=== PATIENT | male | born 2000 | race Caucasian/White ===

== ENCOUNTER → 2018-09-12 | Outpatient (CLI) | payer OTHER ==
[~2018-09-12] MED LIST: MULTTAB50 PO
[2018-09-12 10:34] LABS: BASO % 0.4 % (0.0-1.0); EOS # 0.2 10^3/uL (0.0-0.50); HEMATOCRIT 44.6 % (42.0-52.0); HEMOGLOBIN 14.9 g/dl (13.5-17.5); LYMPH # 1.7 10^3/uL (1.5-6.5); LYMPH % 24.6 % (24.0-44.0); MEAN CORPUSCULAR HEMOGLOBIN 28.4 pg (27.0-33.0); MEAN CORPUSCULAR HGB CONC 33.4 g/dl (32.0-36.5); MEAN CORPUSCULAR VOLUME 85.1 fl (80.0-96.0); MONO # 0.7 10^3/uL (0.0-0.8); MONO % 10.2 % (0.0-5.0); NEUTROPHILS # 4.3 10^3/uL (1.8-7.7); NEUTROPHILS % 61.4 % (36.0-66.0); PLATELET COUNT, AUTOMATED 244 10^3/uL (150-450); RED BLOOD COUNT 5.24 10^6/uL (4.30-6.10); WHITE BLOOD COUNT 6.9 10^3/uL (4.0-10.0)
[2018-09-12 11:08] LABS: ALBUMIN 3.8 GM/DL (3.2-5.2); ALT/SGPT 22 U/L (12-78); BILIRUBIN,DIRECT 0.2 MG/DL (0.0-0.2); BILIRUBIN,TOTAL 0.9 MG/DL (0.2-1.0); BLOOD UREA NITROGEN 14 MG/DL (7-18); C REACTIVE PROTEIN QUANTITATIV < 0.30 MG/DL (0.00-0.30); CALCIUM LEVEL 8.7 MG/DL (8.5-10.1); CARBON DIOXIDE LEVEL 29 MEQ/L (21-32); CHLORIDE LEVEL 107 MEQ/L (98-107); CREATININE FOR GFR 1.12 MG/DL (0.70-1.30); FERRITIN 49 NG/ML (26-388); GLUCOSE, FASTING 91 MG/DL (70-100); IRON (FE) 71 UG/DL (65-175); PERCENT SATURATION 22.3 % (19.7-50.0); POTASSIUM SERUM 4.2 MEQ/L (3.5-5.1); SODIUM LEVEL 141 MEQ/L (136-145); TOTAL IRON BINDING CAPACITY 318 UG/DL (250-450); TOTAL PROTEIN 7.3 GM/DL (6.4-8.2)
[2018-09-12 11:23] LABS: ERYTHROCYTE SEDIMENTATION RATE 6 mm/hr (0-15)
[2018-09-14 09:26] LABS: FOLATE > 24.0 NG/ML; VITAMIN B12 LEVEL 738 PG/ML
== END ==
LOC: M LAB 10:09
PROVIDERS: ATTEND Internal Medicine Gastroenterology
DX: K51.90 Ulcerative colitis, unspecified, without complications (principal); K52.3 Indeterminate colitis

== ENCOUNTER → 2018-10-07 | Outpatient (REF) | payer OTHER | LOC: M LAB REF 15:40 | PROVIDERS: ATTEND Internal Medicine Gastroenterology | DX: K90.0 Celiac disease (principal); K51.90 Ulcerative colitis, unspecified, without complications ==

== ENCOUNTER 2019-06-21 12:14 | Day surgery (SDC) | payer OTHER ==
[~2019-06-21] VITALS: Ht 172.7 cm; Wt 88.0 kg
[~2019-06-21 12:14] MED LIST changes: +LIDOCAINE 2% INJ 100 MG/5 ML SDV (FOR ANES.) As Ordered ONE; +MESA400C2 PO; +NS 1,000 ML IV ONE; +[UNRECOGNIZED DRUG - CODE] PO; +[UNRECOGNIZED DRUG - OTHER] PO; +propofoL 200 MG/20 ML VIAL As Ordered ONE
[2019-06-21] MEDS ORDERED: fentaNYL 100 MCG/2 ML INJECTION (J3010) As Ordered ONE (12:45)
[2019-06-21] MEDS ORDERED: propofoL 200 MG/20 ML VIAL As Ordered ONE (13:24)
--- NOTE | 2019-06-21 13:41 | ROOR ---
Patient Name: Daniel Myers Procedure Date: 06/21/2019 1:01 PM Date of : 2000 Age: 18 Room: [facility] Gender: Male Note Status: Finalized Procedure: Upper GI endoscopy Indications: Follow-up of celiac disease Providers: Eliel Quiroz MD Referring MD: WILDA MAYES MD Requesting Provider: Medicines: Monitored Anesthesia Care Complications: No immediate complications. Procedure: Pre-Anesthesia Assessment: - Prior to the procedure, a History and Physical was performed, and patient medications and allergies were reviewed. The patient is competent. The risks and benefits of the procedure and the sedation options and risks were discussed with the patient. All questions were answered and informed consent was obtained. Patient identification and proposed procedure were verified by the physician, the nurse and the anesthesiologist in the procedure room. Mental Status Examination: alert and oriented. Airway Examination: normal oropharyngeal airway and neck mobility. Respiratory Examination: clear to auscultation. CV Examination: normal. Prophylactic Antibiotics: The patient does not require prophylactic antibiotics. Prior Anticoagulants: The patient has taken no previous anticoagulant or antiplatelet agents. ASA Grade Assessment: II - A patient with mild systemic disease. After reviewing the risks and benefits, the patient was deemed in satisfactory condition to undergo the procedure. The anesthesia plan was to use monitored anesthesia care (MAC). Immediately prior to administration of medications, the patient was re-assessed for adequacy to receive sedatives. The heart rate, respiratory rate, oxygen saturations, blood pressure, adequacy of pulmonary ventilation, and response to care were monitored throughout the procedure. The physical status of the patient was re-assessed after the procedure. The Endoscope was introduced through the mouth, and advanced to the second part of duodenum. The upper GI endoscopy was accomplished without difficulty. The patient tolerated the procedure well. Findings: The examined esophagus was normal. The Z-line was irregular and was found 40 cm from the incisors. Patchy mildly erythematous mucosa without bleeding was found in the gastric antrum. Scattered moderate inflammation characterized by erythema and granularity was found in the duodenal bulb and in the first portion of the duodenum. Biopsies for histology were taken with a cold forceps for evaluation of celiac disease. Impression: - Normal esophagus. - Z-line irregular, 40 cm from the incisors. - Erythematous mucosa in the antrum. - Duodenitis. Biopsied. Recommendation: - Patient has a contact number available for emergencies. The signs and symptoms of potential delayed complications were discussed with the patient. Return to normal activities tomorrow. Written discharge instructions were provided to the patient. - Resume previous diet. - Gluten free diet. - Continue present medications. - Await pathology results. - Return to GI clinic in [facility] (address [address], [address], [place] [address]) in 4 -- 6 weeks. Please call GI clinic @ [phone] for apppointment date and time. - Return to primary care physician. Eliel Quiroz MD Eliel Quiroz MD 06/21/2019 1:41:11 PM Electronically signed by Eleil Quiroz MD Number of Addenda: 0 Note Initiated On: 06/21/2019 1:01 PM Estimated Blood Loss: Estimated blood loss was minimal.
--- NOTE | 2019-06-21 13:48 | ROOR ---
Patient Name: Daniel Myers Procedure Date: 06/21/2019 1:02 PM Date of : 2000 Age: 18 Room: [facility] Gender: Male Note Status: Finalized Procedure: Colonoscopy Indications: Follow-up of ulcerative colitis Providers: Eliel Quiroz MD Referring MD: WILDA MAYES MD Requesting Provider: Medicines: Monitored Anesthesia Care Complications: No immediate complications. Procedure: Pre-Anesthesia Assessment: - Prior to the procedure, a History and Physical was performed, and patient medications and allergies were reviewed. The patient is competent. The risks and benefits of the procedure and the sedation options and risks were discussed with the patient. All questions were answered and informed consent was obtained. Patient identification and proposed procedure were verified by the physician, the nurse and the anesthesiologist in the procedure room. Mental Status Examination: alert and oriented. Airway Examination: normal oropharyngeal airway and neck mobility. Respiratory Examination: clear to auscultation. CV Examination: normal. Prophylactic Antibiotics: The patient does not require prophylactic antibiotics. Prior Anticoagulants: The patient has taken no previous anticoagulant or antiplatelet agents. ASA Grade Assessment: II - A patient with mild systemic disease. After reviewing the risks and benefits, the patient was deemed in satisfactory condition to undergo the procedure. The anesthesia plan was to use monitored anesthesia care (MAC). Immediately prior to administration of medications, the patient was re-assessed for adequacy to receive sedatives. The heart rate, respiratory rate, oxygen saturations, blood pressure, adequacy of pulmonary ventilation, and response to care were monitored throughout the procedure. The physical status of the patient was re-assessed after the procedure. The Colonoscope was introduced through the anus and advanced to the terminal ileum, with identification of the appendiceal orifice and IC valve. The colonoscopy was performed without difficulty. The patient tolerated the procedure well. The quality of the bowel preparation was good. The terminal ileum, ileocecal valve, appendiceal orifice, and rectum were photographed. Scope insertion time was 1 minute. Scope withdrawal time was 6 minutes. The total duration of the procedure was 8 minutes. Findings: The perianal and digital rectal examinations were normal. The terminal ileum appeared normal. Inflammation characterized by congestion (edema), erythema, loss of vascularity, mucus, confluent ulcerations and shallow ulcerations was found in a continuous and circumferential pattern from the rectum to the cecum. No sites were spared. This was graded as Haile Score 3 (severe, with spontaneous bleeding, ulcerations), and when compared to previous examinations, the findings are unchanged. Biopsies were taken with a cold forceps for histology. Fluid aspiration for microbiology was performed. Verification of patient identification for the specimen was done by the physician and nurse using the patient's name, date and medical record number. Estimated blood loss was minimal. Non-bleeding external and internal hemorrhoids were found during anoscopy. The hemorrhoids were medium-sized. Retroflexion in the rectum was not performed due to severe colitis. Impression: - The examined portion of the ileum was normal. - Pancolitis ulcerative colitis. Inflammation was found from the rectum to the cecum. This was graded as Haile Score 3 (severe disease), unchanged compared to previous examinations. Biopsied. Fluid aspiration performed. - Non-bleeding external and internal hemorrhoids. Recommendation: - Patient has a contact number available for emergencies. The signs and symptoms of potential delayed complications were discussed with the patient. Return to normal activities tomorrow. Written discharge instructions were provided to the patient. - Gluten free diet. - Continue present medications. - Await pathology results. - Use Entyvio (vedolizumab) intravenous infusion: 300 mg IV once per week at week 0, week 2, and week 6. - Return to GI clinic in [facility] (address [address], [address], [place], [facility]) in 4 -- 6 weeks. Please call GI clinic @ [phone] for apppointment date and time. - Return to primary care physician. Eliel Quiroz MD Eliel Quiroz MD 06/21/2019 1:47:39 PM Electronically signed by Eliel Quiroz MD Number of Addenda: 0 Note Initiated On: 06/21/2019 1:02 PM Estimated Blood Loss: Estimated blood loss was minimal.
[2019-06-21 14:00] VITALS: BP 139/83
== END 2019-06-21 14:26 | disposition home or self-care (01) ==
LOC: M OPP 12:14
PROVIDERS: ATTEND Internal Medicine Gastroenterology
DX: K64.8 Other hemorrhoids (principal); K51.00 Ulcerative (chronic) pancolitis without complications; K22.8 Other specified diseases of esophagus; K31.89 Other diseases of stomach and duodenum; K29.80 Duodenitis without bleeding; K90.0 Celiac disease
CPT/HCPCS: 43239; 45380; 87507; 88305; J3010

== ENCOUNTER 2019-07-26 13:21 | Outpatient (CLI) | payer OTHER ==
[~2019-07-26] VITALS: Ht 172.7 cm; Wt 87.9 kg
[~2019-07-26 13:21] MED LIST changes: -LIDOCAINE 2% INJ 100 MG/5 ML SDV (FOR ANES.) As Ordered ONE; -NS 1,000 ML IV ONE; -propofoL 200 MG/20 ML VIAL As Ordered ONE
[2019-07-26 13:45] VITALS: BP 124/59
[2019-07-26] MEDS ORDERED: ENTY1INJ IV (14:00)
[2019-07-26 14:25] VITALS: BP 119/67
[2019-07-26] MEDS ORDERED: VEDOLIZUMAB 300 MG in NS 250 ML IV ONE (14:30)
[2019-07-26 14:55] VITALS: BP 122/69
== END 2019-07-26 14:55 | disposition home or self-care (01) ==
LOC: M INFU 13:21
PROVIDERS: ATTEND Internal Medicine Gastroenterology
DX: K51.90 Ulcerative colitis, unspecified, without complications (principal)
CPT/HCPCS: 96365; J3380

== ENCOUNTER 2019-08-09 13:30 | Outpatient (CLI) | payer OTHER ==
[~2019-08-09] VITALS: Ht 172.7 cm; Wt 87.9 kg
[~2019-08-09 13:30] MED LIST changes: +ENTY1INJ IV
[2019-08-09 13:45] VITALS: BP 140/68
[2019-08-09] MEDS ORDERED: VEDOLIZUMAB 300 MG in NS 250 ML IV ONE (14:00)
[2019-08-09 14:40] VITALS: BP 130/66
== END 2019-08-09 14:40 | disposition home or self-care (01) ==
LOC: M INFU 13:30
PROVIDERS: ATTEND Internal Medicine Gastroenterology
DX: K51.90 Ulcerative colitis, unspecified, without complications (principal)
CPT/HCPCS: 96365; J3380

== ENCOUNTER → 2019-11-13 | Outpatient (CLI) | payer OTHER ==
[2019-11-13 13:21] LABS: BASO # 0.1 10^3/uL (0.0-0.2); BASO % 0.4 % (0.0-1.0); EOS % 0.2 % (0.0-3.0); HEMATOCRIT 43.9 % (42.0-52.0); HEMOGLOBIN 14.8 g/dl (13.5-17.5); LYMPH % 18.8 % (24.0-44.0); MEAN CORPUSCULAR HEMOGLOBIN 28.6 pg (27.0-33.0); MEAN CORPUSCULAR HGB CONC 33.7 g/dl (32.0-36.5); MEAN CORPUSCULAR VOLUME 84.9 fl (80.0-96.0); MONO # 1.6 10^3/uL (0.0-0.8); MONO % 9.8 % (0.0-5.0); NEUTROPHILS % 68.6 % (36.0-66.0); PLATELET COUNT, AUTOMATED 301 10^3/uL (150-450); RED BLOOD COUNT 5.17 10^6/uL (4.30-6.10)
[2019-11-13 13:50] LABS: ALBUMIN 3.6 GM/DL (3.2-5.2); ALT/SGPT 19 U/L (12-78); BILIRUBIN,DIRECT 0.1 MG/DL (0.0-0.2); BILIRUBIN,TOTAL 0.4 MG/DL (0.2-1.0); BLOOD UREA NITROGEN 19 MG/DL (7-18); C REACTIVE PROTEIN QUANTITATIV < 0.30 MG/DL (0.00-0.30); CREATININE FOR GFR 0.98 MG/DL (0.70-1.30); TOTAL PROTEIN 6.9 GM/DL (6.4-8.2)
[2019-11-13 14:17] LABS: ERYTHROCYTE SEDIMENTATION RATE 4 mm/hr (0-15)
== END ==
LOC: M LAB 12:14
PROVIDERS: ATTEND Internal Medicine Gastroenterology
DX: K51.00 Ulcerative (chronic) pancolitis without complications (principal)

== ENCOUNTER 2019-11-15 13:02 | Outpatient (CLI) | payer OTHER ==
[~2019-11-15] VITALS: Ht 172.7 cm; Wt 87.9 kg
[2019-11-15 13:57] VITALS: BP 141/95
[2019-11-15] MEDS ORDERED: VEDOLIZUMAB 300 MG in NS 250 ML IV ONE (14:00)
[2019-11-15 15:13] VITALS: BP 122/77
== END 2019-11-15 15:10 | disposition home or self-care (01) ==
LOC: M INFU 13:02
PROVIDERS: ATTEND Internal Medicine Gastroenterology
DX: K51.90 Ulcerative colitis, unspecified, without complications (principal)
CPT/HCPCS: 96365; J3380

== ENCOUNTER 2019-12-27 13:32 | Outpatient (CLI) | payer OTHER ==
[~2019-12-27] VITALS: Ht 175.3 cm; Wt 95.5 kg
[2019-12-27 13:45] VITALS: BP 146/62
[2019-12-27] MEDS ORDERED: VEDOLIZUMAB 300 MG in NS 250 ML IV ONE (14:00)
[2019-12-27 15:05] VITALS: BP 118/76
== END 2019-12-27 15:05 | disposition home or self-care (01) ==
LOC: M INFU 13:32
PROVIDERS: ATTEND Internal Medicine Gastroenterology
DX: K51.90 Ulcerative colitis, unspecified, without complications (principal)
CPT/HCPCS: 96365; J3380

== ENCOUNTER 2020-02-21 13:49 | Outpatient (CLI) | payer OTHER ==
[~2020-02-21] VITALS: Ht 175.3 cm; Wt 95.5 kg
[2020-02-21 13:55] VITALS: BP 149/67
[2020-02-21] MEDS ORDERED: VEDOLIZUMAB 300 MG in NS 250 ML IV ONE (14:00)
[2020-02-21 15:15] VITALS: BP 123/82
== END 2020-02-21 15:15 | disposition home or self-care (01) ==
LOC: M INFU 13:49
PROVIDERS: ATTEND Internal Medicine Gastroenterology
DX: K51.90 Ulcerative colitis, unspecified, without complications (principal)
CPT/HCPCS: 96365; J3380

== ENCOUNTER 2020-06-12 14:12 | Outpatient (CLI) | payer OTHER ==
[~2020-06-12] VITALS: Ht 175.3 cm; Wt 95.5 kg
[2020-06-12] MEDS ORDERED: VEDOLIZUMAB 300 MG in NS 250 ML IV ONE (14:30)
[2020-06-12 15:00] VITALS: BP 127/62
[2020-06-12 16:20] VITALS: BP 135/74
[2020-06-13] MEDS ORDERED: MULT-90 PO (14:45)
[2020-06-13] MEDS ORDERED: FIBE625T PO (14:45)
== END 2020-06-12 16:30 | disposition home or self-care (01) ==
LOC: M INFU 14:12
PROVIDERS: ATTEND Internal Medicine Gastroenterology
DX: K51.90 Ulcerative colitis, unspecified, without complications (principal)
CPT/HCPCS: 96365; J3380

== ENCOUNTER → 2020-06-14 | Outpatient (CLI) | payer OTHER ==
[~2020-06-14] MED LIST changes: +FIBE625T PO; +MULT-90 PO
== END ==
LOC: M LABSMTC 12:27
PROVIDERS: ATTEND Anesthesiology
DX: Z01.812 Encounter for preprocedural laboratory examination (principal); Z20.822 Contact with and (suspected) exposure to COVID-19

== ENCOUNTER 2020-06-19 09:15 | Day surgery (SDC) | payer OTHER ==
[~2020-06-19] VITALS: Ht 177.8 cm; Wt 90.6 kg
[~2020-06-19 09:15] MED LIST changes: +NS 1,000 ML IV ONE; +propofoL 500 MG/50 ML VIAL As Ordered ONE
--- OUTSIDE RECORDS SUMMARY | 2020-06-19 09:19 | CCD | Continuity of Care Document ---
Author Author Daniel LAINEZ M.D. Organization Unknown Address [address] [place] [id number] Phone [phone] Care Team Providers Care Front End Assistant Name Role Phone Yordan Lainez M.D. AUTM [phone] [facility] Gastroenterology AUTM [phone] Problems Description No Information Available Social History Type Date Description Comments Sex Unknown ETOH Use Denies alcohol use Tobacco Use Start: Unknown Patient has never smoked Recreational Drug Use Denies Drug Use Guns in Home No Smoke Alarms Yes Smoke Alarms Carbon Monoxide Detector: Yes Allergies, Adverse Reactions, Alerts Active Allergies Reaction Severity Comments Date NKDA 04/18/2017 NKFA 04/18/2017 NKEA 04/18/2017 Medications Active Medications SIG Qnty Indications Ordering Provide r Date Mesalamine 400mg Capsules DR Take Two Capsules By Mouth Twice A Day Unknown 00 Immunizations Description No Information Available Vital Signs Date Vital Result Comment 01/27/2019 3:05pm BP Systolic 127 mmHg BP Diastolic 78 mmHg Heart Rate 66 /min Body Temperature 98.4 F Respiratory Rate 16 /min O2 % BldC Oximetry 98 % Weight 189.00 lb Weight 85.730 kg Height 69 inches 5'9" BMI (Body Mass Index) 27.9 kg/m2 BSA (Body Surface Area) 2.02 m2 12/16/2018 2:58pm BP Systolic 118 mmHg BP Diastolic 66 mmHg Heart Rate 78 /min Body Temperature 97.6 F Respiratory Rate 20 /min O2 % BldC Oximetry 97 % Weight 189.00 lb Weight 85.730 kg Weight Percentile 87th Height 69 inches 5'9" Height Percentile 41 % BMI (Body Mass Index) 27.9 kg/m2 Body Mass Index Percentile 89 % BSA (Body Surface Area) 2.02 m2 Results Test Acquired Date Facility Test Result H/L Range Note Laboratory test finding [facility]SEE [facility]) 1 GI 4 05/01/2020 [facility] Campylobacter Not Detected Not Detected C difficile toxin A/B Not Detected Not Detected Plesiomonas shigelloides Not Detected Not Detected Salmonella Not Detected Not Detected Vibrio Not Detected Not Detected Vibrio cholerae Not Detected Not Detected Yersinia enterocolitica Not Detected Not Detected Enteroaggregative E coli Not Detected Not Detected Enteropathogenic E coli Not Detected Not Detected Enterotoxigenic E coli Not Detected Not Detected Pajsm-zlfcr-rqdshegyo Ecoli Not Detected Not Detected E coli O157 Not applicable Not Detected Shigella/EnteroinvasiveE coli Not Detected Not Detect ed Cryptosporidium Not Detected Not Detected Cyclospora cayetanensis Not Detected Not Detected Entamoeba histolytica Not Detected Not Detected Giardia lamblia Not Detected Not Detected Adenovirus F 40/41 Not Detected Not Detected Astrovirus Not Detected Not Detected Norovirus GI/Gii Not Detected Not Detected Rotavirus A Not Detected Not Detected Sapovirus Not Detected Not Detected Ova & Para Exam 05/01/2020 [facility] Ova \\T\\ Para Exam (SEE NOTE) 2 Source: STOOL 3 Basic Metabolic Panel 05/01/2020 [facility] Basic Metabolic Pane (SEE NOTE) 4, 5 Sodium 139 mEq/L 134 - 153 Potassium 3.9 mEq/L 3.6 - 5.0 Chloride 102 mEq/L 98 - 107 Co2 27 mEq/L 22 - 30 Glucose 108 mg/dL 65 - 110 BUN 18 mg/dL 7 - 21 Creatinine 1.1 mg/dL 0.7 - 1.5 BUN/Creat 16 8 - 27 Calcium 9.2 mg/dL 8.4 - 10.2 Anion Gap 10.0 mmol/L 8.0 - 16.0 Age 19 yrs Afr Amer GFR >60 mL/min Non-Aa GFR >60 mL/min 6 Hepatic Panel 05/01/2020 [facility] Total Protein 6.5 g/dL 6.3 - 8.2 Albumin 4.5 g/dL 3.9 - 5.0 Globulin 2.0 GM/DL Low 2.4 - 3.2 Total Bili <0.7 mg/dL 0.2 - 1.3 Direct Bili <0.2 mg/dL 0.1 - 0.4 Indirect Bili 0.3 mg/dL 0.2 - 1.1 Sgot/Ast 15 U/L 5 - 40 SGPT/Alt 15 U/L 7 - 56 Alkaline Phos 53 U/L 38 - 126 Laboratory test finding 05/01/2020 [facility] CRP (High Sensitivity) 0.40 mg/L Low 1.00 - 3.00 7 CBC W/Automated Diff 05/01/2020 [facility] CBC W/Automated Diff (SEE NOTE) 8 WBC 15.1 10^3/uL High 4.2 - 11.0 RBC 5.45 10^6/uL 4.50 - 6.30 Hemoglobin 15.5 g/dL 14.0 - 16.0 Hematocrit 45.5 % 41.0 - 51.0 MCV 83.5 fL 80.0 - 94.0 MCH 28.4 pg 27.0 - 34.0 MCHC 34.1 g/dL 31.0 - 36.0 RDW 12.6 % 11.5 - 14.8 Platelets 323 10^3/uL 150 - 450 MPV 9.3 fL 7.4 - 10.4 Neut 68.7 % 37.0 - 80.0 Lymph 19.0 % Low 25.0 - 40.0 [place] 9.1 % High 3.0 - 8.0 Eos 1.7 % 0.0 - 7.0 Baso 0.4 % 0.0 - 2.0 %Ig 1.1 % High 0.0 - 0.0 %NRBC 0.0 % 0.0 - 0.0 #Neut 10.40 10^3/uL High 2.00 - 6.90 #Lymph 2.87 10^3/uL 0.60 - 3.40 #[place] 1.37 10^3/uL High 0.00 - 0.90 #Eos 0.26 10^3/uL 0.00 - 0.70 #Baso 0.06 10^3/uL 0.00 - 0.20 #Ig 0.17 10^3/uL High 0.00 - 0.10 #NRBC 0.00 10^3/uL 0.00 - 0.00 Manual Diff SEE BELOW Segs 76 % 37 - 80 %Lymph 15 % Low 25 - 40 %[place] 8 % 3 - 8 %Eos 1 % 0 - 7 RBC Morph SEE BELOW [place] 1+ Abnormal Normal: None Seen 9 PLT Est NORMAL Normal: Normal 10 Sedimentation Rate 05/01/2020 [facility] Sed Rate 1 mm/hr 0 - 15 Sed Rate Reenter 1 Laboratory test finding 04/25/2020 [facility] Lipase Serum 24 U/L 13 - 60 Comprehensive Metabolic Panel 04/25/2020 [facility] ospital Comprehensive Metabo (SEE NOTE) 11 Sodium 141 mEq/L 134 - 153 Potassium 3.9 mEq/L 3.6 - 5.0 Chloride 103 mEq/L 98 - 107 Co2 29 mEq/L 22 - 30 Glucose 93 mg/dL 65 - 110 BUN 16 mg/dL 7 - 21 Creatinine 1.1 mg/dL 0.7 - 1.5 BUN/Creat 15 8 - 27 Total Protein 7.4 g/dL 6.3 - 8.2 Albumin 4.6 g/dL 3.9 - 5.0 Globulin 2.8 GM/DL 2.4 - 3.2 A/G Ratio 1.6 0.8 - 2.0 Calcium 9.6 mg/dL 8.4 - 10.2 Total Bili 1.0 mg/dL 0.2 - 1.3 Alkaline Phos 61 U/L 38 - 126 Sgot/Ast 11 U/L 5 - 40 SGPT/Alt 10 U/L 7 - 56 Anion Gap 9.0 mmol/L 8.0 - 16.0 Age 19 yrs Non-Aa GFR >60 mL/min Afr Amer GFR >60 mL/min 12 Laboratory test finding 04/25/2020 [facility] Lactic Acid (Lactate) 1.2 mmol/L 0.2 - 2.2 Urinalysis 04/25/2020 [facility] Urinalysis (SEE NOTE) 13 Source Clean Catch Color yellow Normal: Yellow Clarity clear Normal: Clear Spec [place] 1.015 1.001 - 1.030 pH 6 5 - 9 Glucose NORM Normal: Negative Bilirubin NEG Normal: Negative Ketone NEG Normal: Negative Protein 15 Normal: Negative Nitrite NEG Normal: Negative Blood 25 Abnormal Normal: Negative Leuk Est 25 Normal: Negative Urobilinogen NOR less than 1.0 mg/dL Microscopic See Below WBC 1 - 3 Normal: None Seen RBC 0 - 1 Normal: None Seen Epithelial FEW Normal: None Seen Bacteria Trace Normal: None Seen Mucous Trace Normal: None Seen CBC W/Automated Diff 04/25/2020 [facility] CBC W/Automated Diff (SEE NOTE) 14 WBC 8.0 10^3/uL 4.2 - 11.0 RBC 5.33 10^6/uL 4.50 - 6.30 Hemoglobin 15.4 g/dL 14.0 - 16.0 Hematocrit 45.3 % 41.0 - 51.0 MCV 85.0 fL 80.0 - 94.0 MCH 28.9 pg 27.0 - 34.0 MCHC 34.0 g/dL 31.0 - 36.0 RDW 12.6 % 11.5 - 14.8 Platelets 293 10^3/uL 150 - 450 MPV 9.5 fL 7.4 - 10.4 Neut 61.8 % 37.0 - 80.0 Lymph 22.1 % Low 25.0 - 40.0 [place] 9.0 % High 3.0 - 8.0 Eos 6.2 % 0.0 - 7.0 Baso 0.4 % 0.0 - 2.0 %Ig 0.5 % High 0.0 - 0.0 %NRBC 0.0 % 0.0 - 0.0 #Neut 4.97 10^3/uL 2.00 - 6.90 #Lymph 1.78 10^3/uL 0.60 - 3.40 #[place] 0.72 10^3/uL 0.00 - 0.90 #Eos 0.50 10^3/uL 0.00 - 0.70 #Baso 0.03 10^3/uL 0.00 - 0.20 #Ig 0.04 10^3/uL 0.00 - 0.10 #NRBC 0.00 10^3/uL 0.00 - 0.00 Manual Diff NOT INDICATED RBC Morph NOT INDICATED Urinalysis 02/27/2020 [facility] Urinalysis (SEE NOTE) 15, 16 Source Random Void Color Yellow Normal: Yellow Clarity Clear Normal: Clear Spec [place] 1.015 1.001 - 1.030 pH 5 5 - 9 Glucose Negative Normal: Negative Bilirubin Negative Normal: Negative Ketone Negative Normal: Negative Protein Negative Normal: Negative Nitrite Negative Normal: Negative Blood 10 Abnormal Normal: Negative Leuk Est Negative Normal: Negative Urobilinogen NOR less than 1.0 mg/dL Microscopic See Below WBC 1 - 3 Normal: None Seen RBC 1 - 3 Normal: None Seen Epithelial FEW Normal: None Seen Bacteria Trace Normal: None Seen CBC W/Automated Diff 02/27/2020 [facility] CBC W/Automated Diff (SEE NOTE) 17 WBC 8.8 10^3/uL 4.2 - 11.0 RBC 5.28 10^6/uL 4.50 - 6.30 Hemoglobin 15.1 g/dL 14.0 - 16.0 Hematocrit 44.4 % 41.0 - 51.0 MCV 84.1 fL 80.0 - 94.0 MCH 28.6 pg 27.0 - 34.0 MCHC 34.0 g/dL 31.0 - 36.0 RDW 12.3 % 11.5 - 14.8 Platelets 286 10^3/uL 150 - 450 MPV 9.2 fL 7.4 - 10.4 Neut 56.8 % 37.0 - 80.0 Lymph 26.6 % 25.0 - 40.0 [place] 10.7 % High 3.0 - 8.0 Eos 5.0 % 0.0 - 7.0 Baso 0.6 % 0.0 - 2.0 %Ig 0.3 % High 0.0 - 0.0 %NRBC 0.0 % 0.0 - 0.0 #Neut 4.97 10^3/uL 2.00 - 6.90 #Lymph 2.33 10^3/uL 0.60 - 3.40 #[place] 0.94 10^3/uL High 0.00 - 0.90 #Eos 0.44 10^3/uL 0.00 - 0.70 #Baso 0.05 10^3/uL 0.00 - 0.20 #Ig 0.03 10^3/uL 0.00 - 0.10 #NRBC 0.00 10^3/uL 0.00 - 0.00 Manual Diff NOT INDICATED RBC Morph NOT INDICATED Comprehensive Metabolic Panel 02/27/2020 [facility] ospital Comprehensive Metabo (SEE NOTE) 18 Sodium 139 mEq/L 134 - 153 Potassium 3.9 mEq/L 3.6 - 5.0 Chloride 103 mEq/L 98 - 107 Co2 28 mEq/L 22 - 30 Glucose 103 mg/dL 65 - 110 BUN 16 mg/dL 7 - 21 Creatinine 1.1 mg/dL 0.7 - 1.5 BUN/Creat 15 8 - 27 Total Protein 7.6 g/dL 6.3 - 8.2 Albumin 4.5 g/dL 3.9 - 5.0 Globulin 3.1 GM/DL 2.4 - 3.2 A/G Ratio 1.5 0.8 - 2.0 Calcium 9.3 mg/dL 8.4 - 10.2 Total Bili 0.8 mg/dL 0.2 - 1.3 Alkaline Phos 64 U/L 38 - 126 Sgot/Ast 17 U/L 5 - 40 SGPT/Alt 16 U/L 7 - 56 Anion Gap 8.0 mmol/L 8.0 - 16.0 Age 19 yrs Non-Aa GFR >60 mL/min Afr Amer GFR >60 mL/min 19 Laboratory test finding 02/27/2020 [facility] l Lipase Serum 40 U/L 13 - 60 Laboratory test finding 01/06/2020 [facility] Gliadin Iga AB 4 units 0-19 20 Gliadin Igg AB 27 units High 0-19 21 T-Tranglutaminase Iga <2 U/mL 0-3 22 Sedimentation Rate 01/06/2020 [facility] Sed Rate 3 mm/hr 0 - 15 Sed Rate Reenter 3 Laboratory test finding 01/06/2020 [facility] CRP (High Sensitivity) 1.40 mg/L 1.00 - 3.00 23 CBC W/Automated Diff 01/06/2020 [facility] CBC W/Automated Diff (SEE NOTE) 24 WBC 7.2 10^3/uL 4.2 - 11.0 RBC 5.17 10^6/uL 4.50 - 6.30 Hemoglobin 14.7 g/dL 14.0 - 16.0 Hematocrit 44.1 % 41.0 - 51.0 MCV 85.3 fL 80.0 - 94.0 MCH 28.4 pg 27.0 - 34.0 MCHC 33.3 g/dL 31.0 - 36.0 RDW 12.8 % 11.5 - 14.8 Platelets 281 10^3/uL 150 - 450 MPV 9.2 fL 7.4 - 10.4 Neut 57.6 % 37.0 - 80.0 Lymph 28.4 % 25.0 - 40.0 [place] 9.7 % High 3.0 - 8.0 Eos 3.1 % 0.0 - 7.0 Baso 0.4 % 0.0 - 2.0 %Ig 0.8 % High 0.0 - 0.0 %NRBC 0.0 % 0.0 - 0.0 #Neut 4.12 10^3/uL 2.00 - 6.90 #Lymph 2.03 10^3/uL 0.60 - 3.40 #[place] 0.69 10^3/uL 0.00 - 0.90 #Eos 0.22 10^3/uL 0.00 - 0.70 #Baso 0.03 10^3/uL 0.00 - 0.20 #Ig 0.06 10^3/uL 0.00 - 0.10 #NRBC 0.00 10^3/uL 0.00 - 0.00 Manual Diff NOT INDICATED RBC Morph NOT INDICATED Liver Profile 11/13/2019 [facility] Ast/Sgot 10 U/L Normal 7-37 Alt/SGPT 19 U/L Normal 12-78 Alkaline Phosphatase 52 U/L Normal 45-117 Bilirubin,Total 0.4 mg/dL Normal 0.2-1.0 Bilirubin,Direct 0.1 mg/dL Normal 0.0-0.2 Total Protein 6.9 GM/DL Normal 6.4-8.2 Albumin 3.6 GM/DL Normal 3.2-5.2 Albumin/Globulin Ratio 1.1 Normal Laboratory test finding 11/13/2019 [facility] Blood Urea Nitrogen 19 mg/dL High 7-18 Creatinine With GFR 0.98 mg/dL Normal 0.70-1.30 C Reactive Protein Quantitativ < 0.30 mg/dL Normal 0.00-0.30 CBC With Differential 11/13/2019 [facility] White Blood Count 16.0 10 High 4.0-10.0 Red Blood Count 5.17 10 Normal 4.30-6.10 Hemoglobin 14.8 g/dL Normal 13.5-17.5 Hematocrit 43.9 % Normal 42.0-52.0 Mean Corpuscular Volume 84.9 fl Normal 80.0-96.0 Mean Corpuscular Hemoglobin 28.6 pg Normal 27.0-33.0 Mean Corpuscular HGB Conc 33.7 g/dL Normal 32.0-36.5 Red Cell Distribution Width 12.8 % Normal 11.5-14.5 Platelet Count, Automated 301 10 Normal 150-450 Neutrophils % 68.6 % High 36.0-66.0 Lymph % 18.8 % Low 24.0-44.0 [place] % 9.8 % High 0.0-5.0 Eos % 0.2 % Normal 0.0-3.0 Baso % 0.4 % Normal 0.0-1.0 Immature Granulocyte % 2.2 % Normal 0-3.0 Nucleated Red Blood Cell % 0.0 % Normal 0-0 Neutrophils # 11.0 10 High 1.5-8.5 Lymph # 3.0 10 Normal 1.5-5.0 [place] # 1.6 10 High 0.0-0.8 Eos # 0.0 10 Normal 0.0-0.5 Baso # 0.1 10 Normal 0.0-0.2 Laboratory test finding 11/13/2019 [facility] Erythrocyte Sedimentation Rate 4 mm/hr Normal 0-15 Anser VDZ Prometheus([id number]) 11/13/2019 [facility] VDZ Concentration 10.6 ug/mL Normal Antibodies to Vedolizumab <1.6 U/ml Normal 25 Laboratory test finding 11/13/2019 [facility] C Difficile Toxin Screen Negative Negative WBC Stool (SEE NOTE) 26 Ova & Para Exam 11/13/2019 [facility] Ova \\T\\ Para Exam (SEE NOTE) 27 Source: STOOL 28 GI 1 11/13/2019 [facility] Culture Stool (SEE NOTE) 29 Comprehensive Metabolic Panel 11/08/2019 [facility] ospital Comprehensive Metabo (SEE NOTE) 30 Sodium 137 mEq/L 134 - 153 Potassium 3.6 mEq/L 3.6 - 5.0 Chloride 102 mEq/L 98 - 107 Co2 26 mEq/L 22 - 30 Glucose 100 mg/dL 65 - 110 BUN 12 mg/dL 7 - 21 Creatinine 1.0 mg/dL 0.7 - 1.5 BUN/Creat 12 8 - 27 Total Protein 6.8 g/dL 6.3 - 8.2 Albumin 4.2 g/dL 3.9 - 5.0 Globulin 2.6 GM/DL 2.4 - 3.2 A/G Ratio 1.6 0.8 - 2.0 Calcium 9.6 mg/dL 8.4 - 10.2 Total Bili <0.7 mg/dL 0.2 - 1.3 Alkaline Phos 57 U/L 38 - 126 Sgot/Ast 16 U/L 5 - 40 SGPT/Alt 14 U/L 7 - 56 Anion Gap 9.0 mmol/L 8.0 - 16.0 Age 18 yrs Non-Aa GFR >60 mL/min Afr Amer GFR >60 mL/min 31 Laboratory test finding 11/08/2019 [facility] l Lipase Serum 25 U/L 13 - 60 CBC W/Automated Diff 11/08/2019 [facility] CBC W/Automated Diff (SEE NOTE) 32 WBC 13.1 10^3/uL High 4.2 - 11.0 RBC 5.04 10^6/uL 4.50 - 6.30 Hemoglobin 14.4 g/dL 14.0 - 16.0 Hematocrit 42.1 % 41.0 - 51.0 MCV 83.5 fL 80.0 - 94.0 MCH 28.6 pg 27.0 - 34.0 MCHC 34.2 g/dL 31.0 - 36.0 RDW 12.6 % 11.5 - 14.8 Platelets 275 10^3/uL 150 - 450 MPV 9.4 fL 7.4 - 10.4 Neut 73.4 % 37.0 - 80.0 Lymph 16.3 % Low 25.0 - 40.0 [place] 8.2 % High 3.0 - 8.0 Eos 1.5 % 0.0 - 7.0 Baso 0.2 % 0.0 - 2.0 %Ig 0.4 % High 0.0 - 0.0 %NRBC 0.0 % 0.0 - 0.0 #Neut 9.62 10^3/uL High 2.00 - 6.90 #Lymph 2.14 10^3/uL 0.60 - 3.40 #[place] 1.08 10^3/uL High 0.00 - 0.90 #Eos 0.20 10^3/uL 0.00 - 0.70 #Baso 0.03 10^3/uL 0.00 - 0.20 #Ig 0.05 10^3/uL 0.00 - 0.10 #NRBC 0.00 10^3/uL 0.00 - 0.00 Manual Diff SEE BELOW Segs 62 % 37 - 80 %Lymph 28 % 25 - 40 %[place] 7 % 3 - 8 %Eos 2 % 0 - 7 %Baso 1 % 0 - 2 RBC Morph MORPH IS NORMAL Urinalysis 11/08/2019 [facility] Urinalysis (SEE NOTE) 33 Source Clean Catch Color yellow Normal: Yellow Clarity clear Normal: Clear Spec [place] 1.025 1.001 - 1.030 pH 5 5 - 9 Glucose NORM Normal: Negative Bilirubin NEG Normal: Negative Ketone NEG Normal: Negative Protein NEG Normal: Negative Nitrite NEG Normal: Negative Blood 25 Abnormal Normal: Negative Leuk Est NEG Normal: Negative Urobilinogen NOR less than 1.0 mg/dL Microscopic See Below RBC 1 - 3 Normal: None Seen Epithelial FEW Normal: None Seen 1 _WBC STOOL_ ^$[id number] ^^[id number] $$[id number] ^^[id number] $$[id number] $$[id number] $$[id number] $$[id number] $$[id number] REPORTED DATE/TIME: 05/03/2020 17:05 Culture: WBC STOOL Status: Final White Blood Cells (WBC), Stool: P1 Rare white blood cells. Reference Range: None Seen P1 Test performed by: [employer] #: [id number] [address] [facility] [id number] [place] [id number] Shrimp Picker : Esau Conrejo MD NPI #: Mapping Supervisor : 05/04/20.XMT.SENT REF 05/04/20.MD Vergarato [facility] via fax 2 _OVA & P D SM CON ID_ 3 ^$[id number] ^^[id number] $$[id number] ^^[id number] REPORTED DATE/TIME: 05/08/2020 05:05 Culture: OVA & PARA EXAM Status: Final Ova + Parasite Exam: P1 No ova, cysts, or parasites seen. . One negative specimen does not rule out the possibility of a parasitic infection. These results were obtained using wet preparation(s) and trichrome stained smear. This test does not include testing for Cryptosporidium parvum, Cyclospora, or Microsporidia. P1 Test performed by: [employer] #: [id number] [address] [facility] [id number] [facility] [phone] Shrimp Picker : Esau Cornejo MD NPI #: Mapping Supervisor : 05/08/2009.XMT.SENT REF 05/08/20.MD Vergarato [facility] via fax 4 Is patient fasting? N 5 BASIC METABOLIC PANEL 6 Male GFR Interprentation 20-49 yrs >60 mL/min Normal 50-59 yrs >56 mL/min Normal 60-69 yrs >49 mL/min Normal 70-79yrs >42 mL/min Normal 80 and above >35 mL/min Normal Female GFR Interpretation 20-39 yrs >60 mL/min Normal 40-49 yrs >58 mL/min Normal 50-59 yrs >51 mL/min Normal 60-69 yrs >45 mL/min Normal 70-79 yrs >39 mL/min Normal 80 and above >32 mL/min Normal 7 CDC/S HS-CRP CUT-OFF: RELATIVE RISK: <1.0 mg/L Low 1.0 - 3.0 mg/L A verage >3.0 mg/L High Optimally, the average of HS-CRP results repeated two weeks apart should be used for risk assessment. 8 COMPLETE BLOOD COUNT 9 { SICKLE CELL (NORMAL: NONE SEEN ) 10 COMMENT: 11 COMPREHENSIVE METABOLIC PANE L 12 Male GFR Interprentation 20-49 yrs >60 mL/min Normal 50-59 yrs >56 mL/min Normal 60-69 yrs >49 mL/min Normal 70-79yrs >42 mL/min Normal 80 and above >35 mL/min Normal Female GFR Interpretation 20-39 yrs >60 mL/min Normal 40-49 yrs >58 mL/min Normal 50-59 yrs >51 mL/min Normal 60-69 yrs >45 mL/min Normal 70-79 yrs >39 mL/min Normal 80 and above >32 mL/min Normal 13 URINALYSIS 14 COMPLETE BLOOD COUNT 15 SOURCE: Clean Catch 16 URINALYSIS 17 COMPLETE BLOOD COUNT 18 COMPREHENSIVE METABOLIC PANE L 19 Male GFR Interprentation 20-49 yrs >60 mL/min Normal 50-59 yrs >56 mL/min Normal 60-69 yrs >49 mL/min Normal 70-79yrs >42 mL/min Normal 80 and above >35 mL/min Normal Female GFR Interpretation 20-39 yrs >60 mL/min Normal 40-49 yrs >58 mL/min Normal 50-59 yrs >51 mL/min Normal 60-69 yrs >45 mL/min Normal 70-79 yrs >39 mL/min Normal 80 and above >32 mL/min Normal 20 Negative 0 - 19 Weak Positive 20 - 30 Moderate to Strong Positive >30 21 Negative 0 - 19 Weak Positive 20 - 30 Moderate to Strong Positive >30 22 Negative 0 - 3 Weak Positive 4 - 10 Positive >10 Tissue Transglutaminase (tTG) has been identified as the endomysial antigen. Studies have demonstr- ated that endomysial IgA antibodies have over 99% specificity for gluten sensitive enteropathy. 23 CDC/AHS HS-CRP CUT-OFF: RELATIVE RISK: <1.0 mg/L Low 1.0 - 3.0 mg/L A verage >3.0 mg/L High Optimally, the average of HS-CRP results repeated two weeks apart should be used for risk assessment. 24 COMPLETE BLOOD COUNT 25 Testing performed at [facility] . Report copy to follow on a separate form. 11/20/19 REF LAB#:[id number] 26 _WBC STOOL_ ^$[id number] ^^[id number] $$[id number] ^^[id number] $$[id number] $$[id number] $$[id number] $$[id number] $$[id number] REPORTED DATE/TIME: 11/18/2019 17:06 Culture: WBC STOOL Status: Final White Blood Cells (WBC), Stool: P1 No white blood cells seen. Reference Range: None Seen No PVA Vial Received P1 Test performed by: [facility] CLIA #: [id number] [address] [facility] [address] [id number] [facility] [address] Shrimp Picker : Esau Cornejo MD NPI #: Mapping Supervisor : 11/18/19.1714.XMT.SENT REF 11/18/19.1714.CM .to [facility] via fax 27 _OVA & P D SM CON ID_ 28 ^$[id number] ^^[id number] $$[id number] ^^[id number] REPORTED DATE/TIME: 11/18/2019 17:06 Culture: OVA & PARA EXAM Status: Final Ova + Parasite Exam: P1 No ova, cysts, or parasites seen. . One negative specimen does not rule out the possibility of a parasitic infection. These results were obtained using wet preparation(s) and trichrome stained smear. This test does not include testing for Cryptosporidium parvum, Cyclospora, or Microsporidia. P1 Test performed by: [facility] #: [id number] [address] [place] [id number] [facility] [address] Shrimp Picker : Esau Cornejo MD NPI #: Mapping Supervisor : 11/18/19.1714.XMT.SENT REF 29 _CULTURE STOOL_ ^$[id number] ^^[id number] $$[id number] $$[id number] $$[id number] ^^760874 $$[id number] $$[id number] $$[id number] $$[id number] $$[id number] ^^[id number] $$[id number] $$[id number] $$[id number] $$[id number] $$[id number] REPORTED DATE/TIME: 11/19/2019 09:07 Culture: CULTURE STOOL Status: Final Salmonella/Shigella Screen: P1 No Salmonella or Shigella recovered. Campylobacter Culture: P1 No Campylobacter species isolated. E coli Shiga Toxin EIA: P1 Negative Reference Range: Negative -- Continued on next page -- Patient: KIMBERLY [place] Order: [id number] Page 2 Culture: CULTURE STOOL Status: Final Isolate 1 Yeast Flag: A . . . . . . .6 isolated Heavy growth NO COLIFORMS ISOLATED Previous result entered on 11/17/2019 13:34 ET Microbiological testing to rule out the presence of possible pathogens is in progress. Salmonella/Shigella Screen: P1 Yeast Flag: A P1 Test performed by: [facility] #: [id number] [address] [id number] [facility] [address] Shrimp Picker : Esau Cornejo MD NPI #: Mapping Supervisor : 11/17/19.1127.XMT.SENT REF 11/17/19.1410.XMT.SENT REF 11/18/19.1119.XMT.SENT REF 11/19/19.1150.XMT.SENT REF 11/19/19.1150.CM .to [facility] via fax 30 COMPREHENSIVE METABOLIC PANE L 31 Male GFR Interprentation 20-49 yrs >60 mL/min Normal 50-59 yrs >56 mL/min Normal 60-69 yrs >49 mL/min Normal 70-79yrs >42 mL/min Normal 80 and above >35 mL/min Normal Female GFR Interpretation 20-39 yrs >60 mL/min Normal 40-49 yrs >58 mL/min Normal 50-59 yrs >51 mL/min Normal 60-69 yrs >45 mL/min Normal 70-79 yrs >39 mL/min Normal 80 and above >32 mL/min Normal 32 COMPLETE BLOOD COUNT 33 URINALYSIS Procedures Description No Information Available Medical Devices Description No Information Available Encounters Description No Information Available Assessments Description No Information Available Plan of Treatment 01/27/2019 - Landon Dickens M.D.* Z87.440 Personal history of urinary (tract) infections* Comments:* Patient presents to the clinic today for evaluation and management of UTI and cystitis. Patient has declined physical examination today in the office. We did not get any information about his condition.Anatomy and functions of male genitourinary system were reviewed with the patient. General and specific UTI preventive measures discussed with patient including increase in hydration and acidification of urine, proper bowel regimen and perineal hygiene. Pathophysiology of nocturia was discussed with the patient. We did not get any information about his condition to go further. All of their questions were answered.No scheduled f ollow-up appointment at this time, will be glad to see patient back as needed or if he will consent to a physical examination with or without a prostate examination. * Follow up:* PRN * N50.811 Right testicular pain* Comments:* As above. * R35.1 Nocturia* Comments:* As above. Functional Status Functional Condition Comment Date Status .None Active Mental Status Description No Information Available Referrals Description No Information Available
--- OUTSIDE RECORDS SUMMARY | 2020-06-19 09:19 | CCD | Continuity of Care Document ---
Author Author Daniel LAINEZ M.D. Organization Unknown Address [address] [place], [place] [address] Phone [phone] Care Team Providers Care News Librarian Name Role Phone Yordan Lainez M.D. AUTM [phone] [facility] Gastroenterology AUTM [phone] Problems Description No Information Available Social History [...] Date Facility Test Result H/L Range Note Basic Metabolic Panel 05/01/2020 [facility] Basic Metabolic Pane (SEE NOTE) 1, 2 Sodium 139 mEq/L 134 - 153 Potassium [...] GFR >60 mL/min Non-Aa GFR >60 mL/min 3 Hepatic Panel 05/01/2020 [facility] Total Protein 6.5 g/dL 6.3 - 8.2 [...] 38 - 126 Laboratory test finding 05/01/2020 [facility] l CRP (High Sensitivity) 0.40 mg/L Low 1.00 - 3.00 4 CBC W/Automated Diff 05/01/2020 [facility] CBC W/Automated Diff (SEE NOTE) 5 WBC 15.1 10^3/uL High 4.2 - 11.0 [...] Lymph 19.0 % Low 25.0 - 40.0 Grady 9.1 % High 3.0 - 8.0 Eos 1.7 % 0.0 - 7.0 Baso 0.4 % 0.0 - 2.0 %Ig 1.1 % High 0.0 - 0.0 %NRBC 0.0 % 0.0 - 0.0 #Neut 10.40 10^3/uL High 2.00 - 6.90 #Lymph 2.87 10^3/uL 0.60 - 3.40 #Grady 1.37 10^3/uL High 0.00 - 0.90 #Eos 0.26 10^3/uL 0.00 - 0.70 #Baso 0.06 10^3/uL 0.00 - 0.20 #Ig 0.17 10^3/uL High 0.00 - 0.10 #NRBC 0.00 10^3/uL 0.00 - 0.00 Manual Diff SEE BELOW Segs 76 % 37 - 80 %Lymph 15 % Low 25 - 40 %Grady 8 % 3 - 8 %Eos 1 % 0 - 7 RBC Morph SEE BELOW Aniso 1+ Abnormal Normal: None Seen 6 PLT Est NORMAL Normal: Normal 7 Sedimentation Rate 05/01/2020 [facility] Sed Rate 1 mm/hr 0 - 15 Sed Rate Reenter 1 CBC W/Automated Diff 04/25/2020 [facility] CBC W/Automated Diff (SEE NOTE) 8 WBC 8.0 10^3/uL 4.2 - 11.0 RBC [...] Lymph 22.1 % Low 25.0 - 40.0 Grady 9.0 % High 3.0 - 8.0 Eos 6.2 % 0.0 - 7.0 Baso 0.4 % 0.0 - 2.0 %Ig 0.5 % High 0.0 - 0.0 %NRBC 0.0 % 0.0 - 0.0 #Neut 4.97 10^3/uL 2.00 - 6.90 #Lymph 1.78 10^3/uL 0.60 - 3.40 #Grady 0.72 10^3/uL 0.00 - 0.90 #Eos 0.50 10^3/uL 0.00 - 0.70 #Baso 0.03 10^3/uL 0.00 - 0.20 #Ig 0.04 10^3/uL 0.00 - 0.10 #NRBC 0.00 10^3/uL 0.00 - 0.00 Manual Diff NOT INDICATED RBC Morph NOT INDICATED Urinalysis 04/25/2020 [facility] Urinalysis (SEE NOTE) 9 Source Clean Catch Color yellow Normal: Yellow Clarity clear Normal: Clear Spec [place] 1.015 1.001 - 1.030 pH 6 5 [...] None Seen Mucous Trace Normal: None Seen Laboratory test finding 04/25/2020 [facility] Lactic Acid (Lactate) 1.2 mmol/L 0.2 - 2.2 Comprehensive Metabolic Panel 04/25/2020 [facility] Comprehensive Metabo (SEE NOTE) 10 Sodium 141 mEq/L 134 - 153 Potassium [...] >60 mL/min Afr Amer GFR >60 mL/min 11 Laboratory test finding 04/25/2020 [facility] l Lipase Serum 24 U/L 13 - 60 Urinalysis 02/27/2020 [facility] Urinalysis (SEE NOTE) 12, 13 Source Random Void Color Yellow Normal: Yellow Clarity Clear Normal: Clear Spec [place] 1.015 1.001 - 1.030 pH 5 5 [...] Normal: None Seen CBC W/Automated Diff 02/27/2020 [facility] CBC W/Automated Diff (SEE NOTE) 14 WBC 8.8 10^3/uL 4.2 - 11.0 RBC [...] 80.0 Lymph 26.6 % 25.0 - 40.0 Grady 10.7 % High 3.0 - 8.0 Eos 5.0 % 0.0 - 7.0 Baso 0.6 % 0.0 - 2.0 %Ig 0.3 % High 0.0 - 0.0 %NRBC 0.0 % 0.0 - 0.0 #Neut 4.97 10^3/uL 2.00 - 6.90 #Lymph 2.33 10^3/uL 0.60 - 3.40 #Grady 0.94 10^3/uL High 0.00 - 0.90 #Eos 0.44 10^3/uL 0.00 - 0.70 #Baso 0.05 10^3/uL 0.00 - 0.20 #Ig 0.03 10^3/uL 0.00 - 0.10 #NRBC 0.00 10^3/uL 0.00 - 0.00 Manual Diff NOT INDICATED RBC Morph NOT INDICATED Comprehensive Metabolic Panel 02/27/2020 [facility] Comprehensive Metabo (SEE NOTE) 15 Sodium 139 mEq/L 134 - 153 Potassium [...] >60 mL/min Afr Amer GFR >60 mL/min 16 Laboratory test finding 02/27/2020 [facility] l Lipase Serum 40 U/L 13 - 60 Laboratory test finding 01/06/2020 [facility] Gliadin Iga AB 4 units 0-19 17 Gliadin Igg AB 27 units High 0-19 18 T-Tranglutaminase Iga <2 U/mL 0-3 19 Sedimentation Rate 01/06/2020 [facility] Sed Rate 3 mm/hr 0 - 15 Sed Rate Reenter 3 Laboratory test finding 01/06/2020 [facility] CRP (High Sensitivity) 1.40 mg/L 1.00 - 3.00 20 CBC W/Automated Diff 01/06/2020 [facility] CBC W/Automated Diff (SEE NOTE) 21 WBC 7.2 10^3/uL 4.2 - 11.0 RBC [...] 80.0 Lymph 28.4 % 25.0 - 40.0 Grady 9.7 % High 3.0 - 8.0 Eos 3.1 % 0.0 - 7.0 Baso 0.4 % 0.0 - 2.0 %Ig 0.8 % High 0.0 - 0.0 %NRBC 0.0 % 0.0 - 0.0 #Neut 4.12 10^3/uL 2.00 - 6.90 #Lymph 2.03 10^3/uL 0.60 - 3.40 #Grady 0.69 10^3/uL 0.00 - 0.90 #Eos 0.22 10^3/uL 0.00 - 0.70 #Baso 0.03 10^3/uL 0.00 - 0.20 #Ig 0.06 10^3/uL 0.00 - 0.10 #NRBC 0.00 10^3/uL 0.00 - 0.00 Manual Diff NOT INDICATED RBC Morph NOT INDICATED Liver Profile 11/13/2019 [facility] Ast/Sgot 10 U/L Normal 7-37 Alt/SGPT 19 U/L Normal 12-78 Alkaline Phosphatase 52 U/L Normal 45-117 Bilirubin,Total 0.4 mg/dL Normal 0.2-1.0 Bilirubin,Direct 0.1 mg/dL Normal 0.0-0.2 Total Protein 6.9 GM/DL Normal 6.4-8.2 Albumin 3.6 GM/DL Normal 3.2-5.2 Albumin/Globulin Ratio 1.1 Normal Laboratory test finding 11/13/2019 [facility] Blood Urea Nitrogen 19 mg/dL High 7-18 Creatinine With GFR 0.98 mg/dL Normal 0.70-1.30 C Reactive Protein Quantitativ < 0.30 mg/dL Normal 0.00-0.30 CBC With Differential 11/13/2019 [facility] White Blood Count 16.0 10 High 4.0-10.0 [...] 36.0-66.0 Lymph % 18.8 % Low 24.0-44.0 Grady % 9.8 % High 0.0-5.0 Eos % 0.2 % Normal 0.0-3.0 Baso % 0.4 % Normal 0.0-1.0 Immature Granulocyte % 2.2 % Normal 0-3.0 Nucleated Red Blood Cell % 0.0 % Normal 0-0 Neutrophils # 11.0 10 High 1.5-8.5 Lymph # 3.0 10 Normal 1.5-5.0 Grady # 1.6 10 High 0.0-0.8 Eos # 0.0 10 Normal 0.0-0.5 Baso # 0.1 10 Normal 0.0-0.2 Laboratory test finding 11/13/2019 [facility] Erythrocyte Sedimentation Rate 4 mm/hr Normal 0-15 Anser VDZ Prometheus(12313) 11/13/2019 [facility] VDZ Concentration 10.6 ug/mL Normal Antibodies to Vedolizumab <1.6 U/ml Normal 22 [facility] test [facility] Difficile Toxin Screen Negative Negative WBC Stool (SEE NOTE) 23 Ova & Para Exam 11/13/2019 [facility] Ova \\T\\ Para Exam (SEE NOTE) 24 Source: STOOL 25 GI 1 11/13/2019 [facility] Culture Stool (SEE NOTE) 26 Comprehensive Metabolic Panel 11/08/2019 [facility] Comprehensive Metabo (SEE NOTE) 27 Sodium 137 mEq/L 134 - 153 Potassium [...] >60 mL/min Afr Amer GFR >60 mL/min 28 Laboratory test finding 11/08/2019 [facility] l Lipase Serum 25 U/L 13 - 60 CBC W/Automated Diff 11/08/2019 [facility] CBC W/Automated Diff (SEE NOTE) 29 WBC 13.1 10^3/uL High 4.2 - 11.0 [...] Lymph 16.3 % Low 25.0 - 40.0 Grady 8.2 % High 3.0 - 8.0 Eos 1.5 % 0.0 - 7.0 Baso 0.2 % 0.0 - 2.0 %Ig 0.4 % High 0.0 - 0.0 %NRBC 0.0 % 0.0 - 0.0 #Neut 9.62 10^3/uL High 2.00 - 6.90 #Lymph 2.14 10^3/uL 0.60 - 3.40 #Grady 1.08 10^3/uL High 0.00 - 0.90 #Eos 0.20 10^3/uL 0.00 - 0.70 #Baso 0.03 10^3/uL 0.00 - 0.20 #Ig 0.05 10^3/uL 0.00 - 0.10 #NRBC 0.00 10^3/uL 0.00 - 0.00 Manual Diff SEE BELOW Segs 62 % 37 - 80 %Lymph 28 % 25 - 40 %Grady 7 % 3 - 8 %Eos 2 % 0 - 7 %Baso 1 % 0 - 2 RBC Morph MORPH IS NORMAL Urinalysis 11/08/2019 [facility] Urinalysis (SEE NOTE) 30 Source Clean Catch Color yellow Normal: Yellow Clarity clear Normal: Clear Spec [place] 1.025 1.001 - 1.030 pH 5 5 - 9 Glucose NORM Normal: Negative Bilirubin NEG Normal: Negative Ketone NEG Normal: Negative Protein NEG Normal: Negative Nitrite NEG Normal: Negative Blood 25 Abnormal Normal: Negative Leuk Est NEG Normal: Negative Urobilinogen NOR less than 1.0 mg/dL Microscopic See Below RBC 1 - 3 Normal: None Seen Epithelial FEW Normal: None Seen 1 Is patient fasting? N 2 BASIC METABOLIC PANEL 3 Male GFR Interprentation 20-49 yrs >60 mL/min Normal 50-59 yrs >56 mL/min Normal 60-69 yrs >49 mL/min Normal 70-79yrs >42 mL/min Normal 80 and above >35 mL/min Normal Female GFR Interpretation 20-39 yrs >60 mL/min Normal 40-49 yrs >58 mL/min Normal 50-59 yrs >51 mL/min Normal 60-69 yrs >45 mL/min Normal 70-79 yrs >39 mL/min Normal 80 and above >32 mL/min Normal 4 CDC/S HS-CRP CUT-OFF: RELATIVE RISK: <1.0 mg/L Low 1.0 - 3.0 mg/L A verage >3.0 mg/L High Optimally, the average of HS-CRP results repeated two weeks apart should be used for risk assessment. 5 COMPLETE BLOOD COUNT 6 { SICKLE CELL (NORMAL: NONE SEEN ) 7 COMMENT: 8 COMPLETE BLOOD COUNT 9 URINALYSIS 10 COMPREHENSIVE METABOLIC PANE L 11 Male GFR Interprentation 20-49 yrs >60 mL/min Normal 50-59 yrs >56 mL/min Normal 60-69 yrs >49 mL/min Normal 70-79yrs >42 mL/min Normal 80 and above >35 mL/min Normal Female GFR Interpretation 20-39 yrs >60 mL/min Normal 40-49 yrs >58 mL/min Normal 50-59 yrs >51 mL/min Normal 60-69 yrs >45 mL/min Normal 70-79 yrs >39 mL/min Normal 80 and above >32 mL/min Normal 12 SOURCE: Clean Catch 13 URINALYSIS 14 COMPLETE BLOOD COUNT 15 COMPREHENSIVE METABOLIC PANE L 16 Male GFR Interprentation 20-49 yrs >60 mL/min Normal 50-59 yrs >56 mL/min Normal 60-69 yrs >49 mL/min Normal 70-79yrs >42 mL/min Normal 80 and above >35 mL/min Normal Female GFR Interpretation 20-39 yrs >60 mL/min Normal 40-49 yrs >58 mL/min Normal 50-59 yrs >51 mL/min Normal 60-69 yrs >45 mL/min Normal 70-79 yrs >39 mL/min Normal 80 and above >32 mL/min Normal 17 Negative 0 - 19 Weak Positive 20 - 30 Moderate to Strong Positive >30 18 Negative 0 - 19 Weak Positive 20 - 30 Moderate to Strong Positive >30 19 Negative 0 - 3 Weak Positive 4 - 10 Positive >10 Tissue Transglutaminase (tTG) has been identified as the endomysial antigen. Studies have demonstr- ated that endomysial IgA antibodies have over 99% specificity for gluten sensitive enteropathy. 20 CDC/S HS-CRP CUT-OFF: RELATIVE RISK: <1.0 mg/L Low 1.0 - 3.0 mg/L A verage >3.0 mg/L High Optimally, the average of HS-CRP results repeated two weeks apart should be used for risk assessment. 21 COMPLETE BLOOD COUNT 22 Testing performed at [facility] . Report copy to follow on a separate form. 11/20/19 REF LAB#:[id number] 23 _WBC STOOL_ ^$[id number] ^^[id number] $$[id number] ^^[id number] $$[id number] $$[id number] $$[id number] $$[id number] $$[id number] REPORTED DATE/TIME: 11/18/2019 17:06 Culture: WBC STOOL Status: Final White Blood Cells (WBC), Stool: P1 No white blood cells seen. Reference Range: None Seen No PVA Vial Received P1 [id number] [address] [place] [id number] [facility] [address] Delimber Operator : sEau Cornejo MD NPI #: Marble Carver : 11/18/19.1714.XMT.SENT REF 11/18/19.1714.CM .to [facility] via fax 24 _OVA & P D SM CON ID_ 25 ^$[id number] ^^[id number] $$[id number] ^^[id number] REPORTED DATE/TIME: 11/18/2019 17:06 Culture: OVA & PARA EXAM Status: Final Ova + Parasite Exam: P1 No ova, cysts, or parasites seen. . One negative specimen does not rule out the possibility of a parasitic infection. These results were obtained using wet preparation(s) and trichrome stained smear. This test does not include testing for Cryptosporidium parvum, Cyclospora, or Microsporidia. P1 Test performed by: [facility] #: [id number] [address] [id number] [facility] [address] Delimber Operator : Esau Cornejo MD NPI #: Marble Carver : 11/18/19.1714.XMT.SENT REF 26 _CULTURE STOOL_ ^$[id number] ^^[id number] $$[id number] $$[id number] $$[id number] ^^[id number] $$[id number] $$[id number] $$[id number] $$[id number] $$[id number] ^^[id number] $$[id number] $$[id number] $$[id number] $$[id number] $$[id number] REPORTED DATE/TIME: 11/19/2019 09:07 Culture: CULTURE STOOL Status: Final Salmonella/Shigella Screen: P1 No Salmonella or Shigella recovered. Campylobacter Culture: P1 No Campylobacter species isolated. E coli Shiga Toxin EIA: P1 Negative Reference Range: Negative -- Continued on next page -- Patient: KIMBERLY [place] Order: [id number] Page 2 Culture: CULTURE STOOL Status: Final Isolate 1 Yeast Flag: A . . . . . . .6 isolated Heavy growth NO COLIFORMS ISOLATED Previous result entered on 11/17/2019 13:34 ET Microbiological testing to rule out the presence of possible pathogens is in progress. Salmonella/Shigella Screen: P1 Yeast Flag: A P1 Test performed by: [facility]IA #: [id number] [address] [id number] [facility] [address] Delimber Operator : Esau Cornejo MD NPI #: Marble Carver : 11/17/19.1127.XMT.SENT REF 11/17/19.1410.XMT.SENT REF 11/18/19.1119.XMT.SENT REF 11/19/19.1150.XMT.SENT REF 11/19/19.1150.CM .to [facility] via fax 27 COMPREHENSIVE METABOLIC PANE L 28 Male GFR Interprentation 20-49 yrs >60 mL/min Normal 50-59 yrs >56 mL/min Normal 60-69 yrs >49 mL/min Normal 70-79yrs >42 mL/min Normal 80 and above >35 mL/min Normal Female GFR Interpretation 20-39 yrs >60 mL/min Normal 40-49 yrs >58 mL/min Normal 50-59 yrs >51 mL/min Normal 60-69 yrs >45 mL/min Normal 70-79 yrs >39 mL/min Normal 80 and above >32 mL/min Normal 29 COMPLETE BLOOD COUNT 30 URINALYSIS Procedures Description No Information Available Medical [...]
--- OUTSIDE RECORDS SUMMARY | 2020-06-19 09:19 | CCD | Continuity of Care Document ---
Author Author Daniel LAINEZ M.D. Organization Unknown Address [address] [place], [place] [address] Phone [phone] Care Team Providers Care Comb Setter Name Role Phone Yordan Lainez M.D. AUTM [phone] [facility] Gastroenterology AUTM [phone] Problems Description No Information Available Social History [...] H/L Range Note Laboratory test finding 05/01/2020 [facility] WBC Stool (SEE NOTE) 1 Basic Metabolic Panel 05/01/2020 [facility] Basic Metabolic Pane (SEE NOTE) 2, 3 Sodium 139 mEq/L 134 - 153 Potassium [...] GFR >60 mL/min Non-Aa GFR >60 mL/min 4 Hepatic Panel 05/01/2020 [facility] Total Protein 6.5 g/dL 6.3 - 8.2 [...] 38 - 126 Laboratory test finding 05/01/2020 [facility] CRP (High Sensitivity) 0.40 mg/L Low 1.00 - 3.00 5 CBC W/Automated Diff 05/01/2020 [facility] CBC W/Automated Diff (SEE NOTE) 6 WBC 15.1 10^3/uL High 4.2 - 11.0 [...] Lymph 19.0 % Low 25.0 - 40.0 Cameron 9.1 % High 3.0 - 8.0 Eos 1.7 % 0.0 - 7.0 Baso 0.4 % 0.0 - 2.0 %Ig 1.1 % High 0.0 - 0.0 %NRBC 0.0 % 0.0 - 0.0 #Neut 10.40 10^3/uL High 2.00 - 6.90 #Lymph 2.87 10^3/uL 0.60 - 3.40 #Cameron 1.37 10^3/uL High 0.00 - 0.90 #Eos 0.26 10^3/uL 0.00 - 0.70 #Baso 0.06 10^3/uL 0.00 - 0.20 #Ig 0.17 10^3/uL High 0.00 - 0.10 #NRBC 0.00 10^3/uL 0.00 - 0.00 Manual Diff SEE BELOW Segs 76 % 37 - 80 %Lymph 15 % Low 25 - 40 %Cameron 8 % 3 - 8 %Eos 1 % 0 - 7 RBC Morph SEE BELOW Aniso 1+ Abnormal Normal: None Seen 7 PLT Est NORMAL Normal: Normal 8 Sedimentation Rate 05/01/2020 [facility] Sed Rate 1 mm/hr 0 - 15 Sed Rate Reenter 1 Laboratory test finding 04/25/2020 [facility] Lipase Serum 24 U/L 13 - 60 Comprehensive Metabolic Panel 04/25/2020 [facility] ospital Comprehensive Metabo (SEE NOTE) 9 Sodium 141 mEq/L 134 - 153 Potassium [...] >60 mL/min Afr Amer GFR >60 mL/min 10 Laboratory test finding 04/25/2020 [facility] Lactic Acid (Lactate) 1.2 mmol/L 0.2 - 2.2 Urinalysis 04/25/2020 [facility] Urinalysis (SEE NOTE) 11 Source Clean Catch Color yellow Normal: Yellow Clarity clear Normal: Clear Spec [place] 1.015 1.001 - 1.030 pH 6 5 [...] Normal: None Seen CBC W/Automated Diff 04/25/2020 [facility] CBC W/Automated Diff (SEE NOTE) 12 WBC 8.0 10^3/uL 4.2 - 11.0 RBC [...] Lymph 22.1 % Low 25.0 - 40.0 Cameron 9.0 % High 3.0 - 8.0 Eos 6.2 % 0.0 - 7.0 Baso 0.4 % 0.0 - 2.0 %Ig 0.5 % High 0.0 - 0.0 %NRBC 0.0 % 0.0 - 0.0 #Neut 4.97 10^3/uL 2.00 - 6.90 #Lymph 1.78 10^3/uL 0.60 - 3.40 #Cameron 0.72 10^3/uL 0.00 - 0.90 #Eos 0.50 10^3/uL 0.00 - 0.70 #Baso 0.03 10^3/uL 0.00 - 0.20 #Ig 0.04 10^3/uL 0.00 - 0.10 #NRBC 0.00 10^3/uL 0.00 - 0.00 Manual Diff NOT INDICATED RBC Morph NOT INDICATED Urinalysis 02/27/2020 [facility] Urinalysis (SEE NOTE) 13, 14 Source Random Void Color Yellow Normal: Yellow Clarity Clear Normal: Clear Spec [place] 1.015 1.001 - 1.030 pH 5 5 [...] Normal: None Seen CBC W/Automated Diff 02/27/2020 [facility] CBC W/Automated Diff (SEE NOTE) 15 WBC 8.8 10^3/uL 4.2 - 11.0 RBC [...] 80.0 Lymph 26.6 % 25.0 - 40.0 Cameron 10.7 % High 3.0 - 8.0 Eos 5.0 % 0.0 - 7.0 Baso 0.6 % 0.0 - 2.0 %Ig 0.3 % High 0.0 - 0.0 %NRBC 0.0 % 0.0 - 0.0 #Neut 4.97 10^3/uL 2.00 - 6.90 #Lymph 2.33 10^3/uL 0.60 - 3.40 #Cameron 0.94 10^3/uL High 0.00 - 0.90 #Eos 0.44 10^3/uL 0.00 - 0.70 #Baso 0.05 10^3/uL 0.00 - 0.20 #Ig 0.03 10^3/uL 0.00 - 0.10 #NRBC 0.00 10^3/uL 0.00 - 0.00 Manual Diff NOT INDICATED RBC Morph NOT INDICATED Comprehensive Metabolic Panel 02/27/2020 [facility] ospital Comprehensive Metabo (SEE NOTE) 16 Sodium 139 mEq/L 134 - 153 Potassium [...] >60 mL/min Afr Amer GFR >60 mL/min 17 Laboratory test finding 02/27/2020 [facility] Lipase Serum 40 U/L 13 - 60 Laboratory test finding 01/06/2020 [facility] Gliadin Iga AB 4 units 0-19 18 Gliadin Igg AB 27 units High 0-19 19 T-Tranglutaminase Iga <2 U/mL 0-3 20 Sedimentation Rate 01/06/2020 [facility] Sed Rate 3 mm/hr 0 - 15 Sed Rate Reenter 3 Laboratory test finding 01/06/2020 [facility] CRP (High Sensitivity) 1.40 mg/L 1.00 - 3.00 21 CBC W/Automated Diff 01/06/2020 [facility] CBC W/Automated Diff (SEE NOTE) 22 WBC 7.2 10^3/uL 4.2 - 11.0 RBC [...] 80.0 Lymph 28.4 % 25.0 - 40.0 Cameron 9.7 % High 3.0 - 8.0 Eos 3.1 % 0.0 - 7.0 Baso 0.4 % 0.0 - 2.0 %Ig 0.8 % High 0.0 - 0.0 %NRBC 0.0 % 0.0 - 0.0 #Neut 4.12 10^3/uL 2.00 - 6.90 #Lymph 2.03 10^3/uL 0.60 - 3.40 #Cameron 0.69 10^3/uL 0.00 - 0.90 #Eos 0.22 10^3/uL 0.00 - 0.70 #Baso 0.03 10^3/uL 0.00 - 0.20 #Ig 0.06 10^3/uL 0.00 - 0.10 #NRBC 0.00 10^3/uL 0.00 - 0.00 Manual Diff NOT INDICATED RBC Morph NOT INDICATED Liver Profile 11/13/2019 [facility] Ast/Sgot 10 U/L Normal 7-37 Alt/SGPT 19 U/L Normal 12-78 Alkaline Phosphatase 52 U/L Normal 45-117 Bilirubin,Total 0.4 mg/dL Normal 0.2-1.0 Bilirubin,Direct 0.1 mg/dL Normal 0.0-0.2 Total Protein 6.9 GM/DL Normal 6.4-8.2 Albumin 3.6 GM/DL Normal 3.2-5.2 Albumin/Globulin Ratio 1.1 Normal Laboratory test finding 11/13/2019 [facility] Blood Urea Nitrogen 19 mg/dL High 7-18 Creatinine With GFR 0.98 mg/dL Normal 0.70-1.30 C Reactive Protein Quantitativ < 0.30 mg/dL Normal 0.00-0.30 CBC With Differential 11/13/2019 [facility] White Blood Count 16.0 10 High 4.0-10.0 [...] 36.0-66.0 Lymph % 18.8 % Low 24.0-44.0 Cameron % 9.8 % High 0.0-5.0 Eos % 0.2 % Normal 0.0-3.0 Baso % 0.4 % Normal 0.0-1.0 Immature Granulocyte % 2.2 % Normal 0-3.0 Nucleated Red Blood Cell % 0.0 % Normal 0-0 Neutrophils # 11.0 10 High 1.5-8.5 Lymph # 3.0 10 Normal 1.5-5.0 Cameron # 1.6 10 High 0.0-0.8 Eos # 0.0 10 Normal 0.0-0.5 Baso # 0.1 10 Normal 0.0-0.2 Laboratory test finding 11/13/2019 [facility] Erythrocyte Sedimentation Rate 4 mm/hr Normal 0-15 Anser VDZ Prometheus([id number]) 11/13/2019 [facility] VDZ Concentration 10.6 ug/mL Normal Antibodies to Vedolizumab <1.6 U/ml Normal 23 Laboratory test finding 11/13/2019 [facility] C Difficile Toxin Screen Negative Negative WBC Stool (SEE NOTE) 24 Ova & Para Exam 11/13/2019 [facility] Ova \\T\\ Para Exam (SEE NOTE) 25 Source: STOOL 26 GI 1 11/13/2019 [facility] Culture Stool (SEE NOTE) 27 Comprehensive Metabolic Panel 11/08/2019 [facility] Comprehensive Metabo (SEE NOTE) 28 Sodium 137 mEq/L 134 - 153 Potassium [...] >60 mL/min Afr Amer GFR >60 mL/min 29 Laboratory test finding 11/08/2019 [facility] Lipase Serum 25 U/L 13 - 60 CBC W/Automated Diff 11/08/2019 [facility] CBC W/Automated Diff (SEE NOTE) 30 WBC 13.1 10^3/uL High 4.2 - 11.0 [...] Lymph 16.3 % Low 25.0 - 40.0 Cameron 8.2 % High 3.0 - 8.0 Eos 1.5 % 0.0 - 7.0 Baso 0.2 % 0.0 - 2.0 %Ig 0.4 % High 0.0 - 0.0 %NRBC 0.0 % 0.0 - 0.0 #Neut 9.62 10^3/uL High 2.00 - 6.90 #Lymph 2.14 10^3/uL 0.60 - 3.40 #Cameron 1.08 10^3/uL High 0.00 - 0.90 #Eos 0.20 10^3/uL 0.00 - 0.70 #Baso 0.03 10^3/uL 0.00 - 0.20 #Ig 0.05 10^3/uL 0.00 - 0.10 #NRBC 0.00 10^3/uL 0.00 - 0.00 Manual Diff SEE BELOW Segs 62 % 37 - 80 %Lymph 28 % 25 - 40 %Cameron 7 % 3 - 8 %Eos 2 % 0 - 7 %Baso 1 % 0 - 2 RBC Morph MORPH IS NORMAL Urinalysis 11/08/2019 [facility] Urinalysis (SEE NOTE) 31 Source Clean Catch Color yellow Normal: Yellow Clarity clear Normal: Clear Spec [place] 1.025 1.001 - 1.030 pH 5 5 - 9 Glucose NORM Normal: Negative Bilirubin NEG Normal: Negative Ketone NEG Normal: Negative Protein NEG Normal: Negative Nitrite NEG Normal: Negative Blood 25 Abnormal Normal: Negative Leuk Est NEG Normal: Negative Urobilinogen NOR less than 1.0 mg/dL Microscopic See Below RBC 1 - 3 Normal: None Seen Epithelial FEW Normal: None Seen 1 _WBC STOOL_ ^$[id number] ^^[id number] $$[id number] ^^[id number] $$[id number] $$[id number] $$[id number] $$[id number] $$[id number] REPORTED DATE/TIME: 05/03/2020 17:05 Culture: WBC STOOL Status: Final White Blood Cells (WBC), Stool: P1 Rare white blood cells. Reference Range: None Seen P1 Test performed by: [facility] #: [id number] [address] [place] [id number] [facility] [address] Cut And Cover Line Worker : Esau Cornejo MD NPI #: Tilt Wall Supervisor : 05/04/20.XMT.SENT REF 05/04/20. .to [facility] via fax 2 Is patient fasting? N 3 BASIC METABOLIC PANEL 4 Male GFR Interprentation 20-49 yrs >60 mL/min Normal 50-59 yrs >56 mL/min Normal 60-69 yrs >49 mL/min Normal 70-79yrs >42 mL/min Normal 80 and above >35 mL/min Normal Female GFR Interpretation 20-39 yrs >60 mL/min Normal 40-49 yrs >58 mL/min Normal 50-59 yrs >51 mL/min Normal 60-69 yrs >45 mL/min Normal 70-79 yrs >39 mL/min Normal 80 and above >32 mL/min Normal 5 CDC/S HS-CRP CUT-OFF: RELATIVE RISK: <1.0 mg/L Low 1.0 - 3.0 mg/L A verage >3.0 mg/L High Optimally, the average of HS-CRP results repeated two weeks apart should be used for risk assessment. 6 COMPLETE BLOOD COUNT 7 { SICKLE CELL (NORMAL: NONE SEEN ) 8 COMMENT: 9 COMPREHENSIVE METABOLIC PANE L 10 Male GFR Interprentation 20-49 yrs >60 mL/min Normal 50-59 yrs >56 mL/min Normal 60-69 yrs >49 mL/min Normal 70-79yrs >42 mL/min Normal 80 and above >35 mL/min Normal Female GFR Interpretation 20-39 yrs >60 mL/min Normal 40-49 yrs >58 mL/min Normal 50-59 yrs >51 mL/min Normal 60-69 yrs >45 mL/min Normal 70-79 yrs >39 mL/min Normal 80 and above >32 mL/min Normal 11 URINALYSIS 12 COMPLETE BLOOD COUNT 13 SOURCE: Clean Catch 14 URINALYSIS 15 COMPLETE BLOOD COUNT 16 COMPREHENSIVE METABOLIC PANE L 17 Male GFR Interprentation 20-49 yrs >60 mL/min Normal 50-59 yrs >56 mL/min Normal 60-69 yrs >49 mL/min Normal 70-79yrs >42 mL/min Normal 80 and above >35 mL/min Normal Female GFR Interpretation 20-39 yrs >60 mL/min Normal 40-49 yrs >58 mL/min Normal 50-59 yrs >51 mL/min Normal 60-69 yrs >45 mL/min Normal 70-79 yrs >39 mL/min Normal 80 and above >32 mL/min Normal 18 Negative 0 - 19 Weak Positive 20 - 30 Moderate to Strong Positive >30 19 Negative 0 - 19 Weak Positive 20 - 30 Moderate to Strong Positive >30 20 Negative 0 - 3 Weak Positive 4 - 10 Positive >10 Tissue Transglutaminase (tTG) has been identified as the endomysial antigen. Studies have demonstr- ated that endomysial IgA antibodies have over 99% specificity for gluten sensitive enteropathy. 21 CDC/S HS-CRP CUT-OFF: RELATIVE RISK: <1.0 mg/L Low 1.0 - 3.0 mg/L A verage >3.0 mg/L High Optimally, the average of HS-CRP results repeated two weeks apart should be used for risk assessment. 22 COMPLETE BLOOD COUNT 23 Testing performed at [facility] . Report copy to follow on a separate form. 11/20/19 REF LAB#:[id number] _WBC STOOL_ ^$[id number] ^^[id number] $$[id number] ^^[id number] $$[id number] $$[id number] $$[id number] $$[id number] $$[id number] REPORTED DATE/TIME: 11/18/2019 17:06 Culture: WBC STOOL Status: Final White Blood Cells (WBC), Stool: P1 No white blood cells seen. Reference Range: None Seen No PVA Vial Received P1 [facility] #: [id number] [phone] [facility] [address] Cut And Cover Line Worker : Esau Cornejo MD NPI #: Tilt Wall Supervisor : 11/18/19.1714.XMT.SENT REF 11/18/19.1714.CM .to [facility] via fax 25 _OVA & P D SM CON ID_ 26 ^$[id number] ^^[id number] $$[id number] ^^[id number] REPORTED DATE/TIME: 11/18/2019 17:06 Culture: OVA & PARA EXAM Status: Final Ova + Parasite Exam: P1 No ova, cysts, or parasites seen. . One negative specimen does not rule out the possibility of a parasitic infection. These results were obtained using wet preparation(s) and trichrome stained smear. This test does not include testing for Cryptosporidium parvum, Cyclospora, or Microsporidia. P1 Test performed by: [facility] CLIA #: [id number] [address] [facility] [phone] [facility] [address] Cut And Cover Line Worker : Esau Cornejo MD NPI #: Tilt Wall Supervisor : 11/18/19.1714.XMT.SENT REF 27 _CULTURE STOOL_ ^$[id number] ^^[id number] $$[id number] $$[id number] $$[id number] ^^364415 $$235206 $$325580 $$659867 $$[id number] $$[id number] ^^372428 $$[id number] $$977202 $$[id number] $$[id number] $$[id number] REPORTED DATE/TIME: 11/19/2019 09:07 Culture: CULTURE STOOL Status: Final Salmonella/Shigella Screen: P1 No Salmonella or Shigella recovered. Campylobacter Culture: P1 No Campylobacter species isolated. E coli Shiga Toxin EIA: P1 Negative Reference Range: Negative -- Continued on next page -- Patient: KIMBERLY [place] Order: [id number] Page 2 Culture: CULTURE STOOL Status: Final Isolate 1 Yeast Flag: A . . . . . . .6 isolated Heavy growth NO COLIFORMS ISOLATED Previous result entered on 11/17/2019 13:34 ET Microbiological testing to rule out the presence of possible pathogens is in progress. Salmonella/Shigella Screen: P1 Yeast Flag: A P1 Test performed by: [facility] #: [id number] [address] [place] [address] Avenue [phone] [facility] [address] Cut And Cover Line Worker : Esau Cornejo MD NPI #: Tilt Wall Supervisor : 11/17/19.1127.XMT.SENT REF 11/17/19.1410.XMT.SENT REF 11/18/19.1119.XMT.SENT REF 11/19/19.1150.XMT.SENT REF 11/19/19.1150.CM .to [facility] via fax 28 COMPREHENSIVE METABOLIC PANE L 29 Male GFR Interprentation 20-49 yrs >60 mL/min Normal 50-59 yrs >56 mL/min Normal 60-69 yrs >49 mL/min Normal 70-79yrs >42 mL/min Normal 80 and above >35 mL/min Normal Female GFR Interpretation 20-39 yrs >60 mL/min Normal 40-49 yrs >58 mL/min Normal 50-59 yrs >51 mL/min Normal 60-69 yrs >45 mL/min Normal 70-79 yrs >39 mL/min Normal 80 and above >32 mL/min Normal 30 COMPLETE BLOOD COUNT 31 URINALYSIS Procedures Description No Information Available Medical [...]
--- OUTSIDE RECORDS SUMMARY | 2020-06-19 09:20 | CCD | Continuity of Care Document ---
Author Author Daniel LAINEZ M.D. Organization Unknown Address [address] [place], [place] [address] Phone [phone] Care Team Providers Care Program/Music Director Name Role Phone Yordan Lainez M.D. AUTM [phone] [facility] Gastroenterology AUTM [phone] Problems Description No Information Available Social History [...] Date Facility Test Result H/L Range Note CBC W/Automated Diff 04/25/2020 [facility] CBC W/Automated Diff (SEE NOTE) 1 WBC 8.0 10^3/uL 4.2 - 11.0 RBC [...] Lymph 22.1 % Low 25.0 - 40.0 Wayne 9.0 % High 3.0 - 8.0 Eos 6.2 % 0.0 - 7.0 Baso 0.4 % 0.0 - 2.0 %Ig 0.5 % High 0.0 - 0.0 %NRBC 0.0 % 0.0 - 0.0 #Neut 4.97 10^3/uL 2.00 - 6.90 #Lymph 1.78 10^3/uL 0.60 - 3.40 #Wayne 0.72 10^3/uL 0.00 - 0.90 #Eos 0.50 10^3/uL 0.00 - 0.70 #Baso 0.03 10^3/uL 0.00 - 0.20 #Ig 0.04 10^3/uL 0.00 - 0.10 #NRBC 0.00 10^3/uL 0.00 - 0.00 Manual Diff NOT INDICATED RBC Morph NOT INDICATED Urinalysis 04/25/2020 [facility] Urinalysis (SEE NOTE) 2 Source Clean Catch Color yellow Normal: Yellow Clarity clear Normal: Clear Spec Hondo 1.015 1.001 - 1.030 pH 6 5 [...] Normal: None Seen Laboratory test finding 04/25/2020 [facility] Lactic Acid (Lactate) 1.2 mmol/L 0.2 - 2.2 Comprehensive Metabolic Panel 04/25/2020 [facility] Comprehensive Metabo (SEE NOTE) 3 Sodium 141 mEq/L 134 - 153 Potassium [...] >60 mL/min Afr Amer GFR >60 mL/min 4 Laboratory test finding 04/25/2020 [facility] Lipase Serum 24 U/L 13 - 60 Laboratory test finding [facility] Lip[facility] Serum 40 U/L 13 - 60 Comprehensive Metabolic Panel 02/27/2020 [facility] Comprehensive Metabo (SEE NOTE) 5 Sodium 139 mEq/L 134 - 153 [...] >60 mL/min Afr Amer GFR >60 mL/min 6 CBC W/Automated Diff 02/27/2020 [facility] CBC W/Automated Diff (SEE NOTE) 7 WBC 8.8 10^3/uL 4.2 - 11.0 RBC [...] 80.0 Lymph 26.6 % 25.0 - 40.0 Wayne 10.7 % High 3.0 - 8.0 Eos 5.0 % 0.0 - 7.0 Baso 0.6 % 0.0 - 2.0 %Ig 0.3 % High 0.0 - 0.0 %NRBC 0.0 % 0.0 - 0.0 #Neut 4.97 10^3/uL 2.00 - 6.90 #Lymph 2.33 10^3/uL 0.60 - 3.40 #Wayne 0.94 10^3/uL High 0.00 - 0.90 #Eos 0.44 10^3/uL 0.00 - 0.70 #Baso 0.05 10^3/uL 0.00 - 0.20 #Ig 0.03 10^3/uL 0.00 - 0.10 #NRBC 0.00 10^3/uL 0.00 - 0.00 Manual Diff NOT INDICATED RBC Morph NOT INDICATED Urinalysis 02/27/2020 [facility] Urinalysis (SEE NOTE) 8, 9 Source Random Void Color Yellow Normal: Yellow Clarity Clear Normal: Clear Spec Hondo 1.015 1.001 - 1.030 pH 5 5 [...] Trace Normal: None Seen CBC W/Automated Diff 01/06/2020 [facility] CBC W/Automated Diff (SEE NOTE) 10 WBC 7.2 10^3/uL 4.2 - 11.0 RBC [...] 80.0 Lymph 28.4 % 25.0 - 40.0 Wayne 9.7 % High 3.0 - 8.0 Eos 3.1 % 0.0 - 7.0 Baso 0.4 % 0.0 - 2.0 %Ig 0.8 % High 0.0 - 0.0 %NRBC 0.0 % 0.0 - 0.0 #Neut 4.12 10^3/uL 2.00 - 6.90 #Lymph 2.03 10^3/uL 0.60 - 3.40 #Wayne 0.69 10^3/uL 0.00 - 0.90 #Eos 0.22 10^3/uL 0.00 - 0.70 #Baso 0.03 10^3/uL 0.00 - 0.20 #Ig 0.06 10^3/uL 0.00 - 0.10 #NRBC 0.00 10^3/uL 0.00 - 0.00 Manual Diff NOT INDICATED RBC Morph NOT INDICATED Laboratory test finding 01/06/2020 [facility] CRP (High Sensitivity) 1.40 mg/L 1.00 - 3.00 11 Sedimentation Rate 01/06/2020 [facility] Sed Rate 3 mm/hr 0 - 15 Sed Rate Reenter 3 Laboratory test finding 01/06/2020 [facility] Gliadin Iga AB 4 units 0-19 12 Gliadin Igg AB 27 units High 0-19 13 T-Tranglutaminase Iga <2 U/mL 0-3 14 GI 1 11/13/2019 [facility] Culture Stool (SEE NOTE) 15 Ova & Para Exam 11/13/2019 [facility] Ova \\T\\ Para Exam (SEE NOTE) 16 Source: STOOL 17 Laboratory test finding 11/13/2019 [facility] C Difficile Toxin Screen Negative Negative WBC Stool (SEE NOTE) 18 Anser VDZ Prometheus([id number]) 11/13/2019 [facility] VDZ Concentration 10.6 ug/mL Normal Antibodies to Vedolizumab <1.6 U/ml Normal 19 Laboratory test finding 11/13/2019 [facility] Erythrocyte Sedimentation Rate 4 mm/hr Normal 0-15 CBC With Differential 11/13/2019 [facility] White Blood Count 16.0 10 High [...] 36.0-66.0 Lymph % 18.8 % Low 24.0-44.0 Wayne % 9.8 % High 0.0-5.0 Eos % 0.2 % Normal 0.0-3.0 Baso % 0.4 % Normal 0.0-1.0 Immature Granulocyte % 2.2 % Normal 0-3.0 Nucleated Red Blood Cell % 0.0 % Normal 0-0 Neutrophils # 11.0 10 High 1.5-8.5 Lymph # 3.0 10 Normal 1.5-5.0 Wayne # 1.6 10 High 0.0-0.8 Eos # 0.0 10 Normal 0.0-0.5 Baso # 0.1 10 Normal 0.0-0.2 Laboratory test finding 11/13/2019 [facility] Blood Urea Nitrogen 19 mg/dL High 7-18 Creatinine With GFR 0.98 mg/dL Normal 0.70-1.30 C Reactive Protein Quantitativ < 0.30 mg/dL Normal 0.00-0.30 Liver Profile 11/13/2019 [facility] Ast/Sgot 10 U/L Normal 7-37 Alt/SGPT 19 U/L Normal 12-78 Alkaline Phosphatase 52 U/L Normal 45-117 Bilirubin,Total 0.4 mg/dL Normal 0.2-1.0 Bilirubin,Direct 0.1 mg/dL Normal 0.0-0.2 Total Protein 6.9 GM/DL Normal 6.4-8.2 Albumin 3.6 GM/DL Normal 3.2-5.2 Albumin/Globulin Ratio 1.1 Normal Comprehensive Metabolic Panel 11/08/2019 [facility] Comprehensive Metabo (SEE NOTE) 20 Sodium 137 mEq/L 134 - 153 Potassium [...] >60 mL/min Afr Amer GFR >60 mL/min 21 Laboratory test finding 11/08/2019 [facility] l Lipase Serum 25 U/L 13 - 60 CBC W/Automated Diff 11/08/2019 [facility] CBC W/Automated Diff (SEE NOTE) 22 WBC 13.1 10^3/uL High 4.2 - 11.0 [...] Lymph 16.3 % Low 25.0 - 40.0 Wayne 8.2 % High 3.0 - 8.0 Eos 1.5 % 0.0 - 7.0 Baso 0.2 % 0.0 - 2.0 %Ig 0.4 % High 0.0 - 0.0 %NRBC 0.0 % 0.0 - 0.0 #Neut 9.62 10^3/uL High 2.00 - 6.90 #Lymph 2.14 10^3/uL 0.60 - 3.40 #Wayne 1.08 10^3/uL High 0.00 - 0.90 #Eos 0.20 10^3/uL 0.00 - 0.70 #Baso 0.03 10^3/uL 0.00 - 0.20 #Ig 0.05 10^3/uL 0.00 - 0.10 #NRBC 0.00 10^3/uL 0.00 - 0.00 Manual Diff SEE BELOW Segs 62 % 37 - 80 %Lymph 28 % 25 - 40 %Wayne 7 % 3 - 8 %Eos 2 % 0 - 7 %Baso 1 % 0 - 2 RBC Morph MORPH IS NORMAL Urinalysis 11/08/2019 [facility] Urinalysis (SEE NOTE) 23 Source Clean Catch Color yellow Normal: Yellow Clarity clear Normal: Clear Spec Hondo 1.025 1.001 - 1.030 pH 5 5 - 9 Glucose NORM Normal: Negative Bilirubin NEG Normal: Negative Ketone NEG Normal: Negative Protein NEG Normal: Negative Nitrite NEG Normal: Negative Blood 25 Abnormal Normal: Negative Leuk Est NEG Normal: Negative Urobilinogen NOR less than 1.0 mg/dL Microscopic See Below RBC 1 - 3 Normal: None Seen Epithelial FEW Normal: None Seen 1 COMPLETE BLOOD COUNT 2 URINALYSIS 3 COMPREHENSIVE METABOLIC PANE L 4 Male GFR Interprentation 20-49 yrs >60 [...] 80 and above >32 mL/min Normal 5 COMPREHENSIVE METABOLIC PANE L 6 Male GFR Interprentation 20-49 yrs >60 [...] 80 and above >32 mL/min Normal 7 COMPLETE BLOOD COUNT 8 SOURCE: Clean Catch 9 URINALYSIS 10 COMPLETE BLOOD COUNT 11 CDC/AHS HS-CRP CUT-OFF: RELATIVE RISK: <1.0 mg/L Low 1.0 - 3.0 mg/L A verage >3.0 mg/L High Optimally, the average of HS-CRP results repeated two weeks apart should be used for risk assessment. 12 Negative 0 - 19 Weak Positive 20 - 30 Moderate to Strong Positive >30 13 Negative 0 - 19 Weak Positive 20 - 30 Moderate to Strong Positive >30 14 Negative 0 - 3 Weak Positive 4 - 10 Positive >10 Tissue Transglutaminase (tTG) has been identified as the endomysial antigen. Studies have demonstr- ated that endomysial IgA antibodies have over 99% specificity for gluten sensitive enteropathy. 15 _CULTURE STOOL_ ^$[id number] ^^[id number] $$[id number] $$[id number] $$[id number] ^^[id number] $$[id number] $$[id number] $$[id number] $$[id number] $$[id number] ^^[id number] $$[id number] $$[id number] $$[id number] $$[id number] $$[id number] REPORTED DATE/TIME: 11/19/2019 09:07 Culture: CULTURE STOOL Status: Final Salmonella/Shigella Screen: P1 No Salmonella or Shigella recovered. Campylobacter Culture: P1 No Campylobacter species isolated. E coli Shiga Toxin EIA: P1 Negative Reference Range: Negative -- Continued on next page -- Patient: KIMBERLY Houston Order: [id number] Page 2 Culture: CULTURE STOOL Status: Final Isolate 1 Yeast Flag: A . . . . . . .6 isolated Heavy growth NO COLIFORMS ISOLATED Previous result entered on 11/17/2019 13:34 ET Microbiological testing to rule out the presence of possible pathogens is in progress. Salmonella/Shigella Screen: P1 Yeast Flag: A P1 Test performed by: [facility] #: [id number] [address] [place], [place] [id number] [facility] [address] Staff Reporter : Esau Cornejo MD NPI #: Unit Supervisor : 11/17/19.1127.XMT.SENT REF 11/17/19.1410.XMT.SENT REF 11/18/19.1119.XMT.SENT REF 11/19/19.1150.XMT.SENT REF 11/19/19.1150.CM .to [facility] via fax 16 _OVA & P D SM CON ID_ 17 ^$[id number] ^^[id number] $$[id number] ^^[id number] REPORTED DATE/TIME: 11/18/2019 17:06 Culture: OVA & PARA EXAM Status: Final Ova + Parasite Exam: P1 No ova, cysts, or parasites seen. . One negative specimen does not rule out the possibility of a parasitic infection. These results were obtained using wet preparation(s) and trichrome stained smear. This test does not include testing for Cryptosporidium parvum, Cyclospora, or Microsporidia. P1 Test performed by: [facility] CLIA #: [id number] [address] [facility] [id number] [place] [address] Staff Reporter : Esau Cornejo MD NPI #: Unit Supervisor : 11/18/19.1714.XMT.SENT REF 18 _WBC STOOL_ ^$[id number] ^^[id number] $$[id number] ^^[id number] $$[id number] $$[id number] $$[id number] $$[id number] $$[id number] REPORTED DATE/TIME: 11/18/2019 17:06 Culture: WBC STOOL Status: Final White Blood Cells (WBC), Stool: P1 No white blood cells seen. Reference Range: None Seen No PVA Vial Received P1 Test performed by: [facility] #: [id number] [address] [facility] [id number] [place] [address] Staff Reporter : Esau Cornejo MD NPI #: Unit Supervisor : 11/18/19.1714.XMT.SENT REF 11/18/19.1714.CM .to [facility] via fax 19 Testing performed at [facility] . Report copy to follow on a separate form. 11/20/19 REF LAB#:[id number] 20 COMPREHENSIVE METABOLIC PANE L 21 Male GFR Interprentation 20-49 yrs >60 mL/min Normal 50-59 yrs >56 mL/min Normal 60-69 yrs >49 mL/min Normal 70-79yrs >42 mL/min Normal 80 and above >35 mL/min Normal Female GFR Interpretation 20-39 yrs >60 mL/min Normal 40-49 yrs >58 mL/min Normal 50-59 yrs >51 mL/min Normal 60-69 yrs >45 mL/min Normal 70-79 yrs >39 mL/min Normal 80 and above >32 mL/min Normal 22 COMPLETE BLOOD COUNT 23 URINALYSIS Procedures Description No Information Available Medical [...]
--- OUTSIDE RECORDS SUMMARY | 2020-06-19 09:21 | CCD ---
Author Author [facility] Organization [facility] Address Unknown Phone Unavailable Care Team Providers Care Imaging Assistant Name Role Phone Kojo KAUFFMAN MD Unavailable Unavailable Kojo KAUFFMAN MD Unavailable Unavailable Kojo KAUFFMAN MD Unavailable Unavailable Kojo KAUFFMAN MD Unavailable Unavailable Kojo KAUFFMAN MD Unavailable Unavailable Kojo KAUFFMAN MD Unavailable Unavailable Kojo KAUFFMAN MD Unavailable Unavailable Kojo KAUFFMAN MD Unavailable Unavailable Kojo KAUFFMAN MD Unavailable Unavailable Kojo KAUFFMAN MD Unavailable Unavailable Kojo KAFUFMAN MD Unavailable Unavailable Kojo KAUFFMAN MD Unavailable Unavailable Kojo KAUFFMAN MD Unavailable Unavailable Kojo KAUFFMAN MD Unavailable Unavailable Kojo KAUFFMAN MD Unavailable Unavailable Kojo KAUFFMAN MD Unavailable Unavailable Kojo KAUFFMAN MD Unavailable Unavailable Kojo KAUFFMAN MD Unavailable Unavailable Kojo KAUFFMAN MD Unavailable Unavailable Kojo KAUFFMAN MD Unavailable Unavailable Kojo KAUFFMAN MD Unavailable Unavailable Kojo KAUFFMAN MD Unavailable Unavailable Kojo KAUFFMAN MD Unavailable Unavailable Kojo KAUFFMAN MD Unavailable Unavailable Kojo KAUFFMAN MD Unavailable Unavailable Kojo KAUFFMAN MD Unavailable Unavailable Kojo KAUFFMAN MD Unavailable Unavailable Kojo KAUFFMAN MD Unavailable Unavailable Kojo KAUFFMAN MD Unavailable Unavailable Kojo KAUFFMAN MD Unavailable Unavailable Kojo KAUFFMAN MD Unavailable Unavailable Kojo KAUFFMAN MD Unavailable Unavailable Kojo KAUFFMAN MD Unavailable Unavailable TURRIN, CAROLE Unavailable Unavailable TURRIN, CAROLE Unavailable Unavailable TURRIN, CAROLE Unavailable Unavailable TURRIN, CAROLE Unavailable Unavailable Nirmal CARMONA Unavailable Unavailable MAYES, WILDA MD Unavailable Unavailable MAYES, WILDA MD Unavailable Unavailable MAYES, WILDA MD Unavailable Unavailable MAYES, WILDA MD Unavailable Unavailable MAYES, WILDA MD Unavailable Unavailable MAYES, WILDA MD Unavailable Unavailable MAYES, WILDA MD Unavailable Unavailable MAYES, WILDA MD Unavailable Unavailable MAYES, WILDA MD Unavailable Unavailable MAYES, WILDA MD Unavailable Unavailable MAYES, WILDA MD Unavailable Unavailable MAYES, WILDA MD Unavailable Unavailable MAYES, WILDA MD Unavailable Unavailable MAYES, WILDA MD Unavailable Unavailable MAYES, WILDA MD Unavailable Unavailable MAYES, WILDA MD Unavailable Unavailable MAYES, WILDA MD Unavailable Unavailable MAYES, WILDA MD Unavailable Unavailable MAYES, WILDA MD Unavailable Unavailable MAYES, WILDA MD Unavailable Unavailable MAYES, WILDA MD Unavailable Unavailable MAYES, WILDA MD Unavailable Unavailable MAYES, WILDA MD Unavailable Unavailable MAYES, WILDA MD Unavailable Unavailable MAYES, WILDA MD Unavailable Unavailable MAYES, WILDA MD Unavailable Unavailable MAYES, WILDA MD Unavailable Unavailable MAYES, WILDA MD Unavailable Unavailable MAYES, WILDA MD Unavailable Unavailable MAYES, WILDA MD Unavailable Unavailable MAYES, WILDA MD Unavailable Unavailable MAYES, WILDA MD Unavailable Unavailable MAYES, WILDA MD Unavailable Unavailable MAYES, WILDA MD Unavailable Unavailable MAYES, WILDA MD Unavailable Unavailable MAYES, WILDA MD Unavailable Unavailable MAYES, WILDA MD Unavailable Unavailable MAYES, WILDA MD Unavailable Unavailable MAYES, WILDA MD Unavailable Unavailable MAYES, WILDA MD Unavailable Unavailable MAYES, WILDA MD Unavailable Unavailable MAYES, WILDA MD Unavailable Unavailable MAYES, WILDA MD Unavailable Unavailable MAYES, WILDA MD Unavailable Unavailable MAYES, WILDA MD Unavailable Unavailable MAYES, WILDA MD Unavailable Unavailable MAYES, WILDA MD Unavailable Unavailable MAYES, WILDA MD Unavailable Unavailable MAYES, WILDA MD Unavailable Unavailable MAYES, WILDA MD Unavailable Unavailable MAYES, WILDA MD Unavailable Unavailable MAYES, WILDA MD Unavailable Unavailable MAYES, WILDA MD Unavailable Unavailable MAYES, WILDA MD Unavailable Unavailable MAYES, WILDA MD Unavailable Unavailable MAYES, WILDA MD Unavailable Unavailable MAYES, WILDA MD Unavailable Unavailable MAYES, WILDA MD Unavailable Unavailable MAYES, WILDA MD Unavailable Unavailable MAYES, WILDA MD Unavailable Unavailable MAYES, WILDA MD Unavailable Unavailable MAYES, WILDA MD Unavailable Unavailable AMYES, WILDA MD Unavailable Unavailable MAYES, WILDA MD Unavailable Unavailable MAYES, WILDA MD Unavailable Unavailable MAYES, WILDA MD Unavailable Unavailable MAYES, WILDA MD Unavailable Unavailable MAYES, WILDA MD Unavailable Unavailable MAYES, WILDA MD Unavailable Unavailable VENERUS, J GENARO MD Unavailable Unavailable VENERUS, J GENARO MD Unavailable Unavailable VENERUS, J GENARO MD Unavailable Unavailable VENERUS, J GENARO MD Unavailable Unavailable VENERUS, J GENARO MD Unavailable Unavailable VENERUS, J GENARO MD Unavailable Unavailable VENERUS, J GENARO MD Unavailable Unavailable VENERUS, J GENARO MD Unavailable Unavailable VENERUS, J GENARO MD Unavailable Unavailable Re-disclosure Warning The records that you are about to access may contain information from federally-assisted alcohol or drug abuse programs. If such information is present, then the following federally mandated warning applies: This information has been disclosed to you from records protected by federal confidentiality rules (42 CFR part 2). The federal rules prohibit you from making any further disclosure of this information unless further disclosure is expressly permitted by the written consent of the person to whom it pertains or as otherwise permitted by 42 CFR part 2. A general authorization for the release of medical or other information is NOT sufficient for this purpose. The Federal rules restrict any use of the information to criminally investigate or prosecute any alcohol or drug abuse patient.The records that you are about to access may contain highly sensitive health information, the redisclosure of which is protected by Article 27-F of the [facility] Public Health law. If you continue you may have access to information: Regarding HIV / AIDS; Provided by facilities licensed or operated by the [facility] Office of Mental Health; or Provided by the [facility] Office for People With Developmental Disabilities. If such information is present, then the following [facility] mandated warning applies: This information has been disclosed to you from confidential records which are protected by state law. State law prohibits you from making any further disclosure of this information without the specific written consent of the person to whom it pertains, or as otherwise permitted by law. Any unauthorized further disclosure in violation of state law may result in a fine or custodial sentence or both. A general authorization for the release of medical or other information is NOT sufficient authorization for further disc losure. Allergies and Adverse Reactions Type Description Substance Reaction Status Data Source(s ) No Known Food Allergies No Known Food Allergies [facility] ENVIRONMENTAL Environmental Environmental [facility] Family Member Name Family Member Gender Family Member Status Date o f Status Description Data Source(s) Unknown Unknown Problem MEDENT ([facility], ) Unknown Male Problem MEDENT ([facility]) Encounters Encounter Providers Location Date Indications Data Source(s ) Emergency Attender: HUMZA CARMONAConsultant: WILDA MAYES MD 05/27/2020 11:09:00 AM EST - 05/27/2020 02:17:00 PM [facility] Patient discharged. Outpatient Attender: ELIEL KAUFFMAN MDConsultant: DEMETRA MAYES MD 05/01/2020 02:51:00 PM EST - 05/01/2020 03:51:00 PM [facility] Emergency Attender: CAROLE Reagansultant: WILDA Centeno MD 04/25/2020 03:10:00 PM EST - 04/25/2020 07:08:00 PM [facility] Patient discharged. Emergency Attender: GENARO CHINO MDConsultant: WILDA IVORY MD 02/27/2020 06:46:00 AM EDT - 02/27/2020 09:30:00 AM EDT [facility] Patient discharged. Outpatient Attender: ELIEL KAUFFMAN MDConsultant: DEMETRA MAYES MD 01/06/2020 05:04:00 PM EDT - 01/06/2020 06:04:00 PM EDT [facility] Outpatient Attender: ELIEL Colon MDReferrer: ELIEL KAUFFMAN MDConsultant: WILDA MAYES MD 11/13/2019 07:18:00 AM E DT - 11/13/2019 07:28:00 AM EDT [facility] Patient discharged. Emergency Attender: CAROLE SALAZARConsultant: WILDA Centeno MD 11/08/2019 07:51:00 PM EDT - 11/08/2019 10:45:00 PM EDT [facility] Patient discharged. Emergency Attender: CAROLE Iqballtant: WILDA Centeno MD 10/27/2019 08:45:00 PM EDT - 10/27/2019 09:16:00 PM EDT [facility] Patient discharged. Medications Medication Brand Name Start Date Product Form Dose Route Admi nistrative Instructions Pharmacy Instructions Status Indications Reaction Description Data Source(s) 5-325 mg 05/27/2020 12:00:00 AM EST tablet 9 TAKE ONE TABLET BY MOUTH THREE TIMES A DAY MAXIMUM DAILY DOSE = 3 TAKE ONE TABLET BY MOUTH THREE TIMES A D AY MAXIMUM DAILY DOSE = 3 SOLD: 05/27/2020 [facility] 300 mg 05/27/2020 12:00:00 AM EST capsule 40 TAKE ONE CAPSULE BY MOUTH FOUR TIMES A DAY TAKE ONE CAPSULE BY MOUTH FOUR TIMES A DAY SOLD: 05/27/2020 [facility] 4 mg 04/25/2020 12:00:00 AM EST tablets,dose pack 21 TAKE DIRECTED ON PACKAGE TAKE DIRECTED ON PACKAGE SOLD: 04/25/2020 [facility] 500 mg 04/25/2020 12:00:00 AM EST tablet 20 TAKE ONE TABLET BY MOUTH TWICE A DAY TAKE ONE TABLET BY MOUTH TWICE A DAY SOLD: 04/25/2020 [facility] Metronidazole 500 MG Oral Tablet METRONIDAZOLE 04/25/2020 12:0 0:00 AM EST tablet 30 TAKE ONE TABLET BY MOUTH THREE T IMES A DAY FOR 10 DAYS TAKE ONE TABLET BY MOUTH THREE TIMES A DAY FOR 10 DAYS SOLD: 04/25/2020 [facility] Budesonide 3 MG Delayed Release Oral Capsule BUDESONIDE 04/13/2020 12:00:00 AM EST capsule,delayed,extend.release 30 T NOLAN THREE CAPSULES BY MOUTH EVERY DAY FOR SEVEN DAYS, THEN TAPER OFF TAKE THREE CAPSULES BY MOUTH EVERY DAY F OR SEVEN DAYS, THEN TAPER OFF SOLD: 04/13/2020 [facility] 500 mg 02/27/2020 12:00:00 AM EDT tablet 14 TAKE ONE TABLET BY MOUTH TWICE A DAY FOR 7 DAYS FOR ULCERATIVE COLITIS TAKE ONE TABLET BY MOUTH TWICE A DAY FOR 7 DAYS FOR ULCERATIVE COLITIS SOLD: 02/27/2020 [facility] Metronidazole 500 MG Oral Tablet METRONIDAZOLE 02/27/2020 12:0 0:00 AM EDT tablet 21 TAKE ONE TABLET BY M OUTH EVERY 8 HOURS FOR 7 DAYS FOR MID ULCERATIVE COLITIS FLARE TAKE ONE TABLET BY MOUTH EVERY 8 HOURS F OR 7 DAYS FOR MID ULCERATIVE COLITIS FLARE SOLD: 02/27/2020 [facility] 10 mg 02/27/2020 12:00:00 AM EDT tablet 42 TAKE 6 TABLETS BY MOUTH DAILY FOR 2 DAYS,THEN 5 TABLETS FOR 2 DAYS, THEN 4 TABLETS FOR 2 DAYS, THEN 3 TABLETS FOR 2 DAYS, THEN 2 TABLETS FOR 2 DAYS, THEN 1 TABLET FOR 2 DAYS TAKE 6 TABLETS BY MOUTH DAILY FOR 2 DAYS,THEN 5 TABLETS FOR 2 DAYS, THEN 4 TABLETS FOR 2 DAYS, THEN 3 TABLETS FOR 2 DAYS, THEN 2 TABLETS FOR 2 DAYS, THEN 1 TABLET FOR 2 DAYS SOLD: 02/27/2020 [facility] 4 gram/60 mL 01/18/2020 12:00:00 AM EDT enema 840 USE 1 ENEMA DAILY AT BEDTIME NEEDED USE 1 ENEMA DAILY AT BEDTIME NEEDED SOLD: 02/03/2020 [facility] 4 gram/60 mL 01/18/2020 12:00:00 AM EDT enema 840 USE 1 ENEMA DAILY AT BEDTIME NEEDED USE 1 ENEMA DAILY AT BEDTIME NEEDED SOLD: 01/19/2020 [facility] 10 mg 01/06/2020 12:00:00 AM EDT tablet 53 TAKE FOUR TABLETS BY MOUTH EVERY DAY FOR 5 DAYS THEN 3 DAILY FOR 5 DAYS, 2 DAILY FOR 5 DAYS THEN 1 DAILY FOR 5 DAYS AND ONE-HALF TABLET DAILY FOR 6 DAYS TAKE FOUR TABLETS BY MOUTH EVERY DAY FOR 5 DAYS THEN 3 DAILY FOR 5 DAYS, 2 DAILY FOR 5 DAYS THEN 1 DAILY FOR 5 DAYS AND ONE-HALF TABLET DAILY FOR 6 DAYS SOLD: 01/09/2020 [facility] Prednisone 10 MG Oral Tablet Prednisone 01/06/2020 12:00:00 AM EDT active [facility] 400 mg 12/13/2019 12:00:00 AM EDT capsule (with del rel t ablets) 252 TAKE 2 CAPSULES BY MOUTH TOGETHER THREE TIMES A DAY FOR 6 WEEKS TAKE 2 CAPSULES BY MOUTH TOGETHER THREE TIMES A DAY FOR 6 WEEKS SOLD: 12/13/2019 [facility] 500 mg 11/09/2019 12:00:00 AM EDT tablet 20 TAKE ONE TABLET BY MOUTH TWICE A DAY DIRECTED FOR 10 DAYS TAKE ONE TABLET BY MOUTH TWICE A DAY DIRECTED FOR 10 DAYS SOLD: 11/09/2019 [facility] 500 mg 11/09/2019 12:00:00 AM EDT tablet 14 TAKE ONE TABLET BY MOUTH TWICE A DAY DIRECTED FOR 7 DAYS TAKE ONE TABLET BY MOUTH TWICE A DAY DIRECTED FOR 7 DAYS SOLD: 11/09/2019 [facility] 20 mg 11/09/2019 12:00:00 AM EDT tablet 15 TAKE THREE TABLETS BY MOUTH ONCE DAILY FOR 5 DAYS TAKE THREE TABLETS BY MOUTH ONCE DAILY FOR 5 DAYS SOLD : 11/09/2019 [facility] 875 mg 10/28/2019 12:00:00 AM EDT tablet 20 TAKE ONE TABLET BY MOUTH TWICE A DAY TAKE ONE TABLET BY MOUTH TWICE A DAY SOLD: 10/28/2019 [facility] vedolizumab 300 MG Injection [Entyvio] Entyvio 07/09/2019 12:00:00 A M EST active MEDENT ([facility], ) 3 mg 07/01/2019 12:00:00 AM EST capsule,delayed,extend. release 84 TAKE THREE CAPSULES BY MOUTH EVERY DAY BEFORE DINNER FOR 4 WEEKS THEN 2 DAILY FOR 4 WEEKS THEN ONE DAILY FOR 4 WEEKS TAKE THREE CAPSULES BY MOUTH EVERY DAY B EFORE DINNER FOR 4 WEEKS THEN 2 DAILY FOR 4 WEEKS THEN ONE DAILY FOR 4 WEEKS SOLD: 08/05/2019 [facility] 3 mg 07/01/2019 12:00:00 AM EST capsule,delayed,extend. release 84 TAKE THREE CAPSULES BY MOUTH EVERY DAY BEFORE DINNER FOR 4 WEEKS THEN 2 DAILY FOR 4 WEEKS THEN ONE DAILY FOR 4 WEEKS TAKE THREE CAPSULES BY MOUTH EVERY DAY B EFORE DINNER FOR 4 WEEKS THEN 2 DAILY FOR 4 WEEKS THEN ONE DAILY FOR 4 WEEKS SOLD: 07/02/2019 [facility] 5 mg 05/22/2019 12:00:00 AM EST tablet,delayed release (DR/EC) 4 TAKE 4 TABLETS BY MOUTH PER BOWEL PREPARATION INSTRUCTIONS TAKE 4 TABLETS BY MOUTH PER BOWEL PREPARATION INSTRUCTIONS SOLD: 05/23/2019 [facility] 400 mg 05/17/2019 12:00:00 AM EST capsule (with del rel t ablets) 252 TAKE TWO CAPSULES BY MOUTH TWICE A DAY TAKE TWO CAPSULES BY MOUTH TWICE A DAY SOLD: 05/30/2019 [facility] 420 gram 05/15/2019 12:00:00 AM EST recon soln 4000 START DRINKING THE LIQUID AT 4 PM. ON DAY BEFORE PROCEDURE AND COMPLETE BY 4 HOURS BEFORE PROCEDURE TIME START DRINKING THE LIQUID AT 4 PM. ON DA Y BEFORE PROCEDURE AND COMPLETE BY 4 HOURS BEFORE PROCEDURE TIME SOLD: 05/23/2019 [facility] Insurance Providers Payer name Policy type / Coverage type Policy ID Covered constitution party ID Covered constitution party's relationship to coleman Policy Coleman Plan Information [facility] COMMUNITY PLAN [facility] [id number] SP [id number] [facility] COMMUNITY PLAN [facility] [id number] SP [id number] [facility] COMMUNITY PLAN XIX [id number] 18 [id number] [facility] COMMUNITY PLAN [facility] [id number] SP [id number] [facility] COMMUNTY PLAN [id number] [employer] -O/P [id number] 19 [id number] MEDICAID -O/P [id number] 18 [id number] [facility] Health Maintenance Organization (HMO) [id number] Self [id number] [facility] Health Maintenance Organization (HMO) [id number] Self [id number] [facility] Health Maintenance Organization (HMO) [id number] Self [id number] [facility] Health Maintenance Organization (HMO) [id number] Self [id number] O BLUE [id number] SP [id number] [facility] Communty Plan Medicaid [id number] Self [id number] [facility] [id number] Self [id number] [employer] -PHYSICIAN [id number] [employer] -O/P [id number] 19 [id number] [employer]INIC [id number] 19 [id number] 00 [employer]-O/P [id number] 19 [id number] Problems, Conditions, and Diagnoses Code Display Name Description Problem Type Effective Dates Data Source(s) Z00689 Cellulitis of face Cellulitis of face Diagnosis 11:09:00 AM [facility] K0889 Other specified disorders of teeth and s upporting structures Other specified disorders of teeth and supporting structures Diagnosis 05/27/2020 11:09:00 AM [facility] K5100 Ulcerative (chronic) pancolitis without complications Ulcerative (chronic) pancolitis without complications Diagnosis 05/01/2020 02:51:00 PM [facility] K900 Celiac disease Celiac disease Diagnosis 05/01/2020 02:51: 00 PM [facility] K5010 Crohn's disease of large intestine witho ut complications Crohn's disease of large intestine without complications Diagnosis 04/25/2020 03:10:00 PM [facility] R1033 Periumbilical pain Periumbilical pain Diagnosis 03:10:00 PM [facility] K5190 Ulcerative colitis, unspecified, without complications Ulcerative colitis, unspecified, without complications Diagnosis 02/27/2020 06:46:00 AM E DT [facility] R1032 Left lower quadrant pain Left lower quadrant pain Diag nosis 02/27/2020 06:46:00 AM EDT [facility] K529 Noninfective gastroenteritis and colitis , unspecified Noninfective gastroenteritis and colitis, unspecified Diagnosis 11/08/2019 07:51:00 PM EDT [facility] Q76674 Acute suppurative otitis med ia without spontaneous rupture of ear drum, right ear Acute suppurative otitis media without s pontaneous rupture of ear drum, right ear Diagnosis 10/27/2019 08:45:00 PM EDT [facility] H9201 Otalgia, right ear Otalgia, right ear Diagnosis 08:45:00 PM EDT [facility] Results ID Date Data Source [id number] 06/14/2020 12:00:00 PM [facility] Name Value Range Interpretation Code Description Data Denisse rce(s) Supporting Document(s) SARS coronavirus 2 RNA Not Detected [facility] This lab was ordered by [facility] and reported by [facility]. ID Date Data Source [id number] 05/29/2020 12:46:00 PM [facility] [address] [place] [address] PHONE: [phone] FAX: [phone] Name .................. : KIMBERLY Houston Acct Number.................. : [id number] ROOM. ................. : TR-08 MR Number ................... : [id number] Stay type ............. : E/R Discharge Date......... ... : 05/27/20 Admit Date ......... : 05/27/20 Admit Phys .................... : MATHEW Kinney Date of ....... : 2000 Family Phys ................... : [employer] Phone .................. : [phone] Age ................................ : 19 Film# .................. .:[id number] Sex ................................. : M Unsigned transcriptions are preliminary reports and do not represent a medical or legal document CT ST NECK W/CONTRAST [id number] COMPLETE:05/27/20 11:34 2793 Reason(s): PENDANDREI Kinney MP: swelling of L face. ? cellulitis vs abscess. CT OF THE SOFT TISSUES OF THE NECK WITH CONTRAST: INDICATION: Cellulitis, swelling of the left face. FINDINGS: The orbits are unremarkable. The paranasal sinuses are clear. Limited aeration of the mastoid air cells. No evidence of any fluid within the mastoid air cells. Nasopharynx is patent. Mild effacement of the oropharynx due to mildly enlarged tonsils. No evidence of a tonsillar abscess. No prevertebral soft tissue swelling. Bilateral parotid glands are symmetric and unremarkable. Bilateral submandibular glands are symmetric and unremarkable. Small nonreactive bilateral submandibular lymph nodes. Small nonreactive bilateral carotid chain lymph nodes. No abscess. Mild subcutaneous inflammation involving the lower left cheek. IMPRESSION: Mild cellulitis lower left cheek. No abscess. No reactive adenopathy. Prominent tonsils. Mild oropharynx effacement. No tonsillar abscess. No drainable collection. While performing the above CT exam ination, radiation dose reduction was accomplished utilizing automated exposure control, adjusting of the mA and kV based on the patient's body size and/or the use of imperative reconstructive techniques. CT dose: 458.2 mGycm Contrast agent in mL: 75 Isovue 370 Page 1 of 2 [facility] [address] [place] [address] PHONE: [phone] FAX: [phone] Name .................. : KIMBERLY Houston Acct Number.................. : [id number] ROOM. ................. : TR-08 MR Number ................... : [id number] Stay type ............. : E/R Discharge Date......... ... : 05/27/20 Admit Date ......... : 05/27/20 Admit Phys .................... : MATHEW Kinney Date of ....... : 2000 Family Phys ................... : [employer] Phone .................. : [phone] Age ................................ : 19 Film# .................. .:[id number] Sex ................................. : Kelli Unsigned transcriptions are preliminary reports and do not represent a medical or legal document CT ST NECK W/CONTRAST [id number] COMPLETE:05/27/20 11:34 5071 Reason(s): PENDNG CMP: swelling of L face. ? cellulitis vs abscess. Method of administration: Intravenous Electronically Reviewed and Signed By Hood Collier MD , 05/29/20 12:46, PRIYANKA Transcribe Ini tials: ISAAK , Transcribe Date: 05/27/20 15:07, Dictation Date: Copy for: ANTONETTE MAHMOOD via fax Copy for: EMERGENCY DEPT via modem Copy for: 710 MED REC DISCHARGED Page 2 of 2 Name Value Range Interpretation Code Description Data Denisse rce(s) Supporting Document(s) ID Date Data Source [id number] 05/27/2020 11:09:00 AM EST [facility] 1 OrderSheet [facility] Emergency Department [address] [place] [address] Phone #: [phone]- [phone] 05/27/2020 11:01 Patient: BALJINDER HARRIS Sex: M : 2000 Age: 19yWEIGHT:95.2 kg (S) HEIGHT:69 inches (S) BMI:31.0ALLERGIES: DilaudidCHIEF COMPLAINT: dental painDIAGNOSIS: Toothache, Cellulitis of faceLAB ORDERSOrder Description Priority Entered Acknowledged InitialedCBC w Diff STAT 11:32 05/27/2020 11:36 Juliane Hilton ED, P.A.-C; [id number] STAT 11:32 05/27/2020 11:36 Juliane Hilton ED-Nirmal; [id number] STUDY ORDERSOrder Description Priority Entered Acknowledged InitialedCT Neck Soft STAT 11:34 05/27/2020 11:36 [place] W/ Cont Devonte Knott Tech, Juliane ER(Oxygen?(N o)) P.A.-C; Tech1(IV?(No)) Reason for Study: PENDNG CMP: swelling of L face. ? cellulitis vs abscess.MEDICATION/IV/DRIP/FLUID ORDERSOrder Description Priority Entered Acknowledged InitialedIV NS : Bolus 1000 11:32 05/27/2020 11:49 TerrymL, then 100 mL/hr Devonte Reyes RN P.A.-C;Ofirmev IV 1000 mg 11:32 05/27/2020 11:50 Ruben(NOW x1, Infuse Devonte Reyes RNover 15 minutes) P.A.-C;Benadryl IVP 25 mg 11:32 05/27/2020 11:50 Ruben Reyes RN P.A.-C;Zofran IVP 4 mg 11:33 05/27/2020 11:51 Ruben Reyes RN P.A.-C; Reason for ordering with alerts: Other (Pt has had in the past with no issues or reported adverse SEs) -- 11:33 05/27/2020 Devonte Knott P.A.-C 2 OrderSheet [facility] Emergency Department [address] [place] [address] Phone #: [phone] 05/27/2020 11:01 Patient: BALJINDER HARRIS Sex: M : 2000 Age: 19yRocephin 13:18 05/27/2020 13:34 Ruben(1gm/50mL) IVPB Devonte Reyes [id number] mg with P.A.-C;Dextrose 50 mlspike bag (D5W)Toradol IVP 15 mg 13:18 05/27/2020 13:35 Ruben Reyes RN P.A.-C;GENERAL ORDERSOrder Description Priority Entered Acknowledged InitialedNPO 11:32 05/27/2020 11:36 [place] ED Juliane Artis P.A.-C; [id number] Lock 11:32 05/27/2020 11:36 [place] ED Juliane Artis P.A.-C; Tech1[Electronically signed by Sherice Lopez R.N. (14:17 05/27/2020)][Electronically signed by Devonte Knott P.A.-C (20:22 05/27/2020)][Electronically locked by Sherice Lopez R.N. (14:17 05/27/2020)] Name Value Range Interpretation Code Description Data Denisse rce(s) Supporting Document(s) ID Date Data Source [id number] 05/27/2020 11:09:00 AM EST [facility] 1 Medication Reconciliation Report [facility] Department [address] [place] [address] Phone #: [phone]- [phone] 05/27/2020 11:01 Patient: BALJINDER HARRIS Sex: M : 2000 Age: 19yWeight: 95.2 kgHeight/Length: 69 in.BMI: 31.0ALLERGIES: DilaudidThe patient's Home Medications are listed below:CONTINUE TAKING THE FOLLOWING MEDICATIONS: Optivo Injection, every 8 weeksThe source(s) of the original Home Medication information:Not obtained.The following Medications were given to the patient in the Emergency Department:IV NS IV Fluids bolus 1000 mL over 1 hour(s), then 100 mL/hr, administered: 12:10 05/27/2020ofirmev IVPB bolus 0, then 1000 mg, administered: 11:45 05/27/2020enadryl [IVP] IVP 25 mg, administered: 11:43 05/27/2020Zofran [IVP] IVP 4 mg, administered: 11:42 05/27/2020OCEPHIN (1GM/50ML) [IVPB] IVPB bolus 0, then 1 gm 100 mL/hr, administered: 13:30 05/27/2020Toradol [IVP] IVP 15 mg, administered: 13:30 05/27/2020The following Medications were prescribed to the patient:hydrocodone 5 mg-acetaminophen 325 mg tablet Take 1 tablet three times a day for 3 days --Dispense 9 tablet. Refills: 0. Substitution permitted.[facility] #[address] [place], [place] [id number]. .clindamycin HCl 300 mg capsule Take 1 capsule four times a day for 10 days -- Dispense 40 capsule.Refills: 0. Substitution permitted.[facility] [address] [id number]. Phone: [phone] Medication Reconciliation Report [facility] Emergency Department [address] [place] [address] Phone #: ext- [phone] 05/27/2020 11:01 [id number] Sex: [facility] : 2000 Age: [id number] . -- Devonte Knott P.A.-C Name Value Range Interpretation Code Description Data Denisse rce(s) Supporting Document(s) ID Date Data Source [id number] 05/27/2020 11:09:00 AM EST [facility] 1 Medication Administration Record [facility] Emergency Department [address] [place] [address] Phone #: ext- [phone] 05/27/2020 11:01 Patient: BALJINDER HARRIS [facility]#: [id number] Sex: M : 2000 Age: 19yWeight: 95.2 kgHeight/Length: 69 inBMI: 31ALLERGIES: Dilaudid Date/Time Medication Administered Medication OrderedStart IV NS IV NS : Bolus 1000 mL, then 34497:10 05/27/2020 Dose: IV Fluids mL/Stefano Reyes RN Rate: 100 mL/hr over 5 hour(s)---- Bolus: 1000 mL over 1 hour(s)Stop Dispensed: 1000 mL bag13:56 05/27/2020 Site: #1 right KIRILL [place] ofirmev * Ofirmev IV 1000 mg (NOW x1,11:45 05/27/2020 Dose: 1000 mg * IVPB Infuse over 15 minutes)Ruben Reyes RN----Stop12:10 05/27/2020Ruben Reyes RNGiven BENADRYL [IVP] (DIPHENHYDRAMINE Benadryl IVP 25 mg11:43 05/27/2020 HCL)Ruben Reyes RN Dose: 25 mg IVP Site: #1 right ACGiven ZOFRAN [IVP] (ONDANSETRON HCL) Zofran IVP 4 mg11:42 05/27/2020 Dose: 4 mg IVLiat Reyes RN Site: #1 right ACStart ROCEPHIN (1GM/50ML) [IVPB] Rocephin (1gm/50mL) IVPB 870267:30 05/27/2020 (CEFTRIAXONE SODIUM) mg with Dextrose 50 ml spike Shaq Reyes RN Dose: 1 gm IVPB (D5W)---- Rate: 100 mL/hr over 30 minute(s)Stop Dispensed: 50 mL bag13:57 05/27/2020 Site: #1 right Augusto Reyes RNGiven TORADOL [IVP] (KETOROLAC Toradol IVP 15 mg13:30 05/27/2020 TROMETHAMINE)Ruben Reyes RN Dose: 15 mg IVP Site: #1 right AC Name Value Range Interpretation Code Description Data Denisse rce(s) Supporting Document(s) ID Date Data Source [id number] 05/27/2020 11:09:00 AM EST [facility] 1 General Instructions [facility] Emergency Department [address] [place] [address] Phone #: ext- [phone] 05/27/2020 11:01 Patient: BALJINDER HARRIS Sex: M : 2000 Age: 19y Mild dental pain. Facial cellulitisINSTRUCTIONS Take Tylenol (Acetaminophen) or Motrin (Ibuprofen) as needed for fever control. Take medication according to label instructions. Do not work for two days. Drink plenty of fluids. No dietary restrictions. Do not smoke. (Recommend to utilize OTC Motrin and Tylenol to control inflammation and pain management. Recommend to follow the instructions on the bottle and not to exceed. LOCAL DENTISTS [facility]; Dentist in [place], [place]; Address: [address] [place] [address]; 5:30PM ? Opens 7:30AM Wed; ; Appointments: [facility] eLno Shah, [facility]; Dentist in [place], [place]; Address: [address] [place] [address]; [facility]; Dentist in [place], [place]; Address: [address] [place] [address]; [facility], ; Dental clinic in [place], [place]; Address: [id number] [place] [address]; Appointments: [facility]; [facility]; Dentist in [place], [place]; Address: [address] [place] [address] [id number], [place] [id number]; ). Warnings: Further evaluation is necessary. SEDATIVE MEDICATION: You were given sedative medication during your visit. Do not drive or operate dangerous machinery. CONTROLLED SUBSTANCE WARNINGS. GENERAL WARNINGS: Return or contact your physician immediately if your condition worsens or changes unexpectedly, if not improving as expected, or if other problems arise. Your Current Medications: Your current home medications have been reviewed. CONTINUE TAKING THE FOLLOWING MEDICATIONS: Optivo Injection* : every 8 weeks. 2 General Instructions [facility] Emergency Department [address] [place] [address] Phone #: ext- [phone] 05/27/2020 11:01 Patient: BALJINDER HARRIS Sex: M : 2000 Age: 19yPrescription monitor program consulted by me. Prescription does not exceed state maximum supply ofmedicationsPrescription Medications:hydrocodone 5 mg- acetaminophen 325 mg tablet Take 1 tablet three times a day for 3 days --Dispense 9 tablet. Refills: 0. Substitution permitted.[facility] [address] [id number]. .clindamycin HCl 300 mg capsule Take 1 capsule four times a day for 10 days -- Dispense 40 capsule.Refills: 0. Substitution permitted.[facility] [address] [place], [place] [id number]. .Follow-up:Return to the emergency department as needed. Follow up with your healthcare provider in about twodays if not better. Call for an appointment. Follow up with a dentist Friday. Call for the next availableappointment.Understanding of the discharge instructions verbalized by patient. ADDITIONAL INFORMATIONDental Pain 3 General Instructions [facility] Emergency Department [address] [place] [address] Phone #: ext- [phone] 05/27/2020 11:01 Patient: BALJINDER HARRIS Sex: M : 2000 Age: 19yA crack or cavity in a tooth can cause tooth pain. This is because the crack or cavity exposes thesensitive inner area of the tooth. An infection in the gum or the tooth's root can cause pain andswelling. The pain is often made worse when you have a hot or cold drink. It can also be worse whenyou bite on hard foods. Pain may spread from the tooth to your ear, or to the part of the jaw on thesame side.Home careFollow these tips when caring for yourself at home: Don't have hot and cold foods and drinks. Your tooth may be sensitive to changes in temperature. Use toothpaste made for sensitive teeth. [place] gently up and down instead of sideways. Brushing sideways can wear away root surfaces if they are exposed. If your tooth is chipped or cracked, see a dentist right away. For short-term pain relief, put clove oil right on the tooth. You can buy clove oil at pharmacies. Some pharmacies carry an yvkt-gwd-vnyegqy toothache kit. This has a paste you can put on the exposed tooth to make it less sensitive. 4 General Instructions [facility] Emergency Department [address] [place] [address] Phone #: ext- [phone] 05/27/2020 11:01 Patient: BALJINDER HARRIS Sex: M : 2000 Age: 19y Use a cold pack. Put a cold pack on your jaw over the sore area to help reduce pain. Ask your healthcare provider about using boqu-iko-xtjujqv medicine for pain. You may use this unless your provider prescribed another medicine. If you have long-term (chronic) liver or kidney disease, talk with your provider before using acetaminophen or ibuprofen. Also talk with your provider if you've had a stomach ulcer or GI (gastrointestinal) bleeding. Be aware of infection. If you have signs of an infection, you will be given an antibiotic. Take it as directed.Follow-up careFollow up with your dentist, or as advised. Your pain may go away with the treatment given today. Butonly a dentist can fully check and treat the cause of your pain. This will keep the pain from comingback.Call 911Call 911 if any of these occur: Abnormal drowsiness Headache or stiff neck Weakness or fainting Trouble swallowing or breathingWhen to get medical adviceCall your healthcare provider right away if any of these occur: Your face gets swollen or red Pain gets worse or spreads to your neck Fever of 100.4F (38.0C) or higher, or as directed by your provider Pus drains from the tooth [phone] [employer]. [address] [place] [address], [place] [address]. All rights reserved. This information is not intended as asubstitute for professional medical care. Always follow your healthcare professional's instructions.Facial CellulitisCellulitis is an infection of the deep layers of skin. A break in the skin, such as a cut or scratch, can letbacteria under the skin. It may also occur from an infected oil gland (pimple) or hair follicle. If the 5 General Instructions [facility] Emergency Department [address] [place] [address] Phone #: ext- [phone] 05/27/2020 11:01 Patient: BALJINDER HARRIS Sex: M : 2000 Age: 19ybacteria get to deep layers of the skin, it can be serious. If not treated, cellulitis can get into thebloodstream and lymph nodes. The infection can then spread throughout the body. This causesserious illness. Cellulitis on the face is especially dangerous if it affects the skin around the eyes.Cellulitis causes the affected skin to become red, swollen, warm, and sore. The reddened areas havea visible border. You may have a fever, chills, and pain.Cellulitis is treated with antibiotics taken for 7 to 10 days. Symptoms should get better 1 to 2 daysafter treatment is started. Make sure to take all the antibiotics for the full number of days until they aregone. Keep taking the medicine even if your symptoms go away.Home careFollow these tips: Take all of the antibiotic medicine exactly as directed until it's gone. Don't miss any doses, especially during the first 7 days. Don't stop taking it when your symptoms get better. Use a cool compress (face cloth soaked in cool water) on your face to help reduce swelling and pain. You may use acetaminophen or ibuprofen to reduce pain. Don't use these if you have chronic liver or kidney disease, or ever had a stomach ulcer or gastrointestinal bleeding. Talk with your healthcare provider first.Follow-up careFollow up with your healthcare provider, or as advised. If your infection doesn't go away on the firstantibiotic, your healthcare provider will prescribe a different one.When to seek medical adviceCall your healthcare provider right away if any of these occur: Fever higher of 100.4 F (38.0 C) or higher after 2 days on antibiotics Red areas that spread Swelling or pain that gets worse Fluid leaking from the skin (pus) An eyelid that swells shut or leaks fluid (pus) Headache or neck pain that gets worse Unusual drowsiness or confusion 6 General Instructions [facility] Emergency Department [address] [place] [address] Phone #: ext- [phone] 05/27/2020 11:01 Patient: BALJINDER HARRIS Sex: M : 2000 Age: 19y Seizure Change in eyesight [employer]. [address] [place] [address]. All rights reserved. This information is not intended as asubstitute for professional medical care. Always follow your healthcare professional's instructions. You have been given the following additional information: Dental Pain Cellulitis, Facial Do not work for two days.(Electronically signed by Devonte Knott P.A.-C 05/27/2020 20:22) Name Value Range Interpretation Code Description Data Denisse rce(s) Supporting Document(s) ID Date Data Source [id number] 05/27/2020 11:09:00 AM EST [facility] 1 Clinical Report - Nurses [facility] Emergency Department [address] [place] [address] Phone #: tww- [phone] 05/27/2020 11:01 Patient: BALJINDER HARRIS Sex: M : 2000 Age: 19yTRIAGEArrived by private vehicle. Historian: patient. Accompanied by family.Acuity: LEVEL 3.Chief Complaint: TOOTHACHE and SWELLING OF JAW / FACE.Alert. No acute distress.Onset. (3 days ago). ( PT says his Left upper front teeth became painful and swollen 3 days ago. It hasgotten progressively more painful and today he woke up with swelling to his face. He says the pain radiatesinto his nose and left ear.). He has no dental appointment scheduled.Treatment CORPORATE LEGAL SECRETARY:Took ibuprofen.SEPSIS SCREEN: SIRS SCREEN NEGATIVE. SEPSIS SCREEN NEGATIVE. No suspected or confirmedsigns of infection present.SHANTELLE COMA SCORE: 15- eyes open- spontaneous (4); best verbal response- oriented (5); bestmotor response- obeys commands (6). --11:09 05/27/20 Sherice Lopez R.N.11:03 05/27/20. BP: 144/87. MAP: 106. HR: 69. RR: 18. O2 saturation: 98%. Temp: 98 F. Pain level now:11/11. --11:09 05/27/20 Shubham Lopez R.N.Weight: 95.2 kg stated. Height/Length: 69 inches Per Patient. BMI: 31. --11:08 05/27/20 Sherice Lopez R.N.MedicationsOptivo Injection, every 8 weeks. --11:09 05/27/20 Sherice Lopez R.N.AllergiesDilaudid.(rash) --11:09 05/27/20 Sherice Lopez R.N.PROBLEMS:Celiac Disease.Crohn's Disease. --12:18 05/27/20 José Miguel Morejon-CThe following entry was modified by Devonte Knott P.A.-C, 12:18 05/27/20Celiac Disease. --11:07 05/27/20 Sherice Lopez R.N.The following entry was modified by Devonte Knott P.A.-C, 12:18 05/27/20Crohn's Disease. --11:07 05/27/20 Sherice Lopez R.N.. 2 Clinical Report - Nurses [facility] Emergency Department [address] [place] [address] Phone #: ext- [phone] 05/27/2020 11:01 Patient: BALJINDER HARRIS Sex: M : 2000 Age: 19y ADDITIONAL SURGERIES: Tubes in ears. --11:07 05/27/20 Sherice Lopez R .N. History PAST MEDICAL HX: Immunizations: up-to-date. SOCIAL HX: Never smoker. No alcohol use or drug use. He was offered HIV testing but declined and hepatitis C testing but declined. He has not traveled outside the [place] Infectious disease exposure: No infectious disease exposure. The patient was not exposed to C-diff, MRSA, VRE, CRE or Coronavirus. SELF HARM ASSESSMENT: Self harm assessment was performed. The patient answered "no" to the question(s) "Have you recently felt down, depressed, or hopeless?", "Do you have thoughts of harming or killing yourself?", "Do you have a plan for harming or killing yourself?", "Have you recently had thoughts about harming or killing others?", "Do you have any dangerous items in your possession?", "Have you noticed less interest or pleasure in doing things?", "Are you here because you tried to hurt yourself?" and "Have you ever tried to hurt yourself before today?". ABUSE ASSESSMENT: No report of abuse. NUTRITIONAL RISK ASSESSMENT: The nutritional risk assessment revealed no deficiencies. FUNCTIONAL ASSESSMENT: Functional assessment: no impairments noted. LEARNING NEEDS ASSESSMENT: The learning needs assessment revealed no barriers. SKIN INTEGRITY ASSESSMENT: Skin integrity risk assessment completed. No skin integrity risk identified. --11:09 05/27/20 Sherice Lopez R.N. FALL RISK ASSESSMENT: Fall risk assessment completed. No risk factors identified. --11:10 05/27/20 Sherice Lopez R.N. Interventions To treatment room. --11:09 05/27/20 Sherice Lopez R.N.PHYSICAL [id number]:15 05/27/20. Ambulatory to room.GENERAL / NEURO / PSYCH: Alert. Oriented X 4.HEENT: Pharynx within normal limits. Voice within normal limits. Mouth within normal limits uponinspection. No dental injury noted.RESPIRATORY: Respirations not labored.SKIN: Skin is warm and dry. --11:15 05/27/20 Ruben Reyes RN.NURSING PROGRESS NOTES 3 Clinical Report - Nurses [facility] Emergency Department [address] [place] [address] Phone #: ext- [phone] 05/27/2020 11:01 [id number] Sex: M : 2000 Age: 19yPatient gowned. Reassurance given. Call light placed in reach. Bed placed in lowest position. Brakesof bed on. Patient ready for evaluation- ED physician notified. --11:10 05/27/20 Sherice Lopez R.N.11:30 05/27/2020 Site #1 started via IV in the right antecubital space with an 20g angiocath; one attempt.Blood drawn: rainbow set. Saline lock flushed with 10 mL saline. --11:49 05/27/20 Ruben Reyes RN11:42 05/27/2020 Zofran (Ondansetron HCl) IVP 4 mg given over 30 second(s) via site #1. Allergiesverified and confirmed 5 rights. IV patency established. IV site checked: no pain, redness, or swelling. IVflushed thoroughly pre- and post-medication administration. IVP given by RN. Information reviewed withpatient. --11:51 05/27/20 Ruben Reyes RN11:43 05/27/2020 Benadryl (diphenhydrAMINE HCl) IVP 25 mg given over 30 second(s) via site #1.Allergies verified and confirmed 5 rights. IV patency established. IV site checked: no pain, redness, orswelling. IV flushed thoroughly pre- and post-medication administration. IVP given by RN. Informationreviewed with patient. --11:50 05/27/20 Ruben Reyes RN11:45 05/27/2020 Started bag #1 1000 mL IV Fluids IV NS; bolus of 1000 mL over 1 hour(s) then at 100mL/hr over 5 hour(s) via site #1 via IV pump. Allergies verified and confirmed 5 rights. IV patencyestablished. IV site checked: no pain, redness, or swelling. IV flushed thoroughly pre- and post- medicationadministration. Information reviewed with patient. --11:49 05/27/20 Ruben Reyes RN Correction. --12:451 Ruben Reyes RN11:45 05/27/2020 ofirmev * IVPB 1000 mg --11:50 05/27/20 Ruben Reyes RNChecked patient name and birthdate. Blood samples drawn from the right antecubital space peripheral IVsite by nurse per protocol ; labeled in presence of the patient and sent to lab: ingrid set. Initial blooddiscarded. Line flushed with 10 mL normal saline post blood draw (1130). --11:51 05/27/20 Ruben Reyes RN11:58 05/27/20. BP: 136/88. MAP: 104. HR: 70. RR: 16. O2 saturation: 100%. --11:59 05/27/20 Juliane Walker ER Dvee4Hrjdlns walked to CT with mask and data collection technician. (1152). Patient walked back from CT with mask andradiology tech. (1205). --12:41 05/27/20 Ruben Reyes RN Correction --12:43 05/27/20 Ruben ReyesRNPatient walked to CT with mask and data collection technician. (1230). Patient walked back from CT with mask andradiology tech. (1242). --12:44 05/27/20 Ruben Reyes RN12:10 05/27/2020 Started bag #1 1000 IV Fluids IV NS; bolus of 1000 mL over 1 hour(s) then at 100 mL/hrover 5 hour(s) via site #1 via IV pump. Allergies verified and confirmed 5 rights. IV patency established. IVsite checked: no pain, redness, or swelling. IV flushed thoroughly pre- and post- medication administration.Information reviewed with patient. --12:45 05/27/20 Ruben Reyes RN 4 Clinical Report - Nurses [facility] Department [address] [place] [address] Phone #: ext- [phone] 05/27/2020 11:01 [id number] Sex: M : 2000 Age: 19y 12:10 [facility]/27/[facility] Dis[facility]: bag #1 infused. Total amount infused: 100 mL. IV patency established. IV site checked: no pain, redness, or swelling. IV flushed thoroughly. --12:44 05/27/20 Ruben Reyes RN 12:30 05/27/2020 Ofirmev IVPB Response: pain is improving. Symptoms have improved the patient feels better. Physician golf course assistant notified. --12:45 05/27/20 Ruben Reyes RN 12:30 05/27/2020 Zofran IVP Response: no adverse reaction. --12:45 05/27/20 Ruben Reyes RN 12:44 05/27/2020 Benadryl IVP Response: pain is improving. Symptoms have improved the patient feels better. --12:44 05/27/20 Ruben Reyes RN 13:00 05/27/20. BP: 132/77. MAP: 95. HR: 59. RR: 16. O2 saturation: 99%. Temp: 98.7 F. --13:00 05/27/20 [facility] Tech1 13:30 05/27/2020 Started 1 gm of ROCEPHIN (1GM/50ML) (cefTRIAXone Sodium) IVPB in bag #1 50 mL; at 100 mL/hr over 30 minute(s) via site #1. via IV pump. Allergies verified and confirmed 5 rights. IV patency established. IV site checked: no pain, redness, or swelling. IV flushed thoroughly pre- and post- medication administration. Information reviewed with patient. --13:34 05/27/20 Ruben Reyes RN 13:30 05/27/2020 Toradol (Ketorolac Tromethamine) IVP 15 mg given over 30 second(s) via site #1. Allergies verified and confirmed 5 rights. IV patency established. IV site checked: no pain, redness, or swelling. IV flushed thoroughly pre- and post-medication administration. IVP given by RN. Information reviewed with patient. --13:35 05/27/20 Ruben Reyes RN 13:51 05/27/20. BP: 129/86. MAP: 100. HR: 72. RR: 16. O2 saturation: 98%. Temp: 98.1 F. --13:51 05/27/20 Axel set up workerJuliane Puckett ER Tech1 13:56 05/27/2020 IV Fluids IV NS via IV site #1 Discontinued: bag #1 STOPPED upon discharge. Total amount infused: 600 mL. IV patency established. IV site checked: no pain, redness, or swelling. IV flushed thoroughly. --14:06 05/27/20 Ruben Reyes RN 13:57 05/27/2020 ROCEPHIN (1GM/50ML) IVPB via IV site #1 Discontinued: bag #1 infused. Total amount infused: 50 mL. IV patency established. IV site checked: no pain, redness, or swelling. IV flushed thoroughly. --14:07 05/27/20 Ruben Reyes RN 13:57 05/27/2020 Toradol IVP Response: pain is improving. Symptoms have improved the patient feels better. --14:07 05/27/20 Ruben Reyes RN.DISPOSITION / DISCHARGE 14:16 05/27/2020 Site #1 removed upon discharge. Catheter intact. Manual pressure and bandage applied. --14:16 05/27/20 Sherice Lopez R.N. Condition at departure: improved. No learning barriers present. Discharge instructions provided and 5 Clinical Report - Nurses [facility] Department [address] [place] [address] Phone #: ext- [phone] 05/27/2020 11:01 --------- Patient: BALJINDER HARRIS Sex: M : 2000 Age: 19y reviewed with the patient. Reviewed medication(s). Prescription(s) sent electronically to pharmacy. Reviewed referral to a dentist. Work note given. Patient verbalized understanding. Written instructions provided in Salvadorean. The patient was discharged by the physician golf course assistant. He was discharged home and accompanied by parent. He left ambulatory and via private vehicle. Parent driving. --14:17 05/27/20 Sherice Lopez R.N. 14:13 05/27/20. BP: 140/80. MAP: 100. HR: 67. RR: 18. O2 saturation: 98%. Temp: 97.3 F. Pain level now: 07/12. --14:17 05/27/20 Sherice Lopez R.N.Locked/Released at 05/27/2020 14:17 by Sherice Lopez R.N. Name Value Range Interpretation Code Description Data Denisse rce(s) Supporting Document(s) ID Date Data Source [id number] 05/27/2020 11:09:00 AM [facility] 1 Clinical Report - Physicians/Mid Levels [facility] Department [address] [place] [address] Phone #: ext- [phone] 05/27/2020 11:01 Patient: BALJINDER HARRIS Sex: M : 2000 Age: 19y Time Seen: 11:26 05/27/2020; initial patient contact, initial documentation. Arrived- By private vehicle. Historian- patient. Disposition decision: 13:59 05/27/2020.HISTORY OF PRESENT ILLNESS Chief Complaint: DENTAL PAIN. This started about 2 - 3 days ago and is still present. Pain described as moderate. No sore throat, mouth sores, nasal discharge or congestion or ear pain. He has had toothache, swelling of the jaw and face and facial pain. (PT says his Left upper front teeth became painful and swollen 3 days ago. It has gotten progressively more painful and today he woke up with swelling to his face. He says the pain radiates into his nose and left ear). Similar symptoms previously. Patient has had similar symptoms occasionally. Recent medical care: Not recently seen/assessed.REVIEW OF SYSTEMSNo fever, eye discomfort, cough, difficulty breathing or chest pain. No nausea, diarrhea, abdominal pain,difficulty with urination or headache. No fainting episodes, joint pain, skin rash, enlarged lymph nodes orvomiting. All other systems reviewed and are negative.PAST HISTORYSee nurses notes. Problems: Colitis. Chest Pain. Abscess. Abdominal Pain. Appendicitis. Celiac Disease. Crohn's Disease. UC. Otitis Media. Ulcerative colitis (disorder). Ulcerative Colitis. Other Disease. UTI - Urinary Tract Infection. Dental Caries. GI Disease. 2 Clinical Report - Physicians/Mid Levels [facility] Emergency Department [address] [place] [address] Phone #: ext- [phone] 05/27/2020 11:01 Patient: BALJINDER HARRIS Sex: M : 2000 Age: 19y Dental Pain. Dental Pain [Resolved]. Strep Throat [Resolved]. URI [Resolved]. Sick Contact [Resolved]. Dental Caries [Resolved]. Additional Surgeries: T Tubes. Tubes in ears. Tubes in ears. Tympanostomy Tubes. Medications: Optivo Injection, every 8 weeks. Allergies: Dilaudid.(rash).SOCIAL HISTORYNever smoker. No alcohol use or drug use.ADDITIONAL NOTESThe nursing notes have been reviewgerald aragonPHYSICAL EXAMVital Signs: 05/27/2020 11:03 BP: 144/87. MAP: 106. HR: 69. RR: 18. O2 saturation: 98%. Temp: 98 F.Pain level now: 7/10. Have been reviewed. Oxygen saturation normal.Appearance: Alert. No acute distress.Head: Left cheek: mild tenderness and moderate swelling. No erythema, laceration, abrasion, ecchymosisor puncture wound. No foreign body or deformity. Left mandible: mild tenderness and moderate swelling.No erythema, laceration, abrasion, ecchymosis or puncture wound.Eyes: Eyelids appear normal to inspection. Conjunctivae and sclerae appear normal to inspection.Corneas appear normal to inspection. Pupils equal, round and reactive to light. Accommodation normal.EOMs intact. Periorbital areas appear normal to inspection. Anterior chambers clear.ENT: Mild dental tenderness. Airway intact. Nose normal. Nares normal. Pharynx normal. Moistmucous membranes. Uvula midline. Voice normal. No dental decay.Ear (left): There is erythema of the external canal, dullness of the tympanic membrane and abnormalinsufflation. No tenderness of the auricle, pain with movement of the auricle, lymphadenopathy, swellingof the external canal or material in the external canal. Left ear normal. Normal mastoid. No hearingdeficit.Ear (right): There is dullness of the tympanic membrane and abnormal insufflation. No tenderness of theauricle, pain with movement of the auricle, lymphadenopathy, erythema of the external canal or swelling ofthe external canal. No material in the external canal. Right ear normal. Normal mastoid. No hearingdeficit. 3 Clinical Report - Physicians/Mid Levels [facility] Emergency Department [address] [place] [address] Phone #: ext- [phone] 05/27/2020 11:01 [id number] Sex[facility] : 2000 Age: 19y Neck: Neck supple and nontender. Full ROM. CVS: Normal heart rate and rhythm. No JVD present. Pulses normal. Capillary refill normal. Strong peripheral pulses. Heart sounds normal. Pulses: right radial 2+; left radial 2+. Respiratory: Chest normal on inspection. No respiratory distress. Unlabored respirations. Lungs clear. Good chest movement. Breath sounds normal and equal. Neuro: Awake. Alert. Mood/affect normal. Speech normal. No motor deficit. No sensory deficit. Psych: Cognition normal. Thought process and content normal. Insight and judgement normal.LABS, X-RAYS, AND EKGCT Neck - Soft Tissue: (Amira paniagua Brian - 05/27/2020 1:02:08 PMMild subcutaneous cellulitis lower left cheek. No abscess. No reactive adenopathy. Prominent tonsils withmild oropharynx effacement. No tonsillar abscess. No drainable collection.). The study was interpreted bythe radiologist.Laboratory Tests: CBC w Diff: (MARTY: 05/27/2020 11:31) ( MsgRcvd 05/27/2020 12:08) Final results Test Result Flag Units (Reference) CBC W/AUTOMATED DIFF COMPLETE BLOOD COUNT WBC 7.0 10/uL (4.2 - 11.0) RBC 5.18 10/uL (4.50 - 6.30) HEMOGLOBIN 15.0 g/dL (14.0 - 16.0) HEMATOCRIT 44.6 % (41.0 - 51.0) MCV 86.1 fL (80.0 - 94.0) MCH 29.0 pg (27.0 - 34.0) MCHC 33.6 g/dL (31.0 - 36.0) RDW 12.9 % (11.5 - 14.8) PLATELETS 264 10/uL (150 - 450) MPV 9.1 fL (7.4 - 10.4) NEUT 56.6 % (37.0 - 80.0) LYMPH 25.9 % (25.0 - 40.0) MONO 11.1 H % (3.0 - 8.0) EOS 5.2 % (0.0 - 7.0) BASO 0.6 % (0.0 - 2.0) %IG 0.6 H % (0.0 - 0.0) %NRBC 0.0 % (0.0 - 0.0) #NEUT 3.95 10/uL (2.00 - 6.90) #LYMPH 1.80 10/uL (0.60 - 3.40) #MONO 0.77 10/uL (0.00 - 0.90) #EOS 0.36 10/uL (0.00 - 0.70) #BASO 0.04 10/uL (0.00 - 0.20) #IG 0.04 10/uL (0.00 - 0.10) #NRBC 0.00 10/uL (0.00 - 0.00) MANUAL DIFF NOT INDICATED RBC MORPH NOT INDICATED.PROGRESS AND PROCEDURESCourse of Care: VSS, NAD, AOx3, interacting well and appropriately, no use of accessory muscle, able tospeak full sentences, stable, non-toxic looking. 4 Clinical Report - Physicians/Mid Levels [facility] Emergency Department [address] [place] [address] Phone #: ext- [phone] 05/27/2020 11:01 Patient: BALJINDER HARRIS Sex: M : 2000 Age: 19y Enter room and pt lying peacefully in bed in NAD. Patient stable. Denies any new issues, concerns, or complaints. PE demos NV intact b/l UE. Noted L sided facial swelling and ntoed slight erythema and edema of the L canal. Will order labs and imaging for furhte reval. Based on hx and NPO status, will order Ofirmev. Pending results. Reviewed results. Enter room and patient lying peacefully in bed in NAD. Patient stable. Denies any new issues, concerns, or complaints. Discussed results with pt. Discussed tx plan with pt. Discussed and counseled on stable condition. Discussed importance of a f/u with PCP. Discussed return to ER criteria. Answered their questions. Indicates and verbalizes that they understand, agree, and will comply with above. Denies any new questions or concerns. Patient has capacity to understand. Discharge decision based on the following: patient's condition is stable; patient's exam is stable; social support is adequate; transportation is available; follow-up is available. Discussed of OTC Motrin and Tylenol to control inflammation and pain management. Informed to follow directions on bottle that are appropriate for age and/or weight. Disposition: Discharged home in good and improved condition. Condition: good and stable.CLINICAL IMPRESSION Mild dental pain. Facial cellulitisINSTRUCTIONS Take Tylenol (Acetaminophen) or Motrin (Ibuprofen) as needed for fever control. Take medication according to label instructions. Do not work for two days. Drink plenty of fluids. No dietary restrictions. Do not smoke. (Recommend to utilize OTC Motrin and Tylenol to control inflammation and pain management. Recommend to follow the instructions on the bottle and not to exceed. LOCAL DENTISTS [facility]; Dentist in [place], [place]; Address: [address] [address] Clinical Report - Physicians/Mid Levels [facility] Emergency Department [address] [place] [address] Phone #: ext- [phone] 05/27/2020 11:01 Patient: BALJINDER HARRIS Sex: M : 2000 Age: [id number]; 5:30PM ? Opens 7:30AM Fri; ; Appointments: [email or web address] Shah DDS; Dentist in [place], [place]; Address: [address] [place] [address]; [facility]; Dentist in [place], [place]; Address: [address] [place] [address]; [facility]; Dental clinic in [place], [place]; Address: [address] [place] [address]; Appointments: [email or web address]; [facility]; Dentist in [place], [place]; Address: [address] [place] [address] [id number], [place] [address]; ).Warnings: Further evaluation is necessary.SEDATIVE MEDICATION: You were given sedative medication during your visit. Do not drive or operatedangerous machinery.CONTROLLED SUBSTANCE WARNINGS.GENERAL WARNINGS: Return or contact your physician immediately if your condition worsens orchanges unexpectedly, if not improving as expected, or if other problems arise.Your Current Medications: Your current home medications have been reviewed.CONTINUE TAKING THE FOLLOWING MEDICATIONS:Optivo Injection* : every 8 weeks.Prescription monitor program consulted by me. Prescription does not exceed state maximum supply ofmedicationsPrescription Medications:hydrocodone 5 mg-acetaminophen 325 mg tablet Take 1 tablet three times a day for 3 days --Dispense 9 tablet. Refills: 0. Substitution permitted.[facility] [address] [place] [address] [phone]. FaxNumber: .clindamycin HCl 300 mg capsule Take 1 capsule four times a day for 10 days -- Dispense 40 capsule.Refills: 0. Substitution permitted.[facility] [address] [place] [address] [phone]. .Follow-up:Return to the emergency department as needed. Follow up with your healthcare provider in about twodays if not better. Call for an appointment. Follow up with a dentist Friday. Call for the next availableappointment. 6 Clinical Report - Physicians/Mid Levels [facility] Emergency Department [address] [place] [address] Phone #: ext- [phone] 05/27/2020 11:01 Patient: BALJINDER HARRIS Sex: M : 2000 Age: 19y Understanding of the discharge instructions verbalized by patient.(Electronically signed by Devonte Knott P.A.-C 05/27/2020 20:22) Name Value Range Interpretation Code Description Data Denisse rce(s) Supporting Document(s) ID Date Data Source [id number] 05/27/2020 12:21:00 PM EST [facility] Name Value Range Interpretation Code Description Data Denisse rce(s) Supporting Document(s) COMPREHENSIVE METABOLIC PANEL [facility] COMPREHENSIVE METABOLIC PANEL Sodium [Moles/volume] in Serum or Plasma 138 mEq/L 134 - 153 [facility] Potassium [Moles/volume] in Serum or Plasma 4.0 mEq/L 3.6 - 5.0 [facility] Chloride [Moles/volume] in Serum or Plasma 103 mEq/L 98 - 107 [facility] Carbon dioxide, total [Moles/volume] in Serum or Plasma 27 MEQ/L 22 - 30 [facility] Glucose [Mass/volume] in Serum or Plasma 98 MG/DL 70 - 99 [facility] BUN 13 MG/DL 7 - 21 [facility] Creatinine [Mass/volume] in Serum or Plasma 1.0 MG/DL 0.7 - 1.5 [facility] BUN/CREAT 13 8 - 27 [facility] Protein [Mass/volume] in Serum or Plasma 6.7 G/DL 6.3 - 8.2 [facility] Albumin [Mass/volume] in Serum or Plasma 4.6 G/DL 3.9 - 5.0 [facility] Globulin [Mass/volume] in Serum by calculation 2.1 GM/DL 2.4 - 3.2 L [facility] A/G RATIO 2.2 0.8 - 2.0 H [facility] Calcium [Mass/volume] in Serum or Plasma 8.8 MG/DL 8.4 - 10.2 [facility] Bilirubin.total [Mass/volume] in Serum or Plasma 0.7 MG/DL 0.2 - 1.3 [facility] Alkaline phosphatase [Enzymatic activity/volume] in Serum or Plasma 53 U/L 38 - 126 [facility] Aspartate aminotransferase [Enzymatic activity/volume] in Serum or Plasma 13 U/L 5 - 40 [facility] Alanine aminotransferase [Enzymatic activity/volume] in Seru m or Plasma 17 U/L 7 - 56 [facility] Anion gap 3 in Serum or Plasma 8.0 mmol/L 8.0 - 16.0 [facility] AGE 19 yrs [facility] NON-AA GFR >60 mL/min [facility] ital AFR AMER GFR >60 mL/min [facility] spital Male GFR In terprentation 20-49 yrs >60 mL/min Normal 50-59 yrs >56 mL/min Normal 60-69 yrs >49 mL/min Normal 70-79yrs >42 mL/min Normal 80 and above >35 mL/min Normal Female GFR Interpretation 20-39 yrs >60 mL/min Normal 40-49 yrs >58 mL/min Normal 50-59 yrs >51 mL/min Normal 60-69 yrs >45 mL/min Normal 70-79 yrs >39 mL/min Normal 80 and above >32 mL/min Normal ID Date Data Source [id number] 05/27/2020 12:08:00 PM EST [facility] Name Value Range Interpretation Code Description Data Denisse rce(s) Supporting Document(s) CBC W/AUTOMATED DIFF [facility] COMPLETE BLOOD COUNT Leukocytes [#/volume] in Blood by Automated count 7.0 10^3/uL 4.2 - 1 1.0 [facility] Erythrocytes [#/volume] in Blood by Automated count 5.18 10^6/uL 4. 50 - 6.30 [facility] Hemoglobin [Mass/volume] in Blood 15.0 g/dL 14.0 - 16.0 [facility] Hematocrit [Volume Fraction] of Blood by Automated count 44.6 % 4 1.0 - 51.0 [facility] Erythrocyte mean corpuscular volume [Entitic volume] by Auto mated count 86.1 fL 80.0 - 94.0 [facility] Erythrocyte mean corpuscular hemoglobin [Entitic mass] by Automated count 29.0 pg 27.0 - 34.0 [facility] Erythrocyte mean corpuscular hemoglobin concentration [Mass/volume] by Automated count 33.6 g/dL 31.0 - 36.0 [facility] Erythrocyte distribution width [Ratio] by Automated count 12.9 % 11.5 - 14.8 [facility] Platelets [#/volume] in Blood by Automated count 264 10^3/uL 150 - 45 0 [facility] Platelet mean volume [Entitic volume] in Blood by Automated count 9.1 fL 7.4 - 10.4 [facility] Neutrophils/100 leukocytes in Blood by Automated count 56.6 % 37. 0 - 80.0 [facility] Lymphocytes/100 leukocytes in Blood by Manual count 25.9 % 25.0 - 40.0 [facility] Monocytes/100 leukocytes in Blood by Automated count 11.1 % 3.0 - 8.0 H [facility] Eosinophils/100 leukocytes in Blood by Automated count 5.2 % 0.0 - 7.0 [facility] Basophils/100 leukocytes in Blood by Automated count 0.6 % 0.0 - 2.0 [facility] %IG 0.6 % 0.0 - 0.0 H [facility] Hospit al %NRBC 0.0 % 0.0 - 0.0 [facility] al Neutrophils [#/volume] in Blood by Automated count 3.95 10^3/uL 2.00 - 6.90 [facility] Lymphocytes [#/volume] in Blood by Automated count 1.80 10^3/uL 0.60 - 3.40 [facility] Monocytes [#/volume] in Blood by Automated count 0.77 10^3/uL 0.00 - 0.90 [facility] Eosinophils [#/volume] in Blood by Automated count 0.36 10^3/uL 0.00 - 0.70 [facility] Basophils [#/volume] in Blood by Automated count 0.04 10^3/uL 0.00 - 0.20 [facility] #IG 0.04 10^3/uL 0.00 - 0.10 [facility] ospital #NRBC 0.00 10^3/uL 0.00 - 0.00 [facility] ospital MANUAL DIFF NOT INDICATED [facility] RBC MORPH NOT INDICATED [facility] spital ID Date Data Source [id number] 05/01/2020 03:02:00 PM EST [facility] ([facility]) Name Value Range Interpretation Code Description Data Denisse rce(s) Supporting Document(s) Ova \\T\\ Para Exam Laboratory test result [facility] ([facility]) <content>_OVA & P D SM CON ID_</arnulfo nt>
<content></content> Source: Laboratory test result [facility] ([facility]) <content>^$[id number]</content>
<content>^^[id number]</content>
<content>$$45300 3</content>
<content>^^[id number]</content>
<content></content>
<content >REPORTED DATE/TIME: 05/08/2020 05:05</content>
<content>Culture: OVA & PARA EXAM Status: Final</content>
<content></content>
<content>Ova + Parasite Exam: P1</content>
<content>No ova, cysts, or parasites seen.</content>
<content>. One negative specimen does not rule</content>
<content>out the possibility of a parasitic infection.</content>
<content>These results were obtained using wet preparation(s) and trichrome</content>
<content>stained smear. This test does not include testing for Cryptosporidium</content>
<content>parvum, Cyclospora, or Microsporidia.</content>
<content></content>
<content></content>
<co ntent>P1 Test performed by: [facility] DEAL #: [id number]</content>
<content>[address]</content>
<content>[id number]</content>
<content>[place] [address]</content>
<content>Commercial Plumber : Esau Cornejo MD NPI #:</content>
<content>Legal Operations Manager :</content>
<content>05/08/20.XMT.SENT REF</content>
<content>05/08/20. .to [facility] via fax</content>
<content></content>
<content></content> ID Date Data Source [id number] 05/01/2020 03:02:00 PM EST [facility] ([facility]) Name Value Range Interpretation Code Description Data Denisse rce(s) Supporting Document(s) Campylobacter Laboratory test result [facility] ([facility]) Laboratory test finding (navigational concept) Laboratory test result [facility] ([facility]) Salmonella Laboratory test result [facility] ([facility]) Laboratory test finding (navigational concept) Laboratory test result [facility] ([facility]) Vibrio Laboratory test result [facility] ([facility]) Laboratory test finding (navigational concept) Laboratory test result [facility] ([facility]) Laboratory test finding (navigational concept) Laboratory test result [facility] ([facility]) Laboratory test finding (navigational concept) Laboratory test result [facility] ([facility]) Laboratory test finding (navigational concept) Laboratory test result [facility] ([facility]) Laboratory test finding (navigational concept) Laboratory test result [facility] ([facility]) Laboratory test finding (navigational concept) Laboratory test result [facility] ([facility]) Laboratory test finding (navigational concept) Laboratory test result [facility] ([facility]) Laboratory test finding (navigational concept) Laboratory test result [facility] ([facility]) Laboratory test finding (navigational concept) Laboratory test result [facility] ([facility]) Entamoeba histolytica Laboratory test result [facility] ([facility]) Cryptosporidium Laboratory test result [facility] ([facility]) Astrovirus Laboratory test result [facility] ([facility]) Giardia lamblia Laboratory test result [facility] ([facility]) Laboratory test finding (navigational concept) Laboratory test result [facility] ([facility]) Sapovirus Laboratory test result [facility] ([facility]) Rotavirus A Laboratory test result M [facility] ([facility]) Laboratory test finding (navigational concept) Laboratory test result [facility] ([facility]) ID Date Data Source [id number] 05/01/2020 03:02:00 PM EST [facility] ([facility]) Name Value Range Interpretation Code Description Data Denisse rce(s) Supporting Document(s) Leukocytes [Presence] in Stool by Light microscopy Laboratory test shelli [facility]ISON ([facility]) _WBC STOOL_ ^$[id number] ^^[id number] $$[id number] ^^[id number] $$[id number] $$[id number] $$[id number] $$[id number] $$[id number] REPORTED DATE/TIME: 05/03/2020 17:05 Culture: WBC STOOL Status: Final White Blood Cells (WBC), Stool: P1 Rare white blood cells. Reference Range: None Seen P1 Test performed by: [facility] CLIA #: [id number] [address] [id number] [facility] [id number] Commercial Plumber : Esau Cornejo MD NPI #: Legal Operations Manager : 05/04/20.XMT.SENT REF 05/04/20. .to [facility] via fax ID Date Data Source [id number] 05/08/2020 07:09:[address] [facility] Value Range Interpretation Code Description Data Denisse rce(s) Supporting Document(s) OVA & PARA EXAM [facility] _OVA & P D SM CON ID_ SOURCE: STOOL [facility] $$[id number] DATE/TIME: 05/08/2020 0 5:05Culture: OVA & PARA EXAM Status: FinalOva + Parasite Exam: P1No ova, cysts, or parasites seen. . One negative specimen does not ruleout the possibility of a parasitic infection.These results were obtained using wet preparation(s) and tr ichromestained smear. This test does not include testing for Cryptosporidiumparvum, Cyclospora, or Microsporidia.P1 Test performed by: [facility] [employer] CLIA #: [id number] [address] [facility] [id number] [facility] [address]Nhwolzt Director : Esau Cornejo MD NPI #:Legal Operations Manager : 05/08/2009.XMT.SENT REF 05/08/2009. .to [facility] via fax ID Date Data Source [id number] 05/05/2020 02:07:00 PM EST [facility] Name Value Range Interpretation Code Description Data Denisse rce(s) Supporting Document(s) Campylobacter coli+jejuni+upsaliensis DN A [Presence] in Stool by Target amplification with non-probe based detection Not Detected Not Detected [facility] Clostridium difficile toxin A+B (tcdA+tc dB) genes [Presence] in Stool by Target amplification with non-probe based detection Not Detected Not Detected [facility] Plesiomonas shigelloides DNA [Presence] in Stool by Target amplification with non-probe based detection Not Detected Not Detected [facility] Salmonella enterica+bongori DNA [Presenc e] in Stool by Target amplification with non-probe based detection Not Detected Not Detected [facility] Vibrio cholerae+parahaemolyticus+vulnifi cus DNA [Presence] in Stool by Target amplification with non-probe based detection Not Detected Not Detected [facility] Vibrio cholerae DNA [Presence] in Stool by Target amplification with non-probe based detection Not Detected Not Detected [facility] spital Yersinia enterocolitica DNA [Presence] i n Stool by Target amplification with non-probe based detection Not Detected Not Detected [facility] Escherichia coli enteroaggregative Altagracia p lasmid aggR+aatA genes [Presence] in Stool by Target amplification with non-probe based detection Not Detected Not Detected [facility] Escherichia coli enteropathogenic eae ge ne [Presence] in Stool by Target amplification with non-probe based detection Not Detected Not Detected [facility] Escherichia coli enterotoxigenic ltA+st1 a+st1b genes [Presence] in Stool by Target amplification with non-probe based detection Not Detected Not Detected [facility] Escherichia coli shiga-like toxin 1+2 (s tx1+stx2) genes [Presence] in Stool by Target amplification with non-probe based detection Not Detected Not Detected [facility] Escherichia coli O157 DNA [Presence] in Stool by Target amplification with non- probe based detection Not applicable Not Detected [facility] Shigella species+EIEC invasion plasmid a ntigen H (ipaH) gene [Presence] in Stool by Target amplification with non-probe based detection Not Detected Not Detected [facility] Cryptosporidium sp DNA [Presence] in Sto ol by Target amplification with non- probe based detection Not Detected Not Detected [facility] Cyclospora cayetanensis DNA [Presence] i n Stool by Target amplification with non-probe based detection Not Detected Not Detected [facility] Entamoeba histolytica DNA [Presence] in Stool by Target amplification with non- probe based detection Not Detected Not Detected [facility] Giardia lamblia DNA [Presence] in Stool by Target amplification with non-probe based detection Not Detected Not Detected [facility] spital Adenovirus F(40+41) DNA [Presence] in St ool by Target amplification with non- probe based detection Not Detected Not Detected [facility] Astrovirus subtypes 1-8 RNA [Presence] i n Stool by Target amplification with non-probe based detection Not Detected Not Detected [facility] Norovirus genogroup I+II RNA [Presence] in Stool by Target amplification with non-probe based detection Not Detected Not Detected [facility] Rotavirus A RNA [Presence] in Stool by T arget amplification with non-probe based detection Not Detected [facility] Sapovirus genogroups I+II+IV+V RNA [Pres ence] in Stool by Target amplification with non-probe based detection Not Detected Not Detected [facility] ID Date Data Source [id number] 05/04/2020 06:16:00 AM EST [facility] Name Value Range Interpretation Code Description Data Denisse rce(s) Supporting Document(s) WBC STOOL [facility] al _WBC STOOL_$$[id number]$$[id number]$$[id number] $$[id number]$$[id number]$$[id number] DATE/TIME: 05/03/2020 17:05Culture: WBC STOOL Status: FinalWhite Blood Cells (WBC), Stool: P1Rare white blood cells.Reference Range: None SeenP1 Test performed by: [facility] CLIA #: [id number] [address] [place] [id number] [facility] [id number] Director : Esau Cornejo MD NPI #:Legal Operations Manager : 05/04/20.XMT.SENT REF 05/04/20 .to [facility] via fax ID Date Data Source [id number] 05/01/2020 02:54:00 PM EST [facility] ([facility]) Name Value Range Interpretation Code Description Data Denisse rce(s) Supporting Document(s) Sed Rate Reenter 1 [facility] ([facility]) Is patient fasting? N Sed Rate 1 mm/hr 0-15 [facility] ([facility]) Is patient fasting? N ID Date Data Source [id number] 05/01/2020 02:54:00 PM EST [facility] ([facility]) Name Value Range Interpretation Code Description Data Denisse e(s) Supporting Document(s) WBC 15.1 10^3/uL 4.2-11.0 Above high normal MEDEN T ([facility]) Is patient fasting? N CBC W/Automated Diff Laboratory test result [facility] ([facility]) Is patient fasting? N Hemoglobin 15.5 g/dL 14.0-16.0 [facility] ([facility]) Is patient fasting? N RBC 5.45 10^6/uL 4.50-6.30 [facility] ([facility]) Is patient fasting? N MCV 83.5 fL 80.0-94.0 [facility] ([facility]) Is patient fasting? N Hematocrit 45.5 % 41.0-51.0 [facility] ([facility]) Is patient fasting? N MCH 28.4 pg 27.0-34.0 [facility] ([facility]) Is patient fasting? N MCHC 34.1 g/dL 31.0-36.0 [facility] ([facility]) Is patient fasting? N RDW 12.6 % 11.5-14.8 [facility] ([facility]) Is patient fasting? N Platelets 323 10^3/uL 150-450 [facility] ([facility]) Is patient fasting? N Neut 68.7 % 37.0-80.0 [facility] ([facility]) Is patient fasting? N MPV 9.3 fL 7.4-10.4 [facility] ([facility]) Is patient fasting? N Stephenson 9.1 % 3.0-8.0 Above high normal [facility] ([facility]) Is patient fasting? N Lymph 19.0 % 25.0-40.0 Below low normal MED[facility] ( [facility]) Is patient fasting? N Eos 1.7 % 0.0-7.0 [facility] ([facility]) Is patient fasting? N %Ig 1.1 % 0.0-0.0 Above high normal [facility] ([facility]) Is patient fasting? N Baso 0.4 % 0.0-2.0 [facility] ([facility]) Is patient fasting? N %NRBC 0.0 % 0.0-0.0 [facility] ([facility]) Is patient fasting? N #Neut 10.40 10^3/uL 2.00-6.90 Above high normal MEDE NT ([facility]) Is patient fasting? N #Lymph 2.87 10^3/uL 0.60-3.40 [facility] ([facility]) Is patient fasting? N #Baso 0.06 10^3/uL 0.00-0.20 [facility] ([facility]) Is patient fasting? N #Eos 0.26 10^3/uL 0.00-0.70 [facility] ([facility]) Is patient fasting? N #Stephenson 1.37 10^3/uL 0.00-0.90 Above high normal MEDEN T ([facility]) Is patient fasting? N #NRBC 0.00 10^3/uL 0.00-0.00 [facility] ([facility]) Is patient fasting? N Manual Diff Laboratory test result M EDENT ([facility]) Is patient fasting? N #Ig 0.17 10^3/uL 0.00-0.10 Above high normal MEDEN T ([facility]) Is patient fasting? N Segs 76 % 37-80 [facility] ([facility]) Is patient fasting? N %Lymph 15 % 25-40 Below low normal [facility] ([facility]) Is patient fasting? N %Stephenson 8 % 3-8 [facility] ([facility]) Is patient fasting? N %Eos 1 % 0-7 [facility] ([facility]) Is patient fasting? N RBC Morph Laboratory test result [facility] ([facility]) Is patient fasting? N Aniso Laboratory test result Abnormal (applies to non -numeric results) [facility] ([facility]) Is patient fasting? N PLT Est Laboratory test result [facility] ([facility]) Is patient fasting? N ID Date Data Source [id number] 05/01/2020 02:54:00 PM EST [facility] ([facility]) Name Value Range Interpretation Code Description Data Denisse rce(s) Supporting Document(s) C reactive protein [Mass/volume] in Serum or Plasma by High sensitivity method 0.40 mg/L 1.00-3.00 Below low normal [facility] ([facility]) Is patient fasting? N ID Date Data Source [id number] 05/01/2020 02:54:00 PM EST [facility] ([facility]) Name Value Range Interpretation Code Description Data Denisse rce(s) Supporting Document(s) Total Protein 6.5 g/dL 6.3-8.2 [facility] ([facility]) Is patient fasting? N Total Bili Laboratory test result 0.2-1.3 ME DENT ([facility]) Is patient fasting? N Globulin 2.0 GM/DL 2.4-3.2 Below low normal [facility] ( [facility]) Is patient fasting? N Albumin 4.5 g/dL 3.9-5.0 [facility] ([facility]) Is patient fasting? N Direct Bili Laboratory test result 0.1-0.4 M EDENT ([facility]) Is patient fasting? N Indirect Bili 0.3 mg/dL 0.2-1.1 [facility] ([facility]) Is patient fasting? N Alkaline Phos 53 U/L 38-126 [facility] ([facility]) Is patient fasting? N Sgot/Ast 15 U/L 5-40 [facility] ([facility]) Is patient fasting? N SGPT/Alt 15 U/L 7-56 [facility] ([facility]) Is patient fasting? N ID Date Data Source [id number] 05/01/2020 02:54:00 PM EST [facility] ([facility]) Name Value Range Interpretation Code Description Data Denisse rce(s) Supporting Document(s) Basic Metabolic Pane Laboratory test result [facility] ([facility]) Is patient fasting? N Sodium 139 meq/L 134-153 [facility] ([facility]) Is patient fasting? N Chloride 102 meq/L 98-107 [facility] ([facility]) Is patient fasting? N Potassium 3.9 meq/L 3.6-5.0 [facility] ([facility]) Is patient fasting? N Glucose 108 mg/dL 65-110 [facility] ([facility]) Is patient fasting? N Co2 27 meq/L 22-30 [facility] ([facility]) Is patient fasting? N BUN 18 mg/dL 7-21 [facility] ([facility]) Is patient fasting? N Creatinine 1.1 mg/dL 0.7-1.5 [facility] ([facility]) Is patient fasting? N BUN/Creat 16 8-27 [facility] ([facility]) Is patient fasting? N Anion Gap 10.0 mmol/L 8.0-16.0 [facility] ([facility]) Is patient fasting? N Calcium 9.2 mg/dL 8.4-10.2 [facility] ([facility]) Is patient fasting? N Age 19 yrs MED[facility] ([facility]) Is patient fasting? N Non-Aa GFR Laboratory test result [facility] ([facility]) Is patient fasting? N Afr Amer GFR Laboratory test result [facility] ([facility]) Is patient fasting? N ID Date Data Source [id number] 05/01/2020 03:45:00 PM EST [facility] Name Value Range Interpretation Code Description Data Denisse rce(s) Supporting Document(s) Erythrocyte sedimentation rate by Westergren method 1 mm/hr 0 - 15 [facility] SED RATE REENTER 1 [facility] ID Date Data Source [id number] 05/01/2020 03:26:00 PM EST [facility] Name Value Range Interpretation Code Description Data Denisse rce(s) Supporting Document(s) CBC W/AUTOMATED DIFF [facility] COMPLETE BLOOD COUNT Leukocytes [#/volume] in Blood by Automated count 15.1 10^3/uL 4.2 - 11.0 H [facility] Erythrocytes [#/volume] in Blood by Automated count 5.45 10^6/uL 4. 50 - 6.30 [facility] Hemoglobin [Mass/volume] in Blood 15.5 g/dL 14.0 - 16.0 [facility] Hematocrit [Volume Fraction] of Blood by Automated count 45.5 % 4 1.0 - 51.0 [facility] Erythrocyte mean corpuscular volume [Entitic volume] by Auto mated count 83.5 fL 80.0 - 94.0 [facility] Erythrocyte mean corpuscular hemoglobin [Entitic mass] by Automated count 28.4 pg 27.0 - 34.0 [facility] Erythrocyte mean corpuscular hemoglobin concentration [Mass/volume] by Automated count 34.1 g/dL 31.0 - 36.0 [facility] Erythrocyte distribution width [Ratio] by Automated count 12.6 % 11.5 - 14.8 [facility] Platelets [#/volume] in Blood by Automated count 323 10^3/uL 150 - 45 0 [facility] Platelet mean volume [Entitic volume] in Blood by Automated count 9.3 fL 7.4 - 10.4 [facility] Neutrophils/100 leukocytes in Blood by Automated count 68.7 % 37. 0 - 80.0 [facility] Lymphocytes/100 leukocytes in Blood by Manual count 19.0 % 25.0 - 40.0 L [facility] Monocytes/100 leukocytes in Blood by Automated count 9.1 % 3.0 - 8.0 H [facility] Eosinophils/100 leukocytes in Blood by Automated count 1.7 % 0.0 - 7.0 [facility] Basophils/100 leukocytes in Blood by Automated count 0.4 % 0.0 - 2.0 [facility] %IG 1.1 % 0.0 - 0.0 [facility].0 % 0.0 - 0.0 [facility] al Neutrophils [#/volume] in Blood by Automated count 10.40 10^3/uL 2. 00 - 6.90 H [facility] Lymphocytes [#/volume] in Blood by Automated count 2.87 10^3/uL 0.60 - 3.40 [facility] Monocytes [#/volume] in Blood by Automated count 1.37 10^3/uL 0.00 - 0.90 H [facility] Eosinophils [#/volume] in Blood by Automated count 0.26 10^3/uL 0.00 - 0.70 [facility] Basophils [#/volume] in Blood by Automated count 0.06 10^3/uL 0.00 - 0.20 [facility] #IG 0.17 10^3/uL 0.00 - 0.10 H [facility] #NRBC 0.00 10^3/uL 0.00 - 0.00 [facility] MANUAL DIFF SEE BELOW [facility] Segmented neutrophils/100 leukocytes in Blood by Manual count 76 % 37 - 80 [facility] %LYMPH 15 % 25 - 40 L [facility] %MONO 8 % 3 - 8 [facility] %EOS 1 % 0 - 7 [facility] RBC MORPH SEE BELOW [facility] Anisocytosis [Presence] in Blood by Light microscopy 1+ PALOMO L: NONE SEEN A [facility] { SICKLE CELL (NORMAL: NONE SEEN ) Platelet adequacy [Presence] in Blood by Light microscopy NORMAL NORMAL: NORMAL [facility] COMMENT: ID Date Data Source [id number] 05/01/2020 03:41:00 PM [facility] Name Value Range Interpretation Code Description Data Denisse rce(s) Supporting Document(s) C reactive protein [Mass/volume] in Serum or Plasma by High sensitivity method 0.40 MG/L 1.00 - 3.00 L [facility] CDC/S HS-CRP CUT-OFF: RELATIVE RISK: <1.0 mg/L Low 1.0 - 3.0 mg/L Average >3.0 mg/L High Optimally, the average of HS-CRP results repeated two weeks apart should be used for risk assessment. ID Date Data Source [id number] 05/01/2020 03:41:00 PM [facility] Name Value Range Interpretation Code Description Data Denisse rce(s) Supporting Document(s) Protein [Mass/volume] in Serum or Plasma 6.5 G/DL 6.3 - 8.2 [facility] Albumin [Mass/volume] in Serum or Plasma 4.5 G/DL 3.9 - 5.0 [facility] Globulin [Mass/volume] in Serum by calculation 2.0 GM/DL 2.4 - 3.2 L [facility] Bilirubin.total [Mass/volume] in Serum or Plasma <0.7 MG/DL 0.2 - 1.3 [facility] Bilirubin.direct [Mass/volume] in Serum or Plasma <0.2 MG/DL 0.1 - 0. 4 [facility] Bilirubin.indirect [Mass/volume] in Serum or Plasma 0.3 MG/DL 0.2 - 1.1 [facility] Aspartate aminotransferase [Enzymatic activity/volume] in Serum or Plasma 15 U/L 5 - 40 [facility] Alanine aminotransferase [Enzymatic activity/volume] in Seru m or Plasma 15 U/L 7 - 56 [facility] Alkaline phosphatase [Enzymatic activity/volume] in Serum or Plasma 53 U/L 38 - 126 [facility] ID Date Data Source [id number] 05/01/2020 03:35:00 PM [facility] Name Value Range Interpretation Code Description Data Denisse rce(s) Supporting Document(s) BASIC METABOLIC PANEL [facility] BASIC METABOLIC PANEL Sodium [Moles/volume] in Serum or Plasma 139 mEq/L 134 - 153 [facility] Potassium [Moles/volume] in Serum or Plasma 3.9 mEq/L 3.6 - 5.0 [facility] Chloride [Moles/volume] in Serum or Plasma 102 mEq/L 98 - 107 [facility] Carbon dioxide, total [Moles/volume] in Serum or Plasma 27 MEQ/L 22 - 30 [facility] Glucose [Mass/volume] in Serum or Plasma 108 MG/DL 65 - 110 [facility] BUN 18 MG/DL 7 - 21 [facility] al Creatinine [Mass/volume] in Serum or Plasma 1.1 MG/DL 0.7 - 1.5 [facility] BUN/CREAT 16 8 - 27 [facility] Calcium [Mass/volume] in Serum or Plasma 9.2 MG/DL 8.4 - 10.2 [facility] Anion gap 3 in Serum or Plasma 10.0 mmol/L 8.0 - 16.0 [facility] AGE 19 yrs [facility] al AFR AMER GFR >60 mL/min [facility] NON-AA GFR >60 mL/min [facility] ital Male GFR Inter prentation 20-49 yrs >60 mL/min Normal 50-59 yrs >56 mL/min Normal 60-69 yrs >49 mL/min Normal 70-79yrs >42 mL/min Normal 80 and above >35 mL/min Normal Female GFR Interpretation 20-39 yrs >60 mL/min Normal 40-49 yrs >58 mL/min Normal 50-59 yrs >51 mL/min Normal 60-69 yrs >45 mL/min Normal 70-79 yrs >39 mL/min Normal 80 and above >32 mL/min Normal ID Date Data Source [id number] 04/26/2020 09:01:00 AM EST [facility] [address] [place] [address] PHONE: [phone] FAX: [phone] Name .................. : KIMBERLY [place] Acct Number.................. : [id number] ROOM. ................. : TR-07 MR Number ................... : [id number] Stay type ............. : E/R Discharge Date......... ... : 04/25/20 Admit Date ......... : 04/25/20 Admit Phys .................... : MARTIN CONTRERAS Date of ....... : 2000 Family Phys ................... : [employer] Phone .................. : [phone] Age ................................ : 19 Film# .................. .:[id number] Sex ................................. : M Unsigned transcriptions are preliminary reports and do not represent a medical or legal document CT ABD & PELVIS W/ IV ONLY [id number] COMPLETE:04/25/20 17:52 BEM 736 Reason(s): abdominal pain, diarrhea, rectal bleeding, Hx of Crohn's and UC CT OF THE ABDOMEN AND PELVIS WITH CONTRAST: CLINICAL HISTORY: Abdominal pain with diarrhea and rectal bleeding. History of Crohn's and ulcerative colitis. COMPARISON: 02/27/20 FINDINGS: Lung bases: Clear. Liver: Normal contour. No focal hepatic lesion other than focal fatty infiltration along the intersegmental fissure of the liver. Biliary system: Normal gallbladder. No biliary dilatation. Pancreas: Normal. Spleen: Normal. Adrenal glands: Normal. Kidneys: Symmetric enhancement and normal contour. No mass, stone or hydronephrosis. Urinary bladder: Normal. Prostate: Normal. Bowel: No obstruction. Moderate edema throughout the entirety of the colon with mild adjacent venous engorgement compatible with active, acute colitis. No evidence of enteritis. No complications. Normal appendix. Page 1 of 2 [facility] [address] [place] [address] PHONE: [phone] FAX: [phone] Name .................. : KIMBERLY [place] Acct Number.................. : [id number] ROOM. ................. : TR-07 MR Number ................... : [id number] Stay type ............. : E/R Discharge Date......... ... : 04/25/20 Admit Date ......... : 04/25/20 Admit Phys .................... : MARTIN CONTRERAS Date of ....... : 2000 Family Phys ................... : [employer]cer Phone .................. : [phone] Age ................................ : 19 Film# .................. .:[id number] Sex ................................. : M Unsigned transcriptions are preliminary reports and do not represent a medical or legal document CT ABD & PELVIS W/ IV ONLY [id number] COMPLETE:04/25/20 17:52 BEM 736 Reason(s): abdominal pain, diarrhea, rectal bleeding, Hx of Crohn's and UC Peritoneum: No free air or ascites. Lymph nodes: No adenopathy. Vessels: Normal caliber abdominal aorta. Normal inferior vena cava. Bones: No acute or suspicious osseous abnormality. Normal sacroiliac joints. IMPRESSION: Moderate pancolitis without complication. Findings are compatible with ulcerative colitis. While performing the above CT examination, radiation dose reduction was accomplished utilizing automated exposure control, adjusting of the mA and kV based on the patient's body size and/or the use of imperative reconstructive techniques. CT dose: 682.3 mGycm Contrast agent in mL: 75 Isovue 370 Method of admini stration: Intravenous Electronically Reviewed and Signed By Earl Cisse MD , 04/26/20 09:01, APM Transcribe Initials: ISAAK , Transcribe Date: 04/25/20 21:44, Dictation Date: Copy for: EMERGENCY DEPT via modem Copy for: 710 MED REC DISCHARGED Page 2 of 2 Name Value Range Interpretation Code Description Data Denisse rce(s) Supporting Document(s) ID Date Data Source [id number] 04/25/2020 03:10:00 PM EST [facility] 1 OrderSheet [facility] Emergency Department [address] [place] [address] Phone #: [phone]- [phone] 04/25/2020 15:05 Patient: BALJINDER HARRIS Sex: M : 2000 Age: 19yWEIGHT:95.2 kg (S) HEIGHT:69 inches (S) BMI:31.0ALLERGIES: Evan COMPLAINT: abdominal painDIAGNOSIS: Crohn's disease, Ulcerative enterocolitisLAB ORDERSOrder Description Priority Entered Acknowledged InitialedCB w Diff STAT 15:33 04/25/2020 15:46 Martin Page Riccardo Frank R.N. M.D.;CMP STAT 15:33 04/25/2020 15:46 Martin Page Riccardo Frank R.N. M.D.;Lipase STAT 15:33 04/25/2020 15:46 Sorbero, Turrin, Carole Nicho Montoya M.D.;Urinalysis (Clean STAT 15:33 04/25/2020 15:46 Sorbero,Catch) Turrin, [place] Nicho Montoya M.D.;Lactic Acid STAT 15:33 04/25/2020 15:46 Sorbero, Turrin, Carole Nicho Montoya M.D.;DIAGNOSTIC STUDY ORDERSOrder Description Priority Entered Acknowledged InitialedCT Abd PEL W/ IV STAT 15:34 04/25/2020 15:35 Axel EDContrast Only Turrin, Carole Tech, Juliane ER(Oxygen?(No)) Ahmet; Tech1(IV?(Yes)) Reason for Study: abdominal pain, diarrhea, rectal bleeding, Hx of Crohn's and UCMEDICATION/IV/DRIP/FLUID ORDERSOrder Description Priority Entered Acknowledged InitialedNS IV 1000 mL 15:35 04/25/2020 15:57 Sorbero,Bolus: : Bolus 1000 Turrin, Carole Nicho R.N.mL (X1) M.D.;SOLU-Medrol 125 15:35 04/25/2020 15:56 Sorbero, 2 OrderSheet [facility] Emergency Department [address] [place] [address] Phone #: ext- [phone] 04/25/2020 15:05 Patient: BALJINDER HARRIS Sex: M : 2000 Age: 19ymg IV X1 Dose: 125 Turrin, Carole Nicho R.N.mg (X1) M.D.;levoFLOXacin IVPB 15:35 04/25/2020 17:27 Sorbero,750 mg/150 mL Turrin, Carole Nicho R.N. M.D.;Flagyl IVPB 500 15:35 04/25/2020 15:58 Sorbero,mg/100mL Turrin, Carole Nicho R.N. M.D.;Ofirmev IV 1000 mg 17:49 04/25/2020 Initialed: 19:06 Nicho Page R.N.(NOW x1, Infuse Carole Salazar Refused: 18:51 Ofirmev IV 1000 mg (NOWover 15 minutes) Ahmet; x1, Infuse over 15 minutes) was refused by patient.GENERAL ORDERSOrder Description Priority Entered Acknowledged InitialedNPO 15:33 04/25/2020 15:35 Axel ED Carole Salazar Tiffany ER M.D.; [id number] Lock 15:33 04/25/2020 15:46 Martin Page Riccardo Frank R.N. M.D.;[Electronically signed by Carole Salazar M.D. (19:20 04/25/2020)][Electronically signed by Nicho Page R.N. (19:37 04/25/2020)][Electronically locked by Nicho Page R.N. (19:37 04/25/2020)] Name Value Range Interpretation Code Description Data Denisse rce(s) Supporting Document(s) ID Date Data Source [id number] 04/25/2020 03:10:00 PM EST [facility] 1 Medication Reconciliation Report [facility] Emergency Department [address] [place] [address] Phone #: ext- [phone] 04/25/2020 15:05 [id number] Sex[facility] M : 2000 Age: 19yWeight: 95.2 kgHeight/Length: 69 in.BMI: 31.0ALLERGIES: DilaudidThe patient's Home Medications are listed below:CONTINUE TAKING THE FOLLOWING MEDICATIONS: Optivo Injection, every 8 weeksThe source(s) of the original Home Medication information:Not obtained.The following Medications were given to the patient in the Emergency Department:Solu-Medrol [IVP] IVP 125 mg, administered: 15:56 04/25/2020NS [IV] IV Fluids bolus 0, then 1000 mL/hr, administered: 15:57 04/25/2020Flagyl [IVPB] IVPB bolus 0, then 500 mg 100 mL/hr, administered: 15:58 04/25/2020Levofloxacin [IVPB] IVPB bolus 0, then 750 mg 100 mL/hr, administered: 17:27 04/25/2020The following Medications w ere prescribed to the patient:Cipro 500 mg tablet Take 1 tablet twice a day for 10 days -- Dispense 20 tablet. Refills: 0. Substitutionpermitted.[facility] #[address] [place] [address] ; [place], [place] [id number]. .Flagyl 500 mg tablet Take 1 tablet three times a day for 10 days -- Dispense 30 tablet. Refills: 0.Substitution permitted.[facility] [address] [place] [address] ; [place], [place] [id number]. .Medrol (Colt) 4 mg tablets in a dose pack Take 1 tablet once a day for 7 days -- PLEASE TAKEMEDROL DOSE PACK DIRECTED ON PACKAGING. Dispense 21 tablet. Refills: 1. Substitution 2 Medication Reconciliation Report [facility] Emergency Department [address] [place] [address] Phone #: ext- [phone] 04/25/2020 15:05 Patient: BALJINDER HARRIS Sex: M : 2000 Age: 19ypermitted.[facility] [address] [place] [address] ; [place] [phone]. . -- Carole Salazar M.D. Name Value Range Interpretation Code Description Data Denisse rce(s) Supporting Document(s) ID Date Data Source [id number] 04/25/2020 03:10:00 PM EST [facility] 1 Medication Administration Record [facility] Emergency Department [address] [place] [address] Phone #: [phone]- [phone] 04/25/2020 15:05 Patient: BALJINDER HARRIS Sex: M : 2000 Age: 19yWeight: 95.2 kgHeight/Length: 69 inBMI: 31ALLERGIES: Dilaudid Date/Time Medication Administered Medication OrderedStart NS [IV] NS IV 1000 mL Bolus: : Bolus [id number] 04/25/2020 Dose: IV Fluids mL (X1)Nicho Page R.N. Rate: 1000 mL/hr over 1 hour(s)---- Dispensed: 1000 mL bagStop Site: #1 right AC18:57 04/25/2020Nicho Page R.NUrsulaGiven SOLU-MEDROL [IVP] SOLU-Medrol 125 mg IV X1 Dose:15:56 04/25/2020 (METHYLPREDNISOLONE SODIUM 125 mg (X1)Nicho Page R.N. SUCC) Dose: 125 mg IVP Site: #1 right ACStart LEVOFLOXACIN [IVPB] levoFLOXacin IVPB 750 mg/15092:27 04/25/2020 Dose: 750 mg IVPB Nicho Medina R.N. Rate: 100 mL/hr over 1.5 hour(s)---- Dispensed: 150 mL bagStop Site: #1 right AC19:01 04/25/2020Nicho Page R.N.Start FLAGYL [IVPB] (METRONIDAZOLE IN Flagyl IVPB 500 mg/369nH18:58 04/25/2020 NACL)Nicho Page R.NUrsula Dose: 500 mg IVPB---- Rate: 100 mL/hr over 1 hour(s)Stop Dispensed: 100 mL bag17:26 04/25/2020 Site: #1 right Nicho Sanchez R.N. Name Value Range Interpretation Code Description Data Denisse rce(s) Supporting Document(s) ID Date Data Source [id number] 04/25/2020 03:10:00 PM EST [facility] 1 General Instructions [facility] Emergency Department [address] [place] [address] Phone #: ext- [phone] 04/25/2020 15:05 Patient: BALJINDER HARRIS Sex: M : 2000 Age: 19yCrohn's disease in the large intestine with acute abdominal pain (Acute Flare).Chronic ulcerative colitis involving all of the colon with complications including acute abdominal pain (AcuteFlare).INSTRUCTIONSAlternate Tylenol (Acetaminophen) or Motrin (Ibuprofen) for fever, temperature greater than 102 degrees.Take according to label instructions.Drink plenty of fluids. Avoid alcohol and NSAIDS. NSAIDS include aspirin, ibuprofen (Advil) and naproxen(Aleve). Avoid fatty, fried/greasy, lactose-containing (such as milk, cheese and ice cream), salty and spicyfoods. No alcohol. Do not smoke.Warnings: Further evaluation is necessary. It is very important to follow up with a healthcare provider.GENERAL WARNINGS: Return or contact your physician immediately if your condition worsens orchanges unexpectedly, if not improving as expected, or if other problems arise. SPECIFICALLY, return ifyou develop pain in the abdomen, pelvis, testicle, back or shoulder, fever, vomiting, the inability to keepfluids down, blood in vomitus, blood in diarrhea, fainting or lightheadedness.Your Current Medications: Your current home medications have been reviewed.CONTINUE TAKING THE FOLLOWING MEDICATIONS:Optivo Injection* : every 8 weeks.Prescription Medications:Cipro 500 mg tablet Take 1 tablet twice a day for 10 days -- Dispense 20 tablet. Refills: 0. Substitutionpermitted.Pharmacy - [facility] [address] [place] [address] ; [place], [place] [id number]. .Flagyl 500 mg tablet Take 1 tablet three times a day for 10 days -- Dispense 30 tablet. Refills: 0.Substitution permitted.[facility] #[address] [place] [address] ; [place], [place] [id number]. .Medrol (Colt) 4 mg tablets in a dose pack Take 1 tablet once a day for 7 days -- PLEASE TAKEMEDROL DOSE PACK DIRECTED ON PACKAGING. Dispense 21 tablet. Refills: 1. Substitutionpermitted.[facility] [address] [place] [address] ; [place], [place] [id number]. . 2 General Instructions [facility] Emergency Department [address] [place] [address] Phone #: ext- [phone] 04/25/2020 15:05 [id number] Sex: M : 2000 Age: 19yFollow-up:Return to the emergency department as needed. Follow up with a patient relations liaison in three days even ifwell. Call for an appointment. Reason for referral: evaluation and treatment. Summary of care provided topatient via paper.Understanding of the discharge instructions verbalized by patient. Expe cted course of illness, dischargeinstructions, activity level, diet, prescriptions x3, follow-up appointment and risks and benefits of treatmentreviewed with patient and understanding verbalized. Agrees to plan of care.Follow-up with: Eliel Kauffman MD, Gastroenterology, [phone], [facility],[address], [address], [place], [address] Follow up in three days even if well. Call for an appointment. Reason for referral: evaluation andtreatment. Summary of care provided to patient via paper. ADDITIONAL INFORMATIONCrohn's DiseaseCrohn's disease is inflammation of the intestinal tract that comes and goes in flare-ups. This is achronic (long-term) illness. During a flare-up, intense abdominal pain and fever may be felt. Mucus,blood, or pus may appear in the stool. Between flare-ups, inflammation lessens and there usually areno symptoms. Crohn's disease is a form of inflammatory bowel disease (IBD).Symptoms of Crohn's disease may include: 3 General Instructions [facility] Emergency Department [address] [place] [address] Phone #: ext- [phone] 04/25/2020 15:05 [id number] Sex[facility] M : 2000 Age: 19y Abdominal cramps and pain Diarrhea, sometimes bloody, occasionally a lternating with constipation Mucus in stools Rectal bleeding Rectal pain Fever Low energy Decreased appetite and weight loss Bloating or swollen abdomen Nausea or vomiting Joint aches Sores in mouth Red, painful eye problems Rashes in anal area or other anal problemsNo one knows what exactly causes Crohn's disease, and there is no cure. The goal of treatment is tocontrol and relieve symptoms and prevent complications, so you can lead a full and active life. Nosingle treatment works for everyone, but many things can be done to help.DietFoods did not cause your Crohn's disease, but they can affect it. Unfortunately, there is no one dietthat works for everyone. Keep a food log to figure out what you are sensitive to. Below are somethings to try. Eat more slowly and smaller amounts at a time, but more often. Remember, you can always eat more if you are still hungry, but you can't eat less once you've eaten too much. High fiber foods are complicated. While they may help constipation they can make the bloating, cramping, gas, and diarrhea worse. If your Crohn's disease involves the small intestine, avoiding lactose- containing dairy products can help relieve some symptoms. Try cutting out fatty foods and meats. Eat less sugar. 4 General Instructions [facility] Emergency Department [address] [place] [address] Phone #: ext- [phone] 04/25/2020 15:05 Patient: BALJINDER HARRIS Sex: M : 2000 Age: 19y Bloating or passing excess gas may be controlled. Stay away from "gassy" foods, such as beans, cabbage, broccoli, and cauliflower. Stay away from beverages and fruit juices. They can make the bloating and diarrhea worse. Caffeine, alcohol, and stimulants may worsen symptoms. These include coffee, tea, sodas, energy drinks, and chocolate.LifestyleAlthough stress does not cause Crohn's, it is often a factor in flare-ups. It can also affect how you feelabout and cope with your health problem. Look for things that seem to worsen your symptoms, such as stress and emotions. Counseling can often help relieve stress. So can self-help measures such as exercise, yoga, and meditation. Depression can be a part of this illness and antidepressants may be prescribed. This may actually help with diarrhea, constipation, and cramping, as well as depression. Smoking doesn't cause Crohn's, but can make the symptoms worse.MedicinesYour healthcare provider may prescribe medicines. If so, take them as directed. In Crohn's disease,long-term medicine is usually needed. This is because control of the disease is very important toprevent complications down the line. For acute f lare-ups, prescription medicines can be prescribed.Call your healthcare provider if you need this. Ask your healthcare provider before taking any antidiarrheal medicines. Don't take anti-inflammatory medicines like ibuprofen or naproxen. Consider nutritional supplements. This is especially true if the diarrhea is prolonged, or you aren't eating or are losing weight.If you need supplements, talk it over with your healthcare provider for the best recommendation. Stayaway from herbal supplements as they are not evaluated by the FDA. Because of this, there is noway to be certain of their saf ety and purity.Follow-up careFollow up with your healthcare provider, or as advised. If a stool sample was taken or cultures weredone, you will be told if your treatment needs to change. You may also need blood tests, procedures,or imaging studies. Call as directed for the results. 5 General Instructions [facility] Emergency Department [address] [place] [address] Phone #: ext- [phone] 04/25/2020 15:05 Patient: BALJINDER HARRIS Sex: M : 2000 Age: 19ySupportJoining a support group for people with Crohn's disease can be a source of useful information on howothers are coping with this illness. They are available in person, on the phone, or on the Web.Contact the following resources for more information. Crohn's and Colitis [employer] 924.362.9653 www.ccfa.org National Digestive Diseases Information Clearinghouse (NDDIC) www.digestive.niddk.nih.govWhen to get medical adviceCall your healthcare provider right away if any of these occur: Fever of 100.4F (38C) or higher, or as directed by your healthcare provider Abdominal pain that doesn't get better when you take the usual measures Mucus, pus, or blood in the stool (dark or bright red) Repeated vomiting Abdominal swelling and pain that doesn't go away after a few hoursCall 911Call 911 if any of these occur: Trouble breathing Confusion Extreme sleepiness or trouble waking up Fainting or loss of consciousness Rapid heart rate [id number] [employer]. [address] [place] [address] [place] [address]. All rights reserved. This information is not intended as asubstitute for professional medical care. Always follow your healthcare professional's instructions.Ulcerative ColitisYou have been diagnosed with ulcerative colitis. Ulcerative colitis is a long-term (chronic) conditionthat causes inflammation and ulcers in the rectum and colon. It is a form of inflammatory boweldisease (IBD). The disease is often diagnosed by a special procedure called a colonoscopy. Thesymptoms often develop over time. There is no medicine that can cure ulcerative colitis. The goal oftreatment is to reduce the symptoms, and cause a remission. 6 General Instructions [facility] Emergency Department [address] [place] [address] Phone #: ext- [phone] 04/25/2020 15:05 Patient: BALJINDER HARRIS Sex: M : 2000 Age: 19ySymptoms of ulcerative colitis include: Belly (abdominal) cramps and pain Diarrhea, often bloody Rectal bleeding Rectal pain Fever Decreased appetite and weight loss Low energy Inflammation outside of the colon can occur and can cause pain or swelling in places such as the eyes, skin, and jointsHome careNo one knows what exactly causes IBD. The goal is to control and relieve the symptoms and preventcomplications, so you can lead a full and active life. No medicine can cure the disease. In somecases, surgery to remove the whole colon can be healing. But surgery causes other side effects, somedicines are often preferred. Discuss your options with your healthcare provider.DietYour diet did not cause your condition, but it can affect it. Unfortunately, there is no one diet thatworks for everyone, so you have to experiment. Below are some recommendations, but what worksfor you may be different. Keep a food log to figure out what you are sensitive to. Eat more slowly. Eat smaller amounts at a time, but more often. Remember, you can always eat more, but can't eat less once you've eaten too much. High-fiber foods are complicated. While they may help constipation, they can make bloating, cramping, gas, and diarrhea worse. Eat less sugar. Try cutting out dairy products if you feel you are sensitive to lactose. Try cutting out foods that are high in fat and fatty meats. You can control bloating and passing excess gas. Be careful with "gassy" vegetables and fruits like beans, cabbage, broccoli, and cauliflower. Be careful of carbonated drinks and fruit juices. They can make bloating and diarrhea worse. 7 General Instructions [facility] Emergency Department [address] [place] [address] Phone #: ext- [phone] 04/25/2020 15:05 Patient: BALJINDER HARRIS Sex: M : 2000 Age: 19y Caffeine, alcohol, and stimulants may make symptoms worse.LifestyleStress doesn't cause IBD. But it is a factor in flare-ups, and how you feel and react to your condition. Look for things that seem to make your symptoms worse, such as stress and emotions. Counseling can help you deal with stress. So can self-help treatments such as exercise, yoga, and meditation. Depression can be a part of this illness and antidepressant medicine may be prescribed. This may actually help with diarrhea, constipation, and cramping, as well as symptoms of depression. Lack of sleep can make symptoms seem worse. Alcohol use can make symptoms worse.MedicinesYour healthcare provider may prescribe medicines. Take them as directed. In most cases, you willneed to take the medicines for the rest of your life. For acute flares, additional prescription medicinescan be prescribed. Call your provider if you need these. Ask your healthcare provider before taking any medicines for diarrhea. Don't take anti-inflammatory medicines such as ibuprofen or naproxen. Think about taking nutritional supplements. This is especially true if the diarrhea is prolonged, or you aren't eating, or you are losing weight.Follow-up careFollow up with your healthcare provider, or as advised. Tell your provider if you lose more than 5pounds over 3 to 6 months, and you aren't trying to lose weight.If a stool sample was taken, or cultures were done, you will be told if they are positive, or if yourtreatment needs to be changed. You can call as directed for results.If X-rays were done, a radiologist will look at them. You will be told if you need a change in treatmentIt is very important to tell your healthcare provider if you plan to get , or find out you are. You will need to discuss your disease, medicines, and plan as early as possible andpreferably before you conceive.Call 911 8 General [facility] Emergency Department [address] [place] [address] Phone #: ext- [phone] 04/25/2020 15:05 Patient: BALJINDER HARRIS Sex: M : 2000 Age: 19yCall 911 if any of these occur: Trouble breathing Confusion Very drowsy or trouble waking up Fainting or loss of consciousness Rapid heart rate Chest painWhen to seek medical adviceCall your healthcare provider right away if any of these occur: Bleeding from your rectum Frequent diarrhea or belly pain that's not controlled by your medicine Bloody diarrhea Fever of 100.4F (38C) or higher, or as directed by your healthcare provider Nausea that does not get better, or repeated vomiting [employer]. [address] [place] [address]. All rights reserved. This information is not intended as asubstitute for professional medical care. Always follow your healthcare professional's instructions.Fever Control (Adult)A fever is a normal reaction of your body to an illness. The temperature itself usually isn't harmful. Itactually helps your body fight infections. You don't need to treat a fever unless you feel veryuncomfortable.Home careFollow these tips to take care of yourself at home: If you feel warm, check your temperature. Dress in light clothing. This will help you lose extra body heat through your skin. The fever will go up if you wear extra layers or wrap in blankets. Fever causes your body to lose water through evaporation. Drink plenty of fluids. These include water, juice, clear sodas, rangel maribel, or lemonade. 9 General Instructions [facility] Emergency Department [address] [place] [address] Phone #: ext- [phone] 04/25/2020 15:05 Patient: BALJINDER HARRIS Sex: M : 2000 Age: 19yFever medicinesYou can take acetaminophen every 4 to 6 hours if: You feel very uncomfortable Your oral temperature is 100.4F (38C) or higherIf you can't take or keep down oral medicine, ask your pharmacist for acetaminophen suppositories.You don't need a prescription for these.If the fever doesn't get better within 1 hour after you take acetaminophen, take ibuprofen. If thisworks, keep taking the ibuprofen every 6 to 8 hours.If you have chronic liver or kidney disease, talk with your healthcare provider before taking thesemedicines. Also talk with your provider if you ever had a stomach ulcer or GI (gastrointestinal)bleeding.If either medicine alone doesn't keep the fever down, you may switch off between the 2 medicinesevery 3 to 4 hours. But do this only if your healthcare provider has told you to. For example, takeibuprofen. Wait 3 hours. Then take acetaminophen. Wait 3 hours. Take ibuprofen, and so on. Followyour provider's instructions exactly.Don't give aspirin to anyone younger than age 19 who is ill with a fever. Aspirin can cause seriousside effects such as liver damage and Emeka syndrome. Although rare, Emeka syndrome is a veryserious illness usually found in children younger than age 15. The syndrome is closely linked to theuse of aspirin or aspirin-containing medicine during viral infection.Follow-up careFollow up with your healthcare provider if you don't get better after 48 hours.When to seek medical adviceCall your healthcare provider right away if any of these occur: Fever, as directed by your healthcare provider, or: o Fever of 100.4F (38C) or above lasting for 24 to 48 hours o Fever lasting more than 3 days, even without other symptoms o Fever that happens after visiting a foreign country o Fever that happens within a month after visiting a country with malaria. Malaria is a serious illness. A fever can still be malaria even if you took medicine to prevent it. The medicine does not work in all cases 10 General Instructions [facility] Emergency Department [address] [place] [address] Phone #: ext- [phone] 04/25/2020 15:05 Patient: BALJINDER HARRIS Sex: M : 2000 Age: 19y o If you experience unexplained fever and your immune system is compromise d such as by immune suppressing drugs, stem cell or organ transplant, HIV/AIDS, or cancer Confusion or trouble thinking Headache or stiff neck Flat, small, purplish red spots on your skin Low blood pressure Fast heart rate Fast (rapid) breathing You are You just had surgery, another medical procedure, or were just discharged from the hospital Use of medicines that suppress the immune system (immunosuppressants). These include steroids like prednisone, cancer medicines, and organ transplant rejection medicines. If you are not sure about whether your medicines suppress your immune system, ask your healthcare provider.Call 911Someone should call 911 if you: Are having trouble breathing or shortness of breath Are unresponsiveImportant reminderCall your healthcare provider if you get a fever after visiting a place where infectious diseases arecommon. Many people pickle pumper a cold or other virus while traveling. This usually goes away without aproblem. But, some places have more serious diseases. Fever with certain other symptoms maymean you have a serious illness. Symptoms to watch for include diarrhea, skin rashes, insect bites,and skin boils, or infections. Your provider may ask you: What you did on your trip How long you were there Where you travelled and where you stayed (hotel, [place] house, tent) What you ate and drank If you were bitten by insects or other bugs 11 General Instructions [facility] Emergency Department [address] [place] [address] Phone #: ext- [phone] 04/25/2020 15:05 Patient: BALJINDER HARRIS Sex: M : 2000 Age: 19y If you swam in freshwater If you had sex or got a tattoo or piercing while you were thereCheck the [facility] to get more information about specific infectious diseases in the areas you havetraveled. [phone] [employer]. [address] [place] [address]. All rights reserved. This information is not intended as asubstitute for professional medical care. Always follow your healthcare professional's instructions. You have been given the following additional information: Crohn's Disease Ulcerative Colitis Fever Control (Adult)(Electronically signed by Carole Salazar M.D. 04/25/2020 19:20) Name Value Range Interpretation Code Description Data Denisse rce(s) Supporting Document(s) ID Date Data Source [id number] 04/25/2020 03:10:00 PM EST [facility] 1 Clinical Report - Nurses [facility] Emergency Department [address] [place] [address] Phone #: ext- [phone] 04/25/2020 15:05 Patient: BALJINDER HARRIS Sex: M : 2000 Age: 19yTRIAGEArrived by private vehicle. Historian: patient. Accompanied by family.Acuity: LEVEL 3.Chief Complaint: ABDOMINAL PAIN and DIARRHEA and BLOOD IN STOOLS.Alert.Onset. (1 weeks ago). ( PT states for the past week he has had a Crohn's flare-up with abdominal painand diarrhea with dark red blood in stool. He received his Optivo injection on 04/17 and it did not help.).Treatment CORPORATE LEGAL SECRETARY:None.SEPSIS SCREEN: SIRS SCREEN NEGATIVE. SEPSIS SCREEN NEGATIVE. No suspected or confirmedsigns of infection present.SHANTELLE COMA SCORE: 15- eyes open- spontaneous (4); best verbal response- oriented (5); bestmotor response- obeys commands (6). --15:14 04/25/20 Sherice Lopez R.N.15:07 04/25/20. BP: 154/82. MAP: 106. HR: 74. RR: 18. O2 saturation: 99%. Temp: 98.2 F. Pain levelnow: 5/10. --15:14 04/25/20 Sherice Lopez R.N.Weight: 95.2 kg stated. Height/Length: 69 inches Per Patient. BMI: 31. --15:11 04/25/20 Sherice Lopez R.N.MedicationsOptivo Injection, every 8 weeks. --15:11 04/25/20 Sherice Lopez R.N.AllergiesDilaudid.(rash) --15:11 04/25/20 Sherice Lopez R.N.HistoryPAST MEDICAL HX: Immunizations: up-to-date.SOCIAL HX: Never smoker. No alcohol use or drug use. No recent travel. No known contact with a sickindividual. He was offered HIV testing but declined and hepatitis C testing but declined.Infectious disease exposure: No infectious disease exposure. The patient was not exposed to C-diff,MRSA, VRE, CRE or Coronavirus.SELF HARM ASSESSMENT: Self harm assessment was performed. The patient answered "no" to thequestion(s) "Have you recently felt down, depressed, or hopeless?", "Do you have thoughts of harming or 2 Clinical Report - Nurses [facility] Emergency Department [address] [place] [address] Phone #: ext- [phone] 04/25/2020 15:05 Patient: BALJINDER HARRIS Sex: M : 2000 Age: 19y killing yourself?", "Do you have a plan for harming or killing yourself?", "Have you recently had thoughts about harming or killing others?", "Do you have any dangerous items in your possession?", "Have you noticed less interest or pleasure in doing things?" and "Are you here because you tried to hurt yourself?". ABUSE ASSESSMENT: No report of abuse. NUTRITIONAL RISK ASSESSMENT: The nutritional risk assessment revealed no deficiencies. FUNCTIONAL ASSESSMENT: Functional assessment: no impairments noted. LEARNING NEEDS ASSESSMENT: The learning needs assessment revealed no barriers. FALL RISK ASSESSMENT: Fall risk assessment completed. No risk factors identified. SKIN INTEGRITY ASSESSMENT: Skin integrity risk assessment completed. No skin integrity risk identified. --15:14 04/25/20 Sherice Lopez R.N. Interventions To treatment room. --15:14 04/25/20 Sherice Lopez R.N.PHYSICAL [id number] 04/25/20. Ambulatory to room. Patient gowned.GENERAL / NEURO / PSYCH: Alert. Oriented X 4. Appears in no acute distress.HEENT: Mucous membranes are pink.RESPIRATORY: Respirations not labored. Breath sounds within normal limits.CVS: Capillary refill less than 2 seconds.GI / : Abdomen soft and nontender. Bowel sounds within normal limits. SKIN: Skin is warm and dry. --15:20 04/25/20 Nicho Page R.N.NURSING PROGRESS NOTESPatient gowned. Head of bed elevated. Reassurance given. Call light placed in reach. Side rails up.Bed placed in lowest position. Brakes of bed on. Patient ready for evaluation- ED physician notified.--15:14 04/25/20 Sherice Lopez R.N. 15:46 04/25/2020 Site #1 started via IV in the right antecubital space with an 20g angiocath, with aseptic technique and good blood return; one attempt. Blood drawn: rainbow set. Labeled in the presence of the patient and sent to the lab. Saline lock flushed with 10 mL saline. --15:46 04/25/20 Nicho Page R.N. 15:56 04/25/2020 Solu-Medrol (methylPREDNISolone Sodium Succ) IVP 125 mg given over 2 minute(s) via site #1. Allergies verified and confirmed 5 rights. IV patency established. IV site checked: no pain, redness, or swelling. IV flushed thoroughly pre- and post-medication administration. IVP given by RN. Information reviewed with patient including reason for taking this medication, signs of allergic reaction and precautions. Verbalizes understanding. --15:56 04/25/20 Nicho Page R.N. 3 Clinical Report - Nurses [facility] Emergency Department [address] [place] [address] Phone #: ext- [phone] 04/25/2020 15:05 Patient: BALJINDER HARRIS Sex: M : 2000 Age: 19y15:57 04/25/2020 Started bag #1 1000 mL IV Fluids NS; at 1000 mL/hr over 1 hour(s) via site #1 via IVpump. Allergies verified and confirmed 5 rights. IV patency established. IV site checked: no pain, redness,or swelling. IV flushed thoroughly pre- and post-medication administration. Information reviewed withpatient including reason for taking this medication, signs of allergic reaction and precautions. Verbalizesunderstanding. --15:57 04/25/20 Nicho Page R.N.15:58 04/25/2020 Started 500 mg of Flagyl (metroNIDAZOLE in NaCl) IVPB in bag #1 100 mL; at 100mL/hr over 1 hour(s) via site #1. via IV pump. Allergies verified and confirmed 5 rights. IV patencyestablished. IV site checked: no pain, redness, or swelling. IV flushed thoroughly pre- and post-medicationadministration. Information reviewed with patient including reason for taking this medication, signs ofallergic reaction and precautions. Verbalizes understanding. --15:58 04/25/20 Nicho Page R.N.16:03 04/25/20. BP: 119/77. MAP: 91. HR: 71. RR: 16. O2 saturation: 99%. --16:03 04/25/20 [place] MANDAJuliane PuckettDIGNITY [facility] [id number] 04/25/20. Patient transported to ID by wheelchair with data collection technician. --16:54 04/25/20 Nicho Page R.N.16:54 04/25/20. Patient returned from CT by wheelchair with data collection technician. --16:54 04/25/20 Nicho Page R.N.16:58 04/25/20. Reassurance given. Reassessment acuity: LEVEL 3. The patient reports nocomplaints, he is calm and resting quietly and he has had no adverse reaction. Overall patient status isimproved- he states feels better.SKIN: Skin is warm and dry. Skin color within normal limits. Two patient identifiers checked. Call lightplaced in reach. Bed placed in lowest position. Brakes of bed on. --16:59 04/25/20 Nicho Page R.N.17:00 04/25/20. BP: 140/83. MAP: 102. HR: 73. RR: 16. O2 saturation: 100%. --17:00 04/25/20 Nicho Page R.NUrsula17:26 04/25/2020 Flagyl IVPB via IV site #1 Discontinued: bag #1 completed. Total amount infused: 100mL. IV patency established. IV site checked: no pain, redness, or swelling. IV flushed thoroughly. --17: Nicho Page R.N.17:27 04/25/2020 Started 750 mg of Levofloxacin IVPB in bag #1 150 mL; at 100 mL/hr over 1.5 hour(s)via site #1. via IV pump. Allergies verified and confirmed 5 rights. IV patency established. IV site checked:no pain, redness, or swelling. IV flushed thoroughly pre- and post-medication administration. Informationreviewed with patient including reason for taking this medication, signs of allergic reaction and precautions.Verbalizes understanding. --17:27 04/25/20 Nicho Page R.N.18:31 04/25/20. BP: 132/81. MAP: 98. HR: 77. RR: 18. O2 saturation: 97%. --18:31 04/25/20 Axel Akers, Juliane, Tech 4 Clinical Report - Nurses [facility] Emergency Department [address] [place] [address] Phone #: ext- [phone] 04/25/2020 15:05 --------- Patient: BALJINDER HARRIS Sex: M : 2000 Age: 19y 18:51 04/25/2020 Ofirmev IV 1000 mg (NOW x1, Infuse over 15 minutes) was refused by patient. --19:06 04/25/20 Nicho Page R.N. 18:57 04/25/2020 IV Fluids NS via IV site #1 Discontinued: bag #1 infused upon discharge. Total amount infused: 100 mL. IV patency established. IV site checked: no pain, redness, or swelling. IV flushed thoroughly. --19:07 04/25/20 Nicho Page R.N. 19:01 04/25/2020 Levofloxacin IVPB via IV site #1 Discontinued: bag #2 completed. Total amount infused: 150 mL. --19:06 04/25/20 Nicho Page R.N.DISPOSITION / DISCHARGE 19:02 04/25/2020 Site #1 removed upon discharge. Catheter intact. Bandage applied. --19:04/25/20 Nicho Page R.N. Departure time: 19:08 04/25/2020. Condition at departure: improved and stable. The goals identified in the patient's plan of care were met. Fall risk assessment completed. No risk factors identified. No learning barriers present. Discharge instructions provided and reviewed with the patient. Reviewed warnings. Reviewed medication(s) side effects, precautions, dosing and course information. Prescription(s) sent electronically to pharmacy. Treatments reviewed. Reviewed referral to a patient relations liaison and primary care physician. Patient verbalized understanding. Written instructions provided in Salvadorean. The patient was discharged by the physician. He was discharged home. He left ambulatory and via private vehicle. Patient driving. --19:08 04/25/20 Nicho Page R.N. 18:50 04/25/20. BP: 118/84. MAP: 95. HR: 77. RR: 16. O2 saturation: 98%. Temp: 98.2 F. Pain level now: 0/10. --19:08 04/25/20 Nicho Page R.N.Locked/Released at 04/25/2020 19:37 by Nicho Page R.N. Name Value Range Interpretation Code Description Data Denisse rce(s) Supporting Document(s) ID Date Data Source [id number] 0001 04/25/2020 03:10:00 PM [facility] 1 Clinical Report - Physicians/Mid Levels [facility] Emergency Department [address] [place] [address] Phone #: ext- [phone] 04/25/2020 15:05 Patient: BALJINDER HARRIS [facility]#: [id number] Sex: M : 2000 Age: 19y Time Seen: 15:08 04/25/2020; initial patient contact. Arrived- By private vehicle. Historian- patient. Disposition decision: 17:49 04/25/2020.HISTORY OF PRESENT ILLNESS Chief Complaint: ABDOMINAL PAIN. This started 1 weeks ago and is still present. It was gradual in onset and has been intermittent. It is described as "pain" and cramping and it is described as located in the periumbilical area, in the lower abdomen and in the left lower quadrant. At its maximum, severity described as moderate and 5 / 10. When seen in the E.D., severity described as moderate and 5 / 10. Modifying factors. Not worsened by anything. Not relieved by anything. No nausea, loss of appetite or vomiting. He has had moderate diarrhea. This has occurred several times. It has been blood-tinged. (pt sees GI MD in [place] for his IBD's). No recent travel. Similar symptoms previously. Patient has had similar symptoms many times. ( w Crohn's and UC flares; requesting steroid and AB's). Recent medical care: Not recently seen/assessed.REVIEW OF SYSTEMSNo constipation, black stools, hematemesis, difficulty with urination or pain with urination. No urinaryfrequency, fever, headache, sore throat or blurred vision. No chest pain, difficulty breathing, cough, jointpain or skin rash. No chills or back pain. The patient has had mildly bloody stools. They have beenassociated with bright red blood. but not had weight loss. All other systems reviewed and are negativ e.PAST HISTORYSee nurses notes. Problems: Ulcerative colitis (disorder). Celiac Disease. Crohn's Disease. Additional Surgeries: Tympanostomy Tubes. Medications: Optivo Injection, every 8 weeks. Allergies: Dilaudid.(rash).SOCIAL HISTORY 2 Clinical Report - Physicians/Mid Levels [facility] Emergency Department [address] [place] [address] Phone #: ext- [phone] 04/25/2020 15:05 Patient: BALJINDER HARRIS Sex: M : 2000 Age: 19y Never smoker. No alcohol use or drug use.ADDITIONAL NOTESThe nursing notes have been reviewed with agreement regarding the chief complaint, HPI, ROS, PMH andpatient medications and allergies.PHYSICAL EXAMVital Signs: 04/25/2020 15:07 BP: 154/82. MAP: 106. HR: 74. RR: 18. O2 saturation: 99%. Temp: 98.2 F.Pain level now: 09/11. Have been reviewed. Oxygen saturation normal.Appearance: Alert. Oriented X3. No acute distress.Eyes: Pupils equal, round and reactive to light. Eyes normal inspection.ENT: Nose normal. Pharynx normal.Neck: Normal inspection. Neck supple.CVS: Normal heart rate and rhythm. Heart sounds normal. Pulses normal.Respiratory: No respiratory distress. Painless inspiration. Breath sounds normal. Chest nontender.Abdomen: Soft. Mild tenderness in the left lower quadrant. No guarding or rebound tenderness. Bowelsounds normal. No organomegaly. No mass. Femoral pulses equal.Back: Normal inspection.Skin: Skin warm and dry. Normal skin color. No rash. Normal skin turgor.Extremities: Extremities exhibit normal ROM. No lower extremity edema.Neuro: Oriented X 3. No motor deficit. No sensory deficit. Reflexes normal.LABS, X-RAYS, AND EKGAbdominal CT: see report; moderate pancolitis, no complications. Study type: abdomen and pelvis.Abdominal CT performed with IV contrast. The study was interpreted by the radiologist. Interpretationtime: 17:22 04/25/2020.Laboratory Tests: Laboratory tests have been ordered, with results reviewed and considered in themedical decision making process. CBC w Diff: (MARTY: 04/25/2020 15:45) ( MsgRcvd 04/25/2020 16:12) Final results Test Result Flag Units (Reference) CBC W/AUTOMATED DIFF COMPLETE BLOOD COUNT WBC 8.0 10/uL (4.2 - 11.0) RBC 5.33 10/uL (4.50 - 6.30) HEMOGLOBIN 15.4 g/dL (14.0 - 16.0) HEMATOCRIT 45.3 % (41.0 - 51.0) MCV 85.0 fL (80.0 - 94.0) MCH 28.9 pg (27.0 - 34.0) MCHC 34.0 g/dL (31.0 - 36.0) RDW 12.6 % (11.5 - 14.8) PLATELETS 293 10/uL (150 - 450) MPV 9.5 fL (7.4 - 10.4) NEUT 61.8 % (37.0 - 80.0) LYMPH 22.1 L % (25.0 - 40.0) MONO 9.0 H % (3.0 - 8.0) EOS 6.2 % (0.0 - 7.0) BASO 0.4 % (0.0 - 2.0) %IG 0.5 H % (0.0 - 0.0) %NRBC 0.0 % (0.0 - 0.0) 3 Clinical Report - Physicians/Mid Levels [facility] Emergency Department [address] [place] [address] Phone #: ext- [phone] 04/25/2020 15:05 Patient: BALJINDER HARRIS Sex: M : 2000 Age: 19y #NEUT 4.97 10/uL (2.00 - 6.90) #LYMPH 1.78 10/uL (0.60 - 3.40) #MONO 0.72 10/uL (0.00 - 0.90) #EOS 0.50 10/uL (0.00 - 0.70) #BASO 0.03 10/uL (0.00 - 0.20) #IG 0.04 10/uL (0.00 - 0.10) #NRBC 0.00 10/uL (0.00 - 0.00) MANUAL DIFF NOT INDICATED RBC MORPH NOT INDICATEDCMP: (MARTY: 04/25/2020 15:45) ( MsgRcvd 04/25/2020 16:33) Final results Test Result Flag Units (Reference) COMPREHE NSIVE METABOLIC PANEL COMPREHENSIVE METABOLIC PANEL SODIUM 141 mEq/L (134 - 153) POTASSIUM 3.9 mEq/L (3.6 - 5.0) CHLORIDE 103 mEq/L (98 - 107) CO2 29 MEQ/L (22 - 30) GLUCOSE 93 MG/DL (65 - 110) BUN 16 MG/DL (7 - 21) CREATININE 1.1 MG/DL (0.7 - 1.5) BUN/CREAT 15 (8 - 27) TOTAL PROTEIN 7.4 G/DL (6.3 - 8.2) ALBUMIN 4.6 G/DL (3.9 - 5.0) GLOBULIN 2.8 GM/DL (2.4 - 3.2) A/G RATIO 1.6 (0.8 - 2.0) CALCIUM 9.6 MG/DL (8.4 - 10.2) TOTAL BILI 1.0 MG/DL (0.2 - 1.3) ALKALINE PHOS 61 U/L (38 - 126) SGOT/AST 11 U/L (5 - 40) SGPT/ALT 10 U/L (7 - 56) ANION GAP 9.0 mmol/L (8.0 - 16.0) AGE 19 yrs NON-AA GFR >60 mL/min AFR AMER GFR >60 mL/min Male GFR Interprentation 20-49 yrs >60 mL/min Rilyps14-91 yrs >56 mL/min Normal 60-69 yrs >49 mL/min Normal 70-79yrs>42 mL/min Normal 80 and above >35 mL/min Normal Female GFRInterpretation 20-39 yrs >60 mL/min Normal 40-49 yrs >58 mL/minNormal 50-59 yrs >51 mL/min Normal 60-69 yrs >45 mL/min Kbrynm80-86 yrs >39 mL/min Normal 80 and above >32 mL/min NormalLipase: (MARTY: 04/25/2020 15:45) ( MsgRcvd 04/25/2020 16:33) Final results Test Result Flag Units (Reference) LIPASE 24 U/L (13 - 60)Urinalysis: (MARTY: 04/25/2020 15:45) ( MsgRcvd 04/25/2020 16:13) Final results Test Result Flag Units (Reference) URINALYSIS URINALYSIS SOURCE Clean Catch COLOR yellow (NORMAL: Y[place] CLARITY clear (NORMAL: Clear SPEC GRAVITY 1.015 (1.001 - 1.030 pH 6 (5 - 9) GLUCOSE NORM (NORMAL: Negat 4 Clinical Report - Physicians/Mid Levels [facility] Emergency Departme nt [address] [place] [address] Phone #: ext- [phone] 04/25/2020 15:05 Patient: BALJINDER HARRIS Sex: M : 2000 Age: 19y BILIRUBIN NEG (NORMAL: Negat KETONE NEG (NORMAL: Negat PROTEIN 15 (NORMAL: Negat NITRITE NEG (NORMAL: Negat BLOOD 25 A (NORMAL: Negat LEUK EST 25 (NORMAL: Negat UROBILINOGEN NOR (less than 1.0 MICROSCOPIC See Below WBC 1 - 3 (NORMAL: NONE RBC 0 - 1 (NORMAL: NONE EPITHELIAL FEW (NORMAL: NONE BACTERIA Trace (NORMAL: NONE MUCOUS Trace (NORMAL: NONE Lactic Acid: (MARTY: 04/25/2020 15:45) ( MsgRcvd 04/25/2020 16:28) Final results Test Result Flag Units (Reference) LACTIC ACID 1.2 MMOL/L (0.2 - 2.2).PROGRESS AND PROCEDURESCourse of Care: 16:40 04/25/20. workup all in and reviewed and nml, incl. WBC, lactic, etc.; waiting forCTAP w IV results 17:46 04/25/20. CTAP w IV results show pancolitis; pt doing better; will treat accordingly for Crohn's/UC flare; pt advised to f/u w his GI MD in [place] in next week; pt understands and agrees. Patient counseled in person regarding the patient's stable condition, test results, diagnosis and need for follow-up. Patient agrees with plan of care. Disposition: Condition: good and stable. Discharge decision based on the following: patient's condition is stable; patient's condition is improved; patient is ambulatory; patient is active; pat ient drinking fluids; patient eating; patient's pain is controlled; patient's exam is improved; no seriously abnormal test results; minimally abnormal test results; improving condition on multiple repeat evaluations; social support is good; transportation is available; follow-up is available; clinical impression is consistent with outpatient treatment.CLINICAL IMPRESSION Crohn's disease in the large intestine with acute abdominal pain (Acute Flare). Chronic ulcerative colitis involving all of the colon with complications including acute abdominal pain (Acute Flare).INSTRUCTIONS Alternate Tylenol (Acetaminophen) or Motrin (Ibuprofen) for fever, temperature greater than 102 degrees. 5 Clinical Report - Physicians/Mid Levels [facility] Emergency Department [address] [place] [address] Phone #: ext- [phone] 04/25/2020 15:05 Patient: BALJINDER HARRIS Sex: M : 2000 Age: 19yTake according to label instructions.Drink plenty of fluids. Avoid alcohol and NSAIDS. NSAIDS include aspirin, ibuprofen (Advil) and naproxen(Aleve). Avoid fatty, fried/greasy, lactose-containing (such as milk, cheese and ice cream), salty and spicyfoods. No alcohol. Do not smoke.Warnings: Further evaluation is necessary. It is very important to follow up with a healthcare provider.GENERAL WARNINGS: Return or contact your physician immediately if your condition worsens orchanges unexpectedly, if not improving as expected, or if other problems arise. SPECIFICALLY, return ifyou develop pain in the abdomen, pelvis, testicle, back or shoulder, fever, vomiting, the inability to keepfluids down, blood in vomitus, blood in diarrhea, fainting or lightheadedness.Your Current Medications: Your current home medications have been reviewed.CONTINUE TAKING THE FOLLOWING MEDICATIONS:Optivo Injection* : every 8 weeks.Prescription Medications:Cipro 500 mg tablet Take 1 tablet twice a day for 10 days -- Dis pense 20 tablet. Refills: 0. Substitutionpermitted.Pharmacy - [id number] - [address] [place], [place] [id number]. .Flagyl 500 mg tablet Take 1 tablet three times a day for 10 days -- Dispense 30 tablet. Refills: 0.Substitution permitted.[facility] - [address] [place] [address] ; [place], [place] [id number]. .Medrol (Colt) 4 mg tablets in a dose pack Take 1 tablet once a day for 7 days -- PLEASE TAKEMEDROL DOSE PACK DIRECTED ON PACKAGING. Dispense 21 tablet. Refills: 1. Substitutionpermitted.[facility] #38 - [address] [facility] ; [place], [place] [id number]. .Follow-up:Return to the emergency department as needed. Follow up with a patient relations liaison in three days even ifwell. Call for an appointment. Reason for referral: evaluation and treatment. Summary of care provided topatient via paper.Understanding of the discharge instructions verbalized by patient. Expected course of illness, dischargeinstructions, activity level, diet, prescriptions x3, follow-up appointment and risks and benefits of treatmentreviewed with patient and understanding verbalized. Agrees to plan of care.Follow-up with: Eliel Kauffman MD, Gastroenterology, [id number], [facility],[address] [place] [address], [address], [place], [place], [address]Yhijvy up in three days even if well. Call for an appointment. Reason for referral: evaluation and 6 Clinical Report - Physicians/Mid Levels [facility] Emergency Department [address] [place] [address] Phone #: ext- [phone] 04/25/2020 15:05 Patient: BALJINDER HARRIS Sex: M : 2000 Age: 19y treatment. Summary of care provided to patient via paper.(Electronically signed by Carole Salazar M.D. 04/25/2020 19:20) Name Value Range Interpretation Code Description Data [facility] Supporting Document(s) ID Date Data Source [id number] 04/25/2020 03:45:00 PM EST [facility] ([facility]) Name Value Range Interpretation Code Description Data Denisse rce(s) Supporting Document(s) CBC W/Automated Diff Laboratory test result [facility] ([facility]) COMPLETE BLOOD COUNT WBC 8.0 10^3/uL 4.2-11.0 [facility] ([facility]) Hemoglobin 15.4 g/dL 14.0-16.0 [facility] ([facility]) RBC 5.33 10^6/uL 4.50-6.30 [facility] ([facility]) MCHC 34.0 g/dL 31.0-36.0 [facility] ([facility]) MCH 28.9 pg 27.0-34.0 [facility] ([facility]) Hematocrit 45.3 % 41.0-51.0 [facility] ([facility]) MCV 85.0 fL 80.0-94.0 [facility] ([facility]) RDW 12.6 % 11.5-14.8 [facility] ([facility]) MPV 9.5 fL 7.4-10.4 [facility] ([facility]) Platelets 293 10^3/uL 150-450 [facility] ([facility]) Stephenson 9.0 % 3.0-8.0 Above high normal [facility] ([facility]) Lymph 22.1 % 25.0-40.0 Below low normal [facility] ( [facility]) Neut 61.8 % 37.0-80.0 [facility] ([facility]) %Ig 0.5 % 0.0-0.0 Above high normal [facility] ([facility]) Baso 0.4 % 0.0-2.0 [facility] ([facility]) Eos 6.2 % 0.0-7.0 [facility] ([facility]) %NRBC 0.0 % 0.0-0.0 [facility] ([facility]) #Stephenson 0.72 10^3/uL 0.00-0.90 [facility] ([facility]) #Neut 4.97 10^3/uL 2.00-6.90 [facility] ([facility]) #Lymph 1.78 10^3/uL 0.60-3.40 [facility] ([facility]) #Ig 0.04 10^3/uL 0.00-0.10 [facility] ([facility]) #Eos 0.50 10^3/uL 0.00-0.70 [facility] ([facility]) #Baso 0.03 10^3/uL 0.00-0.20 [facility] ([facility]) #NRBC 0.00 10^3/uL 0.00-0.00 [facility] ([facility]) Manual Diff Laboratory test result [facility] ([facility]) RBC Morph Laboratory test result [facility] ([facility]) ID Date Data Source [id number] 04/25/2020 03:45:00 PM EST [facility] ([facility]) Name Value Range Interpretation Code Description Data Denisse rce(s) Supporting Document(s) Urinalysis Laboratory test result [facility] ([facility]) URINALYSIS Source Laboratory test result [facility] ([facility]) Color Laboratory test result [facility] ([facility]) Clarity Laboratory test result [facility] ([facility]) Spec [place] 1.015 1.001-1.030 [facility] ([facility]) Glucose Laboratory test result [facility] ([facility]) pH 6 5-9 [facility] ([facility]) Bilirubin Laboratory test result [facility] ([facility]) Ketone Laboratory test result [facility] ([facility]) Nitrite Laboratory test result [facility] ([facility]) Protein 15 [facility] ([facility]) Urobilinogen Laboratory test result [facility] ([facility]) Leuk Est 25 [facility] ([facility]) Blood 25 Abnormal (applies to non-numeric res ults) [facility] ([facility]) WBC Laboratory test result [facility] ([facility]) RBC Laboratory test result [facility] ([facility]) Microscopic Laboratory test result [facility] ([facility]) Bacteria Laboratory test result [facility] ([facility]) Epithelial Laboratory test result [facility] ([facility]) Mucous Laboratory test result [facility] ([facility]) ID Date Data Source [id number] 04/25/2020 03:45:00 PM EST [facility] ([facility]) Name Value Range Interpretation Code Description Data Denisse rce(s) Supporting Document(s) Lactate [Mass/volume] in Serum or Plasma 1.2 mmol/L 0.2-2.2 [facility] ([facility]) ID Date Data Source [id number] 04/25/2020 03:45:00 PM EST [facility] ([facility]) Name Value Range Interpretation Code Description Data Denisse rce(s) Supporting Document(s) Sodium 141 meq/L 134-153 [facility] ([facility]) Comprehensive Metabo Laboratory test result [facility] ([facility]) COMPREHENSIVE METABOLIC PANEL Co2 29 meq/L 22-30 [facility] ([facility]) Chloride 103 meq/L 98-107 [facility] ([facility]) Potassium 3.9 meq/L 3.6-5.0 [facility] ([facility]) Creatinine 1.1 mg/dL 0.7-1.5 [facility] ([facility]) BUN 16 mg/dL 7-21 [facility] ([facility]) BUN/Creat 15 8-27 [facility] ([facility]) Glucose 93 mg/dL 65-110 [facility] ([facility]) Globulin 2.8 GM/DL 2.4-3.2 [facility] ([facility]) Total Protein 7.4 g/dL 6.3-8.2 [facility] ([facility]) Albumin 4.6 g/dL 3.9-5.0 [facility] ([facility]) Alkaline Phos 61 U/L 38-126 [facility] ([facility]) Total Bili 1.0 mg/dL 0.2-1.3 [facility] ([facility]) A/G Ratio 1.6 0.8-2.0 [facility] ([facility]) Calcium 9.6 mg/dL 8.4-10.2 [facility] ([facility]) SGPT/Alt 10 U/L 7-56 [facility] ([facility]) Anion Gap 9.0 mmol/L 8.0-16.0 [facility] ([facility]) Sgot/Ast 11 U/L 5-40 [facility] ([facility]) Age 19 yrs [facility] ([facility]) Non-Aa GFR Laboratory test result [facility] ([facility]) Afr Amer GFR Laboratory test result [facility] ([facility]) Male GFR Interprentation 20-49 yrs >60 mL/min Normal 50-59 yrs >56 mL/min Normal 60-69 yrs >49 mL/min Normal 70-79yrs >42 mL/min Normal 80 and above >35 mL/min Normal Female GFR Interpretation 20-39 yrs >60 mL/min Normal 40-49 yrs >58 mL/min Normal 50-59 yrs >51 mL/min Normal 60-69 yrs >45 mL/min Normal 70-79 yrs >39 mL/min Normal 80 and above >32 mL/min Normal ID Date Data Source [id number] 04/25/2020 03:45:00 PM EST [facility] ([facility]) Name Value Range Interpretation Code Description Data Denisse rce(s) Supporting Document(s) Lipase [Enzymatic activity/volume] in Serum or Plasma 24 U/L 13-6 0 [facility] ([facility]) ID Date Data Source [id number] 04/25/2020 04:33:00 PM [facility] Name Value Range Interpretation Code Description Data Denisse rce(s) Supporting Document(s) Lipase [Enzymatic activity/volume] in Serum or Plasma 24 U/L 13 - 60 [facility] ID Date Data Source [id number] 04/25/2020 04:33:00 PM EST [facility] Name Value Range Interpretation Code Description Data Denisse rce(s) Supporting Document(s) COMPREHENSIVE METABOLIC PANEL [facility] COMPREHENSIVE METABOLIC PANEL Sodium [Moles/volume] in Serum or Plasma 141 mEq/L 134 - 153 [facility] Potassium [Moles/volume] in Serum or Plasma 3.9 mEq/L 3.6 - 5.0 [facility] Chloride [Moles/volume] in Serum or Plasma 103 mEq/L 98 - 107 [facility] Carbon dioxide, total [Moles/volume] in Serum or Plasma 29 MEQ/L 22 - 30 [facility] Glucose [Mass/volume] in Serum or Plasma 93 MG/DL 65 - 110 [facility] BUN 16 MG/DL 7 - 21 [facility] Creatinine [Mass/volume] in Serum or Plasma 1.1 MG/DL 0.7 - 1.5 [facility] BUN/CREAT 15 8 - 27 [facility] Protein [Mass/volume] in Serum or Plasma 7.4 G/DL 6.3 - 8.2 [facility] Albumin [Mass/volume] in Serum or Plasma 4.6 G/DL 3.9 - 5.0 [facility] Globulin [Mass/volume] in Serum by calculation 2.8 GM/DL 2.4 - 3.2 [facility] A/G RATIO 1.6 0.8 - 2.0 [facility] Calcium [Mass/volume] in Serum or Plasma 9.6 MG/DL 8.4 - 10.2 [facility] Bilirubin.total [Mass/volume] in Serum or Plasma 1.0 MG/DL 0.2 - 1.3 [facility] Alkaline phosphatase [Enzymatic activity/volume] in Serum or Plasma 61 U/L 38 - 126 [facility] Aspartate aminotransferase [Enzymatic activity/volume] in Serum or Plasma 11 U/L 5 - 40 [facility] Alanine aminotransferase [Enzymatic activity/volume] in Seru m or Plasma 10 U/L 7 - 56 [facility] Anion gap 3 in Serum or Plasma 9.0 mmol/L 8.0 - 16.0 [facility]GE 19 yrs [facility] NON-AA GFR >60 mL/min [facility] ital AFR AMER GFR >60 mL/min [facility] Male GFR In terprentation 20-49 yrs >60 mL/min Normal 50-59 yrs >56 mL/min Normal 60-69 yrs >49 mL/min Normal 70-79yrs >42 mL/min Normal 80 and above >35 mL/min Normal Female GFR Interpretation 20-39 yrs >60 mL/min Normal 40-49 yrs >58 mL/min Normal 50-59 yrs >51 mL/min Normal 60-69 yrs >45 mL/min Normal 70-79 yrs >39 mL/min Normal 80 and above >32 mL/min Normal ID Date Data Source [id number] 04/25/2020 04:28:00 PM [facility] Name Value Range Interpretation Code Description Data Denisse rce(s) Supporting Document(s) Lactate [Moles/volume] in Serum or Plasma 1.2 MMOL/L 0.2 - 2.2 [facility] ID Date Data Source [id number] 04/25/2020 04:12:00 PM [facility] Name Value Range Interpretation Code Description Data Denisse rce(s) Supporting Document(s) [facility] SOURCE Clean Catch [facility] ital COLOR yellow NORMAL: Yellow [facility] CLARITY clear NORMAL: Clear [facility] Specific gravity of Urine by Test strip 1.015 1.001 - 1.030 [facility] pH 6 5 - 9 [facility] Glucose [Mass/volume] in Urine by Test strip NORM NORMAL: Negat [facility] Bilirubin.total [Presence] in Urine by Test strip NEG NORMAL: Negative [facility] Ketones [Presence] in Urine by Test strip NEG NORMAL: Negative [facility] Protein [Mass/volume] in Urine by Test strip 15 NORMAL: Negat [facility] Nitrite [Presence] in Urine by Test strip NEG NORMAL: Negative [facility] BLOOD 25 NORMAL: Negative A [facility] Leukocyte esterase [Presence] in Urine by Test strip 25 PALOMO L: Negative [facility] Urobilinogen [Mass/volume] in Urine by Test strip NOR less rob n 1.0 mg/dL [facility] MICROSCOPIC See Below [facility] ital WBC 1 - 3 NORMAL: NONE SEEN [facility] Erythrocytes [#/volume] in Urine by Test strip 0 - 1 NORMAL: NON E SEEN [facility] EPITHELIAL FEW NORMAL: NONE SEEN [facility] Bacteria [Presence] in Urine sediment by Light microscopy Tr sandra NORMAL: NONE SEEN [facility] Mucus [Presence] in Urine sediment by Light microscopy Trace NORMAL: NONE SEEN [facility] ID Date Data Source [id number] 04/25/2020 04:11:00 PM EST [facility] Name Value Range Interpretation Code Description Data Denisse rce(s) Supporting Document(s) CBC W/AUTOMATED DIFF [facility] COMPLETE BLOOD COUNT Leukocytes [#/volume] in Blood by Automated count 8.0 10^3/uL 4.2 - 1 1.0 [facility] Erythrocytes [#/volume] in Blood by Automated count 5.33 10^6/uL 4. 50 - 6.30 [facility] Hemoglobin [Mass/volume] in Blood 15.4 g/dL 14.0 - 16.0 [facility] Hematocrit [Volume Fraction] of Blood by Automated count 45.3 % 4 1.0 - 51.0 [facility] Erythrocyte mean corpuscular volume [Entitic volume] by Auto mated count 85.0 fL 80.0 - 94.0 [facility] Erythrocyte mean corpuscular hemoglobin [Entitic mass] by Automated count 28.9 pg 27.0 - 34.0 [facility] Erythrocyte mean corpuscular hemoglobin concentration [Mass/volume] by Automated count 34.0 g/dL 31.0 - 36.0 [facility] Erythrocyte distribution width [Ratio] by Automated count 12.6 % 11.5 - 14.8 [facility] Platelets [#/volume] in Blood by Automated count 293 10^3/uL 150 - 45 0 [facility] Platelet mean volume [Entitic volume] in Blood by Automated count 9.5 fL 7.4 - 10.4 [facility] Neutrophils/100 leukocytes in Blood by Automated count 61.8 % 37. 0 - 80.0 [facility] Lymphocytes/100 leukocytes in Blood by Manual count 22.1 % 25.0 - 40.0 L [facility] Monocytes/100 leukocytes in Blood by Automated count 9.0 % 3.0 - 8.0 H [facility] Eosinophils/100 leukocytes in Blood by Automated count 6.2 % 0.0 - 7.0 [facility] Basophils/100 leukocytes in Blood by Automated count 0.4 % 0.0 - 2.0 [facility] %IG 0.5 % 0.0 - 0.0 H [facility] al %NRBC 0.0 % 0.0 - 0.0 [facility] al Neutrophils [#/volume] in Blood by Automated count 4.97 10^3/uL 2.00 - 6.90 [facility] Lymphocytes [#/volume] in Blood by Automated count 1.78 10^3/uL 0.60 - 3.40 [facility] Monocytes [#/volume] in Blood by Automated count 0.72 10^3/uL 0.00 - 0.90 [facility] Eosinophils [#/volume] in Blood by Automated count 0.50 10^3/uL 0.00 - 0.70 [facility] Basophils [#/volume] in Blood by Automated count 0.03 10^3/uL 0.00 - 0.20 [facility] #IG 0.04 10^3/uL 0.00 - 0.10 [facility] #NRBC 0.00 10^3/uL 0.00 - 0.00 [facility] MANUAL DIFF NOT INDICATED [facility] RBC MORPH NOT INDICATED [facility] spital ID Date Data Source [id number] 02/28/2020 05:31:00 PM EDT [facility] [address] [place] [address] PHONE: [phone] FAX: [phone] Name .................. : ALEKSANDRAFRANCISCO BALJINDER Celso Acct Number.................. : [id number] ROOM. ................. : TR Number ................... : [id number] Stay type ............. : E/R Discharge Date......... ... : 02/27/20 Admit Date ......... : 02/27/20 Admit Phys .................... : LULÚ FLORENCE Date of ....... : 2000 Family Phys ................... : [employer] Phone .................. : [phone] Age ................................ : 19 Film# .................. .:[id number] Sex ................................. : M Unsigned transcriptions are preliminary reports and do not represent a medical or legal document CT ABD & PELVIS W/ IV ONLY [id number] COMPLETE:02/27/20 07:57 MATHEUS [id number] Reason(s): Abdominal Pain CT OF THE ABDOMEN AND PELVIS WITH CONTRAST: INDICATION: Abdominal pain. FINDINGS: The chest base is clear. There is normal contrast- enhanced CT appearance of the liver, spleen, pancreas, adrenal glands and kidneys. No gallbladder wall thickening or biliary duct dilatation. The visualized bowel demonstrates mildly thickened colonic wall throughout the abdomen with mild sparing of the sigmoid colon. The appendix is not definitively visualized, but there are no right lower quadrant inflammatory changes. The bladder and pelvis organs appear normal. No acute osseous abnormality. No lymphadenopathy. IMPRESSION: Mild thickening of the colonic wall could represent a mild infectious or inflammatory colitis. While performing the above CT examination, radiation dose reduction was accomplished utilizing automated exposure control, adjusting of the mA and kV based on the patient's body size and/or the use of imperative reconstructive techniques. CT dose: 820.6 mGycm Page 1 of 2 [place] [address] PHONE: [phone] FAX: [phone] Name .................. : KIMBERLY [place] Acct Number.................. : [id number] ROOM. ................. : TR-02 MR Number ................... : [id number] Stay type ............. : E/R Discharge Date......... ... : 02/27/20 Admit Date ......... : 02/27/20 Admit Phys .................... : LULÚ FLORENCE Date of ....... : 2000 Family Phys ................... : [employer] Phone .................. : [phone] Age ................................ : 19 Film# .................. .:[id number] Sex ................................. : M Unsigned transcriptions are preliminary reports and do not represent a medical or legal document CT ABD & PELVIS W/ IV ONLY [id number] COMPLETE:02/27/20 07:57 MATHEUS [id number] Reason(s): Abdominal Pain Contrast agent in mL: 75 Isovue 370 Method of administration: Intravenous Electronically Reviewed and Signed By Fercho Crespo M.D. , 02/28/20 17:31, [place] Transcribe Initials: ISAAK , Transcribe Date: 02/27/20 11:12, Dictation Date: Copy for: 710 MED REC DISCHARGED Page 2 of 2 Name Value Range Interpretation Code Description Data Denisse rce(s) Supporting Document(s) ID Date Data Source [id number] 02/27/2020 06:46:00 AM EDT [facility] 1 OrderSheet [facility] Emergency Department [address] [place] [address] Phone #: ext- [phone] 02/27/2020 06:44 Patient: BALJINDER HARRIS Sex: M : 2000 Age: 19yWEIGHT:95.2 kg (S) HEIGHT:69 inches (S) BMI:31.0ALLERGIES: DilaudidCHIEF COMPLAINT: abdominal painDIAGNOSIS: ColitisLAB ORDERSOrder Description Priority Entered Acknowledged InitialedUrinalysis (Clean STAT 07:11 02/27/2020 Ack'd: 07:17 07:24 Chris Martínez) Kimberlyn Gonzalez R.N. Physician; R.N.CBC w Diff STAT 07:11 02/27/2020 07:16 Genaro Martínez R.N. Physician;CMP STAT 07:11 02/27/2020 07:16 Genaro Martínez R.N. Physician;Lipase STAT 07:11 02/27/2020 07:17 Genaro Martínez R.N. Physician;DIAGNOSTIC STUDY ORDERSOrder Description Priority Entered Acknowledged InitialedCT Abd PEL W/ IV STAT 07:11 02/27/2020 Ack'd: 07:17 08:10 Med Dillard Only Kimberlyn Gonzalez R.N.(Oxygen?(No)) Physician; R.NUrsula(IV?(Yes)) NOTES: Hx of Crohn's / Celiac dz. Reason for Study: Abdominal Pain, DiarrheaMEDICATION/IV/DRIP/FLUID ORDERSOrder Description Priority Entered Acknowledged InitialedIV NS : Bolus 1000 07:11 02/27/2020 07:22 Tanya,mL, then 125 mL/hr Genaro Sofia R.N.(can be titrated per Physician;additionalphysicianinstruction) 2 OrderSheet [facility] Emergency Department [address] [place] [address] Phone #: ext- [phone] 02/27/2020 06:44 [id number] Sex[facility] : 2000 Age: 19yToradol IVP 30 mg 07:11 02/27/2020 07:24 Tanya(NOW) Genaro Sofia R.N. Physician;SOLU- Medrol 125 08:13 02/27/2020 Ack'd: 08:19 08:25 Dillard,mg IV X1 Dose: 125 Henna Scott R.N.mg (X1) Physician; R.N.GENERAL ORDERSOrder Description Priority Entered Acknowledged InitialedSaline Lock 07:11 02/27/2020 07:17 Genaro Martínez R.N. Physician;[Electronically signed by Kimberlyn Martínez R.N. (09:30 02/27/2020)][Electronically signed by Genaro Chino Physician (12:48 02/27/2020)][Electronically locked by Kimberlyn Martínez R.N. (09:30 02/27/2020)] Name Value Range Interpretation Code Description Data Denisse rce(s) Supporting Document(s) ID Date Data Source [id number] 02/27/2020 06:46:00 AM EDT [facility] 1 Medication Reconciliation Report [facility] Emergency Department [address] [place] [address] Phone #: ext- [phone] 02/27/2020 06:44 Patient: BALJINDER HARRIS Sex: M : 2000 Age: 19yWeight: 95.2 kgHeight/Length: 69 in.BMI: 31.0ALLERGIES: DilaudidThe patient's Home Medications are listed below:THE FOLLOWING MEDICATIONS NEED TO BE RECONCILED: Opt[employer] InjectionThe source(s) of the original Home Medication information:Not obtained.The following Medications were given to the patient in the Emergency Department:IV NS IV Fluids bolus 1000 mL wide open, administered: 02/27/2020 7:22:00 AMToradol [IVP] IVP 30 mg, administered: 02/27/2020 7:24:00 AMSolu-Medrol [IVP] IVP 125 mg, administered: 02/27/2020 8:25:00 AMThe following Medications were prescribed to the patient:Cipro 500 mg tablet Take 1 tablet twice a day for 7 days -- for mild UC flare. Dispense 14 tablet. Refills:0. Substitution permitted.[facility] [place] [id number]. .Flagyl 500 mg tablet Take 1 tablet every eight hours for 7 days -- for mild UC flare. Dispense 21 tablet.Refills: 0. Substitution permitted.[facility] [address] [place] [address] [id number]. . -- Physician TomerPrednisone 10mg tapersig: take 6 tabs PO each day for 2 days, then5 tabs PO each day for 2 days, then4 tabs PO each day for 2 days, then 2 Medication Reconciliation Report [facility] Emergency Department [address] [place] [address] Phone #: ext- [phone] 06:44 Patient: BALJINDER HARRIS Sex: M : 2000 Age: 19y3 tabs PO each day for 2 days, then2 tabs PO each day for 2 days, then1 tab PO each day for 2 days.Disp# 42. -- Genaro Chino, Physician Name Value Range Interpretation Code Description Data Denisse rce(s) Supporting Document(s) ID Date Data Source [id number] 02/27/2020 06:46:00 AM EDT [facility] 1 Medication Administration Record [facility] Emergency Department [address] [place] [address] Phone #: ext- [phone] 02/27/2020 06:44 Patient: BALJINDER HARRIS Sex: M : 2000 Age: 19yWeight: 95.2 kgHeight/Length: 69 inBMI: 31ALLERGIES: Dilaudid Date/Time Medication Administered Medication OrderedStart IV NS IV NS : Bolus 1000 mL, then 60747:22 02/27/2020 Dose: IV Fluids mL/hr (can be titrated Kimberlyn Quijano R.N. Bolus: 1000 mL wide open additional physician instruction)---- Dispensed: 1000 mL bagStop Site: #1 right AC08:35 02/27/2020Kimberlyn Martínez R.N.Given TORADOL [IVP] (KETOROLAC Toradol IVP 30 mg (NOW)07: 24 02/27/2020 TROMETHAMINE)Kimberlyn Martínez R.N. Dose: 30 mg IVP Site: #1 right ACGiven SOLU-MEDROL [IVP] SOLU-Medrol 125 mg IV X1 Dose:08:25 02/27/2020 (METHYLPREDNISOLONE SODIUM 125 mg (X1)Henna Dillard R.N. SUCC) Dose: 125 mg IVP Site: #1 right Name Value Range Interpretation Code Description Data Denisse rce(s) Supporting Document(s) ID Date Data Source [id number] 02/27/2020 06:46:00 AM EDT [facility] 1 General Instructions [facility] Emergency Department [address] [place] [address] Phone #: ext- [phone] 02/27/2020 06:44 Patient: BALJINDER HARRIS Sex: M : 2000 Age: 19yUlcerative colitis involving the transverse colon and ascending colon (Mild , chronic). No ulcerative colitiswith bleeding, abscess, obstruction or fistula.INSTRUCTIONSDrink plenty of fluids. No alcohol.Warnings: Further evaluation is necessary.GENERAL WARNINGS: Return or contact your physician immediately if your condition worsens orchanges unexpectedly, if not improving as expected, or if other problems arise.Prescription Medications:Cipro 500 mg tablet Take 1 tablet twice a day for 7 days -- for mild UC flare. Dispense 14 tablet. Refills:0. Substitution permitted.[facility] [address] [id number]. .Flagyl 500 mg tablet Take 1 tablet every eight hours for 7 days -- for mild UC flare. Dispense 21 tablet.Refills: 0. Substitution permitted.[facility] #31 - [address] [place] [address] [id number]. .Prednisone 10mg tapersig: take 6 tabs PO each day for 2 days, then5 tabs PO each day for 2 days, then4 tabs PO each day for 2 days, then3 tabs PO each day for 2 days, then2 tabs PO each day for 2 days, then1 tab PO each day for 2 days.Disp# 42.Follow- up:Follow up with your doctor tomorrow if not better. Call for an appointment. Reason for referral: evaluation,treatment and Mild, chronic ulcerative colitis.Understanding of the discharge instructions verbalized by patient and family. ADDITIONAL INFORMATION 2 General Instructions [facility] Emergency Department [address] [place] [address] Phone #: ext- [phone] 02/27/2020 06:44 Patient: BALJINDER HARRIS Sex: M : 2000 Age: 19yUlcerative ColitisYou have been diagnosed with ulcerative colitis. Ulcerative colitis is a long-term (chronic) conditionthat causes inflammation and ulcers in the rectum and colon. It is a form of inflammatory boweldisease (IBD). The disease is often diagnosed by a special procedure called a colonoscopy. Thesymptoms often develop over time. There is no medicine that can cure ulcerative colitis. The goal oftreatment is to reduce the symptoms, and cause a remission.Symptoms of ulcerative colitis include: Belly (abdominal) cramps and pain Diarrhea, often bloody Rectal bleeding Rectal pain Fever Decreased appetite and weight loss Low energy Inflammation outside of the colon can occur and can cause pain or swelling in places such as the eyes, skin, and jointsHome careNo one knows what exactly causes IBD. The goal is to control and relieve the symptoms and preventcomplications, so you can lead a full and active life. No medicine can cure the disease. In somecases, surgery to remove the whole colon can be healing. But surgery causes other side effects, somedicines are often preferred. Discuss your options with your healthcare provider.DietYour diet did not cause your condition, but it can affect it. Unfortunately, there is no one diet thatworks for everyone, so you have to experiment. Below are some recommendations, but what worksfor you may be different. Keep a food log to figure out what you are sensitive to. Eat more slowly. Eat smaller amounts at a time, but more often. Remember, you can always eat more, but can't eat less once you've eaten too much. High-fiber foods are complicated. While they may help constipation, they can make bloating, cramping, gas, and diarrhea worse. Eat less sugar. 3 General Instructions [facility] Emergency Department [address] [place] [address] Phone #: ext- [phone] 02/27/2020 06:44 Patient: BALJINDER HARRIS Sex: M : 2000 Age: 19y Try cutting out dairy products if you feel you are sensitive to lactose. Try cutting out foods that are high in fat and fatty meats. You can control bloating and passing excess gas. Be careful with "gassy" vegetables and fruits like beans, cabbage, broccoli, and cauliflower. Be careful of carbonated drinks and fruit juices. They can make bloating and diarrhea worse. Caffeine, alcohol, and stimulants may make symptoms worse.LifestyleStress doesn't cause IBD. But it is a factor in flare-ups, and how you feel and react to your condition. Look for things that seem to make your symptoms worse, such as stress and emotions. Counseling can help you deal with stress. So can self-help treatments such as exercise, yoga, and meditation. Depression can be a part of this illness and antidepressant medicine may be prescribed. This may actually help with diarrhea, constipation, and cramping, as well as symptoms of depression. Lack of sleep can make symptoms seem worse. Alcohol use can make symptoms worse.MedicinesYour healthcare provider may prescribe medicines. Take them as directed. In most cases, you willneed to take the medicines for the rest of your life. For acute flares, additional prescription medicinescan be prescribed. Call your provider if you need these. Ask your healthcare provider before taking any medicines for diarrhea. Don't take anti-inflammatory medicines such as ibuprofen or naproxen. Think about taking nutritional supplements. This is especially true if the diarrhea is prolonged, or you aren't eating, or you are losing weight.Follow-up careFollow up with your healthcare provider, or as advised. Tell your provider if you lose more than 5pounds over 3 to 6 months, and you aren't trying to lose weight.If a stool sample was taken, or cultures were done, you will be told if they are positive, or if yourtreatment needs to be changed. You can call as directed for results. 4 General Instructions [facility] Emergency Department [address] [place] [address] Phone #: ext- [phone] 02/27/2020 06:44 [facility]IND[id number] Sex: M : 2000 Age: 19yIf X-rays were done, a radiologist will look at them. You will be told if you need a change in treatmentIt is very important to tell your healthcare provider if you plan to get , or find out you are. You will need to discuss your disease, medicines, and plan as early as possible andpreferably before you conceive.Call [phone] if any of these occur: Trouble breathing Confusion Very drowsy or trouble waking up Fainting or loss of consciousness Rapid heart rate Chest painWhen to seek medical adviceCall your healthcare provider right away if any of these occur: Bleeding from your rectum Frequent diarrhea or belly pain that's not controlled by your medicine Bloody diarrhea Fever of 100.4F (38C) or higher, or as directed by your healthcare provider Nausea that does not get better, or repeated vomiting [phone] [employer]. [address] [place] [address], [place] [address]. All rights reserved. This information is not intended as asubstitute for professional medical care. Always follow your healthcare professional's instructions. You have been given the following additional information: Ulcerative Colitis 5 General Instructions [facility] Emergency Department [address] [place] [address] Phone #: ext- [phone] 02/27/2020 06:44 Patient: BALJINDER HARRIS Sex: M : 2000 Age: 19y(Electronically signed by Genaro Chino, Physician 02/27/2020 12:48) Name Value Range Interpretation Code Description Data Denisse rce(s) Supporting Document(s) ID Date Data Source [id number] 02/27/2020 06:46:00 AM EDT [facility] 1 Clinical Report - Nurses [facility] Emergency Department [address] [place] [address] Phone #: [phone]- [phone] 02/27/2020 06:44 Patient: BALJINDER HARRIS Sex: M : 2000 Age: 19yTRIAGEArrived by private vehicle. Historian: patient.Triage time: 06:45 02/27/2020. Acuity: LEVEL 3.Chief Complaint: ABDOMINAL PAIN and DIARRHEA.Alert. No acute distress.Onset. (3 days ago). ( Hx of Crohns). No nausea.Treatment CORPORATE LEGAL SECRETARY:None.SEPSIS SCREEN: SIRS Screen negative. Sepsis Screen negative. No suspected or confirmed signs ofinfection present. --06:51 02/27/20 Subha Ocampo R.N.06:45 02/27/20. BP: 157/85. HR: 73. RR: 20. O2 saturation: 99%. Temp: 98.9 F. Pain level now 10.--06:51 02/27/20 Subha Ocampo R.N.Weight: 95.2 kg stated. Height/Length: 69 inches Per Patient. BMI: 31. --06:45 02/27/20 Subha Ocampo R.N.MedicationsOptivo Injection. --06:46 02/27/20 Subha Ocampo R.N.AllergiesDilaudid.(rash) --07:24 02/27/20 Kimberlyn Martínez R.N.The following entry was struck by Kimberlyn Martínez R.N., 07:24 (02/27/20) Reason - other. No Known Drug Allergy. --06:46 02/27/20 Subha Ocampo R.N. .PROBLEMS:Ulcerative colitis (disorder).Colitis. --09:30 02/27/20 Kimberlyn Martínez R.N.The following entry was modified by Kimberlyn Martínez R.N., 09:30 02/27/20Crohn's Disease. --09:30 02/27/20 Kimberlyn Martínez R.N..HistorySOCIAL HX: Never smoker. No alcohol use or drug use. No recent travel. No known contact with a sickindividual. The patient was offered HIV testing but declined. Brneda orellana education was provided. The patienthas not traveled outside the [place] 2 Clinical Report - Nurses [facility] Emergency Department [address] [place] [address] Phone #: ext- [phone] 02/27/2020 06:44 Patient: BALJINDER HARRIS Sex: M : 2000 Age: 19y Infectious disease exposure: The patient was not exposed to Coronavirus. SELF HARM ASSESSMENT: Self harm assessment was performed. The patient answered "no" to the question(s) "Have you recently felt down, depressed, or hopeless?" and "Do you have thoughts of harming or killing yourself?". ABUSE ASSESSMENT: Abuse assessment. Abuse denied. No suspicion of abuse. No report of abuse. FALL RISK ASSESSMENT: Fall risk assessment completed. No risk factors identified. --06:51 02/27/20 Subha Ocampo R.N. Interventions To treatment room. --06:51 02/27/20 Subha Ocampo R.N.PHYSICAL ASSESSMENTAmbulatory to room.GENERAL / NEURO / PSYCH: Alert. Oriented X 4. Appears in pain.HEENT: Mucous membranes are pink.RESPIRATORY: Respirations not labored. Breath sounds within normal limits.CVS: Capillary refill less than 2 seconds.GI / : The patient has diarrhea (10+ times yesterday). Abdomen nontender. Abdominal tenderness inthe suprapubic area and lower abdomen. Bowel sounds within normal limits. No nausea noted. Noemesis noted.SKIN: Skin is warm and dry. --07:25 02/27/20 Kimberlyn Martínez R.N.NURSING PROGRESS NOTESPatient gowned. Reassurance given. Patient identifiers checked. Call light placed in reach. Bedplaced in lowest position. Brakes of bed on. --06:51 02/27/20 Subha Ocampo R.N. 07:16 02/27/2020 Site #1 started via IV in the right antecubital space with an 20g angiocath, with aseptic technique and good blood return; one attempt. Blood drawn: rainbow set. Labeled in the presence of the patient and sent to the lab. Saline lock flushed with 10 mL saline. --07:16 02/27/20 Kimberlyn Martínez R.N. NIBP monitor and pulse oximeter placed on patient; monitor alarms on. --07:16 02/27/20 Kimberlyn Martínez R.N. 07:16 02/27/20. BP: 137/76. MAP: 96. HR: 70. RR: 18. O2 saturation: 99%. --07:16 02/27/20 Kimberlyn Martínez R.N. 07:22 02/27/2020 Started bag #1 1000 mL IV Fluids IV NS; bolus of 1000 mL wide open via site #1 via IV pump. Allergies verified and confirmed 5 rights. IV patency established. IV site checked: no pain, redness, or swelling. IV flushed thoroughly pre- and post-medication administration. Information reviewed with patient and parent including reason for taking this medication, signs of allergic reaction and precautions. Verbalizes understanding. --07:02/27/20 Kimberlyn Martínez R.N. 3 Clinical Report - Nurses [facility] Emergency Department [address] [place] [address] Phone #: ext- [phone] 02/27/2020 06:44 Patient: BALJINDER HARRIS Sex: M : 2000 Age: 19y07:24 02/27/2020 Toradol (Ketorolac Tromethamine) IVP 30 mg given over 2 minute(s) via site #1.Allergies verified and confirmed 5 rights. IV patency established. IV site checked: no pain, redness, orswelling. IV flushed thoroughly pre- and post-medication administration. IVP given by RN. Informationreviewed with patient and parent including reason for taking this medication, signs of allergic reaction andprecautions. Verbalizes understanding. --07:24 02/27/20 Kimberlyn Martínez R.N.Patient ID band checked for patient name and birthdate. Instructions provided to collect clean catch urineand patient verbalized understanding. Clean catch urine collected; sample sent to lab for urinalysis.Specimen labeled in the presence of the patient. --07:25 02/27/20 Kimberlyn Martínez R.N.Patient transported to CT by wheelchair with IV, mask and data collection technician. --07:42 02/27/20 Henna Dillard R.N.Patient returned from CT by wheelchair with IV, mask and data collection technician. --07:52 02/27/20 Henna Dillard R.N.NIBP monitor and pulse oximeter placed on patient; monitor alarms on. Patient gowned. Reassurancegiven.Rounding: Position: states comfortable. Proximity of possessions / care items: call light within easy reach.Plug ins: assured IV pump plugged in; checked status of equipment in use; located all cords, tubes, andlines to prevent fall hazard. Set expectations: advised patient of rounding protocol timing and asked if theyneeded anything else at this time. Patient waiting for lab and CT results. --08:47 02/27/20 Henna Dillard R.N.08:00 02/27/2020 Toradol IVP Response: no adverse reaction pain is improving. Symptoms have improvedthe patient feels better. --08:55 02/27/20 Kimberlyn Martínez R.N.late entry - 08:05 02/27/20. NIBP monitor and pulse oximeter placed on patient; monitor alarms on.Patient gowned. Reassurance given.Rounding: Position: states comfortable. Proximity of possessions / care items: call light within easy reach.Plug ins: assured IV pump plugged in; checked status of equipment in use; located all cords, tubes, andlines to prevent fall hazard. Set expectations: advised patient of rounding protocol timing and asked if theyneeded anything else at this time. Patient waiting for lab and CT results. --08:47 02/27/20 Henna Dillard R.N.08:25 02/27/2020 Solu- Medrol (methylPREDNISolone Sodium Succ) IVP 125 mg given over 3 minute(s)via site #1. Allergies verified and confirmed 5 rights. IV patency established. IV site checked: no pain,redness, or swelling. IV flushed thoroughly pre- and post- medication administration. IVP given by RN.Information reviewed with patient including reason for taking this medication, signs of allergic reaction andprecautions. Verbalizes understanding. --08:25 02/27/20 Henna Dillard R.N. 4 Clinical Report - Nurses [facility] Emergency Department [address] [place] [address] Phone #: ext- [phone] 02/27/2020 06:44 Patient: BALJINDER HARRIS Sex: M : 2000 Age: 19y 08:35 02/27/2020 IV Fluids IV NS via IV site #1 Discontinued: bag #1 completed. Total amount infused: 1000 mL. IV patency established. IV site checked: no pain, redness, or swelling. IV flushed thoroughly. --08:55 02/27/20 Kimberlyn Martínez R.N. 08:00 02/27/20. BP: 129/79. MAP: 95. HR: 70. O2 saturation: 99%. --08:58 02/27/20 Kimberlyn Martínez R.N. 08:30 02/27/20. BP: 128/73. MAP: 91. HR: 62. O2 saturation: 100%. --08:58 02/27/20 Kimberlyn Martínez R.N. 09:00 02/27/20. BP: 123/74. MAP: 90. HR: 55. O2 saturation: 100%. --09:19 02/27/20 Kimberlyn Martínez R.N.DISPOSITION / DISCHARGE Condition at departure: improved and stable. --09:20 02/27/20 Kimberlyn Martínez R.N. 09:19 02/27/20. BP: 137/66. MAP: 89. HR: 66. RR: 18. O2 saturation: 99% on room air. Temp: 97.5 F (oral). Pain level now: 05/14. --09:20 02/27/20 Kimberlyn Martínez R.N. 09:20 02/27/2020 Site #1 removed upon discharge. Bandage applied (2x2 and tape, no bleeding noted, pt tolerated well, clean dry and intact upon d/c.). --09:20 02/27/20 Kimberlyn Martínez R.N. Departure time: late entry - 09:30 02/27/2020. No learning barriers present. Discharge instructions provided and reviewed with the patient and parent. Reviewed warnings (please see paper copy). Reviewed medication(s) side effects, precautions, dosing and course information. Prescription(s) sent electronically to pharmacy (cipro, flagyl, prednisone (paper script)). Reviewed diet. Patient and parent verbalized understanding. Written instructions provided in Salvadorean. The patient was dis charged by the physician. He was discharged home and accompanied by parent. He left ambulatory and via private vehicle. Parent driving. --09:30 02/27/20 Kimberlyn Martínez R.N.Locked/Released at 02/27/2020 09:30 by Kimberlyn Martínez R.N. Name Value Range Interpretation Code Description Data Denisse rce(s) Supporting Document(s) ID Date Data Source [id number] 02/27/2020 06:46:00 AM EDT [facility] 1 Clinical Report - Physicians/Mid Levels [facility] Emergency Department [address] [place] [address] Phone #: ext- [phone] 02/27/2020 06:44 [id number] Sex[facility] M : 2000 Age: 19y Time Seen: 07:01 02/27/2020. Arrived- By private vehicle. Historian- patient. RETURN VISIT: recently seen in this ED by me and another ED physician. Seen now for the same problem as before. Disposition decision: 09:19 02/27/2020.HISTORY OF PRESENT ILLNESS Chief Complaint: ABDOMINAL PAIN. It is described as "pain", cramping and diffuse and it is described as generalized in location. This started 4 days ago; Pain worst in LLQ. Pt. has ulcerative colitis and is still present and worsening. It has been intermittent and waxing/waning. When seen in the E.D., severity described as 4 / 10. Modifying factors- worsened by movement, walking and food. No nausea or vomiting. He has had loss of appetite and diarrhea. No recent travel. Similar symptoms previously. Patient has had similar symptoms many times, chronically. ( Pt. has celiac dz / colitis). Recent medical care: ( Last seen here 3 1/2 months ago). Not recently seen/assessed.REVIEW OF SYSTEMSNo constipation, black stools, hematemesis, difficulty with urination or pain with urination. No urinaryfrequency, fever, headache, sore throat or blurred vision. No chest pain, difficulty breathing, cough, jointpain or skin rash. No chills. The patient has not had weight loss.PAST HISTORYPast history not negative. See nurses notes. GI disease. Other disease. Ulcerative colitisCeliac dz. Surgeries: Tympanostomy tube placement. Medications: Optivo Injection. Allergies: Dilaudid.(rash).SOCIAL HISTORYNever smoker. No alcohol use or drug use. No recent travel.ADDITIONAL NOTESThe nursing notes have been reviewed with agreement regarding the chief complaint, HPI, ROS, PMH andpatient medications and allergies. 2 Clinical Report - Physicians/Mid Levels [facility] Emergency Department [address] [place] [address] Phone #: ext- [phone] 02/27/2020 06:44 Patient: BALJINDER HARRIS Sex: M : 2000 Age: 19yPHYSICAL EXAMVital Signs: 02/27/2020 06:45 BP: 157/85. MAP: 109. HR: 73. RR: 20. O2 saturation: 99%. Temp: 98.9 F.Have been reviewed and appear to be correct. Hypertensive. Heart rate normal. Respiratory ratenormal. Temperature normal. Oxygen saturation normal.Appearance: Alert. Oriented X3. Anxious. Appears to be in pain. Patient in mild distress. In distress.Eyes: Pupils equal, round and reactive to light. Eyes normal inspection.ENT: Nose normal. Pharynx normal.Neck: Normal inspection. Neck supple.CVS: Normal heart rate and rhythm. Heart sounds normal. Pulses normal.Respiratory: No respiratory distress. Breath sounds normal. Chest nontender.Abdomen: Soft. Moderate tenderness diffusely and in the left lower quadrant. Bowel sounds normal.No organomegaly. No mass. Tenderness present.Back: Normal inspection.Skin: Skin warm and dry. Normal skin color. No rash. Normal skin turgor.Extremities: Extremities exhibit normal ROM. No lower extremity edema.Neuro: Oriented X 3. No motor deficit. No sensory deficit.LABS, X-RAYS, AND EKGLaboratory Tests: Laboratory tests have been ordered, with results reviewed and considered in themedical decision making process. Urinalysis: (MARTY: 02/27/2020 07:20) ( [facility]/27[facility] 07[facility]56) Final results Test Result Flag Units (Reference) URINALYSIS URINALYSIS SOURCE Random Void COLOR Yellow (NORMAL: Yello CLARITY Clear (NORMAL: Clear SPEC GRAVITY 1.015 (1.001 - 1.030 pH 5 (5 - 9) GLUCOSE Negative (NORMAL: Negat BILIRUBIN Negative (NORMAL: Negat KETONE Negative (NORMAL: Negat PROTEIN Negative (NORMAL: Negat NITRITE Negative (NORMAL: Negat BLOOD 10 A (NORMAL: Negat LEUK EST Negative (NORMAL: Negat UROBILINOGEN NOR (less than 1.0 MICROSCOPIC See Below WBC 1 - 3 (NORMAL: NONE RBC 1 - 3 (NORMAL: NONE EPITHELIAL FEW (NORMAL: NONE BACTERIA Trace (NORMAL: NONE CBC w Diff: (MARTY: 02/27/2020 07:15) ( [facility] 02/27/2020 07:50) Final results Te st Result Flag Units (Reference) CBC W/AUTOMATED DIFF COMPLETE BLOOD COUNT WBC 8.8 10/uL (4.2 - 11.0) RBC 5.28 10/uL (4.50 - 6.30) HEMOGLOBIN 15.1 g/dL (14.0 - 16.0) 3 Clinical Report - Physicians/Mid Levels [facility] Emergency Department [address] [place] [address] Phone #: ext- [phone] 02/27/2020 06:44 Patient: BALJINDER HARRIS Sex: M : 2000 Age: 19y HEMATOCRIT 44.4 % (41.0 - 51.0) MCV 84.1 fL (80.0 - 94.0) MCH 28.6 pg (27.0 - 34.0) MCHC 34.0 g/dL (31.0 - 36.0) RDW 12.3 % (11.5 - 14.8) PLATELETS 286 10/uL (150 - 450) MPV 9.2 fL (7.4 - 10.4) NEUT 56.8 % (37.0 - 80.0) LYMPH 26.6 % (25.0 - 40.0) MONO 10.7 H % (3.0 - 8.0) EOS 5.0 % (0.0 - 7.0) BASO 0.6 % (0.0 - 2.0) %IG 0.3 H % (0.0 - 0.0) %NRBC 0.0 % (0.0 - 0.0) #NEUT 4.97 10/uL (2.00 - 6.90) #LYMPH 2.33 10/uL (0.60 - 3.40) #MONO 0.94 H 10/uL (0.00 - 0.90) #EOS 0.44 10/uL (0.00 - 0.70) #BASO 0.05 10/uL (0.00 - 0.20) #IG 0.03 10/uL (0.00 - 0.10) #NRBC 0.00 10/uL (0.00 - 0.00) MANUAL DIFF NOT INDICATED RBC MORPH NOT INDICATEDCMP: (MARTY: 02/27/2020 07:15) ( MsgRcvd 02/27/2020 07:50) Final results Test Result Flag Units (Reference) COMPREHENSIVE METABOLIC PANEL COMPREHENSIVE METABOLIC PANEL SODIUM 139 mEq/L (134 - 153) POTASSIUM 3.9 mEq/L (3.6 - 5.0) CHLORIDE 103 mEq/L (98 - 107) CO2 28 MEQ/L (22 - 30) GLUCOSE 103 MG/DL (65 - 110) BUN 16 MG/DL (7 - 21) CREATININE 1.1 MG/DL (0.7 - 1.5) BUN/CREAT 15 (8 - 27) TOTAL PROTEIN 7.6 G/DL (6.3 - 8.2) ALBUMIN 4.5 G/DL (3.9 - 5.0) GLOBULIN 3.1 GM/DL (2.4 - 3.2) A/G RATIO 1.5 (0.8 - 2.0) CALCIUM 9.3 MG/DL (8.4 - 10.2) TOTAL BILI 0.8 MG/DL (0.2 - 1.3) ALKALINE PHOS 64 U/L (38 - 126) SGOT/AST 17 U/L (5 - 40) SGPT/ALT 16 U/L (7 - 56) ANION GAP 8.0 mmol/L (8.0 - 16.0) AGE 19 yrs NON-AA GFR >60 mL/min AFR AMER GFR >60 mL/min Male GFR Interprentation 20-49 yrs >60 mL/min Xzsirq25-56 yrs >56 mL/min Normal 60-69 yrs >49 mL/min Normal 70-79yrs>42 mL/min Normal 80 and above >35 mL/min Normal Female GFRInterpretation 20-39 yrs >60 mL/min Normal 40-49 yrs >58 mL/minNormal 50-59 yrs >51 mL/min Normal 60-69 yrs >45 mL/min Fmpazg29-41 yrs >39 mL/min Normal 80 and above >32 mL/min NormalLipase: (MARTY: 02/27/2020 07:15) ( MsgRcvd 02/27/2020 07:50) Final results Test Result Flag Units (Reference) 4 Clinical Report - Physicians/Mid Levels [facility] Emergency Department [address] [place] [address] Phone #: ext- [phone] 02/27/2020 06:44 Patient: BALJINDER HARRIS Sex: M : 2000 Age: 19y LIPASE 40 U/L (13 - 60)CT Abd PEL W/ IV Contrast Only: (MARTY: 02/27/2020 07:11) ( MsgRcvd 02/27/2020 11:17) In ProgressCT ABDReason(s): Abdominal PainTRANSPORTATION: WC IV? IV?(Yes) O2? Oxygen?(No) Ro CMTS: Hx of Crohn's / Celiac dz. Exam CT ABD //T// PELVIS W[facility] [address] [place] [address] PHONE: [phone] FAX: [phone] Name .................. : KIMBERLY [place] Acct Number.................. : [id number] ROOM. ................. : TR-02 MR Number ................... : [id number] Stay type ............. : E/R Discharge Date......... ... : 02/27/20 Admit Date ......... : 02/27/20 Admit Phys .................... : LULÚ FLORENCE Date of ....... : 2000 Family Phys ................... : MAYES HARD Phone .................. : [phone] Age ................................ : 19 Film# .................. .:[id number] Sex ................................. : M Unsigned transcriptions are preliminary reports and do not represent a medical or legal document CT ABD Reason(s): Abdominal Pain Diarrhea CT OF THE ABDOMEN AND PELVIS WITH CONTRAST: INDICATION: Abdominal pain. FINDINGS: The chest base is clear. There is normal contrast-enhanced CT appearance of the liver, spleen, pancreas, adrenal glands and kidneys. No gallbladder wall thickening or biliary duct dilatation. The visualized bowel demonstrates mildly thickened colonic wall throughout the abdomen with mild sparing of the sigmoid colon. The appendix is not definitively visualized, but there are no right lower quadrant inflammatory changes. The bladder and pelvis organs appear normal. No acute osseous abnormality. No lymphadenopathy. IMPRESSION: Mild thickening of the colonic wall could represent a mild infectious or inflammatory colitis. While performing the above CT examination, radiation dose reduction was accomplished utilizing automated exposure control, adjusting of the mA and kV based on the patient's body size and/or the use of imperative reconstructive techniques. CT dose: 820.6 mGycm 5 Clinical Report - Physicians/Mid Levels [facility] Emergency Department [address] [place] [address] Phone #: [phone] 02/27/2020 06:44 Patient: BALJINDER HARRIS Sex: M : 2000 Age: 19y [address] [place] [address] PHONE: [phone] FAX: [phone] Name .................. : KIMBERLY [place] Acct Number.................. : [id number] ROOM. ................. : TR-02 MR Number ................... : [id number] Stay type ............. : E/R Discharge Date......... ... : 02/27/20 Admit Date ......... : 02/27/20 Admit Phys .................... : LULÚ LUDIVINA Date of ....... : 2000 Family Phys ................... : MAYES HARD Phone .................. : [phone] Age ................................ : 19 Film# .................. .:[id number] Sex ................................. : M Unsigned transcriptions are preliminary reports and do not represent a medical or legal document CT ABD Reason(s): Abdomi nal Pain Diarrhea Contrast agent in mL: 75 Isovue 370 Method of administration: Intravenous Electronically Reviewed and Signed By DCTNAME , SIGNDATE, BEBE Transcribe Initials: ISAAK , Transcribe Date: 02/27/20 11:12, Dictation Date: <<REPDIST>> Page 2 of 2 . Note - Tests: (CT abdomen / pelvis - Mild thickening of colonic wall c/w mild infectious or inflammatory colitis.).PROGRESS AND PROCEDURESCourse of Care: Feb 27 2020. Patient is stable. Symptoms much better. Feb 27 2020. Symptoms gone and CT shows only mild colitis. He has gotten IV Solumedrol and I will send Rxs for Prednisone and Cipro / Flagyl. He should call his patient relations liaison in AM. Critical care performed (120 minutes). Time is exclusive of separately billable procedures. Time includes: direct patient care, patient reassessment, interpretation of data (laboratory data and pulse oximetry), 6 Clinical Report - Physicians/Mid Levels [facility] Emergency Department [address] [place] [address] Phone #: ext- [phone] 02/27/2020 06:44 Patient: BALJINDER HARRIS Sex: M : 2000 Age: 19y review of patient's medical records and documentation of patient care- see progress notes. Procedures included in critical care time: peripheral IV placement and phlebotomy- see progress notes. Disposition: Disc harged home in good and improved condition (09:Feb 27 2020). Condition: good.CLINICAL IMPRESSION Ulcerative colitis involving the transverse colon and ascending colon (Mild , chronic). No ulcerative colitis with bleeding, abscess, obstruction or fistula.INSTRUCTIONS Drink plenty of fluids. No alcohol. Warnings: Further evaluation is necessary. GENERAL WARNINGS: Return or contact your physician immediately if your condition worsens or changes unexpectedly, if not improving as expected, or if other problems arise. Prescription Medications: Cipro 500 mg tablet Take 1 tablet twice a day for 7 days -- for mild UC flare. Dispense 14 tablet. Refills: 0. Substitution permitted. [facility] [address] [place] [address] [id number]. . Flagyl 500 mg tablet Take 1 tablet every eight hours for 7 days -- for mild UC flare. Dispense 21 tablet. Refills: 0. Substitution permitted. [facility] [id number] [place], [place] [id number]. . Prednisone 10mg taper sig: take 6 tabs PO each day for 2 days, then 5 tabs PO each day for 2 days, then 4 tabs PO each day for 2 days, then 3 tabs PO each day for 2 days, then 2 tabs PO each day for 2 days, then 1 tab PO each day for 2 days. Disp# 42. Follow-up: Follow up with your doctor tomorrow if not better. Call for an appointment. Reason for referral: evaluation, treatment and Mild, chronic ulcerative colitis. Understanding of the discharge instructions verbalized by patient and family. 7 Clinical Report - Physicians/Mid Levels [facility] Emergency Department [address] [place] [address] Phone #: ext- [phone] 02/27/2020 06:44 Patient: BALJINDER HARRIS Sex: M : 2000 Age: 19y(Electronically signed by Genaro Chino, Physician 02/27/2020 12:48) Name Value Range Interpretation Code Description Data Denisse rce(s) Supporting Document(s) ID Date Data Source [id number] 02/27/2020 07:20:00 AM EDT [facility] ([facility]) Name Value Range Interpretation Code Description Data Denisse rce(s) Supporting Document(s) Urinalysis Laboratory test result [facility] ([facility]) SOURCE: Clean Catch Source Laboratory test result [facility] ([facility]) SOURCE: Clean Catch Clarity Laboratory test result [facility] ([facility]) SOURCE: Clean Catch Color Laboratory test result [facility] ([facility]) SOURCE: Clean Catch Glucose Laboratory test result [facility] ([facility]) SOURCE: Clean Catch Spec [place] 1.015 1.001-1.030 [facility] ([facility]) SOURCE: Clean Catch pH 5 5-9 [facility] ([facility]) SOURCE: Clean Catch Bilirubin Laboratory test result [facility] ([facility]) SOURCE: Clean Catch Ketone Laboratory test result [facility] ([facility]) SOURCE: Clean Catch Protein Laboratory test result [facility] ([facility]) SOURCE: Clean Catch Nitrite Laboratory test result [facility] ([facility]) SOURCE: Clean Catch Blood 10 Abnormal (applies to non-numeric res ults) [facility] ([facility]) SOURCE: Clean Catch Leuk Est Laboratory test result [facility] ([facility]) SOURCE: Clean Catch Microscopic Laboratory test result M [facility] ([facility]) SOURCE: Clean Catch Urobilinogen Laboratory test result [facility] ([facility]) SOURCE: Clean Catch Epithelial Laboratory [facility] SOURCE: Clean Catch RBC Laboratory test [facility] SOURCE: Clean Catch WBC Laboratory test [facility] SOURCE: Clean Catch Bacteria Laboratory test result [facility] SOURCE: Clean Catch ID Date Data Source [id number] 02/27/2020 07:51:00 AM EDT [facility] Name Value Range Interpretation Code Description Data Denisse rce(s) Supporting Document(s) [facility] S[facility] Random Void [facility] ital COLOR Yellow NORMAL: Yellow [facility] CLARITY Clear NORMAL: Clear [facility] Specific gravity of Urine by Test strip 1.015 1.001 - 1.030 [facility] pH 5 5 - 9 [facility] Glucose [Mass/volume] in Urine by Test strip Negative NORMAL: Negat [facility] Bilirubin.total [Presence] in Urine by Test strip Negative NORMAL: Negative [facility] Ketones [Presence] in Urine by Test strip Negative NORMAL: Negative [facility] Protein [Mass/volume] in Urine by Test strip [facility] Nitrite [Presence] in Urine by Test strip Negative NORMAL: Negative [facility] BLOOD 10 NORMAL: Negative [facility] Leukocyte esterase [Presence] in Urine by Test strip Negative NORMAL: Negative [facility] Urobilinogen [Mass/volume] in Urine by Test strip NOR less rob n 1.0 mg/dL [facility] MICROSCOPIC See Below [facility] ital WBC 1 - 3 NORMAL: NONE SEEN [facility] Erythrocytes [#/volume] in Urine by Test strip 1 - 3 NORMAL: NON E SEEN [facility] EPITHELIAL FEW NORMAL: NONE SEEN [facility] Bacteria [Presence] in Urine sediment by Light microscopy Tr sandra NORMAL: NONE SEEN [facility] ID Date Data Source [id number] 02/27/2020 07:15:00 AM EDT [facility] ([facility]) Name Value Range Interpretation Code Description Data Denisse rce(s) Supporting Document(s) Lipase [Enzymatic activity/volume] in Serum or Plasma 40 U/L 13-6 0 [facility] ([facility]) ID Date Data Source [id number] 02/27/2020 07:15:00 AM EDT [facility] ([facility]) Name Value Range Interpretation Code Description Data Denisse rce(s) Supporting Document(s) Comprehensive [employer] Laboratory test result [facility] ([facility]) COMPREHENSIVE METABOLIC PANEL Sodium 139 meq/L 134-153 [facility] ([facility]) Potassium 3.9 meq/L 3.6-5.0 [facility] ([facility]) Chloride 103 meq/L 98-107 [facility] ([facility]) Co2 28 meq/L 22-30 [facility] ([facility]) Creatinine 1.1 mg/dL 0.7-1.5 [facility] ([facility]) BUN 16 mg/dL 7-21 [facility] ([facility]) Glucose 103 mg/dL 65-110 [facility] ([facility]) BUN/Creat 15 8-27 [facility] ([facility]) Total Protein 7.6 g/dL 6.3-8.2 [facility] ([facility]) Albumin 4.5 g/dL 3.9-5.0 [facility] ([facility]) A/G Ratio 1.5 0.8-2.0 [facility] ([facility]) Calcium 9.3 mg/dL 8.4-10.2 [facility] ([facility]) Globulin 3.1 GM/DL 2.4-3.2 [facility] ([facility]) Alkaline Phos 64 U/L 38-126 [facility] ([facility]) SGPT/Alt 16 U/L 7-56 [facility] ([facility]) Sgot/Ast 17 U/L 5-40 [facility] ([facility]) Total Bili 0.8 mg/dL 0.2-1.3 [facility] ([facility]) Anion Gap 8.0 mmol/L 8.0-16.0 [facility] ([facility]) Age 19 yrs [facility] ([facility]) Afr Amer GFR Laboratory test result [facility] ([facility]) Male GFR Interprentation 20-49 yrs >60 mL/min Normal 50-59 yrs >56 mL/min Normal 60-69 yrs >49 mL/min Normal 70-79yrs >42 mL/min Normal 80 and above >35 mL/min Normal Female GFR Interpretation 20-39 yrs >60 mL/min Normal 40-49 yrs >58 mL/min Normal 50-59 yrs >51 mL/min Normal 60-69 yrs >45 mL/min Normal 70-79 yrs >39 mL/min Normal 80 and above >32 mL/min Normal Non-Aa GFR Laboratory test result [facility] ([facility]) ID Date Data Source [id number] 02/27/2020 07:15:00 AM EDT [facility] ([facility]) Name Value Range Interpretation Code Description Data Denisse rce(s) Supporting Document(s) CBC W/Automated Diff Laboratory test result [facility] ([facility]) COMPLETE BLOOD COUNT WBC 8.8 10^3/uL 4.2-11.0 [facility] ([facility]) Hemoglobin 15.1 g/dL 14.0-16.0 [facility] ([facility]) Hematocrit 44.4 % 41.0-51.0 [facility] ([facility]) RBC 5.28 10^6/uL 4.50-6.30 [facility] ([facility]) MCV 84.1 fL 80.0-94.0 [facility] ([facility]) MCH 28.6 pg 27.0-34.0 [facility] ([facility]) MCHC 34.0 g/dL 31.0-36.0 [facility] ([facility]) MPV 9.2 fL 7.4-10.4 [facility] ([facility]) RDW 12.3 % 11.5-14.8 [facility] ([facility]) Platelets 286 10^3/uL 150-450 [facility] ([facility]) [place] 10.7 % 3.0-8.0 Above high normal [facility] ([facility]) Lymph 26.6 % 25.0-40.0 [facility] ([facility]) Neut 56.8 % 37.0-80.0 [facility] ([facility]) Eos 5.0 % 0.0-7.0 [facility] ([facility]) Baso 0.6 % 0.0-2.0 [facility] ([facility]) %Ig 0.3 % 0.0-0.0 Above high normal [facility] ([facility]) #Neut 4.97 10^3/uL 2.00-6.90 [facility] ([facility]) %NRBC 0.0 % 0.0-0.0 [facility] ([facility]) #Lymph 2.33 10^3/uL 0.60-3.40 [facility] ([facility]) #Eos 0.44 10^3/uL 0.00-0.70 [facility] ([facility]) #Stephenson 0.94 10^3/uL 0.00-0.90 Above high normal MEDEN T ([facility]) #Baso 0.05 10^3/uL 0.00-0.20 [facility] ([facility]) #Ig 0.03 10^3/uL 0.00-0.10 [facility] ([facility]) Manual Diff Laboratory test result M EDENT ([facility]) #NRBC 0.00 10^3/uL 0.00-0.00 [facility] ([facility]) RBC Morph Laboratory test result [facility] ([facility]) ID Date Data Source [id number] 02/27/2020 07:50:00 AM EDT [facility] Name Value Range Interpretation Code Description Data Denisse rce(s) Supporting Document(s) Lipase [Enzymatic activity/volume] in Serum or Plasma 40 U/L 13 - 60 [facility] ID Date Data Source [id number] 02/27/2020 07:50:00 AM EDT [facility] Name Value Range Interpretation Code Description Data Denisse rce(s) Supporting Document(s) COMPREHENSIVE METABOLIC PANEL [facility] COMPREHENSIVE METABOLIC PANEL Sodium [Moles/volume] in Serum or Plasma 139 mEq/L 134 - 153 [facility] Potassium [Moles/volume] in Serum or Plasma 3.9 mEq/L 3.6 - 5.0 [facility] Chloride [Moles/volume] in Serum or Plasma 103 mEq/L 98 - 107 [facility] Carbon dioxide, total [Moles/volume] in Serum or Plasma 28 MEQ/L 22 - 30 [facility] Glucose [Mass/volume] in Serum or Plasma 103 MG/DL 65 - 110 [facility] BUN 16 MG/DL 7 - 21 [facility] al Creatinine [Mass/volume] in Serum or Plasma 1.1 MG/DL 0.7 - 1.5 [facility] BUN/CREAT 15 8 - 27 [facility] Protein [Mass/volume] in Serum or Plasma 7.6 G/DL 6.3 - 8.2 [facility] Albumin [Mass/volume] in Serum or Plasma 4.5 G/DL 3.9 - 5.0 [facility] Globulin [Mass/volume] in Serum by calculation 3.1 GM/DL 2.4 - 3.2 [facility] A/G RATIO 1.5 0.8 - 2.0 [facility] Calcium [Mass/volume] in Serum or Plasma 9.3 MG/DL 8.4 - 10.2 [facility] Bilirubin.total [Mass/volume] in Serum or Plasma 0.8 MG/DL 0.2 - 1.3 [facility] Alkaline phosphatase [Enzymatic activity/volume] in Serum or Plasma 64 U/L 38 - 126 [facility] Aspartate aminotransferase [Enzymatic activity/volume] in Serum or Plasma 17 U/L 5 - 40 [facility] Alanine aminotransferase [Enzymatic activity/volume] in Seru m or Plasma 16 U/L 7 - 56 [facility] Anion gap 3 in Serum or Plasma 8.0 mmol/L 8.0 - 16.0 [facility] 19 [facility] >60 mL/min [facility] AFR AMER GFR >60 mL/min [facility] spital Male GFR In terprentation 20-49 yrs >60 mL/min Normal 50-59 yrs >56 mL/min Normal 60-69 yrs >49 mL/min Normal 70-79yrs >42 mL/min Normal 80 and above >35 mL/min Normal Female GFR Interpretation 20-39 yrs >60 mL/min Normal 40-49 yrs >58 mL/min Normal 50-59 yrs >51 mL/min Normal 60-69 yrs >45 mL/min Normal 70-79 yrs >39 mL/min Normal 80 and above >32 mL/min Normal ID Date Data Source [id number] 02/27/2020 07:43:00 AM EDT [facility] Name Value Range Interpretation Code Description Data Denisse rce(s) Supporting Document(s) CBC W/AUTOMATED DIFF [facility] COMPLETE BLOOD COUNT Leukocytes [#/volume] in Blood by Automated count 8.8 10^3/uL 4.2 - 1 1.0 [facility] Erythrocytes [#/volume] in Blood by Automated count 5.28 10^6/uL 4. 50 - 6.30 [facility] Hemoglobin [Mass/volume] in Blood 15.1 g/dL 14.0 - 16.0 [facility] Hematocrit [Volume Fraction] of Blood by Automated count 44.4 % 4 1.0 - 51.0 [facility] Erythrocyte mean corpuscular volume [Entitic volume] by Auto mated count 84.1 fL 80.0 - 94.0 [facility] Erythrocyte mean corpuscular hemoglobin [Entitic mass] by Automated count 28.6 pg 27.0 - 34.0 [facility] Erythrocyte mean corpuscular hemoglobin concentration [Mass/volume] by Automated count 34.0 g/dL 31.0 - 36.0 [facility] Erythrocyte distribution width [Ratio] by Automated count 12.3 % 11.5 - 14.8 [facility] Platelets [#/volume] in Blood by Automated count 286 10^3/uL 150 - 45 0 [facility] Platelet mean volume [Entitic volume] in Blood by Automated count 9.2 fL 7.4 - 10.4 [facility] Neutrophils/100 leukocytes in Blood by Automated count 56.8 % 37. 0 - 80.0 [facility] Lymphocytes/100 leukocytes in Blood by Manual count 26.6 % 25.0 - 40.0 [facility] Monocytes/100 leukocytes in Blood by Automated count 10.7 % 3.0 - 8.0 H [facility] Eosinophils/100 leukocytes in Blood by Automated count 5.0 % 0.0 - 7.0 [facility] Basophils/100 leukocytes in Blood by Automated count 0.6 % 0.0 - 2.0 [facility] %IG 0.3 % 0.0 - 0.0 H [facility] al %NRBC 0.0 % 0.0 - 0.0 [facility] al Neutrophils [#/volume] in Blood by Automated count 4.97 10^3/uL 2.00 - 6.90 [facility] Lymphocytes [#/volume] in Blood by Automated count 2.33 10^3/uL 0.60 - 3.40 [facility] Monocytes [#/volume] in Blood by Automated count 0.94 10^3/uL 0.00 - 0.90 H [facility] Eosinophils [#/volume] in Blood by Automated count 0.44 10^3/uL 0.00 - 0.70 [facility] Basophils [#/volume] in Blood by Automated count 0.05 10^3/uL 0.00 - 0.20 [facility] #IG 0.03 10^3/uL 0.00 - 0.10 [facility] #NRBC 0.00 10^3/uL 0.00 - 0.00 [facility] MANUAL DIFF NOT INDICATED [facility] RBC MORPH NOT INDICATED [facility] spital ID Date Data Source [id number] 01/06/2020 05:19:00 PM EDT [facility] ([facility]) Name Value Range Interpretation Code Description Data Denisse rce(s) Supporting Document(s) CBC W/Automated Diff Laboratory test result [facility]) COMPLETE BLOOD COUNT Hemoglobin 14.7 g/dL 14.0-16.0 [facility] ([facility]) RBC 5.17 10^6/uL 4.50-6.30 [facility] ([facility]) WBC 7.2 10^3/uL 4.2-11.0 [facility] ([facility]) MCH 28.4 pg 27.0-34.0 [facility] ([facility]) MCV 85.3 fL 80.0-94.0 [facility] ([facility]) MCHC 33.3 g/dL 31.0-36.0 [facility] ([facility]) Hematocrit 44.1 % 41.0-51.0 [facility] ([facility]) Platelets 281 10^3/uL 150-450 [facility] ([facility]) MPV 9.2 fL 7.4-10.4 [facility] ([facility]) RDW 12.8 % 11.5-14.8 [facility] ([facility]) Neut 57.6 % 37.0-80.0 [facility] ([facility]) Stephenson 9.7 % 3.0-8.0 Above high normal [facility] ([facility]) Lymph 28.4 % 25.0-40.0 [facility] ([facility]) Eos 3.1 % 0.0-7.0 [facility] ([facility]) %Ig 0.8 % 0.0-0.0 Above high normal [facility] ([facility]) Baso 0.4 % 0.0-2.0 [facility] ([facility]) #Neut 4.12 10^3/uL 2.00-6.90 [facility] ([facility]) %NRBC 0.0 % 0.0-0.0 [facility] ([facility]) #Lymph 2.03 10^3/uL 0.60-3.40 [facility] ([facility]) #Eos 0.22 10^3/uL 0.00-0.70 [facility] ([facility]) #Ig 0.06 10^3/uL 0.00-0.10 [facility] ([facility]) #Stephenson 0.69 10^3/uL 0.00-0.90 [facility] ([facility]) #Baso 0.03 10^3/uL 0.00-0.20 [facility] ([facility]) Manual Diff Laboratory test result M EDENT ([facility]) #NRBC 0.00 10^3/uL 0.00-0.00 [facility] ([facility]) RBC Morph Laboratory test result [facility] ([facility]) ID Date Data Source [id number] 01/06/2020 05:19:00 PM EDT [facility] ([facility]) Name Value Range Interpretation Code Description Data Denisse rce(s) Supporting Document(s) C reactive protein [Mass/volume] in Serum or Plasma by High sensitivity method 1.40 mg/L 1.00-3.00 [facility] ([facility]) <content>CDC/S HS-CRP CUT-OFF: RELATIVE RISK:</content>
<content><1.0 mg/L Low</content>
<content>1.0 - 3.0 mg/L Average</arnulfo nt>
<content>>3.0 mg/L High</content>
<content>Optimally, the average of HS-CRP results repeated</content>
<content>two weeks apart should be used for risk assessment.</content>
<content></content> ID Date Data Source [id number] 01/06/2020 05:19:00 PM EDT [facility] ([facility]) Name Value Range Interpretation Code Description Data Denisse rce(s) Supporting Document(s) Sed Rate 3 mm/hr 0-15 [facility] ([facility]) Sed Rate Reenter 3 [facility] ([facility]) ID Date Data Source [id number] 01/06/2020 05:19:00 PM EDT [facility] ([facility]) Name Value Range Interpretation Code Description Data Denisse rce(s) Supporting Document(s) Gliadin IgA Ab [Units/volume] in Serum by Immunoassay 4 units 0-19 [facility] ([facility]) Negative 0 - 19 Weak Positive 20 - 30 Moderate to Strong Positive >30 Tissue transglutaminase IgA Ab [Units/volume] in Serum Labor atory test result 0-3 [facility] ([facility]) Negative 0 - 3 Weak Positive 4 - 10 Positive >10 Tissue Transglutaminase (tTG) has been identified as the endomysial antigen. Studies have demonstr- ated that endomysial IgA antibodies have over 99% specificity for gluten sensitive enteropathy. Gliadin IgG Ab [Units/volume] in Serum by Immunoassay 27 units 0-19 Above high normal [facility] ([facility]) Negative 0 - 19 Weak Positive 20 - 30 Moderate to Strong Positive >30 ID Date Data Source [id number] 01/08/2020 06:07:00 PM EDT [facility] Value Range Interpretation Code Description Data Denisse rce(s) Supporting Document(s) Tissue transglutaminase IgA Ab [Units/volume] in Serum <2 U/mL 0-3 [facility] Negative 0 - 3 Weak Positive 4 - 10 Positive >10 Tissue Transglutaminase (tTG) has been identified as the endomysial antigen. Studies have demonstr- ated that endomysial IgA antibodies have over 99% specificity for gluten sensitive enteropathy. ID Date Data Source [id number] 01/08/2020 06:07:00 PM EDT [facility] Value Range Interpretation Code Description Data Denisse rce(s) Supporting Document(s) Gliadin peptide IgG Ab [Units/volume] in Serum 27 units 0-19 H [facility] Negati ve 0 - 19 Weak Positive 20 - 30 Moderate to Strong Positive >30 ID Date Data Source [id number] 01/08/2020 06:07:00 PM EDT [facility] Value Range Interpretation Code Description Data Denisse rce(s) Supporting Document(s) Gliadin peptide IgA Ab [Units/volume] in Serum 4 units 0-19 [facility] Negati ve 0 - 19 Weak Positive 20 - 30 Moderate to Strong Positive >30 ID Date Data Source [id number] 01/06/2020 06:32:00 PM EDT [facility] Value Range Interpretation Code Description Data Denisse rce(s) Supporting Document(s) Erythrocyte sedimentation rate by Yuriyergren method 3 mm/hr 0 - 15 [facility] SED RATE REENTER 3 [facility] ID Date Data Source [id number] 01/06/2020 06:24:00 PM EDT [facility] Name Value Range Interpretation Code Description Data Denisse rce(s) Supporting Document(s) C reactive protein [Mass/volume] in Serum or Plasma by High sensitivity method 1.40 MG/L 1.00 - 3.00 [facility] CDC/S HS-CRP CUT-OFF: RELATIVE RISK: <1.0 mg/L Low 1.0 - 3.0 mg/L Average >3.0 mg/L High Optimally, the average of HS-CRP results repeated two weeks apart should be used for risk assessment. ID Date Data Source [id number] 01/06/2020 06:03:00 PM EDT [facility] Name Value Range Interpretation Code Description Data Denisse rce(s) Supporting Document(s) CBC W/AUTOMATED DIFF [facility] COMPLETE BLOOD COUNT Leukocytes [#/volume] in Blood by Automated count 7.2 10^3/uL 4.2 - 1 1.0 [facility] Erythrocytes [#/volume] in Blood by Automated count 5.17 10^6/uL 4. 50 - 6.30 [facility] Hemoglobin [Mass/volume] in Blood 14.7 g/dL 14.0 - 16.0 [facility] Hematocrit [Volume Fraction] of Blood by Automated count 44.1 % 4 1.0 - 51.0 [facility] Erythrocyte mean corpuscular volume [Entitic volume] by Auto mated count 85.3 fL 80.0 - 94.0 [facility] Erythrocyte mean corpuscular hemoglobin [Entitic mass] by Automated count 28.4 pg 27.0 - 34.0 [facility] Erythrocyte mean corpuscular hemoglobin concentration [Mass/volume] by Automated count 33.3 g/dL 31.0 - 36.0 [facility] Erythrocyte distribution width [Ratio] by Automated count 12.8 % 11.5 - 14.8 [facility] Platelets [#/volume] in Blood by Automated count 281 10^3/uL 150 - 45 0 [facility] Platelet mean volume [Entitic volume] in Blood by Automated count 9.2 fL 7.4 - 10.4 [facility] Neutrophils/100 leukocytes in Blood by Automated count 57.6 % 37. 0 - 80.0 [facility] Lymphocytes/100 leukocytes in Blood by Manual count 28.4 % 25.0 - 40.0 [facility] Monocytes/100 leukocytes in Blood by Automated count 9.7 % 3.0 - 8.0 H [facility] Eosinophils/100 leukocytes in Blood by Automated count 3.1 % 0.0 - 7.0 [facility] Basophils/100 leukocytes in Blood by Automated count 0.4 % 0.0 - 2.0 [facility] %IG 0.8 % 0.0 - 0.0 [facility] 0.0 % 0.0 - 0.0 [facility] al Neutrophils [#/volume] in Blood by Automated count 4.12 10^3/uL 2.00 - 6.90 [facility] Lymphocytes [#/volume] in Blood by Automated count 2.03 10^3/uL 0.60 - 3.40 [facility] Monocytes [#/volume] in Blood by Automated count 0.69 10^3/uL 0.00 - 0.90 [facility] Eosinophils [#/volume] in Blood by Automated count 0.22 10^3/uL 0.00 - 0.70 [facility] Basophils [#/volume] in Blood by Automated count 0.03 10^3/uL 0.00 - 0.20 [facility] #IG 0.06 10^3/uL 0.00 - 0.10 [facility] #NRBC 0.00 10^3/uL 0.00 - 0.00 [facility] MANUAL DIFF NOT INDICATED [facility] RBC MORPH NOT INDICATED [facility] spital ID Date Data Source [id number] 11/13/2019 12:30:00 PM EDT [facility] ([facility]) Name Value Range Interpretation Code Description Data Denisse rce(s) Supporting Document(s) Laboratory test finding (navigational concept) Laboratory test r esult Normal (applies to non-numeric results) [facility] ([facility]) Testing performed at reference lab . Rep ort copy to follow on a separate form. 11/20/19 REF LAB#:[id number] Laboratory test finding (navigational concept) 10.6 ug/mL Normal (applies to non-numeric results) [facility]) ID Date Data Source [id number] 11/13/2019 12:30:00 PM EDT [facility] ([facility]) Name Value Range Interpretation Code Description Data Denisse rce(s) Supporting Document(s) Erythrocyte sedimentation rate by Westergren method 4 mm/hr 0-15 Normal (applies to non-numeric results) [facility]) ID Date Data Source [id number] 11/13/2019 12:30:00 PM EDT [facility] ([facility]) Name Value Range Interpretation Code Description Data Denisse rce(s) Supporting Document(s) Red Blood Count 5.17 10 4.30-6.10 Normal (applies to non-numeric results) [facility] ([facility]) White Blood Count 16.0 10 4.0-10.0 Above high normal [facility] ([facility]) Mean Corpuscular Volume 84.9 fl 80.0-96.0 Normal ( applies to non-numeric results) [facility] ([facility]) Hematocrit 43.9 % 42.0-52.0 Normal (applies to non-numeric resul ts) [facility]) Hemoglobin 14.8 g/dL 13.5-17.5 Normal (applies to non-numeric resul ts) [facility]) Red Cell Distribution Width 12.8 % 11.5-14.5 Norm al (applies to non-numeric results) [facility] ([facility]) Mean Corpuscular HGB Conc 33.7 g/dL 32.0-36.5 Normal (applies to non-numeric results) [facility]) Platelet Count, Automated 301 10 150-450 Normal (applies to non-numeric results) [facility]) Mean Corpuscular Hemoglobin 28.6 pg 27.0-33.0 Norm al (applies to non-numeric results) [facility]) Lymph % 18.8 % 24.0-44.0 Below low normal [facility] ( [facility]) Stephenson % 9.8 % 0.0-5.0 Above high normal [facility] ([facility]) Neutrophils % 68.6 % 36.0-66.0 Above high normal MEDE NT ([facility]) Eos % 0.2 % 0.0-3.0 Normal (applies to non-numeric resul ts) [facility] ([facility]) Baso % 0.4 % 0.0-1.0 Normal (applies to non-numeric resul ts) [facility] ([facility]) Immature Granulocyte % 2.2 % 0-3.0 Normal (applies to non-n umeric results) [facility] ([facility]) Neutrophils # 11.0 10 1.5-8.5 Above high normal MEDE NT ([facility]) Lymph # 3.0 10 1.5-5.0 Normal (applies to non-numeric resul ts) [facility] ([facility]) Nucleated Red Blood Cell % 0.0 % 0-0 Normal (applies to n on-numeric results) [facility] ([facility]) Stephenson # 1.6 10 0.0-0.8 Above high normal [facility] ([facility]) Baso # 0.1 10 0.0-0.2 Normal (applies to non-numeric resul ts) [facility] ([facility]) Eos # 0.0 10 0.0-0.5 Normal (applies to non-numeric resul ts) [facility] ([facility]) ID Date Data Source [id number] 11/13/2019 12:30:00 PM EDT [facility] ([facility]) Name Value Range Interpretation Code Description Data Denisse rce(s) Supporting Document(s) Urea nitrogen [Mass/volume] in Serum or Plasma 19 mg/dL 7-18 Above high normal [facility] ([facility]) Creatinine and Glomerular filtration rate.predicted pa alyssa - Serum or Plasma 0.98 mg/dL 0.70-1.30 Normal (applies to non-numeric results) [facility] ([facility]) C reactive protein [Mass/volume] in Serum or Plasma by High sensitivity method Laboratory test result 0.00-0.30 Normal (applies to non-numeric results) [facility]) ID Date Data Source [id number] 11/13/2019 12:30:00 PM EDT [facility] ([facility]) Name Value Range Interpretation Code Description Data Denisse rce(s) Supporting Document(s) Alt/SGPT 19 U/L 12-78 Normal (applies to non-numeric resul ts) [facility] ([facility]) Ast/Sgot 10 U/L 7-37 Normal (applies to non-numeric resul ts) [facility] ([facility]) Bilirubin,Total 0.4 mg/dL 0.2-1.0 Normal (applies to non-numeric results) [facility] ([facility]) Alkaline Phosphatase 52 U/L 45-117 Normal (applies to non-num willow results) [facility] ([facility]) Bilirubin,Direct 0.1 mg/dL 0.0-0.2 Normal (applies to non-numeric results) [facility] ([facility]) Albumin 3.6 GM/DL 3.2-5.2 Normal (applies to non-numeric resul ts) [facility] ([facility]) Total Protein 6.9 GM/DL 6.4-8.2 Normal (applies to non-numeric re sults) [facility]) Albumin/Globulin Ratio 1.1 Normal (applies to non-n umeric results) [facility] ([facility]) ID Date Data Source [id number] 11/13/2019 12:30:00 PM EDT [facility] ) Name Value Range Interpretation Code Description Data Denisse rce(s) Supporting Document(s) VDZ Concentration 10.6 ug/mL Normal (applies to non-numeri c results) [facility], ) Antibodies to Vedolizumab Laboratory test result Normal (applies to non- numeric results) [facility] ([facility], ) Testing performed at reference lab . Rep ort copy to follow on a separate form. 11/20/19 REF LAB#:[id number] ID Date Data Source [id number] 11/13/2019 12:30:00 PM EDT [facility] ([facility]) Name Value Range Interpretation Code Description Data Denisse rce(s) Supporting Document(s) Creatinine For GFR 0.98 mg/dL 0.70-1.30 Normal (applies to non -numeric results) [facility] ([facility]) ID Date Data Source [id number] 11/13/2019 12:30:00 PM EDT [facility] ([facility]) Name Value Range Interpretation Code Description Data Denisse rce(s) Supporting Document(s) Urea nitrogen [Mass/volume] in Serum or Plasma 19 mg/dL 7-18 Above high normal [facility] ([facility]) ID Date Data Source [id number] 11/13/2019 12:30:00 PM EDT [facility] ([facility]) Name Value Range Interpretation Code Description Data Denisse rce(s) Supporting Document(s) Ast/Sgot 10 U/L 7-37 Normal (applies to non-numeric resul ts) [facility] ([facility]) Alkaline Phosphatase 52 U/L 45-117 Normal (applies to non-num willow results) [facility] ([facility]) Alt/SGPT 19 U/L 12-78 Normal (applies to non-numeric resul ts) [facility] ([facility]) Bilirubin,Total 0.4 mg/dL 0.2-1.0 Normal (applies to non-numeric results) [facility] ([facility]) Albumin 3.6 GM/DL 3.2-5.2 Normal (applies to non-numeric resul ts) [facility] ([facility]) Albumin/Globulin Ratio 1.1 Normal (applies to non-n umeric results) [facility] ([facility]) Bilirubin,Direct 0.1 mg/dL 0.0-0.2 Normal (applies to non-numeric results) [facility] ([facility]) Total Protein 6.9 GM/DL 6.4-8.2 Normal (applies to non-numeric re sults) [facility]) ID Date Data Source [id number] 11/13/2019 12:30:00 PM EDT [facility] ([facility]) Name Value Range Interpretation Code Description Data Denisse rce(s) Supporting Document(s) Erythrocyte sedimentation rate by Westergren method 4 mm/hr 0-15 Normal (applies to non-numeric results) [facility]) C reactive protein [Mass/volume] in Serum or Plasma by High sensitivity method Laboratory test result 0.00-0.30 Normal (applies to non-numeric results) [facility]) ID Date Data Source [id number] 11/13/2019 12:30:00 PM EDT [facility] ([facility]) Name Value Range Interpretation Code Description Data Denisse rce(s) Supporting Document(s) White Blood Count 16.0 10 4.0-10.0 Above high normal [facility] ([facility]) Hematocrit 43.9 % 42.0-52.0 Normal (applies to non-numeric resul ts) [facility]) Red Blood Count 5.17 10 4.30-6.10 Normal (applies to non-numeric results) [facility] ([facility]) Hemoglobin 14.8 g/dL 13.5-17.5 Normal (applies to non-numeric resul ts) [facility]) Mean Corpuscular Volume 84.9 fl 80.0-96.0 Normal ( applies to non-numeric results) [facility]) Platelet Count, Automated 301 10 150-450 Normal (applies to non-numeric results) [facility]) Mean Corpuscular HGB Conc 33.7 g/dL 32.0-36.5 Normal (applies to non-numeric results) [facility]) Mean Corpuscular Hemoglobin 28.6 pg 27.0-33.0 Norm al (applies to non-numeric results) [facility]) Red Cell Distribution Width 12.8 % 11.5-14.5 Norm al (applies to non-numeric results) [facility]) Lymph % 18.8 % 24.0-44.0 Below low normal [facility], ) Stephen[place] % 9.8 % 0.0-5.0 Above high normal [facility] ([facility]) Neutrophils % 68.6 % 36.0-66.0 Above high normal [facility] ([facility]) Nucleated Red Blood Cell % 0.0 % 0-0 Normal (applies to n on-numeric results) [facility] ([facility]) Baso % 0.4 % 0.0-1.0 Normal (applies to non-numeric resul ts) [facility] ([facility]) Eos % 0.2 % 0.0-3.0 Normal (applies to non-numeric resul ts) [facility] ([facility]) Immature Granulocyte % 2.2 % 0-3.0 Normal (applies to non-n umeric results) [facility] ([facility]) Lymph # 3.0 10 1.5-5.0 Normal (applies to non-numeric resul ts) [facility] ([facility]) Neutrophils # 11.0 10 1.5-8.5 Above high normal [facility] ([facility]) Stephenson # 1.6 10 0.0-0.8 Above high normal [facility] ([facility]) Baso # 0.1 10 0.0-0.2 Normal (applies to non-numeric resul ts) [facility] ([facility]) Eos # 0.0 10 0.0-0.5 Normal (applies to non-numeric resul ts) [facility] ([facility]) ID Date Data Source [id number] 11/13/2019 10:30:00 AM EDT [facility] ([facility]) Name Value Range Interpretation Code Description Data Denisse rce(s) Supporting Document(s) Laboratory test finding (navigational concept) Laboratory test result [facility] ([facility]) _CULTURE STOOL_ ^$692712 ^^[id number] $$813049 $$423623 $$683690 ^^849785 $$637615 $$937770 $$417417 $$694054 $$210897 ^^412656 $$196036 $$674923 $$392697 $$568598 $$[id number] REPORTED DATE/TIME: 11/19/2019 09:07 Culture: CULTURE STOOL Status: Final Salmonella/Shigella Screen: P1 No Salmonella or Shigella recovered. Campylobacter Culture: P1 No Campylobacter species isolated. E coli Shiga Toxin EIA: P1 Negative Reference Range: Negative -- Continued on next page -- Patient: KIMBERLY Houston Order: [id number] Page 2 Culture: CULTURE STOOL Status: Final Isolate 1 Yeast Flag: A . . . . . . .6 isolated Heavy growth NO COLIFORMS ISOLATED Previous result entered on 11/17/2019 13:34 ET Microbiological testing to rule out the presence of possible pathogens is in progress. Salmonella/Shigella Screen: P1 Yeast Flag: A P1 Test performed by: [facility] #: [id number] [address] [place] [address] [id number] [facility] [address] Commercial Plumber : Esau Cornejo MD NPI #: Legal Operations Manager : 11/17/19.1127.XMT.SENT REF 11/17/19.1410.XMT.SENT REF 11/18/19.1119.XMT.SENT REF 11/19/19.1150.XMT.SENT REF 11/19/19.1150.CM .to [facility] via fax ID Date Data Source [id number] 11/13/2019 10:30:00 AM EDT [facility] ([facility]) Name Value Range Interpretation Code Description Data Denisse rce(s) Supporting Document(s) Source: Laboratory test result [facility] ([facility]) <content>^$095953</content>
<content>^^403846</content>
<content>$$90387 3</content>
<content>^^554631</content>
<content></content>
<content >REPORTED DATE/TIME: 11/18/2019 17:06</content>
<content>Culture: OVA & PARA EXAM Status: Final</content>
<content></content>
<content>Ova + Parasite Exam: P1</content>
<content>No ova, cysts, or parasites seen.</content>
<content>. One negative specimen does not rule</content>
<content>out the possibility of a parasitic infection.</content>
<content>These results were obtained using wet preparation(s) and trichrome</content>
<content>stained smear. This test does not include testing for Cryptosporidium</content>
<content>parvum, Cyclospora, or Microsporidia.</content>
<content></content>
<content></content>
<co ntent>P1 Test performed by: [facility] #: [id number]</content>
<content>[address]</content>
<content>[id number]</content>
<content>Eloise MEJIA [id number]</content>
<content>Commercial Plumber : Esau Cornejo MD NPI #:</content>
<content>Legal Operations Manager :</content>
<content>11/18/19.1714.XMT.SENT REF</content>
<content></content>
<content></content> Ova \\T\\ Para Exam Laboratory test result [facility] ([facility]) <content>_OVA & P D SM CON ID_</arnulfo nt>
<content></content> ID Date Data Source [id number] 11/13/2019 10:30:00 AM EDT [facility] ([facility]) Name Value Range Interpretation Code Description Data Denisse rce(s) Supporting Document(s) Leukocytes [Presence] in Stool by Light microscopy Laboratory test re [facility] _WBC STOOL_ ^$038559 ^^585155 $$777008 ^^778060 $$613701 $$584088 $$687048 $$803926 $$[id number] REPORTED DATE/TIME: 11/18/2019 17:06 Culture: WBC STOOL Status: Final White Blood Cells (WBC), Stool: P1 No white blood cells seen. Reference Range: None Seen No PVA Vial Received P1 [facility] [id number] [address] [place] [id number] [facility] [address] Commercial Plumber : Esau Cornejo MD NPI #: Legal Operations Manager : 11/18/19.1714.XMT.SENT REF 11/18/19.1714.CM .to [facility] via fax Clostridium difficile toxin A+B [Presence] in Stool by Immunoassay Laboratory test result [facility] ([facility]) ID Date Data Source [id number] 11/13/2019 10:30:00 AM EDT [facility], ) Name Value Range Interpretation Code Description Data Denisse rce(s) Supporting Document(s) Laboratory test finding (navigational concept) Laboratory test result [facility] ([facility], ) _CULTURE STOOL_ ^$443357 ^^646572 $$625761 $$683160 $$345490 ^^072864 $$347274 $$190928 $$987863 $$074118 $$305735 ^^023444 $$270622 $$326344 $$195074 $$309667 $$628832 REPORTED DATE/TIME: 11/19/2019 09:07 Culture: CULTURE STOOL Status: Final Salmonella/Shigella Screen: P1 No Salmonella or Shigella recovered. Campylobacter Culture: P1 No Campylobacter species isolated. E coli Shiga Toxin EIA: P1 Negative Reference Range: Negative -- Continued on next page -- Patient: KIMBERLY Houston Order: [id number] Page 2 Culture: CULTURE STOOL Status: Final Isolate 1 Yeast Flag: A . . . . . . .6 isolated Heavy growth NO COLIFORMS ISOLATED Previous result entered on 11/17/2019 13:34 ET Microbiological testing to rule out the presence of possible pathogens is in progress. Salmonella/Shigella Screen: P1 Yeast Flag: A P1 Test performed by: [facility]Y #: [id number] [address] [id number] [facility] [address] Commercial Plumber : Esau Cornejo MD NPI #: Legal Operations Manager : 11/17/19.1127.XMT.SENT REF 11/17/19.1410.XMT.SENT REF 11/18/19.1119.XMT.SENT REF 11/19/19.1150.XMT.SENT REF 11/19/19.1150.CM .to [facility] via fax ID Date Data Source [id number] 11/13/2019 10:30:00 AM EDT [facility], ) Name Value Range Interpretation Code Description Data Denisse rce(s) Supporting Document(s) Source: Laboratory test result [facility] ([facility], ) <content>^$[id number]</content>
<content>^^292050</content>
<content>$$64058 3</content>
<content>^^484763</content>
<content></content>
<content >REPORTED DATE/TIME: 11/18/2019 17:06</content>
<content>Culture: OVA & PARA EXAM Status: Final</content>
<content></content>
<content>Ova + Parasite Exam: P1</content>
<content>No ova, cysts, or parasites seen.</content>
<content>. One negative specimen does not rule</content>
<content>out the possibility of a parasitic infection.</content>
<content>These results were obtained using wet preparation(s) and trichrome</content>
<content>stained smear. This test does not include testing for Cryptosporidium</content>
<content>parvum, Cyclospora, or Microsporidia.</content>
<content></content>
<content></content>
<co ntent>P1 Test performed by: [employer] Eloise CLIA #: [id number]</content>
<content>[address]</content>
<content>[id number]</content>
<content>Eloise MEJIA [address]</content>
<content>Commercial Plumber : Esau Cornejo MD NPI #:</content>
<content>Legal Operations Manager :</content>
<content>11/18/19.1714.XMT.SENT REF</content>
<content></content>
<content></content> Ova \\T\\ Para Exam Laboratory test result [facility] ([facility]) <content>_OVA & P D SM CON ID_</arnulfo nt>
<content></content> ID Date Data Source [id number] 11/13/2019 10:30:00 AM EDT [facility] ([facility]) Name Value Range Interpretation Code Description Data Denisse rce(s) Supporting Document(s) Leukocytes [Presence] in Stool by Light microscopy Laboratory test re sult [facility] ([facility]) _WBC STOOL_ ^$741563 ^^452364 $$379462 ^^888157 $$971598 $$101972 $$312809 $$406677 $$284701 REPORTED DATE/TIME: 11/18/2019 17:06 Culture: WBC STOOL Status: Final White Blood Cells (WBC), Stool: P1 No white blood cells seen. Reference Range: None Seen No PVA Vial Received P1 Test performed by: [employer] [facility] Eloise CLIA #: [id number] [address] [id number] [facility] [address] Commercial Plumber : Esau Cornejo MD NPI #: Legal Operations Manager : 11/18/19.1714.XMT.SENT REF 11/18/19.1714.CM .to [facility] via fax Clostridium difficile toxin A+B [Presence] in Stool by Immunoassay Laboratory test result [facility] ([facility], ) ID Date Data Source [id number] 11/19/2019 11:50:00 AM EDT [facility] Name Value Range Interpretation Code Description Data Denisse rce(s) Supporting Document(s) CULTURE STOOL [facility] _CULTURE STOOL_$$402530$$304379$$092468$$013546$$300833$$818516$$343722$$952388$$226930$$ 298786$$497449$$047453$$[id number] DATE/TIME: 11/19/2019 09:07Culture: CULTURE STOOL Status: FinalSalmonella/Shigella Screen: P1No Salmonella or Shigella recovered.Campylobacter Culture: P1No Campylobacter species isolated.E coli Shiga Toxin EIA: Y1XajutzopMnterqvix Range: Negative -- Continued on next page --Patient: KIMBERLY Houston Order: [id number] Page 2Culture: CULTURE STOOL Status: Final Isolate 1 Yeast Flag: A . . . . . . .6isolatedHeavy growthNO COLIFORMS ISOLATED Previous result entered on 11/17/2019 13:34 ET Microbiological testing to rule out the presence of possible pathogensis in progress.Salmonella/Shigella Screen: E4Sxtjw Flag: AP1 [facility] #: [id number] [address] [facility] [id number] [facility] [address]Ddkohhc Director : Esau Cornejo MD NPI #:Legal Operations Manager : 11/17/19.1127.XMT.SENT REF 11/17/19.1410.XMT.SENT REF 11/18/19.1119.XMT.SENT REF 11/19/19.1150.XMT.SENT REF 11/19/19.1150.CM .to [facility] via fax ID Date Data Source [id number] 11/18/2019 05:14:00 PM EDT [facility] Name Value Range Interpretation Code Description Data Denisse rce(s) Supporting Document(s) WBC STOOL [facility] _WBC STOOL_$$847373$$048667$$292486 $$260824$$571774$$[id number] DATE/TIME: 11/18/2019 17:06Culture: WBC STOOL Status: FinalWhite Blood Cells (WBC), Stool: P1No white blood cells seen.Reference Range: None SeenNo PVA Vial ReceivedP1 Test performed by: [employer] CLIA #: [id number] [address] [place], [place] [id number] [facility] [address]Brisptm Director : Esau Cornejo MD NPI #:Legal Operations Manager : 11/18/19.1714.XMT.SENT REF 11/18/19.1714.CM .to [facility] via fax ID Date Data Source [id number] 11/18/2019 05:13:00 PM EDT [facility] Value Range Interpretation Code Description Data [facility] rce(s) Supporting Document(s) OVA & PARA EXAM [facility] _OVA & P D SM CON ID_ SOURCE: STOOL [facility] $$[id number] DATE/TIME: 11/18/2019 1 7:06Culture: OVA & PARA EXAM Status: FinalOva + Parasite Exam: P1No ova, cysts, or parasites seen. . One negative specimen does not ruleout the possibility of a parasitic infection.These results were obtained using wet preparation(s) and tr ichromestained smear. This test does not include testing for Cryptosporidiumparvum, Cyclospora, or Microsporidia.P1 Test performed by: [employer] CLIA #: [id number] [address] [id number] [facility] [address]Qfqusby Director : Esau Cornejo MD NPI #:Legal Operations Manager : 11/18/19.1714.XMT.SENT REF ID Date Data Source [id number] 11/16/2019 03:24:00 PM EDT [facility] Name Value Range Interpretation Code Description Data Denisse rce(s) Supporting Document(s) Clostridium difficile toxin A+B [Presence] in Stool by Immun oassay Negative Negative [facility] ID Date Data Source [id number] 11/09/2019 12:03:00 PM EDT [facility] [address] [place] [address] PHONE: [phone] FAX: [phone] Name .................. : ALEKSANDRAFRANCISCO BALJINDER Houston Acct Number.................. : [id number] ROOM. ................. : TR-04 MR Number ................... : [id number] Stay type ............. : E/R Discharge Date......... ... : 11/08/19 Admit Date ......... : 11/08/19 Admit Phys .................... : MARTIN CONTRERAS Date of ....... : 2000 Family Phys ................... : SUGEY HARD Phone .................. : [phone] Age ................................ : 18 Film# .................. .:[id number] Sex ................................. : M Unsigned transcriptions are preliminary reports and do not represent a medical or legal document CT ABD & PELVIS W/ IV ONLY [id number] COMPLETE:11/08/19 21:55 DLA [id number] Reason(s): Abdominal Pain CT OF THE ABDOMEN AND PELVIS WITH CONTRAST: INDICATION: Abdominal pain. FINDINGS: The chest space is clear. There is normal contrast-enhanced CT appearance of the liver, spleen, pancreas, adrenal glands and kidneys. No gallbladder wall thickening or biliary duct dilatation. The visualized bowel demonstrates mild to moderate bowel wall thickening of the entire colon. High density material, mo st likely bismuth subsalicylate is noted in the colon lumen. The appendix is not definitively visualized. There is no free air or free fluid. The bladder and pelvic organs appear normal. No acute osseous abnormality. No lymphadenopathy. IMPRESSION: Mild to moderate pancolitis. This could be due to infectious or inflammatory etiology. While performing the above CT examination, radiation dose reduction was accomplished utilizing automated exposure control, adjusting of the mA and kV based on the patient's body size and/or the use of imperative reconstructive techniques. CT dose: 728.9 mGycm Page 1 of 2 [facility] [address] [place] [address] PHONE: [phone] FAX: [phone] Name .................. : KIMBERLY GALE Celso Acct Number.................. : [id number] ROOM. ................. : TR-04 MR Number ................... : [id number] Stay type ............. : E/R Discharge Date......... ... : 11/08/19 Admit Date ......... : 11/08/19 Admit Phys .................... : MARTIN CONTRERAS Date of ....... : 2000 Family Phys ................... : MAYES HARD Phone .................. : [phone] Age ................................ : 18 Film# .................. .:[id number] Sex ................................. : M Unsigned transcriptions are preliminary reports and do not represent a medical or legal document CT ABD & PELVIS W / IV ONLY [id number] COMPLETE:11/08/19 21:55 DLA 28077 Reason(s): Abdominal Pain Contrast agent in mL: 75 Isovue 370 Method of administration: Intravenous Electronically Reviewed and Signed By Fercho Crespo M.D. , 11/09/19 12:03, [place] Transcribe Initials: ISAAK , Transcribe Date: 11/08/19 23:23, Dictation Date: Copy for: [facility] via fax Copy for: EMERGENCY DEPT via modem Copy for: 710 MED REC DISCHARGED Page 2 of 2 Name Value Range Interpretation Code Description Data Denisse rce(s) Supporting Document(s) ID Date Data Source [id number] 11/08/2019 07:51:00 PM EDT [facility] 1 OrderSheet [facility] Emergency Department [address] [place] [address] Phone #: ext- [phone] 11/08/2019 19:41 Patient: BALJINDER HARRIS Sex: M : 2000 Age: 18yWEIGHT:90.7 kg (S) HEIGHT:69 inches (S) BMI:29.5ALLERGIES: NoneCHIEF COMPLAINT: abdominal painDIAGNOSIS: ColitisLAB ORDERSOrder Description Priority Entered Acknowledged InitialedUrinalysis (Clean STAT 20:11 11/08/2019 20:11 Peyton Navarro) Imelda Navarro R.N.; R.NUrsula Verbal order per; Justo Garland PACBC w Diff STAT 20:23 11/08/2019 20:31 Imelda Navarro R.N.;CMP STAT 20:23 11/08/2019 20:31 Imelda Navarro R.N. PA;Lipase STAT 20:23 11/08/2019 20:31 Imelda Navarro R.N. PA;GI 4 Panel 22:20 11/08/2019 Ack'd: 22:30 Imelda Navarro R.N. Cancelled: Physician Order 22:47 BRENDA Martínez; Kimberlyn MontoyaDIAGNOSTIC STUDY ORDERSOrder Description Priority Entered Acknowledged InitialedCT Abd PEL W/ IV STAT 20:24 11/08/2019 20:31 Tracy Navarrotrast Only Justo Garland R.N.(Oxygen?(No)) PA;(IV?(Yes)) NOTES: H/O Crohns Reason for Study: Abdominal PainMEDICATION/IV/DRIP/FLUID ORDERSOrder Description Priority Entered Acknowledged InitialedNS IV : Bolus 1000 20:23 11/08/2019 20:40 Wanda Navarro, then 150 mL/hr Justo Garland R.N. 2 OrderSheet [facility] Emergency Department [address] [place] [address] Phone #: ext- [phone] 11/08/2019 19:41 Patient: BALJINDER HARRIS Sex: M : 2000 Age: 18y BRENDA;Zofran IVP 8 mg 20:23 11/08/2019 20:40 Imelda Navarro R.N.;fentaNYL IVP 50 20:47 11/08/2019 21:21 Cy Navarro (HIGH ALERT Justo Garland R.N.MEDICATION) BRENDA;Cipro PO 500 mg 22:23 11/08/2019 22:36 Imelda Navarro R.N.; Reason for ordering with alerts: Clinical consideration given -- 22:23 11/08/2019 Justo Garland PAFlagyl PO 500 mg 22:23 11/08/2019 22:36 Imelda Navarro R.N.; Reason for ordering with alerts: Clinical consideration given -- 22:23 11/08/2019 Justo Garland PApredniSONE PO 60 22:23 11/08/2019 22:37 Georges Navarro R.N.; Reason for ordering with alerts: Clinical consideration given -- 22:23 11/08/2019 Justo Garland PAGENERAL ORDERSOrde r Description Priority Entered Acknowledged InitialedNPO 20:23 11/08/2019 20:31 Imelda Navarro R.N.;Saline Lock 20:23 11/08/2019 20:31 Imelda Navarro R.N.;[Electronically signed by Kimberlyn Martínez R.N. (22:47 11/08/2019)][Electronically signed by Justo Garland (22:48 11/08/2019)][Electronically locked by Kimberlyn Martínez R.N. (22:47 11/08/2019)] Name Value Range Interpretation Code Description Data Denisse rce(s) Supporting Document(s) ID Date Data Source [id number] 11/08/2019 07:51:00 PM EDT [facility] 1 Medication Reconciliation Report [facility] Emergency Department [address] [place] [address] Phone #: ext- [phone] 11/08/2019 19:41 Patient: BALJINDER HARRIS Sex: M : 2000 Age: 18yWeight: 90.7 kgHeight/Length: 69 in.BMI: 29.5ALLERGIES: NoneThe patient's Home Medications are listed below:CONTINUE TAKING THE FOLLOWING MEDICATIONS: Entyvio Intravenous, q8hThe source(s) of the original Home Medication information:Not obtained.The following Medications were given to the patient in the Emergency Department:NS [IV] IV Fluids bolus 1000 mL over 1 hour(s), administered: 11/08/2019 8:40:00 PMZofran [IVP] IVP 8 mg, administered: 11/08/2019 8:40:00 PMFentanyl [IVP] IVP 50 mcg, administered: 11/08/2019 9:21:00 PMCipro [PO] PO 500 mg, administered: 11/08/2019 10:36:00 PMFlagyl [PO] PO 500 mg, administered: 11/08/2019 10:36:00 PMPrednisone [PO] PO 60 mg, administered: 11/08/2019 10:37:00 PMThe following Medications were prescribed to the patient:ciprofloxacin 500 mg tablet Take 1 tablet twice a day as directed for 10 days -- Dispense 20 tablet.Refills: 0. Substitution permitted.[facility] [employer] [address] [place] [id number]. .Flagyl 500 mg tablet Take 1 tablet twice a day as directed for 7 days -- Dispense 14 tablet. Refills: 0.Substitution permitted.[facility] [address] [id number]. Phone: [phone] Medication Reconciliation Report [facility] Emergency Department [address] [place] [address] Phone #: ext- [phone] 11/08/2019 19:41 Patient: BALJINDER HARRIS Sex: M : 2000 Age: [id number] .prednisone 20 mg tablet Take 3 tablet once a day for 5 days -- Dispense 15 tablet. Refills: 0.Substitution permitted.Pharmacy - [employer] [phone] [address] ; [place], [place] [id number]. . -- BRENDA L[place] Name Value Range Interpretation Code Description Data Denisse rce(s) Supporting Document(s) ID Date Data Source [id number] 11/08/2019 07:51:00 PM EDT [facility] 1 Medication Administration Record [facility] Emergency Department [address] [place] [address] Phone #: ext- [phone] 11/08/2019 19:41 Patient: BALJINDER HARRSI Sex: M : 2000 Age: 18yWeight: 90.7 kgHeight/Length: 69 inBMI: 29.5ALLERGIES: None Date/Time Medication Administered Medication OrderedStart NS [IV] NS IV : Bolus 1000 mL, then 14110:40 11/08/2019 Dose: IV Fluids mL/Imelda Velasquez R.N. Bolus: 1000 mL over 1 hour(s)---- Dispensed: 1000 mL bagStop Site: #1 left sohjrcb69:40 11/08/2019Kimberlyn Martínez R.N.Given ZOFRAN [IVP] (ONDANSETRON HCL) Zofran IVP 8 mg20:40 11/08/2019 Dose: 8 mg IVPRoImelda covarrubias R.N. Site: #1 left forearmGiven FENTANYL [IVP] fentaNYL IVP 50 mcg (HIGH21:21 11/08/2019 Dose: 50 mcg IVP ALERT MEDICATION)Imelda Navarro R.N. Site: #1 left forearmGiven CIPRO [PO] (CIPROFLOXACIN) Cipro PO 500 mg22:36 11/08/2019 Dose: 500 mg Tablets Imelda Brown R.N.Given FLAGYL [PO] (METRONIDAZOLE) Flagyl PO 500 mg22:36 11/08/2019 Dose: 500 mg Tablets Imelda Brown R.N.Given PREDNISONE [PO] predniSONE PO 60 mg22:37 11/08/2019 Dose: 60 mg Tablets Imelda Brown R.N. Name Value Range Interpretation Code Description Data Denisse rce(s) Supporting Document(s) ID Date Data Source [id number] 11/08/2019 07:51:00 PM EDT [facility] 1 General Instructions [facility] Emergency Department [address] [place] [address] Phone #: ext- [phone] 11/08/2019 19:41 Patient: BALJINDER HARRIS Sex: M : 2000 Age: 18yChronic ulcerative colitis involving the sigmoid colon; Crohn's disease involving large and small bowel;inflammatory colitis; infectious colitis. No ulcerative colitis with bleeding or abscess. No Crohn's diseasewith bleeding.INSTRUCTIONSDo not work tomorrow.Warnings: GENERAL WARNINGS: Return or contact your physician immediately if your conditionworsens or changes unexpectedly, if not improving as expected, or if other problems arise.SPECIFICALLY, return if you develop fever, vomiting, the inability to keep fluids down, blood in vomitus orblood in diarrhea; or if there is no improvement in the pain in the abdomen.Your Current Medications: Your current home medications have been reviewed.CONTINUE TAKING THE FOLLOWING MEDICATIONS:Entyvio Intravenous : q8h.Prescription Medications:ciprofloxacin 500 mg tablet Take 1 tablet twice a day as directed for 10 days -- Dispense 20 tablet.Refills: 0. Substitution permitted.[facility] [address] ; [place], [place] [id number]. .Flagyl 500 mg tablet Take 1 tablet twice a day as directed for 7 days -- Dispense 14 tablet. Refills: 0.Substitution permitted.[facility] [address] ; [place], [place] [id number]. FaxNu mber: .prednisone 20 mg tablet Take 3 tablet once a day for 5 days -- Dispense 15 tablet. Refills: 0.Substitution permitted.[employer] [address] [id number]. .Follow-up:Follow up with a specialist GI Doctor. Call for the next available appointment. Reason for referral:evaluation and treatment. Summary of care provided to patient and family.Understanding of the discharge instructions verbalized by patient. 2 General Instructions [facility] Emergency Department [address] [place] [address] Phone #: ext- [phone] 11/08/2019 19:41 Patient: BALJINDER HARRIS Sex: M : 2000 Age: 18y ADDITIONAL INFORMATIONUlcerative ColitisYou have been diagnosed with ulcerative colitis. Ulcerative colitis is a long-term (chronic) conditionthat causes inflammation and ulcers in the rectum and colon. It is a form of inflammatory boweldisease (IBD). The disease is often diagnosed by a special procedure called a colonoscopy. Thesymptoms often develop over time. There is no medicine that can cure ulcerative colitis. The goal oftreatment is to reduce the symptoms, and cause a remission.Symptoms of ulcerative colitis include: Belly (abdominal) cramps and pain Diarrhea, often bloody Rectal bleeding Rectal pain Fever Decreased appetite and weight loss Low energy Inflammation outside of the colon can occur and can cause pain or swelling in places such as the eyes, skin, and jointsHome careNo one knows what exactly causes IBD. The goal is to control and relieve the symptoms and preventcomplications, so you can lead a full and active life. No medicine can cure the disease. In somecases, surgery to remove the whole colon can be healing. But surgery causes other side effects, somedicines are often preferred. Discuss your options with your healthcare provider.DietYour diet did not cause your condition, but it can affect it. Unfortunately, there is no one diet thatworks for everyone, so you have to experiment. Below are some recomme ndations, but what worksfor you may be different. Keep a food log to figure out what you are sensitive to. Eat more slowly. Eat smaller amounts at a time, but more often. Remember, you can always eat more, but can't eat less once you've eaten too much. 3 General Instructions [facility] Emergency Department [address] [place] [address] Phone #: ext- [phone] 11/08/2019 19:41 Patient: BALJINDER HARRIS Sex: M : 2000 Age: 18y High-fiber foods are complicated. While they may help constipation, they can make bloating, cramping, gas, and diarrhea worse. Eat less sugar. Try cutting out dairy products if you feel you are sensitive to lactose. Try cutting out foods that are high in fat and fatty meats. You can control bloating and passing excess gas. Be careful with "gassy" vegetables and fruits like beans, cabbage, broccoli, and cauliflower. Be careful of carbonated drinks and fruit juices. They can make bloating and diarrhea worse. Caffeine, alcohol, and stimulants may make symptoms worse.LifestyleStress doesn't cause IBD. But it is a factor in flare-ups, and how you feel and react to your condition. Look for things that seem to make your symptoms worse, such as stress and emotions. Counseling can help you deal with stress. So can self-help treatments such as exercise, yoga, and meditation. Depression can be a part of this illness and antidepressant medicine may be prescribed. This may actually help with diarrhea, constipation, and cramping, as well as symptoms of depression. Lack of sleep can make symptoms seem worse. Alcohol use can make symptoms worse.MedicinesYour healthcare provider may prescribe medicines. Take them as directed. In most cases, you willneed to take the medicines for the rest of your life. For acute flares, additional prescription medicinescan be prescribed. Call your provider if you need these. Ask your healthcare provider before taking any medicines for diarrhea. Don't take anti-inflammatory medicines such as ibuprofen or naproxen. Think about taking nutritional supplements. This is especially true if the diarrhea is prolonged, or you aren't eating, or you are losing weight.Follow-up care 4 General Instructions [facility] Emergency Department [address] [place] [address] Phone #: gig- [phone] 11/08/2019 19:41 Patient: BALJINDER HARRIS Sex: M : 2000 Age: 18yFollow up with your healthcare provider, or as advised. Tell your provider if you lose more than 5pounds over 3 to 6 months, and you aren't trying to lose weight.If a stool sample was taken, or cultures were done, you will be told if they are positive, or if yourtreatment needs to be changed. You can call as directed for results.If X-rays were done, a radiologist will look at them. You will be told if you need a change in treatmentIt is very important to tell your healthcare provider if you plan to get , or find out you are. You will need to discuss your disease, medicines, and plan as early as possible andpreferably before you conceive.Call [phone] [phone] if any of these occur: Trouble breathing Confusion Very drowsy or trouble waking up Fainting or loss of consciousness Rapid heart rate Chest painWhen to seek medical adviceCall your healthcare provider right away if any of these occur: Bleeding from your rectum Frequent diarrhea or belly pain that's not controlled by your medicine Bloody diarrhea Fever of 100.4F (38C) or higher, or as directed by your healthcare provider Nausea that does not get better, or repeated vomiting [id number] [employer]. [address] [place] [address], [place] [address]. All rights reserved. This information is not intended as asubstitute for professional medical care. Always follow your healthcare professional's instructions. You have been given the following additional information: Ulcerative Colitis 5 General Instructions [facility] Emergency Department [address] [place] [address] Phone #: ext- [phone] 11/08/2019 19:41 Patient: BALJINDER HARRIS Sex: M : 2000 Age: 18yDo not work tomorrow.(Electronically signed by BRENDA Lunsford 11/08/2019 22:48) Name Value Range Interpretation Code Description Data Denisse rce(s) Supporting Document(s) ID Date Data Source [id number] 11/08/2019 07:51:00 PM EDT [facility] 1 Clinical Report - Nurses [facility] Department [address] [place] [address] Phone #: ext- [phone] 11/08/2019 19:41 [id number] Sex: M : 2000 Age: 18yTRIAGEArrived by private vehicle. Historian: patient. Accompanied by family. ( this am started with left abd painthat went to back felt nause and vomit 1 time and missed last dose of medication and has had loosestools for 3 days).Acuity: LEVEL 3.Chief Complaint: ABDOMINAL PAIN, NAUSEA, VOMITING and DIARRHEA.Alert.This started today. Onset. (1000). He has had nausea, vomiting and diarrhea. He has had abdominalpain (goes around to back). 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 (530).SEPSIS SCREEN: SIRS Screen negative. Sepsis Screen negative. No suspected or confirmed signs ofinfection present. --19:54 11/08/19 Imelda Navarro R.N.19:42 11/08/19. BP: 131/84. MAP: 99. HR: 77. RR: 18. O2 saturation: 100% on room air. Temp: 100.1 F(tympanic). Pain level now: 09/11. --19:54 11/08/19 Imelda Navarro R.N.Weight: 90.7 kg stated. Height/Length: 69 inches Per Patient. BMI: 29.5. --19:41 11/08/19 Imelda Navarro R.N.MedicationsEntyvio Intravenous, q8h. --19:50 11/08/19 Imelda Navarro R.N.AllergiesNone. --19:47 11/08/19 Imelda Navarro R.N.HistoryPAST MEDICAL HX: Immunizations: up-to-date.SOCIAL HX: Never smoker. No alcohol use or drug use. No recent travel. No known contact with a sickindividual. He was offered HIV testing but declined and hepatitis C testing but declined. He has nottraveled outside the [place]Infectious disease exposure: No infectious disease exposure. The patient was exposed to C-diff. (lastaugust treated). Patient is not a known ca rrier of tuberculosis, hepatitis, HIV, MRSA or VRE. Patient is nota known carrier of CRE.SELF HARM ASSESSMENT: Self harm assessment was performed. The patient answered "no" to thequestion(s) "Have you recently felt down, depressed, or hopeless?", "Do you have thoughts of harming orkilling yourself?", "Do you have a plan for harming or killing yourself?", "Have you recently had thoughts 2 Clinical Report - Nurses [facility] Department [address] [place] [address] Phone #: ext- [phone] 11/08/2019 19:41 Patient: BALJINDER HARRIS Sex: M : 2000 Age: 18y about harming or killing others?", "Do you have any dangerous items in your possession?", "Have you noticed less interest or pleasure in doing things?", "Are you here because you tried to hurt yourself?" and "Have you ever tried to hurt yourself before today?". ABUSE ASSESSMENT: Abuse assessment. Abuse denied. No suspicion of abuse. No report of abuse. NUTRITIONAL RISK ASSESSMENT: The nutritional risk assessment revealed no deficiencies. FUNCTIONAL ASSESSMENT: Functional assessment: no impairments noted. LEARNING NEEDS ASSESSMENT: The learning needs assessment revealed no barriers. FALL RISK ASSESSMENT: Fall risk assessment completed. No risk factors identified. SKIN INTEGRITY ASSESSMENT: Skin integrity risk assessment completed. No skin integrity risk identified. --19:54 11/08/19 Imelda Navarro R.N. Interventions Identification band on patient. To treatment room. --:54 11/08/19 Imedla Navarro R.N.PHYSICAL ASSESSMENT( left lower back pain).GENERAL / NEURO / PSYCH: Alert. Oriented X 4. Appears in no acute distress.HEENT: Mucous membranes are pink.RESPIRATORY: Respirations not labored. Breath sounds within normal limits.CVS: Normal sinus rhythm noted. Capillary refill less than 2 seconds.GI / : The patient has diarrhea. Abdomen soft. Abdominal tenderness in the left lower quadrant.Bowel sounds within normal limits.SKIN: Skin is warm and dry. --19:55 11/08/19 Imelda Navarro R.N.NURSING PROGRESS NOTESPatient gowned. Reassurance given. Two patient identifiers checked. Call light placed in reach. Siderails up x 2. Bed placed in lowest position. Brakes of bed on. Patient ready for evaluation- ED physicianabi GUTIERREZ notified. --19:54 11/08/19 Imelda Navarro R.N. 19:59 11/08/2019 Site #1 started via IV in the left forearm with an 20g angiocath, with aseptic technique and good blood return; one attempt. --19:59 11/08/19 Imelda Navarro R.N. Patient ID band checked for patient name and birthdate: patient confirmed. Instructions provided to collect clean catch urine and patient verbalized understanding. Clean catch urine collected; sample sent to lab for urinalysis. Specimen labeled in the presence of the patient. --20:03 11/08/19 Imelda Navarro R.N. 20:40 11/08/2019 Started bag #1 1000 mL IV Fluids NS; bolus of 1000 mL over 1 hour(s) via site #1 via IV pump. Allergies verified and confirmed 5 rights. IV patency established. IV site checked: no pain, redness, 3 Clinical Report - Nurses [facility] [address] [place] [address] Phone #: ext- [phone] 11/08/2019 19:41 Patient: BALJINDER HARRIS Sex: M : 2000 Age: 18yor swelling. IV flushed thoroughly pre- and post-medication administration. Information reviewed withpatient including reason for taking this medication, signs of allergic reaction and precautions. Verbalizesunderstanding. --20:40 11/08/19 Imelda Navarro R.N.20:40 11/08/2019 Zofran (Ondansetron HCl) IVP 8 mg given over 2 minute(s) via site #1. Allergies verifiedand confirmed 5 rights. IV patency established. IV site checked: no pain, redness, or swelling. IV flushedthoroughly pre- and post-medication administration. IVP given by RN. Information reviewed with patientincluding reason for taking this medication, signs of allergic reaction and precautions. Verbalizesunderstanding. --20:40 11/08/19 Imelda Navarro R.N.20:40 11/08/19. ( mother at bedside waiting on test results). --21:24 11/08/19 Imelda Navarro R.N.21:11/08/2019 Fentanyl IVP 50 mcg given over 2 minute(s) via site #1. Allergies verified and confirmed5 rights. IV patency established. IV site checked: no pain, redness, or swelling. IV flushed thoroughly pre-and post-medication administration. IVP given by RN. Information reviewed with patient including reasonfor taking this medication, signs of allergic reaction, precautions and sedative warning. Verbalizesunderstanding. --21:21 11/08/19 Imelda Navarro R.N.21:22 11/08/2019 IV Fluids NS via IV site #1 Bag Change: bag #1 infused. Total amount infused: 1000.STARTED bag #2 (1000 mL) at 150 mL/hr via IV pump. Confirmed 5 rights. IV patency established. IV sitechecked: no pain, redness, or swelling. IV flushed thoroughly. --21:22 11/08/19 Imelda Navarro R.N.20:40 11/08/19. BP: 128/68. MAP: 88. HR: 74. RR: 18. O2 saturation: 96%. --21:24 11/08/19 Imelda Navarro R.N.( pt waiting to go to ct scan). --:32 11/08/19 Imelda Navarro R.N.21:31 11/08/19. BP: 127/80. MAP: 95. HR: 69. RR: 18. O2 saturation: 99% on room air. Pain level now:07/12. --21:32 11/08/19 Imelda Navarro R.N.Patient transported to ID by wheelchair with tech. --21:45 11/08/19 Imelda Navarro R.N.Patient returned from ID by wheelchair with tech. --21:54 11/08/19 Imelda Navarro R.N.21:50 11/08/2019 Fentanyl IVP Response: pain is improving. Symptoms have improved the patient feelsbetter. --21:54 11/08/19 Imelda Navarro R.N .22:36 11/08/2019 Cipro (Ciprofloxacin) PO Tablets 500 mg given. Allergies verified and confirmed 5 rights.Information reviewed with patient including reason for taking this medication, signs of allergic reaction andprecautions. Verbalizes understanding. --22:36 11/08/19 Imelda Navarro R.N.22:36 11/08/2019 Flagyl (metroNIDAZOLE) PO Tablets 500 mg given. Allergies verified and confirmed 5rights. Information reviewed with patient including reason for taking this medication, signs of allergicreaction and precautions. Verbalizes understanding. --22:36 11/08/19 Imelda Navarro R.N. 4 Clinical Report - Nurses [facility] [address] [place] [address] Phone #: ext- [phone] 11/08/2019 19:41 Patient: BALJINDER HARRIS Sex: M : 2000 Age: 18y 22:37 11/08/2019 Prednisone PO Tablets 60 mg given. Allergies verified and confirmed 5 rights. Information reviewed with patient including reason for taking this medication, signs of allergic reaction and precautions. Verbalizes understanding. --22:37 11/08/19 Imelda Navarro R.N. 22:40 11/08/2019 IV Fluids NS via IV site #1 Discontinued: bag #2 STOPPED upon discharge. Total amount infused: 137 mL. IV patency established. IV site checked: no pain, redness, or swelling. IV flushed thoroughly. --22:45 11/08/19 Kimberlyn Martínez R.N. ( Pt unable to give GI4, PA aware). --22:46 11/08/19 Kimberlyn Martínez R.N.DISPOSITION / DISCHARGE Departure time: late entry - 22:45 11/08/2019. Condition at departure: stable. No learning barriers present. Discharge instructions provided and reviewed with the patient and parent. Reviewed warnings (please see paper copy). Reviewed medication(s) side effects, precautions, dosing and course information. Prescription(s) sent electronically to pharmacy (Cipro, Flagyl, Prednisone). Activity restrictions reviewed. Work note given. Patient verbalized understanding. Written instructions provided in Salvadorean. The patient was discharged by the physician golf course assistant. He was discharged home and accompanied by parent. He left ambulatory and via private vehicle. Parent driving. --22:47 11/08/19 Kimberlyn Martínez R.N. 22:45 11/08/19. BP: 126/80. MAP: 95. HR: 68. RR: 18. O2 saturation: 100% on room air. Temp: 98.6 F (temporal). Pain level now: 08/12. --22:47 11/08/19 Kimberlyn Martínez R.N. 22:40 11/08/2019 Site #1 removed upon discharge. Bandage applied (2x2 and tape, no bleeding noted, pt tolerated well, clean dry and intact upon d/c.). --22:47 11/08/19 Kimberlyn Martínez R.N.Lock ed/Released at 11/08/2019 22:47 by Kimberlyn Martínez R.N. Name Value Range Interpretation Code Description Data Denisse rce(s) Supporting Document(s) ID Date Data Source [id number] 11/08/2019 07:51:00 PM EDT [facility] 1 Clinical Report - Physicians/Mid Levels [facility] Emergency Department [address] [place] [address] Phone #: ext- [phone] 11/08/2019 19:41 Patient: BALJINDER HARRIS Sex: M : 2000 Age: 18y Time Seen: 20:10 11/08/2019. Arrived- By private vehicle. Historian- patient and family.HISTORY OF PRESENT ILLNESS Chief Complaint: ABDOMINAL PAIN. This started last night. It is described as located in the left lower quadrant and the left flank. Modifying factors- worsened by food. The patient has had nausea, vomiting and diarrhea. (18 y/o M with significant PMHx of crohn's dz, UC, and Celiac's dz presents today for LLQ abdominal pain onset last night, radiates to L flank, relieved this morning with 5 Ibuprofen OTC tabs, then recurred. Pt also reports 1 episode of emesis this morning, non-bloody, non- bilious. Other associated sx include diarrhea onset 1 week ago. Pt denies any hematochezia, urinary sx, including dysuria/increased frequency. Current sx are similar to prior sx when pt was admitted to [facility] in 2018 for C diff colitis/previous flares of existing PMHx. Pt was scheduled to get his regular dose of Entyvio on 10/31/2019, but did not get it because he was on antibiotics for R otitis media, abx regimen finished today.). No recent travel. Similar symptoms previously. Recent medical care: Not recently seen/assessed.REVIEW OF SYSTEMSNo constipation, black stools, hematemesis, difficulty with urination or pain with urination. No urinaryfrequency, bloody stools, fever, headache or sore throat. No blurred vision, chest pain, difficulty breathing,cough or joint pain. No skin rash, chills or back pain. The patient has not had weight loss. All othersystems reviewed and are negative.PAST HISTORYSee nurses notes. Problems: Celiac Disease. Ulcerative colitis (disorder). Otitis Media. Medications: Entyvio Intravenous, q8h. Allergies: None.SOCIAL HISTORY 2 Clinical Report - Physicians/Mid Levels [facility] Department [address] [place] [address] Phone #: ext- [phone] 11/08/2019 19:41 [id number] Sex: [facility] : 2000 Age: 18y Never smoker. No alcohol use or drug use.ADDITIONAL NOTESThe nursing notes have been reviewed with agreement regarding the chief complaint, HPI, ROS, PMH andpatient medications and allergies.PHYSICAL EXAMVital Signs: 11/08/2019 19:42 BP: 131/84. MAP: 99. HR: 77. RR: 18. O2 saturation: 100% on room air.Temp: 100.1 F. Pain level now: 5/10.Appearance: Alert. Oriented X3. No acute distress.Eyes: Eyes normal inspection.ENT: Ears normal. Nose normal. Mild pharyngeal erythema (mild posterior oropharynx erythema). Nopharyngeal vesicles or ulcerations.Neck: Normal inspection. Neck supple.CVS: Normal heart rate and rhythm. Heart sounds normal. Pulses normal. Pulses: right radial 2+; leftradial 2+; right dorsalis pedis 2+; left dorsalis pedis 2+.Respiratory: No respiratory distress. Painless inspiration. Breath sounds normal. Chest nontender.Abdomen: Soft. Mild tenderness in the left lower quadrant. Bowel sounds normal.Back: No CVA tenderness.Skin: Skin warm and dry. Normal skin color. Normal skin turgor.Extremities: Extremities exhibit normal ROM. No lower extremity edema.Neuro: Oriented X 3. No motor deficit. No sensory deficit.LABS, X-RAYS, AND EKGCT Abdomen - Pelvis: Mild to moderate pancolitis. This could be due to infectious or inflammatoryetiology. Study type: upper abdomen; lower abdomen; pelvis. Abdomen - pelvic CT performed with IVcontrast. The study was interpreted by the radiologist and contemporaneously by me. Interpretationtime: 22:30 11/08/2019.Laboratory Tests: Laboratory tests have been ordered, with results reviewed and considered in themedical decision making process. CT Abd PEL W/ IV Contrast Only: (MARTY: 11/08/2019 20:24) ( MsgRcvd 11/08/2019 21:55) In Progress CT ABD Reason(s): Abdominal Pain TRANSPORTATION: WC IV? IV?(Yes) O2? Oxygen?(No) Ro CMTS: H/O Crohns CBC w Diff: (MARTY: 11/08/2019 20:32) ( MsgRcvd 11/08/2019 21:09) Final results Test Result Flag Units (Reference) CBC W/AUTOMATED DIFF COMPLETE BLOOD COUNT WBC 13.1 H 10/uL (4.2 - 11.0) RBC 5.04 10/uL (4.50 - 6.30) HEMOGLOBIN 14.4 g/dL (14.0 - 16.0) HEMATOCRIT 42.1 % (41.0 - 51.0) MCV 83.5 fL (80.0 - 94.0) MCH 28.6 pg (27.0 - 34.0) 3 Clinical Report - Physicians/Mid Levels [facility] Emergency Department [address] [place] [address] Phone #: ext- [phone] 11/08/2019 19:41 Patient: BALJINDER HARRIS Sex: M : 2000 Age: 18y MCHC 34.2 g/dL (31.0 - 36.0) RDW 12.6 % (11.5 - 14.8) PLATELETS 275 10/uL (150 - 450) MPV 9.4 fL (7.4 - 10.4) NEUT 73.4 % (37.0 - 80.0) LYMPH 16.3 L % (25.0 - 40.0) MONO 8.2 H % (3.0 - 8.0) EOS 1.5 % (0.0 - 7.0) BASO 0.2 % (0.0 - 2.0) %IG 0.4 H % (0.0 - 0.0) %NRBC 0.0 % (0.0 - 0.0) #NEUT 9.62 H 10/uL (2.00 - 6.90) #LYMPH 2.14 10/uL (0.60 - 3.40) #MONO 1.08 H 10/uL (0.00 - 0.90) #EOS 0.20 10/uL (0.00 - 0.70) #BASO 0.03 10/uL (0.00 - 0.20) #IG 0.05 10/uL (0.00 - 0.10) #NRBC 0.00 10/uL (0.00 - 0.00) MANUAL DIFF SEE BELOW SEGS 62 % (37 - 80) %LYMPH 28 % (25 - 40) %MONO 7 % (3 - 8) %EOS 2 % (0 - 7) %BASO 1 % (0 - 2) RBC MORPH MORPH IS NORMALCMP: (MARTY: 11/08/2019 20:32) ( MsgRcvd 11/08/2019 20:59) Final results Test Result Flag Units (Reference) COMPREHENSIVE METABOLIC PANEL COMPREHENSIVE METABOLIC PANEL SODIUM 137 mEq/L (134 - 153) POTASSIUM 3.6 mEq/L (3.6 - 5.0) CHLORIDE 102 mEq/L (98 - 107) CO2 26 MEQ/L (22 - 30) GLUCOSE 100 MG/DL (65 - 110) BUN 12 MG/DL (7 - 21) CREATININE 1.0 MG/DL (0.7 - 1.5) BUN/CREAT 12 (8 - 27) TOTAL PROTEIN 6.8 G/DL (6.3 - 8.2) ALBUMIN 4.2 G/DL (3.9 - 5.0) GLOBULIN 2.6 GM/DL (2.4 - 3.2) A/G RATIO 1.6 (0.8 - 2.0) CALCIUM 9.6 MG/DL (8.4 - 10.2) TOTAL BILI <0.7 MG/DL (0.2 - 1.3) ALKALINE PHOS 57 U/L (38 - 126) SGOT/AST 16 U/L (5 - 40) SGPT/ALT 14 U/L (7 - 56) ANION GAP 9.0 mmol/L (8.0 - 16.0) AGE 20 yrs NON- AA GFR >60 mL/min AFR AMER GFR >60 mL/min Male GFR Interprentation 20-49 yrs >60 mL/min Bpdxdr27-77 yrs >56 mL/min Normal 60- 69 yrs >49 mL/min Normal 70-79yrs>42 mL/min Normal 80 and above >35 mL/min Normal Female GFRInterpretation 20-39 yrs >60 mL/min Normal 40-49 yrs >58 mL/minNormal 50-59 yrs >51 mL/min Normal 60-69 yrs >45 mL/min Qxixta79-25 yrs >39 mL/min Normal 80 and above >32 mL/min NormalLipase: (MARTY: 11/08/2019 20:32) ( MsgRcvd 11/08/2019 20:59) Final results 4 Clinical Report - Physicians/Mid Levels [facility] Department [address] [place] [address] Phone #: ext- [phone] 11/08/2019 19:41 Patient: BALJINDER HARRIS Sex: M : 2000 Age: 18y Test Result Flag Units (Reference) LIPASE 25 U/L (13 - 60) Urinalysis: (MARTY: 0 11/08/2019 19:45) ( MsgRcvd 11/08/2019 20:37) Final results Test Result Flag Units (Reference) URINALYSIS URINALYSIS SOURCE Clean Catch COLOR yellow (NORMAL: Yello CLARITY clear (NORMAL: Clear SPEC GRAVITY 1.025 (1.001 - 1.030 pH 5 (5 - 9) GLUCOSE NORM (NORMAL: Negat BILIRUBIN NEG (NORMAL: Negat KETONE NEG (NORMAL: Negat PROTEIN NEG (NORMAL: Negat NITRITE NEG (NORMAL: Negat BLOOD 25 A (NORMAL: Negat LEUK EST NEG (NORMAL: Negat UROBILINOGEN NOR (less than 1.0 MICROSCOPIC See Below RBC 1 - 3 (NORMAL: NONE EPITHELIAL FEW (NORMAL: NONE.PROGRESS AND PROCEDURESCourse of Care: Nov 08 2019. Evaluation after observation. (Discussed risks, benefits, options andpt is agreeable with dx and tx plan and pt will call GI tomorrow for follow up.). Patient counseled in person regarding the patient's stable condition, test results, diagnosis and need for follow-up. Patient agrees with plan of care. :Nov 08 2019. Disposition: Discharged home in good and improved condition (Nov 08 2019).CLINICAL IMPRESSION Chronic ulcerative colitis involving the sigmoid colon; Crohn's disease involving large and small bowel; inflammatory colitis; infectious colitis. No ulcerative colitis with bleeding or abscess. No Crohn's disease with bleeding.INSTRUCTIONS Do not work tomorrow. Warnings: GENERAL WARNINGS: Return or contact your physician immediately if your condition worsens or changes unexpectedly, if not improving as expected, or if other problems arise. 5 Clinical Report - Physicians/Mid Levels [facility] Emergency Department [address] [place] [address] Phone #: ext- [phone] 11/08/2019 19:41 Patient: BALJINDER HARRIS Sex: M : 2000 Age: 18y SPECIFICALLY, return if you develop fever, vomiting, the inability to keep fluids down, blood in vomitus or blood in diarrhea; or if there is no improvement in the pain in the abdomen. Your Current Medications: Your current home medications have been reviewed. CONTINUE TAKING THE FOLLOWING MEDICATIONS: Entyvio Intravenous : q8h. Prescription Medications: ciprofloxacin 500 mg tablet Take 1 tablet twice a day as directed for 10 days -- Dispense 20 tablet. Refills: 0. Substitution permitted. Pharmacy - [id number] [address] [place], [place] [phone]. FaxNumber: . Flagyl 500 mg tablet Take 1 tablet twice a day as directed for 7 days -- Dispense 14 tablet. Refills: 0. Substitution permitted. [facility] [place] [address] ; [place], [place] [id number]. . prednisone 20 mg tablet Take 3 tablet once a day for 5 days -- Dispense 15 tablet. Refills: 0. Substitution permitted. [facility] [address] [facility] ; [place], [place] [id number]. . Follow-up: Follow up with a specialist GI Doctor. Call for the next available appointment. Reason for referral: evaluation and treatment. Summary of care provided to patient and family. Understanding of the discharge instructions verbalized by patient.(Electronically signed by BRENDA Lunsford 11/08/2019 22:48) Name Value Range Interpretation Code Description Data Denisse rce(s) Supporting Document(s) ID Date Data Source [id number] 11/08/2019 08:32:00 PM EDT [facility] ([facility]) Name Value Range Interpretation Code Description Data Denisse rce(s) Supporting Document(s) CBC W/Automated Diff Laboratory test result [facility] ([facility]) COMPLETE BLOOD COUNT Hemoglobin 14.4 g/dL 14.0-16.0 [facility] ([facility]) RBC 5.04 10^6/uL 4.50-6.30 [facility] ([facility]) WBC 13.1 10^3/uL 4.2-11.0 Above high normal [facility] T ([facility]) MCV 83.5 fL 80.0-94.0 [facility] ([facility]) Hematocrit 42.1 % 41.0-51.0 [facility] ([facility]) MCH 28.6 pg 27.0-34.0 [facility] ([facility]) Platelets 275 10^3/uL 150-450 [facility] ([facility]) RDW 12.6 % 11.5-14.8 [facility] ([facility]) MCHC 34.2 g/dL 31.0-36.0 [facility] ([facility]) Neut 73.4 % 37.0-80.0 [facility] ([facility]) Lymph 16.3 % 25.0-40.0 Below low normal [facility] ( [facility]) MPV 9.4 fL 7.4-10.4 [facility] ([facility]) Baso 0.2 % 0.0-2.0 [facility] ([facility]) Stephenson 8.2 % 3.0-8.0 Above high normal [facility] ([facility]) Eos 1.5 % 0.0-7.0 [facility] ([facility]) %NRBC 0.0 % 0.0-0.0 [facility] ([facility]) #Neut 9.62 10^3/uL 2.00-6.90 Above high normal [facility] T ([facility]) %Ig 0.4 % 0.0-0.0 Above high normal [facility] ([facility]) #Lymph 2.14 10^3/uL 0.60-3.40 [facility] ([facility]) #Eos 0.20 10^3/uL 0.00-0.70 [facility] ([facility]) #Baso 0.03 10^3/uL 0.00-0.20 [facility] ([facility]) #Stephenson 1.08 10^3/uL 0.00-0.90 Above high normal [facility] T ([facility]) #NRBC 0.00 10^3/uL 0.00-0.00 [facility] ([facility]) #Ig 0.05 10^3/uL 0.00-0.10 [facility] ([facility]) Manual Diff Laboratory test result M [facility] ([facility]) %Stephenson 7 % 3-8 [facility] ([facility]) %Lymph 28 % 25-40 [facility] ([facility]) Segs 62 % 37-80 [facility] ([facility]) RBC Morph Laboratory test result [facility] ([facility]) %Baso 1 % 0-2 [facility] ([facility]) %Eos 2 % 0-7 [facility] ([facility]) ID Date Data Source [id number] 11/08/2019 08:32:00 PM EDT [facility] ([facility]) Name Value Range Interpretation Code Description Data Denisse rce(s) Supporting Document(s) Lipase [Enzymatic activity/volume] in Serum or Plasma 25 U/L 13-6 0 [facility] ([facility]) ID Date Data Source [id number] 11/08/2019 08:32:00 PM EDT [facility] ([facility]) Name Value Range Interpretation Code Description Data Denisse rce(s) Supporting Document(s) Sodium 137 meq/L 134-153 [facility] ([facility]) Comprehensive Metabo Laboratory test result [facility] ([facility]) COMPREHENSIVE METABOLIC PANEL Chloride 102 meq/L 98-107 [facility] ([facility]) Potassium 3.6 meq/L 3.6-5.0 [facility] ([facility]) Co2 26 meq/L 22-30 [facility] ([facility]) Glucose 100 mg/dL 65-110 [facility] ([facility]) Creatinine 1.0 mg/dL 0.7-1.5 [facility] ([facility]) BUN 12 mg/dL 7-21 [facility] ([facility]) BUN/Creat 12 8-27 [facility] ([facility]) Total Protein 6.8 g/dL 6.3-8.2 [facility] ([facility]) Albumin 4.2 g/dL 3.9-5.0 [facility] ([facility]) Globulin 2.6 GM/DL 2.4-3.2 [facility] ([facility]) Calcium 9.6 mg/dL 8.4-10.2 [facility] ([facility]) A/G Ratio 1.6 0.8-2.0 [facility] ([facility]) Sgot/Ast 16 U/L 5-40 [facility] ([facility]) Total Bili Laboratory test result 0.2-1.3 ME [facility] ([facility]) Alkaline Phos 57 U/L 38-126 [facility] ([facility]) SGPT/Alt 14 U/L 7-56 [facility] ([facility]) Age 18 yrs [facility] ([facility]) Anion Gap 9.0 mmol/L 8.0-16.0 [facility] ([facility]) Afr Amer GFR Laboratory test result [facility] ([facility]) Male GFR Interprentation 20-49 yrs >60 mL/min Normal 50-59 yrs >56 mL/min Normal 60-69 yrs >49 mL/min Normal 70-79yrs >42 mL/min Normal 80 and above >35 mL/min Normal Female GFR Interpretation 20-39 yrs >60 mL/min Normal 40-49 yrs >58 mL/min Normal 50-59 yrs >51 mL/min Normal 60-69 yrs >45 mL/min Normal 70-79 yrs >39 mL/min Normal 80 and above >32 mL/min Normal Non-Aa GFR Laboratory test [facility]) ID Date Data Source [id number] 11/08/2019 09:08:00 PM EDT [facility] Name Value Range Interpretation Code Description Data Denisse rce(s) Supporting Document(s) CBC W/AUTOMATED DIFF [facility] COMPLETE BLOOD COUNT Leukocytes [#/volume] in Blood by Automated count 13.1 10^3/uL 4.2 - 11.0 H [facility] Erythrocytes [#/volume] in Blood by Automated count 5.04 10^6/uL 4. 50 - 6.30 [facility] Hemoglobin [Mass/volume] in Blood 14.4 g/dL 14.0 - 16.0 [facility] Hematocrit [Volume Fraction] of Blood by Automated count 42.1 % 4 1.0 - 51.0 [facility] Erythrocyte mean corpuscular volume [Entitic volume] by Auto mated count 83.5 fL 80.0 - 94.0 [facility] Erythrocyte mean corpuscular hemoglobin [Entitic mass] by Automated count 28.6 pg 27.0 - 34.0 [facility] Erythrocyte mean corpuscular hemoglobin concentration [Mass/volume] by Automated count 34.2 g/dL 31.0 - 36.0 [facility] Erythrocyte distribution width [Ratio] by Automated count 12.6 % 11.5 - 14.8 [facility] Platelets [#/volume] in Blood by Automated count 275 10^3/uL 150 - 45 0 [facility] Platelet mean volume [Entitic volume] in Blood by Automated count 9.4 fL 7.4 - 10.4 [facility] Neutrophils/100 leukocytes in Blood by Automated count 73.4 % 37. 0 - 80.0 [facility] Lymphocytes/100 leukocytes in Blood by Manual count 16.3 % 25.0 - 40.0 L [facility] Monocytes/100 leukocytes in Blood by Automated count 8.2 % 3.0 - 8.0 H [facility] Eosinophils/100 leukocytes in Blood by Automated count 1.5 % 0.0 - 7.0 [facility] 0.2 %IG 0.4 % 0.0 - 0.0 [facility] 0.0 % 0.0 - 0.0 [facility] al Neutrophils [#/volume] in Blood by Automated count 9.62 10^3/uL 2.00 - 6.90 H [facility] Lymphocytes [#/volume] in Blood by Automated count 2.14 10^3/uL 0.60 - 3.40 [facility] Monocytes [#/volume] in Blood by Automated count 1.08 10^3/uL 0.00 - 0.90 H [facility] Eosinophils [#/volume] in Blood by Automated count 0.20 10^3/uL 0.00 - 0.70 [facility] Basophils [#/volume] in Blood by Automated count 0.03 10^3/uL 0.00 - 0.20 [facility] #IG 0.05 10^3/uL 0.00 - 0.10 [facility] #NRBC 0.00 10^3/uL 0.00 - 0.00 [facility] MANUAL DIFF SEE BELOW [facility] ital Segmented neutrophils/100 leukocytes in Blood by Manual count 62 % 37 - 80 [facility] %LYMPH 28 % 25 - 40 [facility] %MONO 7 % 3 - 8 [facility] %EOS 2 % 0 - 7 [facility] 1 RBC MORPH MORPH IS NORMAL [facility] ID Date Data Source [id number] 11/08/2019 08:59:00 PM EDT [facility] Name Value Range Interpretation Code Description Data Denisse rce(s) Supporting Document(s) Lipase [Enzymatic activity/volume] in Serum or Plasma 25 U/L 13 - 60 [facility] ID Date Data Source [id number] 11/08/2019 08:59:00 PM EDT [facility] Name Value Range Interpretation Code Description Data Denisse rce(s) Supporting Document(s) COMPREHENSIVE METABOLIC PANEL [facility] COMPREHENSIVE METABOLIC PANEL Sodium [Moles/volume] in Serum or Plasma 137 mEq/L 134 - 153 [facility] Potassium [Moles/volume] in Serum or Plasma 3.6 mEq/L 3.6 - 5.0 [facility] Chloride [Moles/volume] in Serum or Plasma 102 mEq/L 98 - 107 [facility] Carbon dioxide, total [Moles/volume] in Serum or Plasma 26 MEQ/L 22 - 30 [facility] Glucose [Mass/volume] in Serum or Plasma 100 MG/DL 65 - 110 [facility] BUN 12 MG/DL 7 - 21 [facility] Creatinine [Mass/volume] in Serum or Plasma 1.0 MG/DL 0.7 - 1.5 [facility] BUN/CREAT 12 8 - 27 [facility] Protein [Mass/volume] in Serum or Plasma 6.8 G/DL 6.3 - 8.2 [facility] Albumin [Mass/volume] in Serum or Plasma 4.2 G/DL 3.9 - 5.0 [facility] Globulin [Mass/volume] in Serum by calculation 2.6 GM/DL 2.4 - 3.2 [facility] A/G RATIO 1.6 0.8 - 2.0 [facility] Calcium [Mass/volume] in Serum or Plasma 9.6 MG/DL 8.4 - 10.2 [facility] Bilirubin.total [Mass/volume] in Serum or Plasma <0.7 MG/DL 0.2 - 1.3 [facility] Alkaline phosphatase [Enzymatic activity/volume] in Serum or Plasma 57 U/L 38 - 126 [facility] Aspartate aminotransferase [Enzymatic activity/volume] in Serum or Plasma 16 U/L 5 - 40 [facility] Alanine aminotransferase [Enzymatic activity/volume] in Seru m or Plasma 14 U/L 7 - 56 [facility] Anion gap 3 in Serum or Plasma 9.0 mmol/L 8.0 - 16.0 [facility] AGE 18 yrs [facility] NON-AA GFR >60 mL/min [facility] AFR AMER GFR >60 mL/min [facility] Male GFR In terprentation 20-49 yrs >60 mL/min Normal 50-59 yrs >56 mL/min Normal 60-69 yrs >49 mL/min Normal 70-79yrs >42 mL/min Normal 80 and above >35 mL/min Normal Female GFR Interpretation 20-39 yrs >60 mL/min Normal 40-49 yrs >58 mL/min Normal 50-59 yrs >51 mL/min Normal 60-69 yrs >45 mL/min Normal 70-79 yrs >39 mL/min Normal 80 and above >32 mL/min Normal ID Date Data Source [id number] 11/08/2019 07:45:00 PM EDT [facility] ([facility]) Name Value Range Interpretation Code Description Data Denisse rce(s) Supporting Document(s) Urinalysis Laboratory test result [facility] ([facility]) URINALYSIS Source Laboratory test result [facility] ([facility]) SOURCE: Clean Catch Clarity Laboratory test result [facility] ([facility]) SOURCE: Clean Catch Color Laboratory test result [facility] ([facility]) SOURCE: Clean Catch Spec [place] 1.025 1.001-1.030 [facility] ([facility]) SOURCE: Clean Catch pH 5 5-9 [facility] ([facility]) SOURCE: Clean Catch Glucose Laboratory test result [facility] ([facility]) SOURCE: Clean Catch Bilirubin Laboratory test result [facility] ([facility]) SOURCE: Clean Catch Ketone Laboratory test result [facility] ([facility]) SOURCE: Clean Catch Nitrite Laboratory test result [facility] ([facility]) SOURCE: Clean Catch Protein Laboratory test result [facility] ([facility]) SOURCE: Clean Catch Blood 25 Abnormal (applies to non-numeric res ults) [facility] ([facility]) SOURCE: Clean Catch Leuk Est Laboratory test result [facility] ([facility]) SOURCE: Clean Catch Urobilinogen Laboratory test result [facility] ([facility]) SOURCE: Clean Catch RBC Laboratory test result [facility] ([facility]) SOURCE: Clean Catch Microscopic Laboratory test result M [facility] ([facility]) SOURCE: Clean Catch Epithelial Laboratory test result [facility] ([facility]) SOURCE: Clean Catch ID Date Data Source [id number] 11/08/2019 08:36:00 PM EDT [facility] Name Value Range Interpretation Code Description Data Denisse rce(s) Supporting Document(s) [facility] S[facility] Clean Catch [facility] ital COLOR yellow NORMAL: Yellow [facility] CLARITY clear NORMAL: Clear [facility] Specific gravity of Urine by Test strip 1.025 1.001 - 1.030 [facility] pH 5 5 - 9 [facility] Glucose [Mass/volume] in Urine by Test strip NORM NORMAL: Negat [facility] Bilirubin.total [Presence] in Urine by Test strip NEG NORMAL: Negative [facility] Ketones [Presence] in Urine by Test strip NEG NORMAL: Negative [facility] Protein [Mass/volume] in Urine by Test strip NEG NORMAL: Negat [facility] Nitrite [Presence] in Urine by Test strip NEG NORMAL: Negative [facility] BLOOD 25 NORMAL: Negative A [facility] Leukocyte esterase [Presence] in Urine by Test strip NEG PALOMO L: Negative [facility] Urobilinogen [Mass/volume] in Urine by Test strip NOR less rob n 1.0 mg/dL [facility] MICROSCOPIC See Below [facility] ital Erythrocytes [#/volume] in Urine by Test strip 1 - 3 NORMAL: NON E SEEN [facility] EPITHELIAL FEW NORMAL: NONE SEEN [facility] ID Date Data Source [id number] 10/27/2019 08:45:00 PM EDT [facility] 1 OrderSheet [facility] Department [address] [place] [address] Phone #: [phone]- [phone] 10/27/2019 20:33 Patient: BALJINDER HARRIS Sex: M : 2000 Age: 18yWEIGHT:95.2 kg (S) HEIGHT:69 inches (S) BMI:31.0ALLERGIES: NoneCHIEF COMPLAINT: earacheDIAGNOSIS: Otitis mediaLAB ORDERSOrder Description Priority Entered Acknowledged InitialedDIAGNOSTIC STUDY ORDERSOrder Description Priority En tered Acknowledged InitialedMEDICATION/IV/DRIP/FLUID ORDERSOrder Description Priority Entered Acknowledged InitialedRocephin IM 1000 21:02 10/27/2019 21:10 mg Martin Posada Riccardo Robert R.N. M.D.;GENERAL ORDERSOrder Description Priority Entered Acknowledged Initialed[Electronically signed by Rommel Posada R.N. (21:16 10/27/2019)][Electronically signed by Carole Salazar M.D. (21:32 10/27/2019)][Electronically locked by Rommel Posada R.N. (21:16 10/27/2019)] Name Value Range Interpretation Code Description Data Denisse rce(s) Supporting Document(s) ID Date Data Source [id number] 10/27/2019 08:45:00 PM EDT [facility] 1 Medication Reconciliation Report [facility] Department [address] [place] [address] Phone #: [phone]- [phone] 10/27/2019 20:33 Patient: BALJINDER HARRIS Sex: M : 2000 Age: 18yWeight: 95.2 kgHeight/Length: 69 in.BMI: 31.0ALLERGIES: NoneThe patient's Home Medications are listed below:CONTINUE TAKING THE FOLLOWING MEDICATIONS: some IV med every few monthsThe source(s) of the original Home Medication information:Not obtained.The following Medications were given to the patient in the Emergency Department:Rocephin [IM] IM 1 gm, administered: 10/27/2019 9:10:00 PMThe following Medications were prescribed to the patient:amoxicillin 875 mg tablet Take 1 tablet twice a day for 10 days -- Dispense 20 tablet. Refills: 0.Substitution permitted.Pharmacy - [facility] - [address] [place], [place] [phone]. . -- Carole Salazar M.D. Name Value Range Interpretation Code Description Data [facility](s) Supporting Document(s) ID Date Data Source [id number] 10/27/2019 08:45:00 PM EDT [facility] 1 Medication Administration Record [facility] Department [address] [place] [address] Phone #: ext- [phone] 10/27/2019 20:33 Patient: BALJINDER HARRIS Sex: M : 2000 Age: 18yWeight: 95.2 kgHeight/Length: 69 inBMI: 31ALLERGIES: None Date/Time Medication Administered Medication OrderedGiven ROCEPHIN [IM] (CEFTRIAXONE Rocephin IM 1000 mg21:10 10/27/2019 SODIUM)Rommel Posada R.N. Dose: 1 gm IM Name Value Range Interpretation Code Description Data Denisse [facility](s) Supporting Document(s) ID Date Data Source [id number] 10/27/2019 08:45:00 PM EDT [facility] 1 General Instructions [facility] Emergency Department [address] [place] [address] Phone #: ext [phone] 10/27/2019 20:33 Patient: BALJINDER HARRIS Sex: M : 2000 Age: 18yAcute suppurative right otitis media. No perforation of right tympanic membrane.INSTRUCTIONSAlternate Tylenol (Acetaminophen) or Motrin (Ibuprofen) for fever, temperature greater than 101 degreesorally. Take according to label instructions.Drink plenty of fluids. No alcohol.Warnings: Further evaluation is necessary. It is very important to follow up with a healthcare provider.GENERAL WARNINGS: Return or contact your physician immediately if your condition worsens orchanges unexpectedly, if not improving as expected, or if other problems arise. Specifically return if pain,vomiting, bleeding, breathing difficulty or fever greater than 102 degrees F and not controlled byacetaminophen or ibuprofen worsens.Your Current Medications: Your current home medications have been reviewed.CONTINUE TAKING THE FOLLOWING MEDICATIONS:some IV med every few months*.Prescription Medications:amoxicillin 875 mg tablet Take 1 tablet twice a day for 10 days -- Dispense 20 tablet. Refills: 0.Substitution permitted.Pharmacy - [facility] - [address] [place] [phone]. .Follow-up:Return to the emergency department as needed. Follow up with your healthcare provider in seven dayseven if well. Call for an appointment. Reason for referral: evaluation, treatment and right ear recheck.Summary of care provided to patient via paper.Understanding of the discharge instructions verbalized by patient. Expected course of illness, dischargeinstructions, activity level, diet, prescriptions x1, follow-up appointment and risks and benefits of treatmentreviewed with patient and understanding verbalized. Agrees to plan of care. ADDITIONAL INFORMATIONMiddle Ear Infection (Adult) 2 General Instructions [facility] Emergency Department [address] [place] [address] Phone #: ext- [phone] 10/27/2019 20:33 [id number] Sex: M : 2000 Age: 18yYou have an infection of the middle ear, the space behind the eardrum. This is also called acute otitismedia (AOM). Sometimes it is caused by the common cold. This is because congestion can block theinternal passage (eustachian tube) that drains fluid from the middle ear. When the middle ear fills withfluid, bacteria can grow there and cause an infection. Oral antibiotics are used to treat this illness, notear drops. Symptoms usually start to improve within 1 to 2 days of treatment.Home careThe following are general care guidelines: Finish all of the antibiotic medicine given, even though you may feel better after the first few days. You may use ioiv-gsp-wavavxz medicine, such as acetaminophen or ibuprofen, to control pain and fever, unless something else was prescribed. If you have chronic liver or kidney disease or have ever had a stomach ulcer or gastrointestinal bleeding, talk with your healthcare provider before using these medicines. Do not give aspirin to anyone under 18 years of age who has a fever. It may cause severe illness or .Follow-up careFollow up with your healthcare provider, or as advised, in 2 weeks if all symptoms have not gottenbetter, or if hearing doesn't go back to normal within 1 month.When to seek medical adviceCall your healthcare provider right away if any of these occur: 3 General Instructions [facility] Emergency Department [address] [place] [address] Phone #: ext- [phone] 10/27/2019 20:33 Patient: BALJINDER HARRIS [facility]#: [id number] Sex: M : 2000 Age: 18y Ear pain gets worse or does not improve after 3 days of treatment Unusual drowsiness or confusion Neck pain, stiff neck, or headache Fluid or blood draining from the ear canal Fever of 100.4F (38C) or as advised Seizure [id number] [employer]. [address] [place] [address]. All rights reserved. This information is not intended as asubstitute for professional medic al care. Always follow your healthcare professional's instructions.Fever Control (Adult)A fever is a normal reaction of your body to an illness. The temperature itself usually isn't harmful. Itactually helps your body fight infections. You don't need to treat a fever unless you feel veryuncomfortable.Home careFollow these tips to take care of yourself at home: If you feel warm, check your temperature. Dress in light clothing. This will help you lose extra body heat through your skin. The fever will go up if you wear extra layers or wrap in blankets. Fever causes your body to lose water through evaporation. Drink plenty of fluids. These include water, juice, clear sodas, rangel maribel, or lemonade.Fever medicinesYou can take acetaminophen every 4 to 6 hours if: You feel very uncomfortable Your oral temperature is 100.4F (38C) or higherIf you can't take or keep down oral medicine, ask your pharmacist for acetaminophen suppositories.You don't need a prescription for these.If the fever doesn't get better within 1 hour after you take acetaminophen, take ibuprofen. If thisworks, keep taking the ibuprofen every 6 to 8 hours.If you have chronic liver or kidney disease, talk with your healthcare provider before taking these 4 General Instructions [facility] Department [address] [place] [address] Phone #: ext- [phone] 10/27/2019 20:33 Patient: BALJINDER HARRIS [facility]#: [id number] Sex: M : 2000 Age: 18ymedicines. Also talk with your provider if you ever had a stomach ulcer or GI (gastrointestinal)bleeding.If either medicine alone doesn't keep the fever down, you may switch off between the 2 medicinesevery 3 to 4 hours. But do this only if your healthcare provider has told you to. For example, takeibuprofen. Wait 3 hours. Then take acetaminophen. Wait 3 hours. Take ibuprofen, and so on. Followyour provider's instructions exactly.Don't give aspirin to anyone younger than age 19 who is ill with a fever. Aspirin can cause seriousside effects such as liver damage and Emeka syndrome. Although rare, Emeka syndrome is a veryserious illness usually found in children younger than age 15. The syndrome is closely linked to theuse of aspirin or aspirin-containing medicine during viral infection.Follow-up careFollow up with your healthcare provider if you don't get better after 48 hours.When to seek medical adviceCall your healthcare provider right away if any of these occur: Fever, as directed by your healthcare provider, or: o Fever of 100.4F (38C) or above lasting for 24 to 48 hours o Fever lasting more than 3 days, even without other symptoms o Fever that happens after visiting a foreign country o Fever that happens within a month after visiting a country with malaria. Malaria is a serious illness. A fever can still be malaria even if you took medicine to prevent it. The medicine does not work in all cases. Confusion or trouble thinking Headache or stiff neck Flat, small, purplish red spots on your skin Low blood pressure Fast heart rate Fast (rapid) breathing You are You just had surgery, another medical procedure, or were just discharged from the hospital 5 General Instructions [facility] Emergency Department [address] [place] [address] Phone #: ext- [phone] 10/27/2019 20:33 Patient: BALJINDER HARRIS Sex: Kelli : 2000 Age: 18y Use of medicines that suppress the immune system (immunosuppressants). These include Prednisone, cancer medicines, and organ transplant rejection medicines. If you are not sure about whether your medicines suppress your immune system, ask your healthcare provider.Call 911Someone should call 911 if you: Are having trouble breathing or shortness of breath Are unresponsiveImportant reminderCall your healthcare provider if you get a fever after visiting a place where infectious diseases arecommon. Many people pickle pumper a cold or other virus while traveling. This usually goes away without aproblem. But, some places have more serious diseases. Fever with certain other symptoms maymean you have a serious illness. Symptoms to watch for include diarrhea, skin rashes, insect bites,and skin boils, or inf ections. Your provider may ask you: What you did on your trip How long you were there Where you stayed (hotel, [place] house, tent) What you ate and drank If you were bitten by insects or other bugs If you swam in freshwater If you had sex or got a tattoo or piercing while you were thereCheck the [facility] to get more information about specific infectious diseases in the areas you havetraveled. 2371-3448 [employer]. [address] [place] [address]. All rights reserved. This information is not intended as asubstitute for professional medical care. Always follow your healthcare professional's instructions. You have been given the following additional information: Otitis Media, Antibiotic Treatment (Adult) Fever Control (Adult) 6 General Instructions [facility] Emergency Department [address] [place] [address] Phone #: ext- [phone] 10/27/2019 20:33 Patient: BALJINDER HARRIS Sex: M : 2000 Age: 18y(Electronically signed by Carole Salazar M.D. 10/27/2019 21:32) Name Value Range Interpretation Code Description Data Denisse rce(s) Supporting Document(s) ID Date Data Source [id number] 10/27/2019 08:45:00 PM EDT [facility] 1 Clinical Report - Nurses [facility] Emergency Department [address] [place] [address] Phone #: ext- [phone] 10/27/2019 20:33 Patient: BALJINDER HARRIS Sex: M : 2000 Age: 18yTRIAGEArrived by private vehicle. Historian: patient. Accompanied by family. ( ears are popping and starting tohurt and throat hurts).Acuity: LEVEL 4.Chief Complaint: RIGHT EAR PAIN and LEFT EAR PAIN and (sore throat).Alert. No acute distress.Onset. (1 month ago, bad last week). He has had a sore throat.Treatment CORPORATE LEGAL SECRETARY:(zyrtec).SEPSIS SCREEN: SIRS Screen negative. Sepsis Screen negative. No suspected or confirmed signs ofinfection present. --20:39 10/27/19 Imelda Navarro R.N.20:34 10/27/19. BP: 160/98. MAP: 118. HR: 81. RR: 18. O2 saturation: 100%. Temp: 97.6 F (oral). Painlevel now: 06/14. --20:39 10/27/19 Imelda Navarro R.N.Weight: 95.2 kg stated. Height/Length: 69 inches Per Patient. BMI: 31. --20:33 10/27/19 Imelda Navarro R.N.Medicationssome IV med every few months. --20:36 10/27/19 Imelda Navarro R.N.AllergiesNone. --20:36 10/27/19 Imelda Navarro R.N.PROBLEMS:Celiac Disease.Ulcerative colitis (disorder). --20:37 10/27/19 Imelda Navarro R.N.Crohn's Disease. --21:04 10/27/19 Carole Salazar M.D.The following entry was modified by Carole Salazar M.D., 21:04 10/27/19Crohn's Disease. --20:37 10/27/19 Imelda Navarro R.N..ADDITIONAL SURGERIES:Tubes in ears. --20:37 10/27/19 Imelda Navarro R.N.HistoryPAST MEDICAL HX: Immunizations: up-to-date.SOCIAL HX: Never smoker. No alcohol use or drug use. He was offered HIV testing but declined and 2 Clinical Report - Nurses [facility] Emergency Department [address] [place] [address] Phone #: ext- [phone] 10/27/2019 20:33 Patient: BALJINDER HARRIS Sex: M : 2000 Age: 18y hepatitis C testing but declined. He has not traveled outside the [place] Infectious disease exposure: No infectious disease exposure. Patient is not a known carrier of tuberculosis, hepatitis, HIV, MRSA or VRE. Patient is not a known carrier of CRE. SELF HARM ASSESSMENT: Self harm assessment was performed. The patient answered "no" to the question(s) "Have you recently felt down, depressed, or hopeless?", "Do you have thoughts of harming or killing yourself?", "Do you have a plan for harming or killing yourself?", "Have you recently had thoughts about harming or killing others?", "Do you have any dangerous items in your possession?", "Have you noticed less interest or pleasure in doing things?", "Are you here because you tried to hurt yourself?" and "Have you ever tried to hurt yourself before today?". ABUSE ASSESSMENT: Abuse assessment. Abuse denied. No suspicion of abuse. No report of abuse. NUTRITIONAL RISK ASSESSMENT: The nutritional risk assessment revealed no deficiencies. FUNCTIONAL ASSESSMENT: Functional assessment: no impairments noted. LEARNING NEEDS ASSESSMENT: The learning needs assessment revealed no barriers. FALL RISK ASSESSMENT: Fall risk assessment completed. No risk factors identified. SKIN INTEGRITY ASSESSMENT: Skin integrity risk assessment completed. No skin integrity risk identified. --20:39 10/27/19 Imelda Navarro R.N. Interventions Identification band on patient. To treatment room. --20:39 10/27/19 Imelda Navarro R.N.PHYSICAL ASSESSMENTGENERAL / NEURO / PSYCH: Alert. Appears in no acute distress.HEENT: No facial asymmetry noted. Pupils equal, round and reactive to light. EOM intact. Abnormalear exam (c/o both ears popping, right worse than left. pt has a hx of tubes in ears as a child). Pharyngealery thema.RESPIRATORY: No respiratory distress. Respirations not labored and labored. Chest nontender.Breath sounds within normal limits.CVS: Pulses within normal limits. Capillary refill less than 2 seconds and seconds.SKIN: Skin is warm and dry. --20:52 10/27/19 Rommel Posada R.N.NURSING PROGRESS NOTESReassurance given. Two patient identifiers checked. Call light placed in reach. Side rails up x 2. Bedplaced in lowest position. Brakes of bed on. Patient ready for evaluation- PA notified. --20:39 10/27/19Imelda Navarro R.N. 21:10 10/27/2019 Rocephin (cefTRIAXone Sodium) IM 1 gm given. Given in the right an terior lateral thigh. Allergies verified and confirmed 5 rights. Information reviewed with patient including reason for taking this 3 Clinical Report - Nurses [facility] Emergency Department [address] [place] [address] Phone #: ext- [phone] 10/27/2019 20:33 [id number] Sex[facility] M : 2000 Age: 18y medication, signs of allergic reaction and precautions. Verbalizes understanding. --21:10 10/27/19 Rommel Posada R.N. Reassessment acuity: LEVEL 5. Reassessment after medication administered. No adverse reaction. Overall patient status is the same. GENERAL / NEURO / PSYCH: Alert. Oriented X 4. RESPIRATORY: No respiratory distress. Breath sounds normal. CVS: Capillary refill less than 2 seconds. SKIN: Skin is warm and dry. Two patient identifiers checked. Call light placed in reach. Side rails up x 1. Bed placed in lowest position. Brakes of bed on. --21:12 10/27/19 Rommel Posada R.N.DISPOSITION / DISCHARGE 21:13 10/27/2019 Rocephin IM Response: no adverse reaction symptoms are the same. The patient feels the same. --21:13 10/27/19 Rommel Posada R.N. Condition at departure: unchanged. No learning barriers present. Discharge instructions provided and reviewed with the patient. Patient verbalized understanding. Written instructions provided in Salvadorean. The patient was discharged by the physician. He was discharged home and accompanied by parent. He left ambulatory and via private vehicle. Parent driving. Patient has no belongings. --21:13 10/27/19 Rommel Posada R.N. 20:56 10/27/19. BP: 108/60. MAP: 76. HR: 77. RR: 16. O2 saturation: 100%. Temp: 98.7 F. Pain level now: 12/12. --21:13 10/27/19 Rommel Posada R.N. Departure time: 21:16 10/27/2019. --21:16 10/27/19 Rommel Posada R.N.Locked/Released at 10/27/2019 21:16 by Rommel Posada R.N. Name Value Range Interpretation Code Description Data Denisse rce(s) Supporting Document(s) ID Date Data Source [id number] 10/27/2019 08:45:00 PM EDT [facility] 1 Clinical Report - Physicians/Mid Levels [facility] Emergency Department [address] [place] [address] Phone #: ext- [phone] 10/27/2019 20:33 Patient: BALJINDER HARRIS [facility]#: [id number] Sex: M : 2000 Age: 18y Time Seen: 20:40 10/27/2019; initial patient contact. Arrived- By private vehicle. Historian- patient. Disposition decision: 21:10/27/2019.HISTORY OF PRESENT ILLNESS Chief Complaint: EARACHE. This started 2 weeks ago and is still present and now worse (especially rt ear). Onset during rest. Modifying factors- worsened by swallowing. Not relieved by anything. Location- right ear (right much worse than left, today). The pain is described as moderate. The patient has had moderate right ear pain. No ear drainage, hearing loss, nasal congestion, sinus pressure or ear trauma. No recent barotrauma, tinnitus, toothache, jaw pain or facial pain. The patient has had a moderate watery nasal discharge. He has had a mild sore throat. Similar symptoms previously. Patient has had similar symptoms occasionally. Recent medical care: Not recently seen/assessed.REVIEW OF SYSTEMSNo fever, chills, cough, difficulty breathing or chest pain. No headache, eye discomfort, nausea, vomitingor diarrhea. No abdominal pain, difficulty with urination, skin rash, enlarged lymph nodes or joint pain.Has not had decreased oral intake.PAST HISTORYSee nurses notes. Problems: Crohn's Disease. Celiac Disease. Ulcerative colitis (disorder). Additional Surgeries: Tympanostomy Tubes. Medications: some IV med every few months. Allergies: None.SOCIAL HISTORYNever smoker. No alcohol use or drug use. 2 Clinical Report - Physicians/[facility] Emergency Department [address] [place] [address] Phone #: ext- [phone] 10/27/2019 20:33 Patient: BALJINDER HARRIS [facility]#: [id number] Sex: M : 2000 Age: 18yADDITIONAL NOTESThe nursing notes have been reviewed with agreement regarding the chief complaint, HPI, ROS, PMH andpatient medications and allergies.PHYSICAL EXAMVital Signs: 10/27/2019 20:34 BP: 160/98. MAP: 118. HR: 81. RR: 18. O2 saturation: 100%. Temp: 97.6F. Pain level now: 06/14. Have been reviewed. Oxygen saturation normal.Appearance: Alert. No acute distress.Eyes: Eyes normal inspection.Ear (left): There is mild fluid behind the tympanic membrane. Left ear normal. Left tympanic membranenormal.Throat: Pharynx normal.Ear (right): There is erythema, dullness and bulging of the tympanic membrane and loss of tympanicmembrane landmarks. Right ear normal.Nose: Nose normal.Neck: Normal inspection. Neck supple.CVS: Normal heart rate and rhythm. Heart sounds normal.Respiratory: No respiratory distress. Painless inspiration. Breath sounds normal.Abdomen: Soft and nontender.Back: Normal inspection.: Normal genitalia.Skin: Skin warm and dry. Normal skin color. No rash. Normal skin turgor.Extremities: Extremities exhibit normal ROM. No lower extremity edema.Neuro: Oriented X 3. No motor deficit. No sensory deficit.PROGRESS AND PROCEDURESCourse of Care: 21:05 10/27/19. pt has rt AOM; will treat accordingly; pt does not want any pain meds. Patient counseled in person regarding the patient's stable condition, diagnosis and need for follow-up. Patient agrees with plan of care. Disposition: Condition: good and stable. Discharge decision based on the following: patient's condition is stable; patient's condition is improved; patient is ambulatory; patient is active; patient drinking fluids; patient's pain is controlled; patient's exam is improved; improving condition on multiple repeat evaluations; social support is good; transportation is available; follow-up is available; clinical impression is consistent with outpatient treatment.CLINICAL IMPRESSION Acute suppurative right otitis media. No perforation of right tympanic membrane. 3 Clinical Report - Physicians/Mid Levels [facility] Emergency Department [address] [place] [address] Phone #: ext- [phone] 10/27/2019 20:33 Patient: BALJINDER HARRIS Sex: M : 2000 Age: 18yINSTRUCTIONS Alternate Tylenol (Acetaminophen) or Motrin (Ibuprofen) for fever, temperature greater than 101 degrees orally. Take according to label instructions. Drink plenty of fluids. No alcohol. Warnings: Further evaluation is necessary. It is very important to follow up with a healthcare provider. GENERAL WARNINGS: Return or contact your physician immediately if your condition worsens or changes unexpectedly, if not improving as expected, or if other problems arise. Specifically return if pain, vomiting, bleeding, breathing difficulty or fever greater than 102 degrees F and not controlled by acetaminophen or ibuprofen worsens. Your Current Medications: Your current home medications have been reviewed. CONTINUE TAKING THE FOLLOWING MEDICATIONS: some IV med every few months*. Prescription Medications: amoxicillin 875 mg tablet Take 1 tablet twice a day for 10 days -- Dispense 20 tablet. Refills: 0. Substitution permitted. Pharmacy - [id number] [address], [place] [id number]. . Follow-up: Return to the emergency department as needed. Follow up with your healthcare provider in seven days even if well. Call for an appointment. Reason for referral: evaluation, treatment and right ear recheck. Summary of care provided to patient via paper. Understanding of the discharge instructions verbalized by patient. Expected course of illness, discharge inst ructions, activity level, diet, prescriptions x1, follow-up appointment and risks and benefits of treatment reviewed with patient and understanding verbalized. Agrees to plan of care.(Electronically signed by Carole Salazar M.D. 10/27/2019 21:32) Name Value Range Interpretation Code Description Data Denisse rce(s) Supporting Document(s) ID Date Data Source [id number] 06/21/2019 01:27:00 PM EST [facility] Name Value Range Interpretation Code Description Data [facility] rce(s) Supporting Document(s) Gastrointestinal (GI) Panel Laboratory test result [facility] ([facility]) This Gastrointestinal PCR Panel detects the following bacteria, parasites and viruses: Campylobacter (jejuni, coli and upsaliensis), Clostridium difficile (toxin A/B), Plesiomonas shigelloides, Salmonella, Yersinia enterocolitica, Vibrio (parahaemolyticus, vulnificus and cholerae), Vibrio clolerae, Enteroaggregative E. coli (EAEC), Enteropathogenis E. coli (EPEC), Enterotoxigenic E. coli (ETEC) it/st, Shiga-like producing E. coli (STEC) stx1/stc2, E.coli O157, Shigella/Enteroinvasive E. coli (EIEC), Cryptosporidium, Cyclospora cayetanensis, Entamoeba histolytica, Giardia lamblia, Adenovirus F 40/41, Astrovirus, Norovirus GI/GII, Rotavirus A and Sapovirus (I, II, IV, V). NEGATIVE by MULTIPLEXED NUCLEIC ACID PCR Procedure Vital Signs ID Date Data Source UNK Name Value Range Interpretation Code Description Data Source(s) Body weight 91.174 kg 91.174 kg [facility] ([facility]) Body mass index (BMI) [Ratio] 28.0 kg/m2 28.0 k g/m2 [facility] ([facility]) Body weight 201.00 [lb_av] 201.00 [lb_av] [facility] Body height 71 [in_i] 71 [in_i] [facility] ([facility]) 5'11" Diastolic blood pressure 76 mm[Hg] 76 mm[Hg] [facility] ([facility]) Systolic blood pressure 128 mm[Hg] 128 mm[Hg] [facility] ([facility])
--- NOTE | 2020-06-19 10:42 | ROOR ---
Patient Name: Daniel Myers Procedure Date: 06/19/2020 10:05 AM Date of : 2000 Age: 19 Room: [facility] Gender: Male Note Status: Finalized Procedure: Colonoscopy Indications: Disease activity assessment of chronic ulcerative pancolitis, Assess therapeutic response to therapy of chronic ulcerative pancolitis Providers: Eliel Quiroz MD Referring MD: WILDA MAYES MD Requesting Provider: Medicines: Monitored Anesthesia Care Complications: No immediate complications. Procedure: Pre-Anesthesia Assessment: - Prior to the procedure, a History and Physical was performed, and patient medications and allergies were reviewed. The patient is competent. The risks and benefits of the procedure and the sedation options and risks were discussed with the patient. All questions were answered and informed consent was obtained. Patient identification and proposed procedure were verified by the physician, the nurse and the anesthesiologist in the procedure room. Mental Status Examination: alert and oriented. Airway Examination: normal oropharyngeal airway and neck mobility. Respiratory Examination: clear to auscultation. CV Examination: normal. Prophylactic Antibiotics: The patient does not require prophylactic antibiotics. Prior Anticoagulants: The patient has taken no previous anticoagulant or antiplatelet agents. ASA Grade Assessment: II - A patient with mild systemic disease. After reviewing the risks and benefits, the patient was deemed in satisfactory condition to undergo the procedure. The anesthesia plan was to use monitored anesthesia care (MAC). Immediately prior to administration of medications, the patient was re-assessed for adequacy to receive sedatives. The heart rate, respiratory rate, oxygen saturations, blood pressure, adequacy of pulmonary ventilation, and response to care were monitored throughout the procedure. The physical status of the patient was re-assessed after the procedure. The Colonoscope was introduced through the anus and advanced to the cecum, identified by appendiceal orifice and ileocecal valve. The colonoscopy was performed without difficulty. The patient tolerated the procedure well. The quality of the bowel preparation was good. The terminal ileum, ileocecal valve, appendiceal orifice, and rectum were photographed. Scope insertion time was 1 minute. Scope withdrawal time was 8 minutes. The total duration of the procedure was 9 minutes. Findings: The perianal and digital rectal examinations were normal. The terminal ileum appeared normal. Biopsies were taken with a cold forceps for histology. Verification of patient identification for the specimen was done by the physician and nurse using the patient's name, date and medical record number. Estimated blood loss was minimal. Inflammation characterized by altered vascularity, congestion (edema), loss of vascularity, scarring and shallow ulcerations was found in a continuous and circumferential pattern from the rectum to the cecum. No sites were spared. This was severe and graded as Haile Score 3 (severe, with spontaneous bleeding, ulcerations), and when compared to previous examinations, the findings are unchanged. Five biopsies were obtained with cold forceps for histology in the right colon, as well as five biopsies in the left colon. Fluid aspiration was performed through the scope suction channel. The amount of fluid collected was 20 mL. Sample(s) were sent for microbiology. Retroflexion in the rectum was not performed due to severe colitis. Non-bleeding external and internal hemorrhoids were found during endoscopy. The hemorrhoids were small. Impression: - The examined portion of the ileum was normal. Biopsied. - Pancolitis. Inflammation was found from the rectum to the cecum. This was severe and graded as Haile Score 3 (severe disease), unchanged compared to previous examinations. Fluid aspiration performed. - Non-bleeding external and internal hemorrhoids. - Biopsies performed in the right colon and in the left colon. Recommendation: - Patient has a contact number available for emergencies. The signs and symptoms of potential delayed complications were discussed with the patient. Return to normal activities tomorrow. Written discharge instructions were provided to the patient. - High fiber diet. - Continue present medications. - Taper prednisone. - Use prednisone 40 mg PO once a day as per the script instructions. Dose to be tapered gradually as per script. - Await pathology results. - Return to GI clinic in [facility] (address [address], [address], [place], [facility]) in 4 -- 6 weeks. Please call GI clinic @ [phone] for apppointment date and time. - Return to primary care physician. Procedure Code(s): --- Professional --- 22840, Colonoscopy, flexible; with biopsy, single or multiple Diagnosis Code(s): --- Professional --- K64.8, Other hemorrhoids K52.9, Noninfective gastroenteritis and colitis, unspecified K51.00, Ulcerative (chronic) pancolitis without complications CPT copyright 2019 [employer]. All rights reserved. The codes documented in this report are preliminary and upon security consultant review may be revised to meet current compliance requirements. Eliel Quiroz MD Eliel Quiroz MD 06/19/2020 10:42:10 AM Electronically signed by Eliel Quiroz MD Number of Addenda: 0 Note Initiated On: 06/19/2020 10:05 AM Estimated Blood Loss: Estimated blood loss was minimal.
[2020-06-19 10:50] VITALS: BP 122/63
[2020-06-19 11:59] LABS: CLOSTRIDIUM DIFFICILE PCR NEGATIVE (NEGATIVE)
== END 2020-06-19 10:55 | disposition home or self-care (01) ==
LOC: M OPP 09:15
PROVIDERS: ATTEND Internal Medicine Gastroenterology
DX: K51.00 Ulcerative (chronic) pancolitis without complications (principal); K52.9 Noninfective gastroenteritis and colitis, unspecified; D13.39 Benign neoplasm of other parts of small intestine; K64.8 Other hemorrhoids; R12 Heartburn; Z79.899 Other long term (current) drug therapy; Z80.1 Family history of malignant neoplasm of trachea, bronchus and lung; Z83.3 Family history of diabetes mellitus

== ENCOUNTER 2020-07-24 07:58 | Outpatient (CLI) | payer OTHER ==
[~2020-07-24] VITALS: Ht 180.3 cm; Wt 98.0 kg
[2020-07-24] VITALS (7 sets, daily range): BP systolic 122–158; BP diastolic 64–84
[~2020-07-24 07:58] MED LIST changes: -NS 1,000 ML IV ONE; -propofoL 500 MG/50 ML VIAL As Ordered ONE
[2020-07-24] MEDS ORDERED: NS 1,000 ML IV SCH (08:00)
[2020-07-24] MEDS ORDERED: INFLIXIMAB BIOSIMILAR 500 MG in NS 200 ML IV ONE (08:00)
[2020-07-24] MEDS ORDERED: ACETAMINOPHEN 650MG PO PRIOR TO INFUSION PO ONE (08:00)
== END 2020-07-24 11:00 | disposition home or self-care (01) ==
LOC: M INFU 07:58
PROVIDERS: ATTEND Internal Medicine Gastroenterology
DX: K51.90 Ulcerative colitis, unspecified, without complications (principal)
CPT/HCPCS: 96365; 96366; Q5103

== ENCOUNTER 2020-08-07 10:36 | Outpatient (CLI) | payer OTHER ==
[2020-08-07] VITALS (7 sets, daily range): BP systolic 114–169; BP diastolic 63–93
[2020-08-07] MEDS ORDERED: NS 1,000 ML IV SCH (11:00)
[2020-08-07] MEDS ORDERED: INFLIXIMAB BIOSIMILAR 500 MG in NS 200 ML IV ONE (11:00)
[2020-08-07] MEDS ORDERED: ACETAMINOPHEN 650MG PO PRIOR TO INFUSION PO ONE (11:00)
== END 2020-08-07 13:55 | disposition home or self-care (01) ==
LOC: M INFU 10:36
PROVIDERS: ATTEND Internal Medicine Gastroenterology
DX: K51.90 Ulcerative colitis, unspecified, without complications (principal)
CPT/HCPCS: 96365; 96366; Q5103

== ENCOUNTER 2020-09-04 11:07 | Outpatient (CLI) | payer OTHER ==
[2020-09-04] VITALS (7 sets, daily range): BP systolic 115–134; BP diastolic 58–79
[~2020-09-04 11:07] MED LIST changes: +ACETAMINOPHEN 650MG PO PRIOR TO INFUSION PO ONE; +INFLIXIMAB BIOSIMILAR 500 MG in NS 200 ML IV ONE; +NS 1,000 ML IV SCH
== END 2020-09-04 14:30 | disposition home or self-care (01) ==
LOC: M INFU 11:07
PROVIDERS: ATTEND Internal Medicine Gastroenterology
DX: K51.90 Ulcerative colitis, unspecified, without complications (principal)
CPT/HCPCS: 96365; 96366; Q5103

== ENCOUNTER 2020-10-30 10:50 | Outpatient (CLI) | payer OTHER ==
[2020-10-30] VITALS (7 sets, daily range): BP systolic 123–139; BP diastolic 70–84
[~2020-10-30 10:50] MED LIST changes: -ACETAMINOPHEN 650MG PO PRIOR TO INFUSION PO ONE; -INFLIXIMAB BIOSIMILAR 500 MG in NS 200 ML IV ONE; -NS 1,000 ML IV SCH
[2020-10-30] MEDS ORDERED: NS 1,000 ML IV SCH (11:00)
[2020-10-30] MEDS ORDERED: ACETAMINOPHEN 650MG PO PRIOR TO INFUSION PO ONE (11:00)
[2020-10-30] MEDS ORDERED: INFLIXIMAB BIOSIMILAR 500 MG in NS 200 ML IV ONE (11:00)
== END 2020-10-30 13:35 | disposition home or self-care (01) ==
LOC: M INFU 10:50
PROVIDERS: ATTEND Internal Medicine Gastroenterology
DX: K51.90 Ulcerative colitis, unspecified, without complications (principal)
CPT/HCPCS: 96413; 96415; Q5103

== ENCOUNTER 2020-12-25 11:02 | Outpatient (CLI) | payer OTHER ==
[~2020-12-25] VITALS: Ht 177.8 cm; Wt 95.5 kg
[~2020-12-25 11:02] MED LIST changes: +ACETAMINOPHEN 650MG PO PRIOR TO INFUSION PO ONE; +INFLIXIMAB BIOSIMILAR 500 MG in NS 200 ML IV ONE; +NS 1,000 ML IV SCH
[2020-12-25 11:05] VITALS: BP 147/86
[2020-12-25 11:22] VITALS: BP 147/86
[2020-12-25 12:00] VITALS: BP 136/77
[2020-12-25 12:42] VITALS: BP 158/68
== END 2020-12-25 13:05 | disposition home or self-care (01) ==
LOC: M INFU 11:02
PROVIDERS: ATTEND Internal Medicine Gastroenterology
DX: K51.90 Ulcerative colitis, unspecified, without complications (principal)
CPT/HCPCS: 96365; Q5103

== ENCOUNTER 2021-02-19 10:54 | Outpatient (CLI) | payer OTHER ==
[~2021-02-19] VITALS: Ht 177.8 cm; Wt 98.0 kg
[~2021-02-19 10:54] MED LIST changes: -ACETAMINOPHEN 650MG PO PRIOR TO INFUSION PO ONE; -INFLIXIMAB BIOSIMILAR 500 MG in NS 200 ML IV ONE; -NS 1,000 ML IV SCH
[2021-02-19 11:00] VITALS: BP 132/74
[2021-02-19] MEDS ORDERED: ACETAMINOPHEN 650MG PO PRIOR TO INFUSION PO ONE (11:00)
[2021-02-19] MEDS ORDERED: NS 1,000 ML IV SCH (11:00)
[2021-02-19] MEDS ORDERED: INFLIXIMAB BIOSIMILAR 500 MG in NS 200 ML IV ONE (11:00)
[2021-02-19 11:50] VITALS: BP 138/74
[2021-02-19 12:25] VITALS: BP 148/88
== END 2021-02-19 12:55 | disposition home or self-care (01) ==
LOC: M INFU 10:54
PROVIDERS: ATTEND Internal Medicine Gastroenterology
DX: K51.90 Ulcerative colitis, unspecified, without complications (principal)
CPT/HCPCS: 96365; Q5103

== ENCOUNTER → 2021-03-31 | Outpatient (CLI) | payer OTHER ==
[2021-03-31 15:05] LABS: BASO # 0.1 10^3/uL (0.0-0.2); BASO % 0.4 % (0.0-1.0); EOS # 0.1 10^3/uL (0.0-0.5); EOS % 1.1 % (0.0-3.0); HEMATOCRIT 44.6 % (42.0-52.0); HEMOGLOBIN 14.9 g/dl (13.5-17.5); LYMPH # 2.4 10^3/uL (1.5-5.0); LYMPH % 21.3 % (24.0-44.0); MEAN CORPUSCULAR HEMOGLOBIN 28.4 pg (27.0-33.0); MEAN CORPUSCULAR HGB CONC 33.4 g/dl (32.0-36.5); MEAN CORPUSCULAR VOLUME 85.1 fl (80.0-96.0); MONO # 0.8 10^3/uL (0.0-0.8); MONO % 7.5 % (2.0-8.0); NEUTROPHILS # 7.6 10^3/uL (1.5-8.5); NEUTROPHILS % 68.7 % (36.0-66.0); PLATELET COUNT, AUTOMATED 390 10^3/uL (150-450); RED BLOOD COUNT 5.24 10^6/uL (4.30-6.10); WHITE BLOOD COUNT 11.1 10^3/uL (4.0-10.0)
[2021-03-31 15:23] LABS: ERYTHROCYTE SEDIMENTATION RATE 22 mm/hr (0-15)
[2021-03-31 15:28] LABS: ALBUMIN 3.6 GM/DL (3.2-5.2); ALT/SGPT 34 U/L (12-78); BILIRUBIN,DIRECT < 0.1 MG/DL (0.0-0.2); BILIRUBIN,TOTAL 0.3 MG/DL (0.2-1.0); BLOOD UREA NITROGEN 18 MG/DL (7-18); C REACTIVE PROTEIN QUANTITATIV 1.79 MG/DL (0.00-0.30); CREATININE FOR GFR 0.92 MG/DL (0.70-1.30); GLOMERULAR FILTRATION RATE > 60.0 (>60); TOTAL PROTEIN 7.5 GM/DL (6.4-8.2)
== END ==
LOC: M LAB 14:32
PROVIDERS: ATTEND Internal Medicine Gastroenterology
DX: K51.90 Ulcerative colitis, unspecified, without complications (principal)

== ENCOUNTER 2021-04-02 11:01 | Outpatient (CLI) | payer OTHER ==
[~2021-04-02] VITALS: Ht 177.8 cm; Wt 98.0 kg
[2021-04-02 11:10] VITALS: BP_SYST 122; BP_SYST 133; BP_DIAS 84
[2021-04-02] MEDS ORDERED: NS 1,000 ML IV SCH (11:30)
[2021-04-02] MEDS ORDERED: ACETAMINOPHEN 650MG PO PRIOR TO INFUSION PO ONE (11:30)
[2021-04-02] MEDS ORDERED: INFLIXIMAB BIOSIMILAR 500 MG in NS 200 ML IV ONE (11:30)
[2021-04-02 11:55] VITALS: BP 126/77
[2021-04-02 12:37] VITALS: BP 140/84
[2021-05-25] MEDS ORDERED: INFL10VL IV (11:06)
== END 2021-04-02 12:50 | disposition home or self-care (01) ==
LOC: M INFU 11:01
PROVIDERS: ATTEND Internal Medicine Gastroenterology
DX: K51.90 Ulcerative colitis, unspecified, without complications (principal)
CPT/HCPCS: 96365; Q5103

== ENCOUNTER 2021-05-14 11:20 | Outpatient (CLI) | payer OTHER ==
[~2021-05-14] VITALS: Ht 177.8 cm; Wt 98.0 kg
[2021-05-14] MEDS ORDERED: ACETAMINOPHEN 650MG PO PRIOR TO INFUSION PO ONE (11:30)
[2021-05-14] MEDS ORDERED: INFLIXIMAB BIOSIMILAR 500 MG in NS 200 ML IV ONE (11:30)
[2021-05-14] MEDS ORDERED: NS 1,000 ML IV SCH (11:30)
[2021-05-14 11:45] VITALS: BP 121/59
[2021-05-14 12:45] VITALS: BP 123/56
[2021-05-14 13:30] VITALS: BP 117/62
[2021-05-14 13:40] VITALS: BP 117/62
== END 2021-05-14 13:50 | disposition home or self-care (01) ==
LOC: M INFU 11:20
PROVIDERS: ATTEND Internal Medicine Gastroenterology
DX: K51.90 Ulcerative colitis, unspecified, without complications (principal)
CPT/HCPCS: 96365; Q5103

== ENCOUNTER 2021-06-25 11:15 | Outpatient (CLI) | payer OTHER ==
[~2021-06-25] VITALS: Ht 177.8 cm; Wt 98.0 kg
[~2021-06-25 11:15] MED LIST changes: +INFL10VL IV
[2021-06-25 11:29] VITALS: BP 135/64
[2021-06-25] MEDS ORDERED: INFLIXIMAB BIOSIMILAR 500 MG in NS 200 ML IV ONE (11:30)
[2021-06-25] MEDS ORDERED: NS 1,000 ML IV SCH (11:30)
[2021-06-25] MEDS ORDERED: ACETAMINOPHEN 650MG PO PRIOR TO INFUSION PO ONE (11:30)
[2021-06-25 12:20] VITALS: BP 118/78
[2021-06-25 13:06] VITALS: BP 128/79
== END 2021-06-25 13:15 | disposition home or self-care (01) ==
LOC: M INFU 11:15
PROVIDERS: ATTEND Internal Medicine Gastroenterology
DX: K51.90 Ulcerative colitis, unspecified, without complications (principal)
CPT/HCPCS: 96413; Q5103

== ENCOUNTER 2021-07-02 09:56 | Day surgery (SDC) | payer OTHER ==
[~2021-07-02] VITALS: Ht 175.3 cm; Wt 91.1 kg
[~2021-07-02 09:56] MED LIST changes: +LIDOCAINE 2% 100MG/5ML SDV (FOR ANES.) As Ordered ONE; +NS 1,000 ML IV ONE; +propofoL 200 MG/20 ML VIAL As Ordered ONE
[2021-07-02 12:29] VITALS: BP 128/62
== END 2021-07-02 12:42 | disposition home or self-care (01) ==
LOC: M OPP 09:56
PROVIDERS: ATTEND Internal Medicine Gastroenterology
DX: K51.00 Ulcerative (chronic) pancolitis without complications (principal); K64.8 Other hemorrhoids; Z79.899 Other long term (current) drug therapy; Z86.19 Personal history of other infectious and parasitic diseases

== ENCOUNTER 2021-08-06 11:48 | Outpatient (CLI) | payer OTHER ==
[~2021-08-06] VITALS: Ht 172.7 cm; Wt 98.0 kg
[~2021-08-06 11:48] MED LIST changes: +ACETAMINOPHEN 650MG PO PRIOR TO INFUSION PO ONE; +INFLIXIMAB BIOSIMILAR 500 MG in NS 200 ML IV ONE; -LIDOCAINE 2% 100MG/5ML SDV (FOR ANES.) As Ordered ONE; -NS 1,000 ML IV ONE; +NS 1,000 ML IV SCH; -propofoL 200 MG/20 ML VIAL As Ordered ONE
[2021-08-06 11:50] VITALS: BP 141/78
[2021-08-06 12:41] VITALS: BP 116/68
[2021-08-06 12:45] VITALS: BP 139/69
[2021-08-06 13:30] VITALS: BP 121/86
== END 2021-08-06 13:40 | disposition home or self-care (01) ==
LOC: M INFU 11:48
PROVIDERS: ATTEND Internal Medicine Gastroenterology
DX: K51.90 Ulcerative colitis, unspecified, without complications (principal)
CPT/HCPCS: 96413; Q5103

== ENCOUNTER 2021-09-17 11:32 | Outpatient (CLI) | payer OTHER ==
[~2021-09-17] VITALS: Ht 175.3 cm; Wt 98.0 kg
[~2021-09-17 11:32] MED LIST changes: -ACETAMINOPHEN 650MG PO PRIOR TO INFUSION PO ONE; -INFLIXIMAB BIOSIMILAR 500 MG in NS 200 ML IV ONE; -NS 1,000 ML IV SCH
[2021-09-17 11:45] VITALS: BP 138/78
[2021-09-17] MEDS ORDERED: ACETAMINOPHEN 650MG PO PRIOR TO INFUSION PO ONE (12:00)
[2021-09-17] MEDS ORDERED: INFLIXIMAB BIOSIMILAR 500 MG in NS 200 ML IV ONE (12:00)
[2021-09-17] MEDS ORDERED: NS 1,000 ML IV SCH (12:00)
[2021-09-17 12:15] VITALS: BP 131/77
[2021-09-17 13:00] VITALS: BP 129/73
== END 2021-09-17 13:10 | disposition home or self-care (01) ==
LOC: M INFU 11:32
PROVIDERS: ATTEND Internal Medicine Gastroenterology
DX: K51.90 Ulcerative colitis, unspecified, without complications (principal)
CPT/HCPCS: 96413; Q5103

== ENCOUNTER → 2021-10-25 | Outpatient (CLI) | payer OTHER ==
[2021-10-25 13:56] LABS: BASO % 0.4 % (0.0-1.0); EOS # 0.1 10^3/uL (0.0-0.5); EOS % 1.2 % (0.0-3.0); HEMATOCRIT 45.6 % (42.0-52.0); HEMOGLOBIN 14.8 g/dl (13.5-17.5); LYMPH # 1.9 10^3/uL (1.5-5.0); LYMPH % 18.2 % (24.0-44.0); MEAN CORPUSCULAR HEMOGLOBIN 28.4 pg (27.0-33.0); MEAN CORPUSCULAR HGB CONC 32.5 g/dl (32.0-36.5); MEAN CORPUSCULAR VOLUME 87.4 fl (80.0-96.0); MONO # 0.9 10^3/uL (0.0-0.8); MONO % 8.9 % (2.0-8.0); NEUTROPHILS # 7.3 10^3/uL (1.5-8.5); NEUTROPHILS % 70.8 % (36.0-66.0); PLATELET COUNT, AUTOMATED 312 10^3/uL (150-450); RED BLOOD COUNT 5.22 10^6/uL (4.30-6.10); WHITE BLOOD COUNT 10.3 10^3/uL (4.0-10.0)
[2021-10-25 14:24] LABS: ERYTHROCYTE SEDIMENTATION RATE 6 mm/hr (0-15)
[2021-10-25 14:25] LABS: BLOOD UREA NITROGEN 15 MG/DL (7-18); C REACTIVE PROTEIN QUANTITATIV < 0.30 MG/DL (0.00-0.30); CREATININE FOR GFR 1.14 MG/DL (0.70-1.30); FERRITIN 51 NG/ML (26-388); GLOMERULAR FILTRATION RATE > 60.0 (>60); IRON (FE) 38 UG/DL (65-175); PERCENT SATURATION 13.4 % (19.7-50.0); TOTAL IRON BINDING CAPACITY 283 UG/DL (250-450)
== END ==
LOC: M LAB 12:59
PROVIDERS: ATTEND Internal Medicine Gastroenterology
DX: K51.00 Ulcerative (chronic) pancolitis without complications (principal)

== ENCOUNTER → 2021-10-26 | Outpatient (REF) | payer OTHER ==
[2021-10-26 14:40] LABS: CLOSTRIDIUM DIFFICILE PCR POSITIVE (NEGATIVE)
[2021-10-31 12:08] LABS: CALPROTECTIN STOOL 172 ug/g (0-120)
== END ==
LOC: M LAB REF 13:17
PROVIDERS: ATTEND Internal Medicine Gastroenterology
DX: K51.00 Ulcerative (chronic) pancolitis without complications (principal)

== ENCOUNTER 2021-10-29 11:25 | Outpatient (CLI) | payer OTHER ==
[~2021-10-29] VITALS: Ht 172.7 cm; Wt 98.0 kg
[2021-10-29 11:25] VITALS: BP 137/70
[2021-10-29] MEDS ORDERED: NS 1,000 ML IV SCH (11:30)
[2021-10-29] MEDS ORDERED: INFLIXIMAB BIOSIMILAR 500 MG in NS 200 ML IV ONE (11:30)
[2021-10-29] MEDS ORDERED: ACETAMINOPHEN 650MG PO PRIOR TO INFUSION PO ONE (11:30)
[2021-10-29 12:05] VITALS: BP 137/70
[2021-10-29 12:20] VITALS: BP 128/61
[2021-10-29 12:59] VITALS: BP 137/76
== END 2021-10-29 13:00 | disposition home or self-care (01) ==
LOC: M INFU 11:25
PROVIDERS: ATTEND Internal Medicine Gastroenterology
DX: K51.90 Ulcerative colitis, unspecified, without complications (principal)
CPT/HCPCS: 96413; Q5103

== ENCOUNTER 2021-12-10 11:20 | Outpatient (CLI) | payer OTHER ==
[~2021-12-10] VITALS: Ht 203.2 cm; Wt 98.0 kg
[2021-12-10 11:20] VITALS: BP 140/73
[2021-12-10] MEDS ORDERED: ACETAMINOPHEN 650MG PO PRIOR TO INFUSION PO ONE (11:30)
[2021-12-10] MEDS ORDERED: INFLIXIMAB BIOSIMILAR 500 MG in NS 200 ML IV ONE (11:30)
[2021-12-10] MEDS ORDERED: NS 1,000 ML IV SCH (11:30)
[2021-12-10 12:15] VITALS: BP 136/63
[2021-12-10 13:05] VITALS: BP 163/82
== END 2021-12-10 13:05 | disposition home or self-care (01) ==
LOC: M INFU 11:20
PROVIDERS: ATTEND Internal Medicine Gastroenterology
DX: K51.90 Ulcerative colitis, unspecified, without complications (principal)
CPT/HCPCS: 96413; Q5103

== ENCOUNTER 2022-01-21 13:35 | Outpatient (CLI) | payer OTHER ==
[2022-01-21 13:45] VITALS: BP 136/71
[2022-01-21] MEDS ORDERED: ACETAMINOPHEN 650MG PO PRIOR TO INFUSION PO ONE (14:00)
[2022-01-21] MEDS ORDERED: INFLIXIMAB BIOSIMILAR 500 MG in NS 200 ML IV ONE (14:00)
[2022-01-21] MEDS ORDERED: NS 1,000 ML IV SCH (14:00)
[2022-01-21 14:20] VITALS: BP 135/64
[2022-01-21 15:10] VITALS: BP 136/68
== END 2022-01-21 15:10 | disposition home or self-care (01) ==
LOC: M INFU 13:35
PROVIDERS: ATTEND Internal Medicine Gastroenterology
DX: K51.90 Ulcerative colitis, unspecified, without complications (principal)
CPT/HCPCS: 36415; 96413; Q5103

== ENCOUNTER → 2022-02-12 | Outpatient (REF) | payer OTHER | LOC: M LAB REF 16:40 | PROVIDERS: ATTEND Internal Medicine Gastroenterology | DX: R19.7 Diarrhea, unspecified (principal); K51.00 Ulcerative (chronic) pancolitis without complications ==

== ENCOUNTER 2022-03-04 10:59 | Outpatient (CLI) | payer OTHER ==
[~2022-03-04] VITALS: Ht 175.3 cm; Wt 91.5 kg
[2022-03-04 11:00] VITALS: BP 128/74
[2022-03-04 11:15] VITALS: BP 132/73
[2022-03-04] MEDS ORDERED: INFLIXIMAB BIOSIMILAR 500 MG in NS 200 ML IV ONE (11:30)
[2022-03-04] MEDS ORDERED: NS 1,000 ML IV SCH (11:30)
[2022-03-04] MEDS ORDERED: ACETAMINOPHEN 650MG PO PRIOR TO INFUSION PO ONE (11:30)
[2022-03-04 12:00] VITALS: BP 128/69
[2022-03-04 12:52] VITALS: BP 122/79
== END 2022-03-04 12:55 | disposition home or self-care (01) ==
LOC: M INFU 10:59
PROVIDERS: ATTEND Internal Medicine Gastroenterology
DX: K51.90 Ulcerative colitis, unspecified, without complications (principal)
CPT/HCPCS: 96413; Q5103

== ENCOUNTER 2022-04-08 12:56 | Emergency (ER) | payer OTHER ==
[~2022-04-08] VITALS: Ht 175.3 cm; Wt 95.5 kg
[2022-04-08 12:58] VITALS: BP 124/75
== END 2022-04-08 18:23 | disposition left against medical advice (07) ==
LOC: M ED 12:56
DX: Z53.21 Procedure and treatment not carried out due to patient leaving prior to being seen by health care provider (principal)

== ENCOUNTER → 2022-04-09 | Outpatient (CLI) | payer OTHER ==
[2022-04-09 14:12] LABS: BASO % 0.3 % (0.0-1.0); EOS # 0.2 10^3/uL (0.0-0.5); EOS % 1.7 % (0.0-3.0); HEMOGLOBIN 12.8 g/dl (13.5-17.5); LYMPH % 19.3 % (24.0-44.0); MEAN CORPUSCULAR HEMOGLOBIN 27.2 pg (27.0-33.0); MEAN CORPUSCULAR VOLUME 85.1 fl (80.0-96.0); MONO # 1.3 10^3/uL (0.0-0.8); MONO % 12.3 % (2.0-8.0); NEUTROPHILS # 6.8 10^3/uL (1.5-8.5); NEUTROPHILS % 65.8 % (36.0-66.0); PLATELET COUNT, AUTOMATED 374 10^3/uL (150-450); WHITE BLOOD COUNT 10.3 10^3/uL (4.0-10.0)
[2022-04-09 14:38] LABS: BLOOD UREA NITROGEN 12 MG/DL (9-23); CALCIUM LEVEL 8.2 MG/DL (8.5-10.1); CARBON DIOXIDE LEVEL 30 MMOL/L (20-31); CHLORIDE LEVEL 102 MMOL/L (98-107); GLOMERULAR FILTRATION RATE > 60.0 (>60); GLUCOSE, FASTING 94 MG/DL (60-100); POTASSIUM SERUM 4.1 MMOL/L (3.5-5.1); SODIUM LEVEL 139 MMOL/L (136-145)
[2022-04-09 14:40] LABS: ERYTHROCYTE SEDIMENTATION RATE 116 mm/hr (0-15)
[2022-04-09 15:07] LABS: CLOSTRIDIUM DIFFICILE PCR POSITIVE (NEGATIVE)
== END ==
LOC: M LAB 13:21
PROVIDERS: ATTEND Internal Medicine Gastroenterology
DX: K51.00 Ulcerative (chronic) pancolitis without complications (principal); K62.5 Hemorrhage of anus and rectum; A04.72 Enterocolitis due to Clostridium difficile, not specified as recurrent

== ENCOUNTER 2022-04-15 11:40 | Outpatient (CLI) | payer OTHER ==
[~2022-04-15] VITALS: Ht 175.3 cm; Wt 98.0 kg
[~2022-04-15 11:40] MED LIST changes: +ACETAMINOPHEN 650MG PO PRIOR TO INFUSION PO ONE; +INFLIXIMAB BIOSIMILAR 500 MG in NS 200 ML IV ONE; +NS 1,000 ML IV SCH
[2022-04-15 12:03] VITALS: BP 141/71
[2022-04-15 13:51] VITALS: BP 119/69
== END 2022-04-15 13:50 | disposition home or self-care (01) ==
LOC: M INFU 11:40
PROVIDERS: ATTEND Internal Medicine Gastroenterology
DX: K51.90 Ulcerative colitis, unspecified, without complications (principal); Z88.5 Allergy status to narcotic agent
CPT/HCPCS: 96413; Q5103

== ENCOUNTER → 2022-05-21 | Outpatient (REF) | payer OTHER ==
[~2022-05-21] MED LIST changes: -ACETAMINOPHEN 650MG PO PRIOR TO INFUSION PO ONE; -INFLIXIMAB BIOSIMILAR 500 MG in NS 200 ML IV ONE; -NS 1,000 ML IV SCH
[2022-05-21 15:31] LABS: CLOSTRIDIUM DIFFICILE PCR POSITIVE (NEGATIVE)
== END ==
LOC: M LAB REF 13:06
PROVIDERS: ATTEND Internal Medicine Gastroenterology
DX: K51.00 Ulcerative (chronic) pancolitis without complications (principal); K62.5 Hemorrhage of anus and rectum; A04.72 Enterocolitis due to Clostridium difficile, not specified as recurrent

== ENCOUNTER 2022-05-27 11:10 | Outpatient (CLI) | payer OTHER ==
[2022-05-27 11:10] VITALS: BP 139/64
[~2022-05-27 11:10] MED LIST changes: +ACETAMINOPHEN 650MG PO PRIOR TO INFUSION PO ONE; +INFLIXIMAB BIOSIMILAR 500 MG in NS 200 ML IV ONE; +NS 1,000 ML IV SCH
[2022-05-27 12:15] VITALS: BP 124/72
[2022-05-27 13:05] VITALS: BP 126/65
== END 2022-05-27 13:10 | disposition home or self-care (01) ==
LOC: M INFU 11:10
PROVIDERS: ATTEND Internal Medicine Gastroenterology
DX: K51.90 Ulcerative colitis, unspecified, without complications (principal); Z88.5 Allergy status to narcotic agent
CPT/HCPCS: 96413; Q5103

== ENCOUNTER → 2022-06-19 | Outpatient (CLI) | payer OTHER ==
[~2022-06-19] MED LIST changes: -ACETAMINOPHEN 650MG PO PRIOR TO INFUSION PO ONE; -INFLIXIMAB BIOSIMILAR 500 MG in NS 200 ML IV ONE; +LORA-243 PO; -NS 1,000 ML IV SCH
== END ==
LOC: M LABSMTC 09:48
PROVIDERS: ATTEND Anesthesiology
DX: Z01.812 Encounter for preprocedural laboratory examination (principal); Z20.822 Contact with and (suspected) exposure to COVID-19

== ENCOUNTER 2022-07-01 11:15 | Outpatient (CLI) | payer OTHER ==
[2022-07-01 10:55] VITALS: BP 127/66
[~2022-07-01 11:15] MED LIST changes: +ACETAMINOPHEN 650MG PO PRIOR TO INFUSION PO ONE; +INFLIXIMAB BIOSIMILAR 400 MG in NS 210 ML IV ONE; +NS 1,000 ML IV SCH
[2022-07-01 11:55] VITALS: BP 132/73
[2022-07-01 12:50] VITALS: BP 127/67
== END 2022-07-01 12:50 | disposition home or self-care (01) ==
LOC: M INFU 11:15
PROVIDERS: ATTEND Internal Medicine Gastroenterology
DX: K51.90 Ulcerative colitis, unspecified, without complications (principal); Z88.5 Allergy status to narcotic agent
CPT/HCPCS: 96413; Q5103

== ENCOUNTER 2022-07-29 10:51 | Outpatient (CLI) | payer OTHER ==
[~2022-07-29] VITALS: Ht 175.3 cm; Wt 84.9 kg
[~2022-07-29 10:51] MED LIST changes: -ACETAMINOPHEN 650MG PO PRIOR TO INFUSION PO ONE; -INFLIXIMAB BIOSIMILAR 400 MG in NS 210 ML IV ONE; -NS 1,000 ML IV SCH
[2022-07-29 11:00] VITALS: BP 121/68
[2022-07-29] MEDS ORDERED: INFLIXIMAB BIOSIMILAR 800 MG in NS 170 ML IV ONE (11:30)
[2022-07-29] MEDS ORDERED: NS 1,000 ML IV SCH (11:30)
[2022-07-29] MEDS ORDERED: ACETAMINOPHEN 650MG PO PRIOR TO INFUSION PO ONE (11:30)
[2022-07-29 12:21] VITALS: BP 117/63
== END 2022-07-29 12:20 | disposition home or self-care (01) ==
LOC: M INFU 10:51
PROVIDERS: ATTEND Internal Medicine Gastroenterology
DX: K51.90 Ulcerative colitis, unspecified, without complications (principal); Z88.5 Allergy status to narcotic agent
CPT/HCPCS: 96413; Q5103

== ENCOUNTER 2022-08-26 11:30 | Outpatient (CLI) | payer OTHER ==
[~2022-08-26] VITALS: Ht 177.8 cm; Wt 83.2 kg
[2022-08-26 11:30] VITALS: BP 134/69
[~2022-08-26 11:30] MED LIST changes: +ACETAMINOPHEN 650MG PO PRIOR TO INFUSION PO ONE; +INFLIXIMAB BIOSIMILAR 800 MG in NS 170 ML IV ONE; +NS 1,000 ML IV SCH
[2022-08-26 11:49] VITALS: BP 134/69
[2022-08-26 12:20] VITALS: BP 113/60
[2022-08-26 13:05] VITALS: BP 141/65
== END 2022-08-26 13:05 | disposition home or self-care (01) ==
LOC: M INFU 11:30
PROVIDERS: ATTEND Internal Medicine Gastroenterology
DX: K51.90 Ulcerative colitis, unspecified, without complications (principal); Z88.5 Allergy status to narcotic agent
CPT/HCPCS: 96413; Q5103